=== PATIENT | female | born 1940 | race Hispanic/Latino ===

== ENCOUNTER 2018-01-27 06:26 | Day surgery (SDC) | payer OTHER ==
[2018-01-26 15:52] LABS: Absolute Lymphocytes (CBC) 2.9 K/uL (0.7-4.9); Absolute Monocytes 1.2 K/uL (0.1-1.3); Absolute Neutrophil 8.3 K/uL (1.8-8.0); Basophils % 0.8 % (0-1.3); Eosinophils % 2.1 % (0-4.4); Hematocrit 44.8 % (36.0-45.0); Lymphocytes % 22.4 % (15.3-44.8); MCH 28.7 pg (27.0-35.0); MCV 90.4 fL (80-100); MPV 9.1 fL (7.6-11.3); Monocytes % 9.5 % (3.3-12.3); RBC Red Blood Cell Count 4.95 M/uL (3.86-4.86)
--- NOTE | 2018-01-26 15:59 | RAD REPORT ---
EXAM DESCRIPTION: RAD - Chest Pa And Lat (2 Views) - 01/26/2018 3:38 pm CLINICAL HISTORY: Preop chest, pending cardiac catheterization, coronary artery obstruction COMPARISON: October 2016 TECHNIQUE: PA and lateral views of the chest were obtained. FINDINGS: The lungs are clear of a peripheral mass, consolidation or acute failure finding. Prominen t pericardial fat pad is seen. Heart size is normal and central vasculature is within normal limits . No pneumothorax or enlarging pleural effusion. Right costophrenic angle blunting is stable. Bones are osteopenic. No acute bone findings seen. No aortic abnormality. IMPRESSION: No acute cardiopulmonary process. Chest is not clearly different from October 2016.
[2018-01-26 16:00] LABS: Protime INR 1.01
[2018-01-26 16:08] LABS: Potassium 4.2 mmol/L (3.5-5.1)
[2018-01-27] MEDS ORDERED: HEPA 1000U/500MLS 1,000 UNIT/500 ML BAG IV ONE (06:45)
[2018-01-27] MEDS ORDERED: LIDOCAINE 1% MPF 30 ML VIAL ONE (06:45)
[2018-01-27] MEDS ORDERED: NA CHLORIDE 0.9% 500 ML ONE (07:03)
[2018-01-27] MEDS ORDERED: MIDAZOLAM HCL 2 MG/2 ML INJ ONE ×2 (07:35→07:48)
[2018-01-27] MEDS ORDERED: FENTANYL CITR 100 MCG/2 ML ONE (07:35)
[2018-01-27] MEDS ORDERED: ATROPINE SULF 1 MG/10 ML SYR IV ONE (07:35)
[2018-01-27] MEDS ORDERED: NA CHLORIDE 0.9% 50 ML ONE (07:36)
[2018-01-27] MEDS ORDERED: CLOPIDOGREL 75 MG TABLET ONE (08:41)
[2018-01-27] MEDS ORDERED: ASPIRIN 325 MG TAB ONE (08:41)
[2018-01-27] MEDS ORDERED: ACETYLCYST 20% 800 MG/4 ML VIAL PO ONE (10:15)
[2018-01-27] MEDS ORDERED: NITROGLYCERIN 0.4 MG/TAB SL PRN (11:00)
[2018-01-27] MEDS ORDERED: NA CHLORIDE 0.9% 1,000 ML IV SCH (11:00)
[2018-01-27] MEDS ORDERED: ZOLPIDEM TARTRATE 5 MG TABLET PO PRN (11:08)
[2018-01-27] MEDS ORDERED: ONDANSETRON 4 MG/2 ML VIAL IV PRN (11:08)
[2018-01-27 11:12] VITALS: BMI 32.9
[2018-01-27 11:32] LABS: Urine Appearance CLEAR; Urine Bilirubin NEGATIVE (NEG); Urine Blood 3+ (NEG); Urine Color OTHER; Urine Glucose NEGATIVE (NEG); Urine Protein 2+ (NEG); Urine Specific Gravity >=1.030 (1.005-1.030); Urine Urobilinogen 0.2 mg/dL (0.2-1.0)
[2018-01-27 11:43] LABS: Urine Bacteria <20 /HPF (<20); Urine Culture Reflex Order REFLEXED; Urine RBC 20-50 /HPF (NONE SEEN)
[2018-01-27] MEDS: MORPHINE 4 MG/ML SYR IV PRN ×2 (11:46→18:46)
[2018-01-27] MEDS ORDERED: ATORVASTATIN 80 MG TAB PO SCH (21:00)
[2018-01-27] MEDS: ACETAMINOPHEN 325 MG TABLET PO PRN (21:43)
--- NOTE | 2018-01-28 04:38 | OP ---
Date of Procedure: 01/27/2018 Surgeon: Jonny Newberry MD Automobile Salesman: Procedure: Left heart catheterization, selective coronary arteriogram, left ventriculogram, angiopla sty and stent of the proximal RCA. Indication: Ms. Yang is a 77-year-old was admitted because of unstable angina. She is a patient of Dr. Surya Horne. Description Of Procedure: She was brought into the medical laboratory specialist today as an outpatient. The patient had 2 mg of Versed for IV sedation along with some fentanyl. She was prepped and draped in the routine sterile fashion. A 6-Japanese catheter sheath was introduced in the right common femoral artery. Ms. Yang had very tortuous iliacs and aorta with severe calcification throughout. The LAD and circum flex were within normal limit with some moderate plaque buildup. She was left dominant. This was do ne using a 6-Japanese JL4 catheter Angus. The RCA was cannulated with a 6-Japanese JL4. This had a 90 % proximal RCA stenosis. LV gram was normal. A 6-Japanese 3DRC guide catheter was used to cannulate R CA for intervention. A [place] wire 0.14 extra support exchange length wire was used to cross the les ion successfully. The lesion was pre-dilated with a 2.5 x 15 Emerge balloon at 11 atmospheres in 2 d ifferent location. Following that, a 2.5 x 16 Synergy stent was placed without any difficulties with 0% residual. Complications: None. Blood Loss: 5 cc. Angiography in the common femoral artery was positive for some plaque buildup. Angio-Seal was used t o close the case. Final Diagnosis: Coronary artery disease status post primary RCA angioplasty followed by stent. Total Conscious Sedation: 1 hour. The patient received Angiomax during the procedure. She received aspirin and 300 mg of Plavix after the procedure. She will be sent home on aspirin, Plavix, beta blockers, and statin. SID/JUDITH Voice ID: [id number] Report ID: [id number]
[2018-01-28 04:39] LABS: Absolute Lymphocytes (CBC) 2.1 K/uL (0.7-4.9); Absolute Monocytes 1.2 K/uL (0.1-1.3); Absolute Neutrophil 5.2 K/uL (1.8-8.0); Basophils % 0.5 % (0-1.3); Eosinophils % 2.7 % (0-4.4); Hematocrit 35.3 % (36.0-45.0); Lymphocytes % 23.7 % (15.3-44.8); MCH 29.6 pg (27.0-35.0); MCV 90.2 fL (80-100); MPV 9.6 fL (7.6-11.3); Monocytes % 13.5 % (3.3-12.3); RBC Red Blood Cell Count 3.91 M/uL (3.86-4.86)
[2018-01-28 04:59] LABS: Potassium 3.9 mmol/L (3.5-5.1)
[2018-01-28] MEDS: ACETAMINOPHEN 325 MG TABLET PO PRN (08:08)
[2018-01-28 08:47] VITALS: BP 157/83; TEMP 98.2
[2018-01-28] MEDS ORDERED: ASPIRIN 81 MG CHEWABLE TABLET PO SCH (09:00)
[2018-01-28] MEDS ORDERED: CLOPIDOGREL 75 MG TABLET PO SCH (09:00)
[2018-01-28] MEDS ORDERED: MORPHINE 4 MG/ML SYR IV PRN (09:00)
[2018-01-28 09:43] VITALS: O2SAT 99
--- NOTE | 2018-01-28 11:46 | EKG ---
Test Date: 2018-01-28 Test Time: 08:36:21 Quick Mixer Operator: NOAH MEASUREMENT RESULTS: Intervals: Rate: 66 CO: 210 QRSD: 94 QT: 420 QTc: 440 [place]: P: 64 CO: 210 QRS: 51 T: 100 INTERPRETIVE STATEMENTS: Sinus rhythm with 1st degree AV block ST & T wave abnormality, consider inferior ischemia Abnormal ECG Compared to ECG 10/07/2016 17:41:23 First degree AV block now present ST (T wave) deviation now present Possible ischemia now present Electronically Signed On 01-28-18 11:44:32 OUTSIDE PLANT CABLE ENGINEER by Dustin Jansen
== END 2018-01-28 11:20 | disposition home or self-care (01) ==
LOC: CCL 06:26 → 4TH 09:51 → UNDOADMOB 09:51 → 4TH 09:55 → CCL 01-28 11:20
DX: I25.110 Atherosclerotic heart disease of native coronary artery with unstable angina pectoris (principal); I65.23 Occlusion and stenosis of bilateral carotid arteries; I10 Essential (primary) hypertension; E78.5 Hyperlipidemia, unspecified; E78.6 Lipoprotein deficiency; J44.9 Chronic obstructive pulmonary disease, unspecified; G90.09 Other idiopathic peripheral autonomic neuropathy; K21.9 Gastro-esophageal reflux disease without esophagitis; E03.9 Hypothyroidism, unspecified; F17.210 Nicotine dependence, cigarettes, uncomplicated; Z88.7 Allergy status to serum and vaccine; Z82.49 Family history of ischemic heart disease and other diseases of the circulatory system
CPT/HCPCS: 36415 ×2; 71046; 80048 ×2; 81001; 85025 ×2; 85610; 85730; 87077; 87086; 87088; 87186; 93005; 93458; C1725; C1760; C1893; C9600; J0583; J2250; J3010

== ENCOUNTER 2018-07-02 13:04 | Inpatient (IN) | payer OTHER ==
--- OUTSIDE RECORDS SUMMARY | 2018-07-02 13:16 | XMS REPORT ---
:1940 [facility] Address [address] [place] [address] Dr. Urban [address] [place] [id number] Care Team Providers Name Role Phone Unavailable Unavailable Unavailable Problems This patient has no known problems. Allergies, Adverse Reactions, Alerts This patient has no known allergies or adverse reactions. Medications This patient has no known medications.
--- OUTSIDE RECORDS SUMMARY | 2018-07-02 13:16 | XMS REPORT ---
:1940 Author Organization [employer] Care Team Providers Name Role Phone Horne Ben Provider Role Unavailable Allergies, Adverse Reactions, Alerts Substance Reaction Event Type N.K.D.A. Info Not Available Non Drug Allergy Problems Problem Type Condition Code Onset Dates Condition Status Problem Gastritis K29.70 Active Problem Atrial fibrillation I48.91 Active Problem Hypothyroidism E03.9 Active Problem Vitamin D deficiency E55.9 Active Problem Hypertension I10 Active Problem Hyperlipidemia E78.5 Active Problem Migraine NOS/not intrcbl G43.009 Active Problem Abdominal wall pain R10.9 Active Problem Nicotine dependence F17.200 Active Problem Atherosclerosis of nen[place] coronary I25.10 Active artery Problem Chronic kidney disease, stage 3 N18.3 Active Problem Seasonal and perennial allergic J30.9 Active rhinitis Problem Lung nodule, solitary R91.1 Active Problem Crohn''s disease of colon without K50.10 Active complication Problem Diverticulosis of colon K57.30 Active Problem Hematochezia K92.1 Active Problem H/O: CVA (cerebrovascular accident) Z86.73 Active Problem Chronic obstructive pulmonary J44.9 Active disease Problem Osteoarthritis M19.90 Active Problem Iron deficiency anemia D50.9 Active Problem Chronic back pain M54.9 Active Problem Depression with anxiety F41.8 Active Assessment Iron deficiency anemia, unspecified D50.9 Active iron deficiency anemia type Assessment Noncompliance with medication Z91.14 Active regimen Assessment Chronic back pain M54.9 Active Assessment Chronic kidney disease, stage 3 N18.3 Active Assessment Atrial fibrillation I48.91 Active Problem Hiatal hernia K44.9 Active Assessment Hypoxia R09.02 Active Problem Memory deficits R41.3 Active Problem Hemorrhoids K64.9 Active Problem Degenerative disc disease, lumbar M51.36 Active Problem Gastroesophageal reflux disease K21.9 Active Problem Iron deficiency anemia, unspecified D50.9 Active iron deficiency anemia type Problem 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 Problem Chronic systolic congestive heart I50.22 Active failure Assessment Hyperlipidemia E78.5 Active Problem Heart murmur R01.1 Active Assessment Atherosclerosis of [place] coronary I25.10 Active artery Problem Congestive heart failure I50.9 Active Assessment Gastroesophageal reflux disease K21.9 Active Problem Chronic kidney disease, unspecified N18.9 Active CKD stage Assessment Dark stools R19.5 Active Problem Hyperkalemia E87.5 Active Assessment Chronic obstructive pulmonary J44.9 Active disease Problem Edema R60.9 Active Assessment Hypothyroidism E03.9 Active Assessment Chronic systolic congestive heart I50.22 Active failure Assessment Depression with anxiety F41.8 Active Assessment Hypertension I10 Active Medications Medication Code Code Instructions Start End Status Dosage System Date Date Valsartan [facility] 05578884578 160 MG Orally Active 1 tablet Once a day Lyrica ND 98369881148 [address] Active 1 capsule Piotr Three times a day Propranolol HCl ND 43971819325 60 MG Orally Active 1 tablet Twice a day Alprazolam ND 99950830291 1 MG Orally Active 1 tablet Once a day PRN ANXIETY Klor-Con 10 [facility] 42347571901 10 MEQ Orally Active 1 tablet Twice a day with food Incruse Ellipta [facility] 50019510644 62.5 MCG/INH Active 1 puff Inhalation Once a day Vitamin B-12 ND 00131378895 1000 MCG Orally Active 1 tablet Once a day Albuterol [facility] 61497317689 (2.5 MG/3ML) Active 3 ml as Sulfate 0.083% needed Inhalation every 4-6 hours PRN cough,wheeze, SOB Amiodarone HCl ND 95619211266 200 MG Orally Active 1 tablet Once a day Nitroglycerin [facility] 08608922523 0.4 MG Active as directed Sublingual Ferrous Sulfate [facility] 26920158935 325 (65 Fe) MG Active 1 tablet Orally Once a day Plavix [facility] 19098194470 75 MG Orally Active 1 tablet Once a day Singulair ND 42266302603 10 MG Orally Active 1 tablet in Once a day the evening Spiriva [facility] 70622839768 18 MCG Active 1 capsule HandiHaler Inhalation Once a day Symbicort [facility] 70797543912 160-4.5 MCG/ACT Active 2 puffs Inhalation Twice a day Nexium ND 16328024667 40 MG Orally Active 1 capsule Once a day Levothyroxine ND 31413171492 125 MCG Orally Active 1 tablet on Sodium Once a day an empty stomach in the morning Atorvastatin [facility] 94337238645 80 MG Active TAKE 1 Calcium TABLET EVERY DAY Gemfibrozil [facility] 14404004291 600 MG Orally Active 1 tablet Twice a day Vitamin D [facility] 47801159784 51285 UNIT Active 1 capsule (Ergocalciferol) Orally once weekly Cymbalta [facility] 91801848806 60 MG Orally Active 1 capsule Once a day Union [facility] 73804159342 7.5-325 MG Active 1 tablet as Orally needed Lipitor [facility] 54153784269 80 MG Orally Active 1 tablet Once a day ProAir HFA [facility] 06138317511 108 (90 Base) Active 2 puffs as MCG/ACT needed Inhalation every 6 hrs Results No Known Results Summary Purpose [employer]ClinicalWorks Submission
[2018-07-02] MEDS ORDERED: NA CHLORIDE 0.9% 500 ML ONE ×3 (14:58→17:15)
--- NOTE | 2018-07-02 15:19 | RAD REPORT ---
EXAM DESCRIPTION: RAD - Chest Single View - 07/02/2018 3:11 pm CLINICAL HISTORY: Abdominal pain COMPARISON: January 2018 TECHNIQUE: AP portable chest image was obtained 1443 hours . FINDINGS: Lungs are normal volume. Interstitial markings are prominent throughout both lung huffman i n a pattern similar to baseline comparison study. No focal consolidation, mass or significant failure finding. Heart and vasculature are normal. No measurable pleural effusion and no pneumothorax. No ac [facility] bony abnormality seen. No acute aortic findings suspected. IMPRESSION: Chronic interstitial lung disease is present similar to comparison. No acute chest finding identified.
[2018-07-02 15:24] LABS: ALT/SGPT 18 U/L (12-78); AST/SGOT 8 U/L (15-37); Albumin 3.5 g/dL (3.4-5.0); Alkaline Phosphatase 95 U/L (45-117); BUN Blood Urea Nitrogen 109 mg/dL (7-18); Bicarbonate 19 mmol/L (21-32); Bilirubin Direct < 0.1 mg/dL (0-0.2); Bilirubin Total 0.5 mg/dL (0.2-1.0); Glucose Level 137 mg/dL (74-106); Lipase 175 U/L (73-393); Magnesium 2.1 mg/dL (1.8-2.4); NT PRO-BNP 6178 pg/mL (<450); Potassium 4.8 mmol/L (3.5-5.1); Protein, Total 6.8 g/dL (6.4-8.2); Sodium Level 136 mmol/L (136-145); Troponin (Emerg Dept Use Only) 0.05 ng/mL (0.0-0.045)
[2018-07-02 15:26] LABS: Absolute Lymphocytes (CBC) 1.5 K/uL (0.7-4.9); Absolute Monocytes 1.3 K/uL (0.1-1.3); Absolute Neutrophil 15.7 K/uL (1.8-8.0); Basophils % 0.2 % (0-1.3); Eosinophils % 0.2 % (0-4.4); Hematocrit 30.1 % (36.0-45.0); Lymphocytes % 7.8 % (15.3-44.8); MPV 9.5 fL (7.6-11.3); Monocytes % 7.2 % (3.3-12.3); RBC Red Blood Cell Count 3.48 M/uL (3.86-4.86)
[2018-07-02 15:37] LABS: Protime INR 0.97
[2018-07-02] MEDS ORDERED: PANTOPRAZOLE 40 MG INJ ONE ×2 (15:40→22:01)
[2018-07-02 16:06] LABS: Anisocytosis 2+; Blood Morphology Comment NOTED (NOT SEEN); Platelet Estimate ADEQ; Toxic Granulation 1+; Urine White Blood Cell Casts OK
[2018-07-02] MEDS ORDERED: ONDANSETRON 4 MG/2 ML VIAL ONE (16:06)
[2018-07-02] MEDS ORDERED: FENTANYL CITR 100 MCG/2 ML ONE (16:06)
[2018-07-02 17:02] LABS: Urine Blood NEGATIVE (NEG); Urine Glucose NEGATIVE (NEG); Urine Protein TRACE (NEG); Urine Specific Gravity 1.015 (1.005-1.030)
--- NOTE | 2018-07-02 17:05 | RAD REPORT ---
EXAM DESCRIPTION: CT - Abdomen Pelvis Wo Contrast - 07/02/2018 4:52 pm CLINICAL HISTORY: Abdominal pain, black stools COMPARISON: October 2016 TECHNIQUE: Axial [address] imaging of the abdomen and pelvis was performed without IV contrast. No IV contrast was given because of allergy, abnormal renal function, patient refusal or physician re quest. Oral contrast was given. All CT scans are performed using dose optimization technique as appropriate and may include automated exposure control or mA/KV adjustment according to patient size. FINDINGS: No suspicious findings in the lung bases. Heart size is upper normal. No pericardial effus ion. The liver, spleen and pancreas show no suspicious findings on non-contrast imaging. Gallbladder and b iliary tree are also without suspicious finding. Gallstones can be occult on CT imaging. No hydronephrosis or suspicious renal mass. No obstructing or nonobstructing calculi. Small low-densi ty area in the upper pole left kidney not clearly different from prior imaging and believed to be inc idental cyst. Mass of the left adrenal gland is not changed from 2017. Attenuation value is -8 Hounsf ield units which would support benign adrenal adenoma etiology. No right adrenal suspicious finding. Isodense renal masses and pyelonephritis cannot be excluded in the absence of IV contrast. Urinary bl adder is fully contracted around a Gamez catheter. No gastric dilatation or wall thickening. Most of the contrast is still in the stomach. Contrast has made it to the distal small bowel. No gastric outlet obstructive findings. No dilated large or small bowel. No appendicitis findings. There is moderate sigmoid diverticulosis and descending colon mild d iverticulosis. No diverticulitis. No colon mass suspected. No free air, free fluid or inflammatory stranding. No mass or bulky lymphadenopathy. Patient has a v gunnar small fat only umbilical hernia. Fat filled inguinal hernia present on the left similar to compar gretta. Disc and bony degenerative changes are present. IMPRESSION: Non-contrast enhanced CT abdomen and pelvis imaging show no acute or emergent finding. Full assessment is limited is the absence of IV contrast. Nonacute findings detailed in the body of the report and not substantially different from prior imagi ng.
--- NOTE | 2018-07-02 17:05 | EKG ---
Test Date: 2018-07-02 Test Time: 14:25:07 Marketing Lead: TRACY MEASUREMENT RESULTS: Intervals: Rate: 60 NM: 194 QRSD: 92 QT: 440 QTc: 440 [place]: P: 64 NM: 194 QRS: 49 T: -65 INTERPRETIVE STATEMENTS: Normal sinus rhythm ST & T wave abnormality, consider inferolateral ischemia Abnormal ECG Compared to ECG 01/28/2018 08:36:21 First degree AV block no longer present ST (T wave) deviation still present Possible ischemia still present Electronically Signed On 07-02-18 17:04:34 CDT by Dustin Jansen
--- NOTE | 2018-07-02 18:19 | P.HP ---
Certification for Inpatient Patient admitted to: Inpatient With expected LOS: >2 Midnights Patient will require the following post-hospital care: None Practitioner: I am a practitioner with admitting privileges, knowledge of patient current condition, hospital course, and medical plan of care. Services: Services provided to patient in accordance with Admission requirements found in Title 42 Section 412.3 of the Code of Federal Regulations Patient History Date of Service: 07/02/18 Primary Care Provider: Dr. Ben Horne; Card-Dr. Newberry; GI-Dr. Mittal Reason for admission: Diarrhea, melena History of Present Illness: 77-year-old female presented to the emergency room with melena and diarrhea. Patient reports diarrhea and melena over the past week. She has been having increasing nausea without vomiting. Mild pain to the lower abdominal quadrant also noted. Patient went to see her GI specialist. At that time she was evaluated and sent to the ER for further evaluation. She denied any fever, chills. In the ER patient evaluated. Patient was initially hypotensive. She was given one L bolus of fluid. Patient had positive guaiac stool. Hemoglobin 9.1. White count 18.0. Sodium 136, potassium 4.8, BUN of 109, creatinine 4.5 with a GFR of 10. Glucose 137. Troponin slightly elevated at 0.05. BMP at 6000. Lipase negative. CT scan shows no acute changes or colitis. Chest x-ray unremarkable. Blood pressure now stable with systolics around 150. Patient is getting 1 unit of blood at this time. Patient admitted for further evaluation and treatment. When I saw the patient she appeared comfortable. She is very pale. Patient with history of CAD and stent late last year, hypertension, CHF, prior tobacco use, COPD, atrial fibrillation, and hypothyroidism. ER reports that she was recently at a [facility] some time ago for a rash and given antibiotics. It is unclear what happened at that time. Allergies pneumococcal vaccine Adverse Reaction (Severe, Verified 10/07/16 17:37) Shortness of breath Home medications list reviewed: Yes Home Medications: Gemfibrozil [Lopid*] 600 mg PO BID 12/19/15 Pregabalin [Lyrica*] 50 mg PO BID 12/19/15 Tiotropium [Spiriva Handihaler*] 18 mcg IH DAILY 12/19/15 Cyanocobalamin [Vitamin B-12*] 1,000 mcg PO DAILY #90 tab 12/20/15 Amiodarone HCl [Cordarone*] 200 mg PO DAILY 01/05/16 Amlodipine [Norvasc*] 5 mg PO BID 01/05/16 Ferrous Sulfate 325 mg PO DAILY 01/05/16 Levothyroxine [Synthroid*] 0.075 mg PO DAILYAC #30 tab 01/09/16 Promethazine Tab [Phenergan*] 25 mg PO Q6HP PRN #30 tab 01/09/16 Albuterol Sulfate [Proair Hfa] 2 puff IH Q4HP PRN 01/26/18 Aspirin 325 mg PO DAILY 01/26/18 Atorvastatin Calcium [Lipitor] 80 mg PO BEDTIME 01/26/18 Budesonide/Formoterol Fumarate [Symbicort 80-4.5 Mcg Inhaler] 2 puff IH BID Duloxetine [Cymbalta Dalayed Release Pellets] 20 mg PO DAILY 01/26/18 Esomeprazole Mag Trihydrate [Nexium] 40 mg PO DAILY 01/26/18 Nitroglycerin [Nitrostat] 0.4 mg SL PRN PRN 01/26/18 Propranolol [Inderal LA] 60 mg PO DAILY 01/26/18 Valsartan [Diovan] 160 mg PO DAILY 01/26/18 Clopidogrel Bisulfate [Plavix] 75 mg PO DAILY #30 tablet 01/28/18 - Past Medical/Surgical History Diabetic: No -: CAD, stent -: COPD -: Hypertension -: Hyperlipidemia -: GERD -: Chronic atrial fibrillation -: Hypothyroidism -: Prior tobacco use -: Obesity -: CHF , suspect diastolic dysfunction -: C-sections x2 -: Hysterectomy -: Appendectomy -: Nose surgery Psychosocial/ Personal History: She is , has 2 children, she does not work. - Family History Father -: Heart disease Notes: COPD, ANEURYSM Mother -: Cancer Notes: COLON CANCER - Social History Smoking Status: Former smoker Alcohol use: No CD- Drugs: No Caffeine use: No Place of Residence: Home Review of Systems General: Weakness, Malaise Eyes: Unremarkable ENT: Unremarkable Respiratory: Unremarkable Cardiovascular: Unremarkable Gastrointestinal: Nausea, Abdominal Pain, Diarrhea, Melena, As per HPI Genitourinary: Unremarkable Musculoskeletal: Unremarkable Neurological: Unremarkable Lymphatics: Unremarkable Physical Examination - Physical Exam General: Alert, In no apparent distress, Oriented x3, Cooperative, Other ( Patient appears pale) HEENT: Atraumatic, Normocephalic, Other (Mucous membranes.) Neck: Supple, No Thyromegaly Respiratory: Clear to auscultation bilaterally, Normal air movement Cardiovascular: Normal pulses, Regular rate/rhythm Gastrointestinal: Normal bowel sounds, Soft and benign, Non-distended, No masses , No rebound, No guarding, Tenderness (Minimal pain to the lower quadrant) Musculoskeletal: No erythema, No tenderness, No warmth Integumentary: No tenderness/swelling, No erythema, No warmth, No cyanosis Neurological: Normal speech, Normal strength at 5/5 x4 extr, Normal tone, Normal affect - Studies Laboratory Data (last 24 hrs) 07/02/18 14:39: PT 11.5, INR 0.97 07/02/18 14:39: WBC 18.6 H, Hgb 9.1 L, Hct 30.1 L, Plt Count 266 07/02/18 14:39: Sodium 136, Potassium 4.8, BUN 109 H, Creatinine 4.50 H, Glucose 137 H, Magnesium 2.1, Total Bilirubin 0.5, AST 8 L, ALT 18, Alkaline Phosphatase 95, Lipase 175 Assessment and Plan - Plan Impression: Diarrhea, melena suspect upper GI bleed complicated with hypotension likely from dehydration Acute renal failure likely related to above Abdominal pain, lower quadrant related to above, possible C diff colitis CAD with prior stent with noted mild elevation in troponin likely stress induced Chronic CHF, suspect diastolic Chronic atrial fibrillation Hypertension GERD COPD History of iron deficiency anemia Hypothyroidism Plan: Diarrhea, melena suspect upper GI bleed complicated with hypotension likely from dehydration: Patient to be admitted to the ICU for further evaluation and treatment. Patient was given a 1 L bolus in the ER. Blood pressure has responded well. Patient currently getting 1 unit of blood. Will need to recheck hemoglobin after that time. Patient to get IV Lasix after unit given due to history of CHF. Maintain hemoglobin above 8.0. Case discussed with GI. Will order GI blood scan to evaluate for possible GI bleed. Patient may require endoscopy for further evaluation. Continue monitor closely. Will start IV Protonix strip. Patient to be started on IV fluids due to dehydration. Patient will be started on Cipro-Flagyl to cover for possible C diff colitis due to recent diarrhea. Blood, urine, and stool cultures obtained. Will continue to assess. Will consult cardiology and nephrology to further evaluate as well. Acute renal failure likely related to above: Continue IV fluids. Likely related to dehydration with recent diarrhea. Will consult Nephrology. Abdominal pain, lower quadrant related to above, possible C diff colitis: Will send stool cultures. CT scan shows no acute findings. Will start Cipro/Flagyl. CAD with prior stent with noted mild elevation in troponin likely stress induced : Will monitor cardiac enzymes. Patient reports history of stent placement late last year. Will order echocardiogram to further assess. Cardiology consulted. Chronic CHF, suspect diastolic: Will check echocardiogram. Will provide IV Lasix after unit of blood given. Will continue monitor closely. Chronic atrial fibrillation: Will need to obtain home medication. If taking chronic anti coagulation therapy will need to hold medication. Prior medical record indicates that she takes amiodarone. This may need to be restarted. Hypertension: Blood pressure improved with IV fluid bolus. Will provide medication as needed GERD: Will start Protonix drip. Continue as above COPD: Will provide COPD medication. Will maintain sats above 90%. History of iron deficiency anemia: Will check iron studies. Continue as above. Hypothyroidism: Will check tsh and free T4. Will need to confirm home medication. Discharge Plan: Home Plan to discharge in: Greater than 2 days - Advance Directives Does patient have a Living Will: No Does patient have a Durable POA for Healthcare: No - Code Status/Comfort Care Code Status Assessed: Yes (Patient is full code.) Time Spent Managing Pts Care (In Minutes): 55
--- NOTE | 2018-07-02 18:57 | EDPHYS ---
Physician Documentation [facility] Name: Klaudia Yang Age: 77 yrs Sex: Female : 1940 Arrival Date: 07/02/2018 Time: 13:06 Bed 25 Private MD: Ozzie [facility] ED Physician Vernon Luna HPI: 07/02 13:30 This 77 yrs old Female presents to ER via Wheelchair with complaints of WHITE cp COUNT. 13:30 The patient presents with abdominal pain in the lower abdomen. Onset: The cp symptoms/episode began/occurred 1 week(s) ago. The symptoms do not radiate. Associated signs and symptoms: Pertinent positives: diarrhea, fever, nausea, shortness of breath, black stools times 3 days, Pertinent negatives: chest pain, constipation, dysuria. 13:30 Severity of pain: in the emergency department the pain is unchanged despite home cp interventions. The patient has been recently seen by a physician: Dr. Mittal earlier today, with similar presenting complaints, and was sent to the [facility] Emergency Department for further evaluation. Historical: - Allergies: 13:24 No Known Allergies; ao - PMHx: 13:24 Anemia; Asthma; COPD; Hyperlipidemia; Hypertension; Hypothyroidism; Crohn's; Kidney ao problems; CHF; - PSHx: 13:24 stents; ao - Immunization history:: Adult Immunizations unknown. - Social history:: Smoking status: Patient/guardian denies using tobacco, Patient/guardian denies using alcohol, street drugs. - Ebola Screening: : Patient negative for fever greater than or equal to 101.5 degrees Fahrenheit, and additional compatible Ebola Virus Disease symptoms Patient denies exposure to infectious person Patient denies travel to an Ebola-affected area in the 21 days before illness onset. ROS: 13:35 Constitutional: Positive for poor PO intake, Negative for body aches, chills, fever. cp 13:35 Eyes: Negative for injury, pain, redness, and discharge. cp 13:35 ENT: Negative for drainage from ear(s), ear pain, sore throat, difficulty swallowing, difficulty handling secretions. 13:35 Cardiovascular: Negative for chest pain, edema, palpitations. 13:35 Respiratory: Positive for shortness of breath, Negative for cough, wheezing. 13:35 Abdomen/GI: Positive for abdominal pain, nausea, diarrhea, black/tarry stool, bowel incontinence, Negative for vomiting, constipation, hematemesis. 13:35 : Negative for urinary symptoms. 13:35 Skin: Negative for rash. 13:35 Neuro: Positive for general weakness, Negative for altered mental status, headache, syncope. 13:35 All other systems are negative. Exam: 13:40 Constitutional: The patient appears in no acute distress, alert, awake, cp non-diaphoretic, non-toxic, well developed, well nourished, uncomfortable. 13:40 Head/Face: Normocephalic, atraumatic. cp 13:40 Eyes: Periorbital structures: appear normal, Pupils: equal, round, and reactive to light and accomodation, Extraocular movements: intact throughout, Conjunctiva: normal, no exudate, no injection, Sclera: no appreciated abnormality, Lids and lashes: appear normal, bilaterally. 13:40 ENT: External ear(s): are unremarkable, Nose: is normal, Mouth: Lips: moist, Oral mucosa: moist, Posterior pharynx: is normal, airway is patent, no erythema, no exudate. 13:40 Neck: ROM/movement: is normal, is supple, without pain, no range of motions limitations, no nuchal rigidity. 13:40 Chest/axilla: Inspection: normal, Palpation: is normal, no crepitus, no tenderness. 13:40 Cardiovascular: Rate: bradycardic, Rhythm: regular, Edema: is not appreciated, JVD: is not appreciated. 13:40 Respiratory: the patient does not display signs of respiratory distress, Respirations: labored breathing, is not present, shallow respirations, that is mild, Breath sounds: decreased breath sounds, that are mild, throughout, stridor, is not appreciated. 13:40 Abdomen/GI: Inspection: distension, that is mild, Bowel sounds: active, all quadrants, Palpation: soft, in all quadrants, moderate abdominal tenderness, in the right lower quadrant and left lower quadrant, rebound tenderness, is not appreciated, voluntary guarding, is elicited in the right lower quadrant and left lower quadrant, Rectal exam: Stool: brown, guaiac positive. 13:40 Back: pain, is absent, ROM is normal. 13:40 Skin: no rash present. 13:40 Neuro: Orientation: to person, place \T\ time. Mentation: is normal, Motor: moves all fours, general weakness w/o focal deficits, Sensation: is normal. 14:38 ECG was reviewed by the Attending Physician. cp Vital Signs: 13:22 BP 140 / 48; Pulse 56; Resp 16; Temp 97.6(O); Pulse Ox 100% on 4 lpm NC; Weight 74.84 ao kg (R); Height 5 ft. 2 in. (157.48 cm) (R); Pain 10/10; 14:10 BP 97 / 45 Supine; Pulse 45; ao 14:12 BP 99 / 52 Sitting; Pulse 57; ao 14:16 BP 86 / 53 Standing; Pulse 59 RA; ao 15:09 BP 72 / 59; Pulse 52; Resp 16; Pulse Ox 100% on 4 lpm NC; ao 15:37 BP 117 / 88; Pulse 56; Resp 18; Pulse Ox 100% on 4 lpm NC; Pain 10/10; mg2 16:36 BP 84 / 53; Pulse 56; Resp 18; Pulse Ox 100% on R/A; mg2 17:49 BP 150 / 51; Pulse 65; Resp 18; Pulse Ox 96% on 4 lpm NC; mg2 18:49 BP 145 / 55; Pulse 65; Resp 18; Temp 98.4; Pulse Ox 96% on 2 lpm NC; mg2 20:02 BP 114 / 72; Pulse 65; Resp 18; Temp 98; Pulse Ox 100% on 2 lpm NC; Pain 8/10; bb 13:22 Body Mass Index 30.18 (74.84 kg, 157.48 cm) ao MDM: 13:25 Patient medically screened. cp 17:15 Data reviewed: vital signs, nurses notes, lab test result(s), EKG, radiologic studies, cp CT scan, plain films. 17:15 Test interpretation: by ED physician or midlevel provider: ECG, plain radiologic cp studies. Response to treatment: the patient's symptoms have mildly improved after treatment, and as a result, I will admit patient. 17:28 Physician consultation: Kerwin Mittal MD was called at 17:28, did not answer and cp unable to leave voicemail. 17:45 Physician consultation: Moe Hi DO was called at 17:49, was contacted at 17:49, cp and will see patient in ED, shortly. 05/02 14:16 Order name: Basic Metabolic Panel cp 07/02 14:16 Order name: CBC with Diff 07/02 14:16 Order name: LFT's cp 07/02 14:16 Order name: Magnesium; Complete Time: 15:25 cp 07/02 14:16 Order name: NT PRO-BNP; Complete Time: 15:25 cp 07/02 14:16 Order name: PT-INR; Complete Time: 17:08 cp 07/02 14:16 Order name: Troponin (emerg Dept Use Only); Complete Time: 15:25 cp 07/02 15:25 Interpretation: Abnormal: TROPED 0.05. cp 07/02 14:16 Order name: Type And Screen 07/02 14:16 Order name: Lipase; Complete Time: 15:25 07/02 14:17 Order name: Basic Metabolic Panel; Complete Time: 15:25 EDAZ 07/02 15:25 Interpretation: Normal except: CO2 19; GLUC 137; BUN 109; CRE 4.50; GFR 10. cp 07/02 14:17 Order name: CBC with Automated Diff; Complete Time: 17:08 EDAZ 07/02 15:39 Interpretation: Normal except: WBC 18.6; RBC 3.48; HGB 9.1; HCT 30.1; MCV 86.6; MCH cp 26.2; MCHC 30.3; RDW 22.6; CHERELLE% 84.6; LYM% 7.8; NEUT A 15.7. 07/02 14:17 Order name: Liver (Hepatic) Function; Complete Time: 15:25 EDAZ 07/02 15:32 Order name: CBC Smear Scan; Complete Time: 17:08 EDAZ 07/02 15:40 Order name: Stool Culture 07/02 13:27 Order name: Orthostatics; Complete Time: 14:15 07/02 14:16 Order name: XRAY Chest (1 view); Complete Time: 15:25 07/02 14:16 Order name: EKG; Complete Time: 14:17 cp 07/02 14:16 Order name: Cardiac monitoring; Complete Time: 15:07 07/02 14:16 Order name: EKG - Nurse/Tech; Complete Time: 15:24 cp 07/02 14:16 Order name: IV Saline Lock; Complete Time: 15:07 cp 07/02 15:09 Order name: CT Abd/Pelvis - Without Cont: give oral contrast; Complete Time: 17:08 cp 07/02 15:40 Order name: CDIFF cp 07/02 16:08 Order name: Packed RBC Leukored -1 EDMS 07/02 16:37 Order name: Urine Dipstick--Ancillary (enter results); Complete Time: 17:08 eb 07/02 17:42 Order name: Blood Culture Adult (2) cp 07/02 14:16 Order name: Labs collected and sent; Complete Time: 15:07 cp 07/02 14:16 Order name: O2 Per Protocol; Complete Time: 15:08 cp 07/02 14:16 Order name: O2 Sat Monitoring; Complete Time: 15:07 cp 07/02 15:28 Order name: Gamez; Complete Time: 15:55 cp EC:38 Rate is 60 beats/min. Rhythm is regular. NM interval is normal. QRS interval is normal. cp QT interval is normal. T waves are Inverted in lead aVL. Interpreted by me. Reviewed by me. Administered Medications: 15:07 Drug: NS 0.9% 500 ml Route: IV; Rate: bolus; Site: left antecubital; ao 18:02 Follow up: Response: No adverse reaction; IV Status: Completed infusion mg2 15:35 Drug: ProTONIX 80 mg Route: IVP; Site: right antecubital; mg2 18:02 Follow up: Response: No adverse reaction; Marked relief of symptoms mg2 16:13 Drug: NS 0.9% 500 ml Route: IV; Rate: bolus; Site: left forearm; mg2 18:02 Follow up: Response: No adverse reaction; Marked relief of symptoms; IV Status: mg2 Completed infusion 16:13 Drug: fentaNYL (PF) 25 mcg Route: IVP; Site: right antecubital; mg2 18:02 Follow up: Response: No adverse reaction; Marked relief of symptoms mg2 16:13 Drug: Zofran 4 mg Route: IVP; Site: right antecubital; mg2 18:02 Follow up: Response: No adverse reaction; Marked relief of symptoms mg2 Point of Care Testing: Guaiac: 15:08 Stool Guaiac: Positive; Stool Hemoccult Control: Pass; ao Disposition: 07/03 07:00 Co-signature as Attending Physician, Vernon Luna MD. rn Disposition: 07/02/18 18:56 Hospitalization ordered by Moe Hi for Inpatient Admission. Preliminary diagnosis are Gastrointestinal hemorrhage, unspecified, Hypotension, Diarrhea, unspecified, Unspecified kidney failure, Bandemia, Anemia in chronic diseases classified elsewhere. - Bed requested for Intensive Care Unit. - Status is Inpatient Admission. bb - Condition is Stable. - Problem is new. - Symptoms have improved. UTI on Admission? No Critical care time excluding procedures: 07/02 20:00 Critical care time: Bedside Care: 25 minutes, Consultation: 5 minutes, Family cp Intervention: 5 minutes. Total time: 35 minutes Signatures: Dispatcher [employer] EDMS Melani Ibarra RN RN bb Vernon Luna MD MD rn Page, Corey, PA PA cp Garcia, Cindy, RN RN cg Ortiz, Alex, RN RN ao Gardose, Michele, RN RN mg2 Corrections: (The following items were deleted from the chart) 18:57 18:56 Hospitalization Ordered by Moe Hi DO for Inpatient Admission. Preliminary cp diagnosis is Gastrointestinal hemorrhage, unspecified. Bed requested for Intensive Care Unit. Status is Inpatient Admission. Condition is Stable. Problem is new. Symptoms have improved. UTI on Admission? No. cp 18:57 18:57 07/02/2018 18:56 Hospitalization Ordered by Moe Hi DO for Inpatient cp Admission. Preliminary diagnosis is Gastrointestinal hemorrhage, unspecified; Hypotension; Diarrhea, unspecified. Bed requested for Intensive Care Unit. Status is Inpatient Admission. Condition is Stable. Problem is new. Symptoms have improved. UTI on Admission? No. 18:58 18:57 07/02/2018 18:56 Hospitalization Ordered by Moe Hi DO for Inpatient cp Admission. Preliminary diagnosis is Gastrointestinal hemorrhage, unspecified; Hypotension; Diarrhea, unspecified; Unspecified kidney failure. Bed requested for Intensive Care Unit. Status is Inpatient Admission. Condition is Stable. Problem is new. Symptoms have improved. UTI on Admission? No. 18:59 18:58 07/02/2018 18:56 Hospitalization Ordered by Moe Hi DO for Inpatient cp Admission. Preliminary diagnosis is Gastrointestinal hemorrhage, unspecified; Hypotension; Diarrhea, unspecified; Unspecified kidney failure; Bandemia. Bed requested for Intensive Care Unit. Status is Inpatient Admission. Condition is Stable. Problem is new. Symptoms have improved. UTI on Admission? No. cp 19:40 18:59 07/02/2018 18:56 Hospitalization Ordered by Moe Hi DO for Inpatient cg Admission. Preliminary diagnosis is Gastrointestinal hemorrhage, unspecified; Hypotension; Diarrhea, unspecified; Unspecified kidney failure; Bandemia; Anemia in chronic diseases classified elsewhere. Bed requested for Intensive Care Unit. Status is Inpatient Admission. Condition is Stable. Problem is new. Symptoms have improved. UTI on Admission? No. cp 20:25 19:40 07/02/2018 18:56 Hospitalization Ordered by Moe Hi DO for Inpatient bb Admission. Preliminary diagnosis is Gastrointestinal hemorrhage, unspecified; Hypotension; Diarrhea, unspecified; Unspecified kidney failure; Bandemia; Anemia in chronic diseases classified elsewhere. Bed requested for Intensive Care Unit. Status is Inpatient Admission. Condition is Stable. Problem is new. Symptoms have improved. UTI on Admission? No. cg 07/03 01:53 07/02 03:30 This 77 yrs old Female presents to ER via Wheelchair with cp complaints of WHITE COUNT. cp
--- NOTE | 2018-07-02 18:57 | ER ---
Nurse's Notes [facility] Name: Klaudia Yang Age: 77 yrs Sex: Female : 1940 Arrival Date: 07/02/2018 Time: 13:06 Bed 25 Private MD: Ben Horne Diagnosis: Gastrointestinal hemorrhage, unspecified;Hypotension;Diarrhea, unspecified;Unspecified kidney failure;Bandemia;Anemia in chronic diseases classified elsewhere Presentation: 07/02 13:20 Presenting complaint: Patient states: Reports of black stools and was told by Dr Worley ao WBC are low. Patient also report abdominal pain sharp and throbbing. Transition of care: patient was not received from another setting of care. Onset of symptoms is unknown. Risk Assessment: Do you want to hurt yourself or someone else? Patient reports no desire to harm self or others. Initial Sepsis Screen: Does the patient meet any 2 criteria? No. Patient's initial sepsis screen is negative. Does the patient have a suspected source of infection? No. Patient's initial sepsis screen is negative. Care prior to arrival: None. 13:20 Method Of Arrival: Wheelchair ao 13:20 Acuity: SUZANNA 3 ao Triage Assessment: 13:25 General: Appears in no apparent distress. uncomfortable, Behavior is calm, cooperative, ao appropriate for age. Pain: Complains of pain in abdomen Pain does not radiate. Pain currently is 10 out of 10 on a pain scale. EENT: No signs and/or symptoms were reported regarding the EENT system. Neuro: Level of Consciousness is awake, alert, obeys commands, Oriented to person, place, time, situation, Appropriate for age Moves all extremities. Full function Speech is normal, Facial symmetry appears normal. Cardiovascular: Capillary refill < 3 seconds Patient's skin is warm and dry. Respiratory: Airway is patent Respiratory effort is even, unlabored, Respiratory pattern is regular, symmetrical. GI: Abdomen is distended, Reports lower abdominal pain, bloody stool. : No signs and/or symptoms were reported regarding the genitourinary system. Derm: No signs and/or symptoms reported regarding the dermatologic system. Skin is intact, Skin is pink, warm \T\ dry. normal, Skin temperature is warm. Musculoskeletal: Circulation, motion, and sensation intact. Range of motion: intact in all extremities. Historical: - Allergies: 13:24 No Known Allergies; ao - PMHx: 13:24 Anemia; Asthma; COPD; Hyperlipidemia; Hypertension; Hypothyroidism; Crohn's; Kidney ao problems; CHF; - PSHx: 13:24 stents; ao - Immunization history:: Adult Immunizations unknown. - Social history:: Smoking status: Patient/guardian denies using tobacco, Patient/guardian denies using alcohol, street drugs. - Ebola Screening: : Patient negative for fever greater than or equal to 101.5 degrees Fahrenheit, and additional compatible Ebola Virus Disease symptoms Patient denies exposure to infectious person Patient denies travel to an Ebola-affected area in the 21 days before illness onset. Screenin:27 Abuse screen: Denies threats or abuse. Denies injuries from another. Nutritional ao screening: No deficits noted. Tuberculosis screening: No symptoms or risk factors identified. Fall Risk None identified. Assessment: 13:32 Reassessment: See triage assessment. ao 17:50 Reassessment: patient signed the consent for blood transfusion. mg2 20:00 Reassessment: Pt is A\T\O x 4, resp unlabored, IV sites intact with blood transfusing to bb left forearm, report was called to Kaye WOODY for ICU bed 4. Vital Signs: 13:22 BP 140 / 48; Pulse 56; Resp 16; Temp 97.6(O); Pulse Ox 100% on 4 lpm NC; Weight 74.84 ao kg (R); Height 5 ft. 2 in. (157.48 cm) (R); Pain 10/10; 14:10 BP 97 / 45 Supine; Pulse 45; ao 14:12 BP 99 / 52 Sitting; Pulse 57; ao 14:16 BP 86 / 53 Standing; Pulse 59 RA; ao 15:09 BP 72 / 59; Pulse 52; Resp 16; Pulse Ox 100% on 4 lpm NC; ao 15:37 BP 117 / 88; Pulse 56; Resp 18; Pulse Ox 100% on 4 lpm NC; Pain 10/10; mg2 16:36 BP 84 / 53; Pulse 56; Resp 18; Pulse Ox 100% on R/A; mg2 17:49 BP 150 / 51; Pulse 65; Resp 18; Pulse Ox 96% on 4 lpm NC; mg2 18:49 BP 145 / 55; Pulse 65; Resp 18; Temp 98.4; Pulse Ox 96% on 2 lpm NC; mg2 20:02 BP 114 / 72; Pulse 65; Resp 18; Temp 98; Pulse Ox 100% on 2 lpm NC; Pain 8/10; bb 13:22 Body Mass Index 30.18 (74.84 kg, 157.48 cm) ao ED Course: 13:06 Patient arrived in ED. ag5 13:07 Ben Horne DO is Private Physician. ag5 13:10 Reed Loredo, RN is Primary Nurse. hj 13:18 Francisco Javier Wyatt PA is PHCP. cp 13:18 Vernon Luna MD is Attending Physician. cp 13:20 Martell Goel, ANNALISE is Primary Nurse. ao 13:22 Triage completed. ao 13:25 Arm band placed on right wrist. Patient placed in an exam room, on a stretcher, on ao oxygen, on pulse oximetry, Patient notified of wait time. 13:27 Patient has correct armband on for positive identification. ao 14:29 EKG done, by chief technical officer. reviewed by Francisco Javier SHEN. at1 15:12 XRAY Chest (1 view) In Process Unspecified. EDMS 16:00 Gamez cath inserted, using sterile technique, 16 Fr., by wood furniture assembler, balloon inflated, to mg2 gravity drainage, urine specimen collected. returned clear yellow urine. Patient tolerated well. by Gayatri wood furniture assembler. 16:14 No provider procedures requiring assistance completed. Inserted saline lock: 22 gauge mg2 in right antecubital area, using aseptic technique. Blood collected. 16:14 Inserted saline lock: 20 gauge in left forearm, using aseptic technique. mg2 16:52 CT Abd/Pelvis - Without Cont: give oral contrast In Process Unspecified. EDMS 18:56 Moe Hi DO is Hospitalizing Provider. cp 20:23 Patient admitted, IV remains in place. mg2 Administered Medications: 15:07 Drug: NS 0.9% 500 ml Route: IV; Rate: bolus; Site: left antecubital; ao 18:02 Follow up: Response: No adverse reaction; IV Status: Completed infusion mg2 15:35 Drug: ProTONIX 80 mg Route: IVP; Site: right antecubital; mg2 18:02 Follow up: Response: No adverse reaction; Marked relief of symptoms mg2 16:13 Drug: NS 0.9% 500 ml Route: IV; Rate: bolus; Site: left forearm; mg2 18:02 Follow up: Response: No adverse reaction; Marked relief of symptoms; IV Status: mg2 Completed infusion 16:13 Drug: fentaNYL (PF) 25 mcg Route: IVP; Site: right antecubital; mg2 18:02 Follow up: Response: No adverse reaction; Marked relief of symptoms mg2 16:13 Drug: Zofran 4 mg Route: IVP; Site: right antecubital; mg2 18:02 Follow up: Response: No adverse reaction; Marked relief of symptoms mg2 Medication: 20:00 Blood products: PRBCs X 1 unit given. mg2 Point of Care Testing: Guaiac: 15:08 Stool Guaiac: Positive; Stool Hemoccult Control: Pass; ao Outcome: 18:56 Decision to Hospitalize by Provider. cp 20:03 Admitted to ICU accompanied by nurse, accompanied by tech, family with patient, via bb stretcher, room 4, with oxygen, on monitor, with chart, Report called to Kaye WOODY 20:03 Condition: stable 20:25 Patient left the ED. bb Signatures: Dispatcher [employer] EDMS Melani Ibarra RN RN bb Meredith Mccoy, advertising production manager EKG Tat1 Reed Loredo RN Francisco Javier Hinton PA PA cp Martell Goel RN Kolby Odonnell RN RN mg2 Ayad Wheatley ag5 Corrections: (The following items were deleted from the chart) 16:36 16:36 BP 84 / 53; Pulse 56bpm; Resp 18bpm; Pulse Ox 95% 4 lpm Nasal Cannula; mg2 mg2 0503 01:14 01:08 Blood products: PRBCs X 1 unit given. mg2 mg2
[2018-07-02] MEDS: ARFORMOTEROL TARTRATE 15 MCG/2 ML VIAL.NEB NEB SCH (21:28)
[2018-07-02] MEDS ORDERED: ONDANSETRON 4 MG/2 ML VIAL IV PRN (21:28)
[2018-07-02] MEDS: PANTOPRAZOLE INJ 80 MG in NA CHLORIDE 0.9% 250 ML IV SCH (21:28)
[2018-07-02] MEDS ORDERED: NA CHLORIDE 0.9% 1,000 ML IV SCH (21:28)
[2018-07-02] MEDS ORDERED: ACETAMINOPHEN 650MG/RECT SUPP RECT PRN (21:28)
[2018-07-02] MEDS ORDERED: FUROSEMIDE 20 MG/ 2ML VIAL IV ONE (21:35)
[2018-07-02] MEDS ORDERED: NA CHLORIDE 0.9% 250 ML ONE (22:01)
[2018-07-02] MEDS: CIPROFLOXACIN 400mg IV 400 MG/200 ML BAG IV SCH (22:19)
[2018-07-02] MEDS: NA CHLORIDE 0.9% 1,000 ML IV SCH (23:00)
[2018-07-03] MEDS: METRONIDAZOLE 500mg IVPB 500 MG/100 ML BAG IV SCH ×3 (01:19→17:45)
[2018-07-03 02:52] LABS: Hematocrit 33.4 % (36.0-45.0)
[2018-07-03 03:06] LABS: CKMB Creatine Kinase MB 4.3 ng/mL (0.3-3.6); Ferritin 204.7 ng/mL (8-388); Thyroid Stimulating Hormone 2.94 uIU/mL (0.360-3.740); Troponin I 0.06 ng/mL (0.0-0.045)
[2018-07-03] MEDS: FENTANYL CITR 100 MCG/2 ML IV PRN ×2 (06:01→12:01)
[2018-07-03] MEDS: PANTOPRAZOLE INJ 80 MG in NA CHLORIDE 0.9% 250 ML IV SCH ×3 (06:22→17:45)
[2018-07-03] MEDS ORDERED: NA CHLORIDE 0.9% 250 ML ONE (06:30)
[2018-07-03] MEDS ORDERED: PANTOPRAZOLE 40 MG INJ ONE (06:30)
--- NOTE | 2018-07-03 08:39 | RAD REPORT ---
EXAM DESCRIPTION: NM - GI Blood Loss Imaging - 07/03/2018 8:09 am CLINICAL HISTORY: Gastrointestinal bleeding COMPARISON: None. TECHNIQUE: The patient was administered 26.4 millicuries technetium labeled red blood cells. Dynamic images of the abdomen and pelvis were obtained for 60 minutes FINDINGS: No abnormal radiotracer activity is seen within the bowel. No abnormality displayed IMPRESSION: No evidence of active gastrointestinal bleeding during the examination
--- NOTE | 2018-07-03 09:27 | RAD REPORT ---
EXAM DESCRIPTION: Dustin Single View07/03/2018 8:42 am CLINICAL HISTORY: Shortness of breath COMPARISON: July 02 FINDINGS: The lungs appear clear of acute infiltrate. The heart is mildly enlarged IMPRESSION: No acute abnormalities displayed
[2018-07-03 10:07] LABS: Absolute Lymphocytes (CBC) 1.1 K/uL (0.7-4.9); Absolute Monocytes 1.4 K/uL (0.1-1.3); Absolute Neutrophil 9.9 K/uL (1.8-8.0); Basophils % 0.4 % (0-1.3); Eosinophils % 0.7 % (0-4.4); Hematocrit 31.3 % (36.0-45.0); Lymphocytes % 8.7 % (15.3-44.8); MPV 9.4 fL (7.6-11.3); Monocytes % 11.5 % (3.3-12.3)
[2018-07-03 10:29] LABS: CKMB Creatine Kinase MB 3.9 ng/mL (0.3-3.6); Magnesium 1.8 mg/dL (1.8-2.4); Potassium 4.3 mmol/L (3.5-5.1); Troponin I 0.04 ng/mL (0.0-0.045)
[2018-07-03] MEDS ORDERED: EPOETIN ALFA 10,000 UNIT/ML VIAL SQ ONE (10:45)
--- NOTE | 2018-07-03 10:49 | P.PN ---
Subjective Date of Service: 07/03/18 Primary Care Provider: Dr. Ben Horne; Card-Dr. Newberry; GI-Dr. Mittal Chief Complaint: Diarrhea, melena Subjective: Improving (Blood pressure stable. Patient received 1 unit of blood with stable hemoglobin.) Physical Examination - Vital Signs Temperature: 97.4 F Blood Pressure: 136/41 Pulse: 67 Respirations: 14 Pulse Ox (%): 100 - Physical Exam General: Alert, In no apparent distress, Oriented x3, Cooperative HEENT: Atraumatic Neck: Supple Respiratory: Clear to auscultation bilaterally, Normal air movement Cardiovascular: Normal pulses, Regular rate/rhythm Gastrointestinal: Normal bowel sounds, Soft and benign, Non-distended, No tenderness, No masses, No rebound, No guarding Musculoskeletal: No tenderness, No warmth Integumentary: No erythema, No warmth, No cyanosis Neurological: Normal speech, Normal strength at 5/5 x4 extr, Normal tone, Normal affect - Studies Laboratory Data (last 24 hrs) 07/02/18 14:39: PT 11.5, INR 0.97 07/02/18 14:39: WBC 18.6 H, Hgb 9.1 L, Hct 30.1 L, Plt Count 266 07/02/18 14:39: Sodium 136, Potassium 4.8, BUN 109 H, Creatinine 4.50 H, Glucose 137 H, Magnesium 2.1, Total Bilirubin 0.5, AST 8 L, ALT 18, Alkaline Phosphatase 95, Lipase 175 Medications List Reviewed: Yes Assessment & Plan Discharge Plan: Home Plan to discharge in: Greater than 2 days Physician Review Additional Text: Impression: Diarrhea, melena, abdominal pain likely C diff colitis with hypotension, dehydration and acute renal failure CAD with prior stent with noted mild elevation in troponin likely stress induced Chronic CHF, suspect diastolic Chronic atrial fibrillation Hypertension GERD COPD Acute on chronic anemia with History of iron deficiency anemia Hypothyroidism Plan: Diarrhea, melena, abdominal pain likely C diff colitis with hypotension, dehydration and acute renal failure: Patient doing well at this time. Blood pressure stable. Hemoglobin stable with 1 unit of blood given along with IV fluids. GI blood scan negative for bleeding. Doubt GI bleed at this time. Case discussed with GI. Will advance diet to clears. Will monitor hemoglobin. No need for intervention at this time. Will need cardiac clearance if EGD is needed during this hospitalization as per GI. Continue to evaluate for C diff colitis. Case discussed with nephrology. Slight renal improvement noted with poor urinary output. Discontinue Arb inhibitor. Patient may require dialysis if her condition continues to decline. Patient likely with underlying chronic renal disease. Continue with IV fluids, antibiotic therapy. Will also continue with IV Protonix drip. Will continue to assess. CAD with prior stent with noted mild elevation in troponin likely stress induced : Will monitor cardiac enzymes. Patient reports history of stent placement late last year. Will hold Plavix at this time. Will order echocardiogram to further assess. Cardiology consulted for further recommendation. Chronic CHF, suspect diastolic: Will check echocardiogram. IV fluids adjusted by a nephrology. Will monitor closely. Chronic atrial fibrillation: Restart amiodarone. Patient not on chronic anti coagulation therapy. Will discuss with cardiology. Hypertension: Blood pressure improved. Will discontinue Arb inhibitor. Restart beta-malcolm. GERD: Continue with Protonix drip. Patient may require EGD if hemoglobin decreases. Case discussed with GI. Continue as above COPD: Continue with COPD medication. Will maintain sats above 90%. Acute on chronic anemia with History of iron deficiency anemia: Patient with iron deficiency anemia. Patient has received 1 unit of blood. Patient will get Epogen today. Will continue to monitor and assess. Hypothyroidism: Restart home medication. Time Spent Managing Pts Care (In Minutes): 55
[2018-07-03 10:59] LABS: Blood Morphology Comment NOT SEEN (NOT SEEN); Platelet Estimate ADEQ
[2018-07-03 11:02] LABS: Ferritin 228.6 ng/mL (8-388); Folic Acid, (Folate) 11.1 ng/mL (3.1-17.5); Uric Acid 15.5 mg/dL (2.6-6.0)
[2018-07-03 11:52] LABS: Rheumatoid Factor NR (NEG)
[2018-07-03] MEDS: DULOXETINE 30 MG CAP PO SCH (12:00)
[2018-07-03] MEDS: AMIODARONE HCL 200 MG TAB PO SCH (12:01)
[2018-07-03] MEDS: LEVOTHYROXINE SOD 0.125 MG TAB PO SCH (12:01)
[2018-07-03 12:34] LABS: Urine Protein/Creatinine Ratio 0.92 ratio (<0.15)
[2018-07-03] MEDS: ARFORMOTEROL TARTRATE 15 MCG/2 ML VIAL.NEB NEB SCH ×2 (13:36→20:15)
[2018-07-03] MEDS ORDERED: LOPERAMIDE HCL 2 MG CAPSULE PO PRN (14:30)
[2018-07-03] MEDS ORDERED: LOPERAMIDE HCL 2 MG CAPSULE PO STA (14:32)
--- NOTE | 2018-07-03 14:39 | CON ---
A 77-year-old woman. Chief Complaint: Weakness. History Of Present Illness: Mrs. Yang came to the emergency room yesterday, she was found to be mildly anemic, hypotensive, and she had evidence of heme-positive stool. According to the emergency room notes, her lowest hemoglobin she has had since being in the hospital was 9.1, today it is 10.6 a fter transfusion. She has had a bleeding scan that did not indicate any particular source of bleedin g. She had been on dual anti-platelet therapy because of a stent. She received a stent in January 2018 and she has been on Plavix. No aspirin is listed, but I believe she probably was on aspirin as well. Outpatient Medications: Have been amiodarone, propranolol, nitroglycerin, esomeprazole, duloxetine, atorvastatin, valsartan, Plavix, levothyroxine, guaifenesin, alprazolam, Lyrica, ranitidine, hydrocod one, iron sulfate, and Brovana. She does not use tobacco now. Past Medical History: She has underlying atrial fib, coronary heart disease, hypertension, dyslipide hoang, and obstructive lung disease. Physical Examination: General: She appears to be stated age of 77, not in any distress. Vital Signs: Blood pressure 136/41, heart rate 67, O2 saturation 100% on room air. Lungs: Clear. Heart: Within normal limits. Abdomen: Soft. Extremities: Normal. Laboratory Data: Troponins meets a maximum level of 0.06, barely above normal. Her electrocardiogra m and echocardiogram do not indicate there is any acute coronary syndrome. Her stent was in the righ t coronary artery in January 2018. Impression: At this point, we are more than almost 6 months out from the stent. We should no longer give anti-platelet therapy. We should work up and see where the GI blood loss is coming from, do ou r best to control it. It was dramatic blood loss. I do not really think this is an acute coronary s yndrome, but we can certainly do a stress test and see if we want to pursue it further by doing a car diac cath. LORENA/JUDITH Voice ID: [id number] Report ID: [id number]
[2018-07-03] MEDS: NA CHLORIDE 0.9% 1,000 ML IV SCH (14:51)
[2018-07-03] MEDS: LACTOBACILLUS/ACIDOPHILUS TAB PO SCH ×2 (14:51→20:17)
[2018-07-03] MEDS: PREGABALIN 75 MG CAP PO SCH ×2 (14:54→20:17)
[2018-07-03] MEDS: ACETAMINOPHEN 500 MG TAB PO PRN (14:58)
--- NOTE | 2018-07-03 15:26 | ECHO ---
HEIGHT: 5 ft 2 in WEIGHT: 165 lb 0 oz DATE OF STUDY: 07/03/[address]: Moe Hi DO 2-DIMENSIONAL: YES M.MODE: YES DOPPLER: YES COLOR FLOW: YES TDS: NO PORTABLE: NO DEFINITY: NO BUBBLE STUDY: NO DIAGNOSIS: HISTORY OF CONGESTIVE HEART FAILURE CARDIAC HISTORY: CATHERIZATION: YES SURGERY: NO PROSTHETIC VALVE: NO PACEMAKER: NO MEASUREMENTS (cm) DIASTOLIC (NORMALS) SYSTOLIC (NORMALS) IVSd 1.4 (0.6-1.2) LA Diam 3.6 (1.9-4.0) LVEF 77% LVIDd 3.6 (3.5-5.7) LVIDs 2.0 (2.0-3.5) %FS 44% LVPWd 1.4 (0.6-1.2) Ao Diam 2.9 (2.0-3.7) 2 DIMENSIONAL ASSESSMENT: RIGHT ATRIUM: NORMAL LEFT ATRIUM: NORMAL RIGHT VENTRICLE: NORMAL LEFT VENTRICLE: LEFT VENTRICULAR HYPERTROPHY TRICUSPID VALVE: NORMAL MITRAL VALVE: MITRAL ANNULAR CALCIFICATION PULMONIC VALVE: NORMAL AORTIC VALVE: NORMAL PERICARDIAL EFFUSION: NONE AORTIC ROOT: NORMAL LEFT VENTRICULAR WALL MOTION: NORMAL. DOPPLER/COLOR FLOW: IMPAIRED LEFT VENTRICULAR RELAXATION. MILD MITRAL AND TRICUSPID REGURGITATION. NORMAL RIGHT VENTRICULAR SYSTOLIC PRESSURE. COMMENTS: NORMAL LEFT VENTRICULAR EJECTION FRACTION. LEFT VENTRICULAR HYPERTROPHY. MITRAL ANNULAR CALCIFICATION. MILD MITRAL AND TRICUSPID REGURGITATION. IMPAIRED LEFT VENTRICULAR RELAXATION. TECHNOLOGIST: BETTIE FARMER
[2018-07-03 17:18] LABS: Hematocrit 30.4 % (36.0-45.0)
[2018-07-03] MEDS: ATORVASTATIN 80 MG TAB PO SCH (20:16)
[2018-07-03] MEDS: PROPRANOLOL HCL 60 MG SA CAP PO SCH (20:17)
--- NOTE | 2018-07-03 21:01 | P.CNS ---
Date of Consult: 07/03/18 Reason for Consult: NOREEN Primary Care Provider: Dr. Ben Horne; Card-Dr. Newberry; GI-Dr. Mittal Chief Complaint: Diarrhea, melena History of Present Illness: a 77 Y/o woman with PMHx of CAD with recent PCI , CKD III, HTN and CHF pt was sent by her Gi physician for leuckocytosis and anemia ] as per daughter , pt was hospitalized frequently in the last 2 months for CHF, infection and skin rash GFR 20-40, daughter unaware if pt received IV contrast noticed to have diarrhea and dark colored stool Cr through 2018 ~1.5, then in apr 2.8 in ER cr 4.5, marina placed UO 270 ml overnight no chest pianm plapitation, vomiting Allergies pneumococcal vaccine Adverse Reaction (Severe, Verified 07/03/18 06:58) Shortness of breath Home Medications: Amiodarone HCl [Cordarone*] 200 mg PO DAILY 01/05/16 Atorvastatin Calcium [Lipitor] 80 mg PO BEDTIME 01/26/18 Duloxetine [Cymbalta Dalayed Release Pellets] 60 mg PO DAILY 01/26/18 Esomeprazole Mag Trihydrate [Nexium] 40 mg PO DAILY 01/26/18 Nitroglycerin [Nitrostat] 0.4 mg SL PRN PRN 01/26/18 Propranolol [Inderal LA] 60 mg PO BID 01/26/18 Valsartan [Diovan] 160 mg PO DAILY 01/26/18 Clopidogrel Bisulfate [Plavix] 75 mg PO DAILY #30 tablet 01/28/18 ALPRAZolam [Alprazolam] 1 mg PO DAILYPRN PRN 07/02/18 Arformoterol Tartrate [Brovana] 1 inh IH BID 07/02/18 Ferrous Sulfate [Ferrous Sulfate*] 325 mg PO TID 07/02/18 Guaifenesin [Mucinex] 600 mg PO DAILY 07/02/18 Hydrocodone Bit/Acetaminophen [Hydrocodon-Acetaminoph 7.5-325] 1 tab PO BID 04/21 Levothyroxine [Synthroid*] 0.125 mg PO DAILY 07/02/18 Pregabalin [Lyrica*] 75 mg PO TID 07/02/18 Ranitidine [Zantac*] 150 mg PO DAILY 07/02/18 - Past Medical/Surgical History Diabetic: No -: CAD, stent -: COPD -: Hypertension -: Hyperlipidemia -: GERD -: Chronic atrial fibrillation -: Hypothyroidism -: Prior tobacco use -: Obesity -: CHF , suspect diastolic dysfunction -: C-sections x2 -: Hysterectomy -: Appendectomy -: Nose surgery Psychosocial/ Personal History: She is , has 2 children, she does not work. - Family History Father Medical History: Heart disease Notes: COPD, ANEURYSM Mother Medical History: Cancer Notes: COLON CANCER - Social History Smoking Status: Former smoker Alcohol use: No CD- Drugs: No Caffeine use: Yes Place of Residence: Home Physical Examination Temp Pulse Resp BP Pulse Ox 97.8 F 65 22 H 154/54 H 100 07/03/18 16:00 07/03/18 20:17 07/03/18 18:00 07/03/18 20:17 07/03/18 17:00 General: Alert, Mild distress HEENT: Atraumatic Neck: Supple, Without JVD or thyroid abnormality Respiratory: Diminished Cardiovascular: No edema Gastrointestinal: Normal bowel sounds Integumentary: No rashes - Problems (1) Acute kidney injury Onset Date: 10/08/16 Current Visit: No Status: Acute Conclusions/Impression: NOREEN Cr in 2017 1.5, in 04/2018 2.8 now 4.5 possibly due to prerenal azotemia UA no bld trace prto, but UPC 0.9 need to R/O light chain disease will send for serology w/u renal us will send for uric acid gentle hydration if ni improvement in RFT then pt might need HD, discussed with family Anemia FLOR will start IV iron once stable Gi on board COPD cont home meds Adrenal mass likely benign W/u as an OP Sepsis? leuckocytosis and bandemia F/U cultures and C.diff
[2018-07-03] MEDS: CIPROFLOXACIN 400mg IV 400 MG/200 ML BAG IV SCH (21:39)
[2018-07-03] MEDS: HYDROCODONE/APAP 7.5/325 MG TAB PO PRN (22:01)
[2018-07-03] MEDS: ALPRAZOLAM 0.25 MG TABLET PO PRN (22:01)
[2018-07-03 22:39] LABS: Urine Appearance CLOUDY; Urine Bilirubin NEGATIVE (NEG); Urine Blood 2+ (NEG); Urine Color YELLOW; Urine Glucose NEGATIVE (NEG); Urine Microscopic Reflex ORDER UMIC; Urine Protein 1+ (NEG); Urine Urobilinogen 0.2 mg/dL (0.2-1.0); Urine pH 5.5 (5.0-7.0)
[2018-07-03 23:01] LABS: Urine Bacteria 20-50 /HPF (<20); Urine Culture Reflex Order REFLEXED; Urine RBC <5 /HPF (NONE SEEN)
[2018-07-04] MEDS: METRONIDAZOLE 500mg IVPB 500 MG/100 ML BAG IV SCH ×3 (00:09→16:49)
[2018-07-04 05:45] LABS: Absolute Monocytes 1.2 K/uL (0.1-1.3); Absolute Neutrophil 9.2 K/uL (1.8-8.0); Basophils % 0.2 % (0-1.3); Eosinophils % 1.6 % (0-4.4); Lymphocytes % 8.9 % (15.3-44.8); MPV 9.2 fL (7.6-11.3); Monocytes % 10.2 % (3.3-12.3); RBC Red Blood Cell Count 3.53 M/uL (3.86-4.86)
[2018-07-04 05:56] LABS: Magnesium 1.8 mg/dL (1.8-2.4); Potassium 4.2 mmol/L (3.5-5.1)
[2018-07-04] MEDS: LEVOTHYROXINE SOD 0.125 MG TAB PO SCH (06:02)
[2018-07-04] MEDS ORDERED: MAGNESIUM SULFATE 1 gm IVPB 1 GM/100 ML BAG IV ONE (07:00)
[2018-07-04] MEDS ORDERED: ARFORMOTEROL TARTRATE 15 MCG/2 ML VIAL.NEB ONE (07:46)
[2018-07-04] MEDS: ARFORMOTEROL TARTRATE 15 MCG/2 ML VIAL.NEB NEB SCH ×2 (07:50→19:50)
[2018-07-04] MEDS: LACTOBACILLUS/ACIDOPHILUS TAB PO SCH ×3 (07:53→20:42)
[2018-07-04] MEDS: PREGABALIN 75 MG CAP PO SCH ×3 (07:53→20:42)
[2018-07-04] MEDS: NA CHLORIDE 0.9% 1,000 ML IV SCH ×2 (08:20→16:49)
[2018-07-04] MEDS: AMIODARONE HCL 200 MG TAB PO SCH (08:26)
[2018-07-04] MEDS: DULOXETINE 30 MG CAP PO SCH (08:26)
[2018-07-04] MEDS: PANTOPRAZOLE INJ 80 MG in NA CHLORIDE 0.9% 250 ML IV SCH ×3 (08:27→20:40)
[2018-07-04 08:51] LABS: Anisocytosis 1+; Blood Morphology Comment NOTED (NOT SEEN); Ovalocytes 1+; Platelet Estimate ADEQ; Urine White Blood Cell Casts OK
[2018-07-04] MEDS: PROPRANOLOL HCL 60 MG SA CAP PO SCH ×2 (09:00→20:43)
[2018-07-04] MEDS: FENTANYL CITR 100 MCG/2 ML IV PRN (10:57)
--- NOTE | 2018-07-04 11:02 | P.PN ---
Subjective Date of Service: 07/04/18 Primary Care Provider: Dr. Ben Horne; Card-Dr. Newberry; GI-Dr. Mittal Chief Complaint: Diarrhea, melena Subjective: Improving Physical Examination - Vital Signs Temperature: 98 F Blood Pressure: 136/50 Pulse: 55 Respirations: 16 Pulse Ox (%): 100 - Physical Exam General: Alert, In no apparent distress, Oriented x3, Cooperative HEENT: Atraumatic Neck: Supple Respiratory: Clear to auscultation bilaterally, Normal air movement Cardiovascular: Normal pulses, Regular rate/rhythm Gastrointestinal: Normal bowel sounds, Soft and benign, Non-distended, No masses , No rebound, No guarding - Studies Microbiology Data (last 24 hrs): 07/02/18 17:35 Stool Clostridium difficile Toxin Assay - Final Medications List Reviewed: Yes Assessment & Plan Discharge Plan: Home Plan to discharge in: 48 Hours Physician Review Additional Text: Impression: Diarrhea, melena, abdominal pain likely C diff colitis with hypotension, dehydration and acute renal failure UTI CAD with prior stent with noted mild elevation in troponin likely stress induced Chronic CHF, suspect diastolic Chronic atrial fibrillation Hypertension GERD COPD Acute on chronic anemia with History of iron deficiency anemia Hypothyroidism Plan: Diarrhea, melena, abdominal pain with hypotension, dehydration and acute renal failure: Patient has improved. Blood pressure remained stable. Continue IV fluids. C diff culture negative. GI plans for EGD today. Await findings. Will advance diet as tolerated after EGD. Renal function has improved with hydration. Will discuss further with GI and nephrology after EGD. Will transfer patient to the floor in ambulate with physical therapy. UTI: Continue antibiotic therapy. Await urine culture results. CAD with prior stent with noted mild elevation in troponin likely stress induced : Cardiology recommends no further need for Plavix. Cardiology to consider cardiac evaluation. Will discuss with cardiology. Await EGD findings. Chronic CHF, suspect diastolic: Patient with diastolic dysfunction. IV fluids continue to be adjusted by a nephrology. Will monitor closely. Chronic atrial fibrillation: Continue amiodarone. Patient not on chronic anti coagulation therapy. Likely no need for future chronic anti coagulation therapy Hypertension: Blood pressure improved. Beta-malcolm therapy restarted. Arb inhibitor discontinued due to renal failure. GERD: Continue with Protonix drip. EGD to be done today. Await further recommendations by GI. COPD: Continue with COPD medication. Will maintain sats above 90%. Acute on chronic anemia with History of iron deficiency anemia: Patient with iron deficiency anemia. Patient has received 1 unit of blood. Patient received Epogen yesterday. Hemoglobin remained stable. Hypothyroidism: Continue medication. Time Spent Managing Pts Care (In Minutes): 55
[2018-07-04] MEDS ORDERED: Ringers Lactate 1,000 ML IV ONE (12:55)
--- NOTE | 2018-07-04 12:57 | PN ---
Ms. Yang is doing better. She is responding to antibiotics. I think all of her troponin release as small as it was can be attributed to that. I do not recommend a further cardiac workup at this t [facility]. LORENA/JUDITH Voice ID: [id number] Report ID: [id number]
[2018-07-04] MEDS ORDERED: PROPOFOL 200 MG/20 ML VIAL IV ONE (13:33)
[2018-07-04] MEDS ORDERED: GLYCOPYRROLATE 0.2 MG/ML SYR ONE (13:34)
[2018-07-04] MEDS ORDERED: LIDOCAINE 1% MPF 2 ML AMPULE ONE (13:34)
--- NOTE | 2018-07-04 13:51 | ENDO RPT ---
[address], [address] EGD PROCEDURE REPORT EXAM DATE: 07/04/2018 PATIENT NAME: Klaudia Sal MR#: [id number] BIRTHDATE: 1940 ATTENDING: Kerwin Mittal Dr STATUS: inpatient BLENDING SUPERVISOR: Lottie Cunha and Azalea Ray RN INDICATIONS: The patient is a 77 yr old Female here for an EGD due to anemia and melenic bleeding PROCEDURE PERFORMED: EGD with biopsy MEDICATIONS: Per Anesthesia. TOPICAL ANESTHETIC: none CONSENT: The patient understands the risks and benefits of the procedure and understands that these risks include, but are not limited to: sedation, allergic reaction, infection, perforation and/or bleeding. Alternative means of evaluation and treatment include, among others: physical exam, x-rays, and/or surgical intervention. The patient elects to proceed with this endoscopic procedure. DESCRIPTION OF PROCEDURE: During intra-op preparation period all mechanical medical equipment was checked for proper function. Hand hygiene and appropriate measures for infection prevention was taken. Procedure, possible complications, and alternatives including but not limited to the possibility of bleeding, perforation, tear, infection, sepsis, need for surgery, need for blood transfusion, and anesthesia related complications were explained to the patient. After the risks, benefits and alternatives of the procedure were thoroughly explained, Informed consent was verified, confirmed and timeout was successfully executed by the treatment team. The patient was placed in the left lateral position. The patient was anesthetized with topical anesthesia. Through the anesthetized oropharyngeal area, the scope was passed without any difficulty. The Pentax EG-[id number] ([id number]) endoscope was introduced through the mouth and advanced to the third portion of the duodenum. Retroflexed views revealed no abnormalities. The gastroscope was then slowly withdrawn and removed. Severe gastritis was found in the body and the antrum of the stomach. Multiple biopsies were obtained and sent to pathology. ADVERSE EVENTS: There were no complications. IMPRESSIONS: Severe gastritis in the body < the antrum of the stomach, s/p biopsies RECOMMENDATIONS: 1. await biopsy results 2. acid suppression therapy REPEAT EXAM: Kerwin Mittal Dr eSigned: Kerwin Mittal Dr 07/04/2018 1:51 PM cc: Moe Hi CPT CODES: ICD9 CODES: PATIENT NAME: Doron Klaudiahan Griffin MR#: [id number]
--- NOTE | 2018-07-04 14:31 | P.CNS ---
Date of Consult: 07/04/18 Reason for Consult: NOREEN/ CKD Requesting Physician: Moe Hi Primary Care Provider: Dr. Ben Horne; Card-Dr. Newberry; GI-Dr. Mittal; Nephro -Dr. Estevez Chief Complaint: Diarrhea, melena History of Present Illness: 77-year-old female presented to the emergency room with melena and diarrhea. Patient reports diarrhea and melena over the past week. She has been having increasing nausea without vomiting. Mild pain to the lower abdominal quadrant also noted. Patient went to see her GI specialist. At that time she was evaluated and sent to the ER for further evaluation. She denied any fever, chills. In the ER patient evaluated. Patient was initially hypotensive. She was given one L bolus of fluid. Patient had positive guaiac stool. Hemoglobin 9.1. White count 18.0. Sodium 136, potassium 4.8, BUN of 109, creatinine 4.5 with a GFR of 10. Glucose 137. Troponin slightly elevated at 0.05. BMP at 6000. Lipase negative. CT scan shows no acute changes or colitis. Chest x-ray unremarkable. Blood pressure now stable with systolics around 150. Patient is getting 1 unit of blood at this time. Patient admitted for further evaluation and treatment. 13:30 This 77 yrs old Female presents to ER via Wheelchair with complaints of WHITE cp COUNT. 13:30 The patient presents with abdominal pain in the lower abdomen. Onset: The cp symptoms/episode began/occurred 1 week(s) ago. The symptoms do not radiate. Associated signs and symptoms: Pertinent positives: diarrhea, fever, nausea, shortness of breath, black stools times 3 days, Pertinent negatives: chest pain, constipation, dysuria. 13:30 Severity of pain: in the emergency department the pain is unchanged despite home cp interventions. The patient has been recently seen by a physician: Dr. Mittal earlier today, with similar presenting complaints, and was sent to the [facility] Emergency Department for further evaluation. Allergies pneumococcal vaccine Adverse Reaction (Severe, Verified 07/03/18 06:58) Shortness of breath Home medications list reviewed: Yes Home Medications: Amiodarone HCl [Cordarone*] 200 mg PO DAILY 01/05/16 Atorvastatin Calcium [Lipitor] 80 mg PO BEDTIME 01/26/18 Duloxetine [Cymbalta Dalayed Release Pellets] 60 mg PO DAILY 01/26/18 Esomeprazole Mag Trihydrate [Nexium] 40 mg PO DAILY 01/26/18 Nitroglycerin [Nitrostat] 0.4 mg SL PRN PRN 01/26/18 Propranolol [Inderal LA] 60 mg PO BID 01/26/18 Valsartan [Diovan] 160 mg PO DAILY 01/26/18 Clopidogrel Bisulfate [Plavix] 75 mg PO DAILY #30 tablet 01/28/18 ALPRAZolam [Alprazolam] 1 mg PO DAILYPRN PRN 07/02/18 Arformoterol Tartrate [Brovana] 1 inh IH BID 07/02/18 Ferrous Sulfate [Ferrous Sulfate*] 325 mg PO TID 07/02/18 Guaifenesin [Mucinex] 600 mg PO DAILY 07/02/18 Hydrocodone Bit/Acetaminophen [Hydrocodon-Acetaminoph 7.5-325] 1 tab PO BID 04/21 Levothyroxine [Synthroid*] 0.125 mg PO DAILY 07/02/18 Pregabalin [Lyrica*] 75 mg PO TID 07/02/18 Ranitidine [Zantac*] 150 mg PO DAILY 07/02/18 - Past Medical/Surgical History Diabetic: No -: CAD, stent -: COPD -: Hypertension -: Hyperlipidemia -: GERD -: Chronic atrial fibrillation -: Hypothyroidism -: Prior tobacco use -: Obesity -: CHF , suspect diastolic dysfunction -: C-sections x2 -: Hysterectomy -: Appendectomy -: Nose surgery Psychosocial/ Personal History: She is , has 2 children, she does not work. - Family History Father Medical History: Heart disease Notes: COPD, ANEURYSM Mother Medical History: Cancer Notes: COLON CANCER - Social History Smoking Status: Former smoker Alcohol use: No CD- Drugs: No Caffeine use: Yes Place of Residence: Home Review of Systems 10-point ROS is otherwise unremarkable General: Weakness, Malaise Gastrointestinal: Diarrhea Neurological: Weakness Physical Examination Temp Pulse Resp BP Pulse Ox 99.0 F 59 16 95/46 L 100 07/04/18 13:10 07/04/18 13:10 07/04/18 13:10 07/04/18 13:10 07/04/18 11:02 General: Alert, In no apparent distress, Oriented x3, Cooperative HEENT: Atraumatic, Mucous membr. moist/pink Neck: Supple Respiratory: Clear to auscultation bilaterally Cardiovascular: No edema, Regular rate/rhythm, No rubs Gastrointestinal: No guarding, Distended, Tenderness Musculoskeletal: No clubbing, No contractures Integumentary: No rashes, No cyanosis Neurological: Normal speech Blood work reviewed in the chart. BUN 69; Cr 2.72 Imagings Data: EXAM DESCRIPTION: US - Renal Ultrasound-Complete - 07/04/2018 8:35 pm CLINICAL HISTORY: Acute renal insufficiency COMPARISON: None. FINDINGS: The right kidney measures 10 cm with an increased echotexture. A 1.5 centimeter cyst The left kidney measures 11 cm with an increased echotexture. 1.2 centimeter cyst Hydronephrosis is not seen. Evaluation of bladder is limited as it is decompressed IMPRESSION: Increased renal echotexture consistent with parenchymal disease Small bilateral renal cysts EXAM DESCRIPTION: CT - Abdomen Pelvis Wo Contrast - 07/02/2018 4:52 pm CLINICAL HISTORY: Abdominal pain, black stools COMPARISON: October 2016 TECHNIQUE: Axial [address] imaging of the abdomen and pelvis was performed without IV contrast. No IV contrast was given because of allergy, abnormal renal function, patient refusal or physician request. Oral contrast was given. All CT scans are performed using dose optimization technique as appropriate and may include automated exposure control or mA/KV adjustment according to patient size. FINDINGS: No suspicious findings in the lung bases. Heart size is upper normal. No pericardial effusion. The liver, spleen and pancreas show no suspicious findings on non-contrast imaging. Gallbladder and biliary tree are also without suspicious finding. Gallstones can be occult on CT imaging. No hydronephrosis or suspicious renal mass. No obstructing or nonobstructing calculi. Small low-density area in the upper pole left kidney not clearly different from prior imaging and believed to be incidental cyst. Mass of the left adrenal gland is not changed from 2017. Attenuation value is -8 Hounsfield units which would support benign adrenal adenoma etiology. No right adrenal suspicious finding. Isodense renal masses and pyelonephritis cannot be excluded in the absence of IV contrast. Urinary bladder is fully contracted around a Gamez catheter. No gastric dilatation or wall thickening. Most of the contrast is still in the stomach. Contrast has made it to the distal small bowel. No gastric outlet obstructive findings. No dilated large or small bowel. No appendicitis findings. There is moderate sigmoid diverticulosis and descending colon mild diverticulosis. No diverticulitis. No colon mass suspected. No free air, free fluid or inflammatory stranding. No mass or bulky lymphadenopathy. Patient has a very small fat only umbilical hernia. Fat filled inguinal hernia present on the left similar to comparison. Disc and bony degenerative changes are present. IMPRESSION: Non-contrast enhanced CT abdomen and pelvis imaging show no acute or emergent finding. Conclusions/Impression: A/ NOREEN likely due to hypovolemia in the setting of GI symptoms. Acidosis. CKD III with proteinuria. HTN with CKD/ CHF. Diastolic CHF, chronic. Anemia in chronic illness. GI Bleed/ Severe Gastritis. Iron deficiency. Hypocalcemia. Acute Cystitis. P/ Continue current POC and Medications. Change IVF to 1/2NS. Will consider oral bicarb therapy. Follow up with endoscopy report. May benefit from IV iron administration. Agree with current abx; follow up urine culture. No NSAIDs. AM labs. Daily weight. Thank you kindly for the consultation.
--- NOTE | 2018-07-04 16:18 | PN ---
Date of Progress Note: 07/04/2018 Chief Complaint: Acute kidney injury. History Of Present Illness: Acute kidney injury moderately severe, nonoliguric , associated with severe prerenal azotemia, acute tubular necrosis. The patient has underlying chronic kidney disease stage 3, hypertension and congestive heart failure. 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 The patient is admitted to ICU. The patient has frequent hospitalization over last 2 months for congestive heart failure and a skin infection with rash. The patient has chronic kidney disease stage 3, GFR was ranging in past from 20- 40. The patient noted to have diarrhea and dark bowel movements. Creatinine level at baseline back in 2017 was 1.5 and then this year in April was up to 2.8. In the emergency room, blood work was obtained and showed creatinine 4.5. Gamez catheter was placed and the patient has oliguric urine output. The patient was found to have oliguric and acute kidney injury secondary to severe prerenal azotemia. Renal hypoperfusion due to acute bleeding. The patient was started on IV fluids. Renal function has improved somewhat over last 24 hours. Review of Systems: The patient denies new complaints. Physical Examination: Lungs: Few crackles at bases. Heart: S1 and S2. ABDOMEN: Soft and benign. Extremities: No edema. Laboratory Data: Blood work showed sodium 144, potassium 4.2, chloride 116, CO2 19, BUN 69, creatinine 2.79, calcium 8.2, magnesium 1.8, uric acid 13.3 improving from 15.5. Impression And Plan: 1. Acute kidney injury, severe, nonoliguric. Currently urine output is improving, over the last 24 hours urine output improved from 400-1500 range. Continue IV fluids. Monitor electrolytes closely and monitor for any evidence of sepsis and rule out clostridium difficile colitis. 2. Congestive heart failure. The patient may require diuretic and dialysis currently is on hold in view of improvement with renal function. Electrolytes are stable. 3. Metabolic acidosis. Continue to monitor with an adjustment of IV fluid, bicarb is dropping below 16. Currently, bicarb is 19. 4. The patient has history of congestive heart failure. Recommend to hold KATI inhibitor due to acute kidney injury and use diuretics sparingly as needed. I spent total 36 min including 25 min to coordinate care plan. IGOR/JUDITH Voice ID: [id number] Report ID: [id number] MTDD
[2018-07-04] MEDS: CIPROFLOXACIN 400mg IV 400 MG/200 ML BAG IV SCH (20:42)
[2018-07-04] MEDS: ATORVASTATIN 80 MG TAB PO SCH (20:42)
--- NOTE | 2018-07-04 21:02 | RAD REPORT ---
EXAM DESCRIPTION: US - Renal Ultrasound-Complete - 07/04/2018 8:35 pm CLINICAL HISTORY: Acute renal insufficiency COMPARISON: None. FINDINGS: The right kidney measures 10 cm with an increased echotexture. A 1.5 centimeter cyst The left kidney measures 11 cm with an increased echotexture. 1.2 centimeter cyst Hydronephrosis is not seen. Evaluation of bladder is limited as it is decompressed IMPRESSION: Increased renal echotexture consistent with parenchymal disease Small bilateral renal cysts
[2018-07-04] MEDS: ALPRAZOLAM 0.25 MG TABLET PO PRN (22:31)
[2018-07-05] MEDS: PANTOPRAZOLE INJ 80 MG in NA CHLORIDE 0.9% 250 ML IV SCH ×2
[2018-07-05] MEDS: METRONIDAZOLE 500mg IVPB 500 MG/100 ML BAG IV SCH ×3 (01:08→17:19)
[2018-07-05 05:50] LABS: Absolute Lymphocytes (CBC) 0.9 K/uL (0.7-4.9); Absolute Neutrophil 8.6 K/uL (1.8-8.0); Basophils % 0.3 % (0-1.3); Eosinophils % 1.7 % (0-4.4); Hematocrit 28.4 % (36.0-45.0); Lymphocytes % 8.5 % (15.3-44.8); MPV 9.2 fL (7.6-11.3); Monocytes % 8.9 % (3.3-12.3); RBC Red Blood Cell Count 3.28 M/uL (3.86-4.86)
[2018-07-05] MEDS: HYDROCODONE/APAP 7.5/325 MG TAB PO PRN ×2 (06:02→21:40)
[2018-07-05] MEDS: LEVOTHYROXINE SOD 0.125 MG TAB PO SCH (06:03)
[2018-07-05 06:26] LABS: Magnesium 1.8 mg/dL (1.8-2.4); Potassium 4.1 mmol/L (3.5-5.1)
[2018-07-05] MEDS ORDERED: MAGNESIUM SULFATE 1 gm IVPB 1 GM/100 ML BAG IV ONE ×2 (07:26→09:00)
[2018-07-05] MEDS: ARFORMOTEROL TARTRATE 15 MCG/2 ML VIAL.NEB NEB SCH ×2 (08:30→20:00)
--- NOTE | 2018-07-05 08:38 | P.PN ---
Subjective Date of Service: 07/05/18 Primary Care Provider: Dr. Ben Horne; Card-Dr. Newberry; GI-Dr. Mittal; Nephro -Dr. Estevez Chief Complaint: Diarrhea, melena Subjective: Improving (No more diarrhea noted) Physical Examination - Vital Signs Temperature: 97.6 F Blood Pressure: 155/77 Pulse: 62 Respirations: 14 Pulse Ox (%): 100 - Physical Exam General: Alert, In no apparent distress, Oriented x3, Cooperative HEENT: Atraumatic Neck: Supple Respiratory: Clear to auscultation bilaterally, Normal air movement Cardiovascular: Normal pulses, Regular rate/rhythm Gastrointestinal: Normal bowel sounds, Soft and benign, Non-distended, No tenderness, No masses, No rebound, No guarding Musculoskeletal: No tenderness, No warmth Integumentary: No warmth, No cyanosis Neurological: Normal speech, Normal strength at 5/5 x4 extr, Normal tone, Normal affect - Studies Medications List Reviewed: Yes Assessment & Plan Discharge Plan: Home Plan to discharge in: 24 Hours (to 48 hours) Physician Review Additional Text: Impression: Diarrhea, melena, abdominal pain likely C diff colitis with hypotension, dehydration and acute on chronic renal failure, stage III complicated with severe gastritis UTI CAD with prior stent with noted mild elevation in troponin likely stress induced Severe gastritis Chronic CHF, suspect diastolic Chronic atrial fibrillation Hypertension GERD COPD Acute on chronic anemia with History of iron deficiency anemia Hypothyroidism Plan: Diarrhea, melena, abdominal pain with hypotension, dehydration and acute on chronic renal failure, stage III complicated with severe gastritis: Patient has significantly improved. Blood pressure now stable. Continue IV fluids. Nephrology has adjusted medication. C diff negative. EGD yesterday showed severe gastritis. Will transition from Protonix drip to oral medication. Encourage ambulation. Will have physical therapy assess ambulation. Patient desires to go home at discharge. Patient with UTI. Continue antibiotic therapy. Await urine culture results. Likely home as early as tomorrow if significantly improved. Other consideration would be skilled placement. Will continue to assess. Will discuss with GI and nephrology. UTI: Urine culture positive for Gram negative rods. Continue antibiotic therapy. Await final urine culture results. CAD with prior stent with noted mild elevation in troponin likely stress induced : Cardiology recommends no further need for Plavix therefore this has been discontinued. Cardiology to consider cardiac evaluation. Workup likely can occur as an outpatient. Severe gastritis: Will transition from IV Protonix to oral medication. Continue GI soft diet. Recommend no further nonsteroidal anti-inflammatories. Chronic CHF, suspect diastolic: Patient with diastolic dysfunction. IV fluids continue to be adjusted by a nephrology. Will monitor closely. Overall stable. Chronic atrial fibrillation: Continue amiodarone. Will continue not off chronic anti coagulation therapy due to history of GI bleeds. Patient in normal sinus rhythm. Hypertension: Blood pressure improved. Patient on beta-malcolm therapy. Arb inhibitor has been discontinued. Continue to monitor and adjust appropriately. COPD: Continue with COPD medication. Will maintain sats above 90%. Acute on chronic anemia with History of iron deficiency anemia: Patient with iron deficiency anemia. Patient has received 1 unit of blood during her stay. Continue with iron supplementation Hypothyroidism: Continue medication. Time Spent Managing Pts Care (In Minutes): 55
[2018-07-05] MEDS: DULOXETINE 30 MG CAP PO SCH (08:44)
[2018-07-05] MEDS: LACTOBACILLUS/ACIDOPHILUS TAB PO SCH ×3 (08:44→21:35)
[2018-07-05] MEDS: AMIODARONE HCL 200 MG TAB PO SCH (08:44)
[2018-07-05] MEDS: PROPRANOLOL HCL 60 MG SA CAP PO SCH ×2 (08:45→21:35)
[2018-07-05] MEDS: NACHLORIDE 0.45% 1,000 ML IV SCH (08:55)
[2018-07-05] MEDS: PREGABALIN 75 MG CAP PO SCH ×3 (08:56→21:34)
[2018-07-05] MEDS: PANTOPRAZOLE 40MG TABLET PO SCH (10:39)
[2018-07-05] MEDS: HYDRALAZINE HCL 20 MG/ML VIAL IV PRN ×2 (13:00→21:41)
[2018-07-05] MEDS: ATORVASTATIN 80 MG TAB PO SCH (21:35)
[2018-07-05] MEDS: CIPROFLOXACIN 400mg IV 400 MG/200 ML BAG IV SCH (21:36)
[2018-07-06] MEDS: NACHLORIDE 0.45% 1,000 ML IV SCH ×3 (02:09→17:53)
[2018-07-06] MEDS: METRONIDAZOLE 500mg IVPB 500 MG/100 ML BAG IV SCH (02:16)
[2018-07-06 04:44] LABS: Absolute Lymphocytes (CBC) 1.2 K/uL (0.7-4.9); Absolute Monocytes 1.3 K/uL (0.1-1.3); Absolute Neutrophil 7.5 K/uL (1.8-8.0); Basophils % 0.2 % (0-1.3); Eosinophils % 1.8 % (0-4.4); Hematocrit 30.2 % (36.0-45.0); Lymphocytes % 11.9 % (15.3-44.8); MPV 9.3 fL (7.6-11.3); Monocytes % 12.6 % (3.3-12.3); RBC Red Blood Cell Count 3.46 M/uL (3.86-4.86)
[2018-07-06 04:58] LABS: Magnesium 1.8 mg/dL (1.8-2.4); Potassium 4.1 mmol/L (3.5-5.1)
[2018-07-06 05:22] LABS: HBsAG Nonreactive (Nonreactive)
[2018-07-06] MEDS: LEVOTHYROXINE SOD 0.125 MG TAB PO SCH (06:19)
[2018-07-06 06:42] LABS: Platelet Estimate ADEQ
[2018-07-06 06:43] LABS: Blood Morphology Comment NOT SEEN (NOT SEEN)
[2018-07-06 06:53] VITALS: BMI 31.3
[2018-07-06] MEDS: ACETAMINOPHEN 500 MG TAB PO PRN (07:30)
[2018-07-06] MEDS: ARFORMOTEROL TARTRATE 15 MCG/2 ML VIAL.NEB NEB SCH ×2 (08:15→20:00)
[2018-07-06] MEDS: PROPRANOLOL HCL 60 MG SA CAP PO SCH ×2 (09:00→21:00)
[2018-07-06] MEDS ORDERED: Meropenem 1000 MG/VIAL IV SCH (09:00)
[2018-07-06] MEDS ORDERED: MAGNESIUM SULFATE 1 gm IVPB 1 GM/100 ML BAG IV ONE (09:00)
[2018-07-06] MEDS: PREGABALIN 75 MG CAP PO SCH ×3 (09:13→21:20)
[2018-07-06] MEDS: DULOXETINE 30 MG CAP PO SCH (09:13)
[2018-07-06] MEDS: LACTOBACILLUS/ACIDOPHILUS TAB PO SCH ×3 (09:13→21:20)
[2018-07-06] MEDS: PANTOPRAZOLE 40MG TABLET PO SCH (09:14)
[2018-07-06] MEDS: AMIODARONE HCL 200 MG TAB PO SCH (09:14)
[2018-07-06] MEDS: Meropenem 1,000 MG in NA CHLORIDE 0.9% 100 ML IV SCH ×2 (09:15→21:20)
--- NOTE | 2018-07-06 13:25 | P.PN ---
Subjective Date of Service: 07/06/18 Primary Care Provider: Dr. Ben Horne; Card-Dr. Newberry; GI-Dr. Mittal; Nephro -Dr. Estevez Chief Complaint: Diarrhea, melena Subjective: Improving (She has not seen any melena or other GI bleeding. Sepsis has improved with WBC now normal at 10.3 and being treated for resistant organism / urosepsis. She feels better overall, and out of ICU to floor yesterday.) Review of Systems General: Weakness (Improved.) Physical Examination - Vital Signs Temperature: 97.5 F Blood Pressure: 126/58 Pulse: 52 Respirations: 18 Pulse Ox (%): 100 - Physical Exam General: Alert, In no apparent distress, Oriented x3, Cooperative HEENT: Atraumatic, Normocephalic, PERRLA, EOMI Neck: Supple Respiratory: Normal air movement Cardiovascular: Normal pulses Gastrointestinal: Soft and benign (obese), No tenderness, No rebound, No guarding Neurological: Normal speech, Normal strength at 5/5 x4 extr - Studies Medications List Reviewed: Yes Assessment And Plan - Current Problems (Diagnosis) (1) Melena Current Visit: Yes Status: Acute Comment: Resolved on PPI with severe gastritis. (2) Gastritis with bleeding Current Visit: Yes Status: Acute (3) Sepsis Current Visit: Yes Status: Acute Comment: Improved with normal WBC at 10.3 today, down from 23K as outpatient. (4) UTI (urinary tract infection) Onset Date: 01/08/16 Current Visit: No Status: Acute Qualifiers: Urinary tract infection type: acute cystitis Hematuria presence: without hematuria Qualified Code(s): N30.00 - Acute cystitis without hematuria (5) Anemia Onset Date: 01/08/16 Current Visit: No Status: Chronic Qualifiers: Anemia type: B12 deficiency Vitamin B12 deficiency anemia type: unspecified B12 deficiency Qualified Code(s): D51.9 - Vitamin B12 deficiency anemia, unspecified - Plan REC: 1) await gastric biopsies 2) continue PPI therapy for 3 months 3) monitor labs 4) continue antibiotics 5) GI clinic f/u in 1-2 weeks Physician Review Additional Text: Impression: Diarrhea, melena, abdominal pain likely C diff colitis with hypotension, dehydration and acute on chronic renal failure, stage III complicated with severe gastritis UTI CAD with prior stent with noted mild elevation in troponin likely stress induced Severe gastritis Chronic CHF, suspect diastolic Chronic atrial fibrillation Hypertension GERD COPD Acute on chronic anemia with History of iron deficiency anemia Hypothyroidism Plan: Diarrhea, melena, abdominal pain with hypotension, dehydration and acute on chronic renal failure, stage III complicated with severe gastritis: Patient has significantly improved. Blood pressure now stable. Continue IV fluids. Nephrology has adjusted medication. C diff negative. EGD yesterday showed severe gastritis. Will transition from Protonix drip to oral medication. Encourage ambulation. Will have physical therapy assess ambulation. Patient desires to go home at discharge. Patient with UTI. Continue antibiotic therapy. Await urine culture results. Likely home as early as tomorrow if significantly improved. Other consideration would be skilled placement. Will continue to assess. Will discuss with GI and nephrology. UTI: Urine culture positive for Gram negative rods. Continue antibiotic therapy. Await final urine culture results. CAD with prior stent with noted mild elevation in troponin likely stress induced : Cardiology recommends no further need for Plavix therefore this has been discontinued. Cardiology to consider cardiac evaluation. Workup likely can occur as an outpatient. Severe gastritis: Will transition from IV Protonix to oral medication. Continue GI soft diet. Recommend no further nonsteroidal anti-inflammatories. Chronic CHF, suspect diastolic: Patient with diastolic dysfunction. IV fluids continue to be adjusted by a nephrology. Will monitor closely. Overall stable. Chronic atrial fibrillation: Continue amiodarone. Will continue not off chronic anti coagulation therapy due to history of GI bleeds. Patient in normal sinus rhythm. Hypertension: Blood pressure improved. Patient on beta-malcolm therapy. Arb inhibitor has been discontinued. Continue to monitor and adjust appropriately. COPD: Continue with COPD medication. Will maintain sats above 90%. Acute on chronic anemia with History of iron deficiency anemia: Patient with iron deficiency anemia. Patient has received 1 unit of blood during her stay. Continue with iron supplementation Hypothyroidism: Continue medication.
--- NOTE | 2018-07-06 14:34 | P.PN ---
Subjective Date of Service: 07/06/18 Primary Care Provider: Dr. Ben Horne; Card-Dr. Newberry; GI-Dr. Mittal; Nephro -Dr. Estevez Chief Complaint: Diarrhea, melena Subjective: Doing well Physical Examination - Vital Signs Temperature: 97.5 F Blood Pressure: 126/58 Pulse: 52 Respirations: 18 Pulse Ox (%): 100 - Physical Exam General: Alert, In no apparent distress, Oriented x3, Cooperative HEENT: Atraumatic Neck: Supple Respiratory: Clear to auscultation bilaterally, Normal air movement Cardiovascular: Normal pulses, Regular rate/rhythm Gastrointestinal: Normal bowel sounds, Soft and benign, Non-distended, No tenderness, No masses, No rebound, No guarding Musculoskeletal: No tenderness, No warmth Integumentary: No tenderness/swelling, No erythema, No warmth, No cyanosis Neurological: Normal speech, Normal strength at 5/5 x4 extr, Normal tone, Normal affect - Studies Medications List Reviewed: Yes Assessment & Plan Discharge Plan: Other (shelter facility) Plan to discharge in: 24 Hours Physician Review Additional Text: Impression: Diarrhea, melena, abdominal pain likely C diff colitis with hypotension, dehydration and acute on chronic renal failure, stage III complicated with severe gastritis UTI, urine culture positive for E coli-ESBL CAD with prior stent with noted mild elevation in troponin likely stress induced Severe gastritis Chronic CHF, suspect diastolic Chronic atrial fibrillation Hypertension GERD COPD Acute on chronic anemia with History of iron deficiency anemia Hypothyroidism Plan: Diarrhea, melena, abdominal pain with hypotension, dehydration and acute on chronic renal failure, stage III complicated with severe gastritis: Patient has done well post EGD. C diff negative. EGD showed severe gastritis. Patient will continue with Protonix daily. Patient to follow up with GI as an outpatient. Patient found to have UTI with E coli-ESBL. Patient will require a PICC line and IV antibiotic therapy for 1 week. Patient to be sent to skilled facility to continue care. Will discontinue Gamez catheter at this time. Will make arrangements with director social welfare for skilled placement. Case discussed with daughter and patient. Anticipate discharge likely tomorrow once this can be arranged. I will turn the service over to Dr. Horne tomorrow. I will go over the plan of care with her. UTI, urine culture positive for E coli-E: Patient will get PICC line today. Patient changed to meropenem 1 g IV twice daily. Patient will continue with medication for 1 week at skilled facility. UTI prevention will need to be enforced. CAD with prior stent with noted mild elevation in troponin likely stress induced : Cardiology recommends no further need for Plavix therefore this has been discontinued. Cardiology to consider cardiac evaluation. Workup likely can occur as an outpatient. Severe gastritis: Patient will continue with Protonix daily. Continue GI soft diet. Recommend no further nonsteroidal anti-inflammatories. Chronic CHF, suspect diastolic: Patient with diastolic dysfunction. IV fluids continue to be adjusted by a nephrology. Will monitor closely. Overall stable. Chronic atrial fibrillation: Continue amiodarone. Will continue not off chronic anti coagulation therapy due to history of GI bleeds. Patient in normal sinus rhythm. Hypertension: Blood pressure improved. Patient on beta-malcolm therapy. Arb inhibitor has been discontinued. Continue to monitor and adjust appropriately. COPD: Continue with COPD medication. Will maintain sats above 90%. Acute on chronic anemia with History of iron deficiency anemia: Patient with iron deficiency anemia. Patient has received 1 unit of blood during her stay. Continue with iron supplementation Hypothyroidism: Continue medication. Time Spent Managing Pts Care (In Minutes): 55
[2018-07-06] MEDS: HYDRALAZINE HCL 20 MG/ML VIAL IV PRN (17:17)
[2018-07-06] MEDS: HYDROCODONE/APAP 7.5/325 MG TAB PO PRN (17:18)
--- NOTE | 2018-07-06 20:45 | P.PN ---
Date of Service: 07/06/18 Vital Signs Temp Pulse Resp BP Pulse Ox 97.4 F 63 18 140/80 97 07/06/18 16:00 07/06/18 18:27 07/06/18 16:00 07/06/18 18:27 07/06/18 16:00 Medications Acetaminophen (Tylenol -Extra Strength) 500 mg PO Q4HP PRN PRN Reason: TEMP > 101' F Stop: 08/01/18 21:29 Last Admin: 07/06/18 07:30 Dose: 500 mg Acetaminophen (Tylenol Suppository) 650 mg RECT Q6HP PRN PRN Reason: TEMP > 101' F Stop: 08/01/18 21:29 Hydrocodone Bitart/Acetaminophen ([place] 7.5/325 Mg) 1 tab PO BID PRN PRN Reason: Pain scale 5-7 (Moderate) Stop: 08/02/18 10:33 Last Admin: 07/06/18 17:18 Dose: 1 tab Albuterol Sulfate (Proventil 0.083% Neb Soln) 2.5 mg NEB [id number] PRN PRN Reason: SHORTNESS OF BREATH Stop: 08/01/18 21:29 Alprazolam (Xanax) 0.25 mg PO BID PRN PRN Reason: ANXIETY Stop: 08/02/18 21:01 Last Admin: 07/04/18 22:31 Dose: 0.25 mg Amiodarone HCl (Cordarone Tab) 200 mg PO DAILY [place] Stop: 08/03/18 09:01 Last Admin: 07/06/18 09:14 Dose: 200 mg Arformoterol Tartrate (Brovana) 15 mcg NEB BIDRESP [place] Stop: 08/01/18 21:29 Last Admin: 07/06/18 08:15 Dose: 15 mcg Atorvastatin Calcium (Lipitor) 80 mg PO BEDTIME [place] Stop: 08/02/18 21:01 Last Admin: 07/05/18 21:35 Dose: 80 mg Duloxetine HCl (Cymbalta Delayed Release Pellets) 60 mg PO DAILY [place] Stop: 08/03/18 09:01 Last Admin: 07/06/18 09:13 Dose: 60 mg Hydralazine HCl (Apresoline) 10 mg IV Q6HP PRN PRN Reason: Titrate to SBP (MUST DEFINE) Stop: 08/01/18 21:29 Last Admin: 07/06/18 17:17 Dose: 10 mg Meropenem 1,000 mg/ Sodium (Chloride) 100 mls @ 100 mls/hr IV Q12HR [facility] Stop: 08/05/18 09:01 Last Admin: 07/06/18 09:15 Dose: 100 mls Ferric Sodium Gluconate Complex 250 mg/ Sodium Chloride 270 mls @ 135 mls/hr IV ONCE ONE Stop: 07/06/18 21:01 Ipratropium [place] (Atrovent Neb) 0.5 mg NEB [id number] PRN PRN Reason: SHORTNESS OF BREATH Stop: 08/01/18 21:29 Lactobacillus Acidoph/Bulgaricus (Lactinex) 1 tab PO TID [facility] Stop: 08/02/18 21:01 Last Admin: 07/06/18 13:26 Dose: 1 tab Levothyroxine Sodium (Synthroid) 0.125 mg PO DAILYAC [facility] Stop: 08/03/18 06:31 Last Admin: 07/06/18 06:19 Dose: 0.125 mg Loperamide HCl (Imodium) 2 mg PO Q4H PRN PRN Reason: DIARRHEA Stop: 08/02/18 14:31 Ondansetron HCl (Zofran) 4 mg IV Q6HP PRN PRN Reason: NAUSEA / VOMITING Stop: 08/01/18 21:29 Pantoprazole Sodium (Protonix Tab) 40 mg PO ACB [facility] Stop: 08/04/18 10:01 Last Admin: 07/06/18 09:14 Dose: 40 mg Pregabalin (Lyrica) 75 mg PO TID [facility] Stop: 08/02/18 14:01 Last Admin: 07/06/18 13:26 Dose: 75 mg Propranolol HCl (Inderal La) 60 mg PO BID [facility] Stop: 08/02/18 21:01 Last Admin: 07/06/18 09:00 Dose: Not Given Sodium Chloride (Normal Saline Flush) 10 ml IV BID [facility] Stop: 08/01/18 21:29 Last Admin: 07/06/18 09:00 Dose: 10 ml Microbiology Results 07/02/18 17:35 Stool Culture & Sensitivity - Preliminary 07/02/18 18:00 Blood - Blood Aerobic Blood Culture - Preliminary No growth in 24 hours. 07/02/18 18:00 Blood - Blood Anaerobic Blood Culture - Preliminary No growth in 24 hours. 07/02/18 17:35 Stool Clostridium difficile Toxin Assay - Final Assessment/ Plan: Nephrology. Tired from working with PT. CPS stable without CP or SOB. No acute events overnight. Vitals, medications, blood work and imaging reviewed in the chart. General: Alert, In no apparent distress, Oriented x3, Cooperative HEENT: Atraumatic, Mucous membr. moist/pink Neck: Supple Respiratory: Clear to auscultation bilaterally Cardiovascular: No edema, Regular rate/rhythm, No rubs Gastrointestinal: No guarding, Distended, Tenderness Musculoskeletal: No clubbing, No contractures Integumentary: No rashes, No cyanosis Neurological: Normal speech Blood work reviewed in the chart. BUN 69; Cr 2.72 Imagings Data: EXAM DESCRIPTION: US - Renal Ultrasound-Complete - 07/04/2018 8:35 pm CLINICAL HISTORY: Acute renal insufficiency COMPARISON: None. FINDINGS: The right kidney measures 10 cm with an increased echotexture. A 1.5 centimeter cyst The left kidney measures 11 cm with an increased echotexture. 1.2 centimeter cyst Hydronephrosis is not seen. Evaluation of bladder is limited as it is decompressed IMPRESSION: Increased renal echotexture consistent with parenchymal disease Small bilateral renal cysts EXAM DESCRIPTION: CT - Abdomen Pelvis Wo Contrast - 07/02/2018 4:52 pm CLINICAL HISTORY: Abdominal pain, black stools COMPARISON: October 2016 TECHNIQUE: Axial [address] imaging of the abdomen and pelvis was performed without IV contrast. No IV contrast was given because of allergy, abnormal renal function, patient refusal or physician request. Oral contrast was given. All CT scans are performed using dose optimization technique as appropriate and may include automated exposure control or mA/KV adjustment according to patient size. FINDINGS: No suspicious findings in the lung bases. Heart size is upper normal. No pericardial effusion. The liver, spleen and pancreas show no suspicious findings on non-contrast imaging. Gallbladder and biliary tree are also without suspicious finding. Gallstones can be occult on CT imaging. No hydronephrosis or suspicious renal mass. No obstructing or nonobstructing calculi. Small low-density area in the upper pole left kidney not clearly different from prior imaging and believed to be incidental cyst. Mass of the left adrenal gland is not changed from 2017. Attenuation value is -8 Hounsfield units which would support benign adrenal adenoma etiology. No right adrenal suspicious finding. Isodense renal masses and pyelonephritis cannot be excluded in the absence of IV contrast. Urinary bladder is fully contracted around a [place] catheter. No gastric dilatation or wall thickening. Most of the contrast is still in the stomach. Contrast has made it to the distal small bowel. No gastric outlet obstructive findings. No dilated large or small bowel. No appendicitis findings. There is moderate sigmoid diverticulosis and descending colon mild diverticulosis. No diverticulitis. No colon mass suspected. No free air, free fluid or inflammatory stranding. No mass or bulky lymphadenopathy. Patient has a very small fat only umbilical hernia. Fat filled inguinal hernia present on the left similar to comparison. Disc and bony degenerative changes are present. IMPRESSION: Non-contrast enhanced CT abdomen and pelvis imaging show no acute or emergent finding. Conclusions/Impression: A/ NOREEN likely due to hypovolemia in the setting of GI symptoms. Acidosis. CKD III with proteinuria. HTN with CKD/ CHF. Diastolic CHF, chronic. Anemia in chronic illness. GI Bleed/ Severe Gastritis. Iron deficiency. Hypocalcemia. Acute Cystitis. P/ Continue current POC and Medications. Stop IVF. Give IV Iron. Consider removing marina. Agree with current abx. No NSAIDs. AM labs. Daily weight.
[2018-07-06] MEDS ORDERED: SOD FERRIC GLUC COMPLX/SUCROSE 250 MG in NA CHLORIDE 0.9% 250 ML IV ONE (21:00)
[2018-07-06] MEDS: ATORVASTATIN 80 MG TAB PO SCH (21:20)
[2018-07-06] MEDS ORDERED: SOD FERRIC GLUC COMPLX/SUCROSE 62.5 MG/5 ML VIAL IV ONE (21:57)
[2018-07-06] MEDS ORDERED: NA CHLORIDE 0.9% 250 ML ONE (22:03)
[2018-07-07] MEDS: HYDROCODONE/APAP 7.5/325 MG TAB PO PRN (04:36)
[2018-07-07] MEDS: LEVOTHYROXINE SOD 0.125 MG TAB PO SCH (06:36)
[2018-07-07] MEDS: ALBUTEROL 2.5 MG/3 ML NEB SOL NEB PRN (08:25)
[2018-07-07] MEDS: ARFORMOTEROL TARTRATE 15 MCG/2 ML VIAL.NEB NEB SCH ×2 (08:25→20:40)
[2018-07-07] MEDS: IPRATROPIUM BROM 0.5MG/2.5ML NEB PRN ×2 (08:25→20:40)
[2018-07-07] MEDS: AMIODARONE HCL 200 MG TAB PO SCH (08:58)
[2018-07-07] MEDS: Meropenem 1,000 MG in NA CHLORIDE 0.9% 100 ML IV SCH ×2 (08:58→21:39)
[2018-07-07] MEDS: DULOXETINE 30 MG CAP PO SCH (08:59)
[2018-07-07] MEDS: PANTOPRAZOLE 40MG TABLET PO SCH (08:59)
[2018-07-07] MEDS: LACTOBACILLUS/ACIDOPHILUS TAB PO SCH ×3 (08:59→20:54)
[2018-07-07] MEDS: PREGABALIN 75 MG CAP PO SCH ×3 (08:59→20:54)
[2018-07-07] MEDS: PROPRANOLOL HCL 60 MG SA CAP PO SCH ×2 (09:00→20:54)
[2018-07-07 10:33] LABS: Arterial Blood Carboxyhemoglob 1.7 % (0-1.5); Blood Gas Oxyhemoglobin 93.5 % (94-97); Blood O2 Saturation 95.8 % (92-98.5)
--- NOTE | 2018-07-07 11:35 | RAD REPORT ---
EXAM DESCRIPTION: RAD - Chest Single View - 07/07/2018 4:44 am CLINICAL HISTORY: The patient is 77 years old and is Female; S/P PICC insertion TECHNIQUE: Frontal view of the chest. COMPARISON: No relevant prior studies available. FINDINGS: LUNGS: Patchy opacity within the right lower lobe is noted. Chronic coarse interstitia l markings are present. PLEURAL SPACE: Unremarkable. No pneumothorax. HEART: Unremarkable. No cardiomegaly. MEDIASTINUM: Unremarkable. BONES/JOINTS: There are degenerative changes of the bones. VASCULATURE: Atherosclerosis of the aorta is present. TUBES, LINES AND DEVICES: A right upper extremity PICC is present with the tip in the SVC. IMPRESSION: 1. A right upper extremity PICC is present with the tip in the SVC. 2. Patchy opacity within the right lower lobe which may be a combination of atelectasis and overlyi ng shadows. Electronically signed by: Vanesa Corral MD 07/07/2018 4:49 AM CDT Due to temporary technical issues with the PACS/Fluency reporting system, reports are being signed by the in house radiologist as a courtesy to ensure prompt reporting. The interpreting radiologist is f ully responsible for the content of the report.
[2018-07-07 14:27] LABS: HIV AG/AB 4TH GEN Non-reactive (Non-reactive)
--- NOTE | 2018-07-07 15:36 | P.PN ---
Subjective Date of Service: 07/07/18 Primary Care Provider: Dr. Ben Horne; Card-Dr. Newberry; GI-Dr. Mittal; Nephro -Dr. Estevez Chief Complaint: Diarrhea, melena Patient seen and examined at bedside with RN. Chart reviewed. Case discussed with GI. Denies any SOB, CP or any other associated symptoms. Review of Systems 10-point ROS is otherwise unremarkable Physical Examination - Vital Signs Temperature: 97.5 F Blood Pressure: 148/72 Pulse: 61 Respirations: 18 Pulse Ox (%): 100 - Physical Exam General: Alert, In no apparent distress HEENT: Atraumatic, PERRLA, EOMI Neck: Supple, JVD not distended Respiratory: Clear to auscultation bilaterally, Normal air movement Cardiovascular: Regular rate/rhythm, Normal S1 S2 Gastrointestinal: Normal bowel sounds, Soft and benign, Non-distended, No tenderness Musculoskeletal: No tenderness Integumentary: No rashes Neurological: Normal speech, Normal tone, Normal affect Lymphatics: No axilla or inguinal lymphadenopathy - Studies Medications List Reviewed: Yes Assessment And Plan - Current Problems (Diagnosis) (1) Gastritis with bleeding Current Visit: Yes Status: Acute Plan: Acute gastritis most likely secondary to alcohol abuse -patient with diarrhea melena and abdominal pain on presentation -currently on Protonix -status post EGD done which was consistent with gastritis -GI consulted. Appreciated recommendations Qualifiers: Gastritis type: alcoholic Chronicity: acute Qualified Code(s): K29.21 - Alcoholic gastritis with bleeding (2) UTI (urinary tract infection) Onset Date: 01/08/16 Current Visit: No Status: Acute Plan: Urinary tract infection on UA -urine culture positive for E. S. BL. -patient on IV meropenem 1 g b.i.d. will need to finish 2 weeks course -PICC line in place. -case management consulted for [facility] facility placement Qualifiers: Urinary tract infection type: acute cystitis Hematuria presence: without hematuria Qualified Code(s): N30.00 - Acute cystitis without hematuria (3) Chronic renal disease Onset Date: 01/08/16 Current Visit: No Status: Chronic Plan: Acute on chronic kidney disease most likely secondary to dehydration -IV fluids at this time -nephrology consulted. Appreciate recommendation -will continue to monitor closely Qualifiers: Chronic kidney disease stage: stage 3 (moderate) Qualified Code(s): N18.3 - Chronic kidney disease, stage 3 (moderate) (4) COPD (chronic obstructive pulmonary disease) Onset Date: 01/08/16 Current Visit: No Status: Chronic Qualifiers: COPD type: chronic bronchitis Chronic bronchitis type: unspecified Qualified Code(s): J42 - Unspecified chronic bronchitis (5) HTN (hypertension) Onset Date: 01/08/16 Current Visit: No Status: Chronic Qualifiers: Hypertension type: essential hypertension Qualified Code(s): I10 - Essential (primary) hypertension (6) Hypothyroidism Onset Date: 01/08/16 Current Visit: No Status: Chronic Qualifiers: Hypothyroidism type: unspecified Qualified Code(s): E03.9 - Hypothyroidism , unspecified - Plan Pending placement at this time. Discharge Plan: Home Plan to discharge in: 48 Hours - Code Status/Comfort Care Code Status Assessed: Yes Critical Care: No
[2018-07-07] MEDS ORDERED: MAGNESIUM OXIDE 400 MG TAB PO ONE (19:00)
[2018-07-07] MEDS ORDERED: SOD FERRIC GLUC COMPLX/SUCROSE 250 MG in NA CHLORIDE 0.9% 250 ML IV ONE (19:00)
--- NOTE | 2018-07-07 19:21 | PN ---
Date of Progress Note: 07/07/2018 The patient was admitted on 07/02/[address] Hi, was seen by Dr. Jansen on 07/03/2018 and 2018 who was following her because of elevated troponin. She is on p.o. amiodarone. She is in sinus rhythm. No anticoagulation. She came in with severe GI bleed. She still have C difficile with sep sis that is being treated. Her other problems including CAD, COPD, and chronic diastolic congestive heart failure appears to be stable at this point. We will continue to follow her peripherally. SID/JUDITH Voice ID: [id number] Report ID: [id number]
[2018-07-07] MEDS: ATORVASTATIN 80 MG TAB PO SCH (20:53)
[2018-07-07] MEDS: DOCUSATE NA 100 MG CAP PO SCH (20:54)
--- NOTE | 2018-07-07 20:55 | P.PN ---
Date of Service: 07/07/18 Vital Signs Temp Pulse Resp BP Pulse Ox 97.2 F 63 18 114/71 98 07/07/18 16:00 07/07/18 16:00 07/07/18 16:00 07/07/18 16:00 07/07/18 16:00 Medications Acetaminophen (Tylenol -Extra Strength) 500 mg PO Q4HP PRN PRN Reason: TEMP > 101' F Stop: 08/01/18 21:29 Last Admin: 07/06/18 07:30 Dose: 500 mg Acetaminophen (Tylenol Suppository) 650 mg RECT Q6HP PRN PRN Reason: TEMP > 101' F Stop: 08/01/18 21:29 Hydrocodone Bitart/Acetaminophen (Franklin 7.5/325 Mg) 1 tab PO BID PRN PRN Reason: Pain scale 5-7 (Moderate) Stop: 08/02/18 10:33 Last Admin: 07/07/18 04:36 Dose: 1 tab Albuterol Sulfate (Proventil 0.083% Neb Soln) 2.5 mg NEB [id number] PRN PRN Reason: SHORTNESS OF BREATH Stop: 08/01/18 21:29 Last Admin: 07/07/18 08:25 Dose: 2.5 mg Alprazolam (Xanax) 0.25 mg PO BID PRN PRN Reason: ANXIETY Stop: 08/02/18 21:01 Last Admin: 07/04/18 22:31 Dose: 0.25 mg Amiodarone HCl (Cordarone Tab) 200 mg PO DAILY CHELSEA Stop: 08/03/18 09:01 Last Admin: 07/07/18 08:58 Dose: 200 mg Arformoterol Tartrate (Brovana) 15 mcg NEB BIDRESP CHELSEA Stop: 08/01/18 21:29 Last Admin: 07/07/18 08:25 Dose: 15 mcg Atorvastatin Calcium (Lipitor) 80 mg PO BEDTIME CHELSEA Stop: 08/02/18 21:01 Last Admin: 07/06/18 21:20 Dose: 80 mg Docusate Sodium (Colace Cap) 100 mg PO BID CHELSEA Stop: 08/06/18 21:01 Duloxetine HCl (Cymbalta Delayed Release Pellets) 60 mg PO DAILY CHELSEA Stop: 08/03/18 09:01 Last Admin: 07/07/18 08:59 Dose: 60 mg Hydralazine HCl (Apresoline) 10 mg IV Q6HP PRN PRN Reason: Titrate to SBP (MUST DEFINE) Stop: 08/01/18 21:29 Last Admin: 07/06/18 17:17 Dose: 10 mg Meropenem 1,000 mg/ Sodium (Chloride) 100 mls @ 100 mls/hr IV Q12HR CHELSEA Stop: 08/05/18 09:01 Last Admin: 07/07/18 08:58 Dose: 100 mls Ferric Sodium Gluconate Complex 250 mg/ Sodium Chloride 270 mls @ 135 mls/hr IV 1X ONE Stop: 07/07/18 20:59 Ipratropium Tyler (Atrovent Neb) 0.5 mg NEB [id number] PRN PRN Reason: SHORTNESS OF BREATH Stop: 08/01/18 21:29 Last Admin: 07/07/18 08:25 Dose: 0.5 mg Lactobacillus Acidoph/Bulgaricus (Lactinex) 1 tab PO TID CHELSEA Stop: 08/02/18 21:01 Last Admin: 07/07/18 14:20 Dose: 1 tab Levothyroxine Sodium (Synthroid) 0.125 mg PO DAILYAC [facility] Stop: 08/03/18 06:31 Last Admin: 07/07/18 06:36 Dose: 0.125 mg Loperamide HCl (Imodium) 2 mg PO Q4H PRN PRN Reason: DIARRHEA Stop: 08/02/18 14:31 Ondansetron HCl (Zofran) 4 mg IV Q6HP PRN PRN Reason: NAUSEA / VOMITING Stop: 08/01/18 21:29 Pantoprazole Sodium (Protonix Tab) 40 mg PO ACB CHELSEA Stop: 08/04/18 10:01 Last Admin: 07/07/18 08:59 Dose: 40 mg Pregabalin (Lyrica) 75 mg PO TID CHELSEA Stop: 08/02/18 14:01 Last Admin: 07/07/18 14:20 Dose: 75 mg Propranolol HCl (Inderal La) 60 mg PO BID CHELSEA Stop: 08/02/18 21:01 Last Admin: 07/07/18 09:00 Dose: 60 mg Sodium Chloride (Normal Saline Flush) 10 ml IV BID CHELSEA Stop: 08/01/18 21:29 Last Admin: 07/07/18 09:00 Dose: 10 ml Lab Results (last 24 hrs) 07/02/18 09:49: U Random IEP Report Microbiology Results 07/02/18 18:00 Blood - Blood Aerobic Blood Culture - Final No growth in 5 days. 07/02/18 18:00 Blood - Blood Anaerobic Blood Culture - Final No growth in 5 days. 07/02/18 17:35 Stool Culture & Sensitivity - Preliminary 07/02/18 17:35 Stool Clostridium difficile Toxin Assay - Final Assessment/ Plan: Nephrology. Feeling better. +Constipation. CPS stable without CP or SOB. No acute events overnight. Vitals, medications, blood work and imaging reviewed in the chart. General: Alert, In no apparent distress, Oriented x3, Cooperative HEENT: Atraumatic, Mucous membr. moist/pink Neck: Supple Respiratory: Clear to auscultation bilaterally Cardiovascular: No edema, Regular rate/rhythm, No rubs Gastrointestinal: No guarding, Distended, Tenderness Musculoskeletal: No clubbing, No contractures Integumentary: No rashes, No cyanosis Neurological: Normal speech Blood work reviewed in the chart. BUN 69; Cr 2.72 Imagings Data: EXAM DESCRIPTION: US - Renal Ultrasound-Complete - 07/04/2018 8:35 pm CLINICAL HISTORY: Acute renal insufficiency COMPARISON: None. FINDINGS: The right kidney measures 10 cm with an increased echotexture. A 1.5 centimeter cyst The left kidney measures 11 cm with an increased echotexture. 1.2 centimeter cyst Hydronephrosis is not seen. Evaluation of bladder is limited as it is decompressed IMPRESSION: Increased renal echotexture consistent with parenchymal disease Small bilateral renal cysts EXAM DESCRIPTION: CT - Abdomen Pelvis Wo Contrast - 07/02/2018 4:52 pm CLINICAL HISTORY: Abdominal pain, black stools COMPARISON: October 2016 TECHNIQUE: Axial [address] imaging of the abdomen and pelvis was performed without IV contrast. No IV contrast was given because of allergy, abnormal renal function, patient refusal or physician request. Oral contrast was given. All CT scans are performed using dose optimization technique as appropriate and may include automated exposure control or mA/KV adjustment according to patient size. FINDINGS: No suspicious findings in the lung bases. Heart size is upper normal. No pericardial effusion. The liver, spleen and pancreas show no suspicious findings on non-contrast imaging. Gallbladder and biliary tree are also without suspicious finding. Gallstones can be occult on CT imaging. No hydronephrosis or suspicious renal mass. No obstructing or nonobstructing calculi. Small low-density area in the upper pole left kidney not clearly different from prior imaging and believed to be incidental cyst. Mass of the left adrenal gland is not changed from 2017. Attenuation value is -8 Hounsfield units which would support benign adrenal adenoma etiology. No right adrenal suspicious finding. Isodense renal masses and pyelonephritis cannot be excluded in the absence of IV contrast. Urinary bladder is fully contracted around a Gamez catheter. No gastric dilatation or wall thickening. Most of the contrast is still in the stomach. Contrast has made it to the distal small bowel. No gastric outlet obstructive findings. No dilated large or small bowel. No appendicitis findings. There is moderate sigmoid diverticulosis and descending colon mild diverticulosis. No diverticulitis. No colon mass suspected. No free air, free fluid or inflammatory stranding. No mass or bulky lymphadenopathy. Patient has a very small fat only umbilical hernia. Fat filled inguinal hernia present on the left similar to comparison. Disc and bony degenerative changes are present. IMPRESSION: Non-contrast enhanced CT abdomen and pelvis imaging show no acute or emergent finding. Conclusions/Impression: A/ NOREEN likely due to hypovolemia in the setting of GI symptoms. Acidosis. CKD III with proteinuria. HTN with CKD/ CHF. Diastolic CHF, chronic. Anemia in chronic illness. GI Bleed/ Severe Gastritis. Iron deficiency. Hypocalcemia. Acute E.coli ESBL Cystitis. P/ Continue current POC and Medications. Encourage nutrition and hydration. Give IV Iron again. Give MagOx 800mg X1 for constipation. Agree with current abx. No NSAIDs. AM labs. Daily weight.
[2018-07-07 22:39] LABS: Alpha-1-Globulins 0.5 g/dL (0.2-0.3); Alpha-2-Globulins 0.8 g/dL (0.5-0.9); Gamma Globulins 0.6 g/dL (0.8-1.7); INTERPRETATION REPORT
[2018-07-08] MEDS: HYDROCODONE/APAP 7.5/325 MG TAB PO PRN ×2 (05:00→17:53)
[2018-07-08] MEDS: LEVOTHYROXINE SOD 0.125 MG TAB PO SCH (05:36)
[2018-07-08 06:07] LABS: Absolute Lymphocytes (CBC) 0.8 K/uL (0.7-4.9); Absolute Monocytes 1.1 K/uL (0.1-1.3); Absolute Neutrophil 4.8 K/uL (1.8-8.0); Basophils % 0.5 % (0-1.3); Eosinophils % 2.7 % (0-4.4); Hematocrit 32.3 % (36.0-45.0); Lymphocytes % 11.9 % (15.3-44.8); MPV 8.7 fL (7.6-11.3); Monocytes % 15.4 % (3.3-12.3); RBC Red Blood Cell Count 3.73 M/uL (3.86-4.86)
[2018-07-08 06:19] LABS: Albumin 2.3 g/dL (3.4-5.0); Bilirubin Total 0.2 mg/dL (0.2-1.0); Magnesium 1.6 mg/dL (1.8-2.4); Phosphorus 1.3 mg/dL (2.5-4.9); Potassium 3.9 mmol/L (3.5-5.1); Protein, Total 5.4 g/dL (6.4-8.2); Uric Acid 7.3 mg/dL (2.6-6.0)
[2018-07-08] MEDS: IPRATROPIUM BROM 0.5MG/2.5ML NEB PRN ×2 (07:44→13:45)
[2018-07-08] MEDS: ALBUTEROL 2.5 MG/3 ML NEB SOL NEB PRN ×2 (07:44→13:45)
[2018-07-08] MEDS: ARFORMOTEROL TARTRATE 15 MCG/2 ML VIAL.NEB NEB SCH ×2 (07:44→20:00)
[2018-07-08] MEDS: PANTOPRAZOLE 40MG TABLET PO SCH (08:48)
[2018-07-08] MEDS: DULOXETINE 30 MG CAP PO SCH (08:50)
[2018-07-08] MEDS: LACTOBACILLUS/ACIDOPHILUS TAB PO SCH ×3 (08:50→21:18)
[2018-07-08] MEDS: Meropenem 1,000 MG in NA CHLORIDE 0.9% 100 ML IV SCH ×2 (08:50→21:20)
[2018-07-08] MEDS: DOCUSATE NA 100 MG CAP PO SCH ×2 (08:50→21:00)
[2018-07-08] MEDS: AMIODARONE HCL 200 MG TAB PO SCH (08:51)
[2018-07-08] MEDS ORDERED: MAGNESIUM SULFATE 1 gm IVPB 1 GM/100 ML BAG IV ONE (09:00)
[2018-07-08] MEDS: PREGABALIN 75 MG CAP PO SCH ×3 (09:00→21:18)
[2018-07-08] MEDS: PROPRANOLOL HCL 60 MG SA CAP PO SCH ×2 (09:00→21:20)
[2018-07-08] MEDS ORDERED: POTASSIUM CL SA 10 MEQ TAB PO ONE (09:00)
--- NOTE | 2018-07-08 11:09 | RAD REPORT ---
EXAM DESCRIPTION: RAD - Chest Single View - 07/08/2018 10:39 am CLINICAL HISTORY: Crackles, pneumonia COMPARISON: July 07 TECHNIQUE: AP portable chest image was obtained 1036 hours . FINDINGS: PICC line remains in good position. Patient has chronically prominent interstitial marking s. This can mask a mild diffuse interstitial edema or infiltrate. Right lung base is slightly better aerated but there remains some hazy opacification. Increasing opacification has developed in the late ral left base with costophrenic angle. Far lateral aspect of the left heart border is now obscured. Trachea is midline. Heart and vasculature are normal. No pneumothorax. No acute bony abnormality seen . No acute aortic findings suspected. IMPRESSION: New left lung base infiltrate with probable small pleural effusion.
--- NOTE | 2018-07-08 11:26 | P.PN ---
Subjective Date of Service: 07/07/18 Primary Care Provider: Dr. Ben Horne; Card-Dr. Newberry; GI-Dr. Mittal; Nephro -Dr. Estevez Chief Complaint: Diarrhea, melena Subjective: New changes (Daughter at bedside and states patient very sleepy with decreased energy level. No melena seen by patient nor daughter. Hgb 9.8) Review of Systems 10-point ROS is otherwise unremarkable General: Weakness, Malaise Physical Examination - Vital Signs Temperature: 97.3 F Blood Pressure: 98/60 Pulse: 60 Respirations: 18 Pulse Ox (%): 97 - Physical Exam General: Alert, In no apparent distress, Oriented x3, Cooperative HEENT: Atraumatic, Normocephalic, PERRLA, EOMI Neck: Supple Respiratory: Diminished Gastrointestinal: Soft and benign (obese), No tenderness, No rebound, No guarding Neurological: Normal speech - Studies Microbiology Data (last 24 hrs): 07/02/18 17:35 Stool Culture & Sensitivity - Final Staph Aureus 07/02/18 18:00 Blood - Blood Aerobic Blood Culture - Final No growth in 5 days. 07/02/18 18:00 Blood - Blood Anaerobic Blood Culture - Final No growth in 5 days. Medications List Reviewed: Yes Assessment And Plan - Current Problems (Diagnosis) (1) Melena Current Visit: Yes Status: Deleted Comment: Resolved on PPI with severe gastritis. (2) Gastritis with bleeding Current Visit: Yes Status: Acute Qualifiers: Gastritis type: alcoholic Chronicity: acute Qualified Code(s): K29.21 - Alcoholic gastritis with bleeding (3) Sepsis Current Visit: Yes Status: Acute Comment: Improved with normal WBC at ~10.3 , down from 23K as outpatient. (4) UTI (urinary tract infection) Onset Date: 01/08/16 Current Visit: No Status: Acute Qualifiers: Urinary tract infection type: acute cystitis Hematuria presence: without hematuria Qualified Code(s): N30.00 - Acute cystitis without hematuria (5) Anemia Onset Date: 01/08/16 Current Visit: No Status: Chronic Qualifiers: Anemia type: B12 deficiency Vitamin B12 deficiency anemia type: unspecified B12 deficiency Qualified Code(s): D51.9 - Vitamin B12 deficiency anemia, unspecified - Plan REC: 1) await gastric biopsies 2) continue PPI therapy for 3 months 3) monitor labs 4) continue antibiotics 5) GI clinic f/u in 1-2 weeks Physician Review Additional Text: Impression: Diarrhea, melena, abdominal pain likely C diff colitis with hypotension, dehydration and acute on chronic renal failure, stage III complicated with severe gastritis UTI, urine culture positive for E coli-ESBL CAD with prior stent with noted mild elevation in troponin likely stress induced Severe gastritis Chronic CHF, suspect diastolic Chronic atrial fibrillation Hypertension GERD COPD Acute on chronic anemia with History of iron deficiency anemia Hypothyroidism Plan: Diarrhea, melena, abdominal pain with hypotension, dehydration and acute on chronic renal failure, stage III complicated with severe gastritis: Patient has done well post EGD. C diff negative. EGD showed severe gastritis. Patient will continue with Protonix daily. Patient to follow up with GI as an outpatient. Patient found to have UTI with E coli-ESBL. Patient will require a PICC line and IV antibiotic therapy for 1 week. Patient to be sent to skilled facility to continue care. Will discontinue Gamez catheter at this time. Will make arrangements with licensed master social worker for skilled placement. Case discussed with daughter and patient. Anticipate discharge likely tomorrow once this can be arranged. I will turn the service over to Dr. Horne tomorrow. I will go over the plan of care with her. UTI, urine culture positive for E coli-E: Patient will get PICC line today. Patient changed to meropenem 1 g IV twice daily. Patient will continue with medication for 1 week at skilled facility. UTI prevention will need to be enforced. CAD with prior stent with noted mild elevation in troponin likely stress induced : Cardiology recommends no further need for Plavix therefore this has been discontinued. Cardiology to consider cardiac evaluation. Workup likely can occur as an outpatient. Severe gastritis: Patient will continue with Protonix daily. Continue GI soft diet. Recommend no further nonsteroidal anti-inflammatories. Chronic CHF, suspect diastolic: Patient with diastolic dysfunction. IV fluids continue to be adjusted by a nephrology. Will monitor closely. Overall stable. Chronic atrial fibrillation: Continue amiodarone. Will continue not off chronic anti coagulation therapy due to history of GI bleeds. Patient in normal sinus rhythm. Hypertension: Blood pressure improved. Patient on beta-malcolm therapy. Arb inhibitor has been discontinued. Continue to monitor and adjust appropriately. COPD: Continue with COPD medication. Will maintain sats above 90%. Acute on chronic anemia with History of iron deficiency anemia: Patient with iron deficiency anemia. Patient has received 1 unit of blood during her stay. Continue with iron supplementation Hypothyroidism: Continue medication.
[2018-07-08] MEDS: POTASS/SODIUM PHOSPHATE 1 PKT POWD.PACK PO SCH ×2 (14:02→21:18)
[2018-07-08] MEDS: FUROSEMIDE 20 MG/ 2ML VIAL IV SCH ×2 (14:03→21:18)
--- NOTE | 2018-07-08 14:42 | P.PN ---
Subjective Date of Service: 07/08/18 Primary Care Provider: Dr. Ben Horne; Card-Dr. Newberry; GI-Dr. Mittal; Nephro -Dr. Estevez Chief Complaint: Diarrhea, melena Patient seen and examined at bedside with RN. Chart reviewed. Case discussed with GI. Denies any SOB, CP or any other associated symptoms. Pending [facility] placement Review of Systems 10-point ROS is otherwise unremarkable Physical Examination - Vital Signs Temperature: 98.1 F Blood Pressure: 145/89 Pulse: 68 Respirations: 20 Pulse Ox (%): 99 - Physical Exam General: Alert, In no apparent distress HEENT: Atraumatic, PERRLA, EOMI Neck: Supple, JVD not distended Respiratory: Clear to auscultation bilaterally, Normal air movement Cardiovascular: Regular rate/rhythm, Normal S1 S2 Gastrointestinal: Normal bowel sounds, No tenderness Musculoskeletal: No tenderness Integumentary: No rashes Neurological: Normal speech, Normal tone, Normal affect Lymphatics: No axilla or inguinal lymphadenopathy - Studies Microbiology Data (last 24 hrs): 07/02/18 17:35 Stool Culture & Sensitivity - Final Staph Aureus 07/02/18 18:00 Blood - Blood Aerobic Blood Culture - Final No growth in 5 days. 07/02/18 18:00 Blood - Blood Anaerobic Blood Culture - Final No growth in 5 days. Medications List Reviewed: Yes Assessment And Plan - Current Problems (Diagnosis) (1) Gastritis with bleeding Current Visit: Yes Status: Acute Plan: Acute gastritis most likely secondary to alcohol abuse -patient with diarrhea melena and abdominal pain on presentation -currently on Protonix PO BID -status post EGD done which was consistent with gastritis -GI consulted. Appreciated recommendations Qualifiers: Gastritis type: alcoholic Chronicity: acute Qualified Code(s): K29.21 - Alcoholic gastritis with bleeding (2) UTI (urinary tract infection) Onset Date: 01/08/16 Current Visit: No Status: Acute Plan: Urinary tract infection on UA -urine culture positive for E. S. BL. -patient on IV meropenem 1 g b.i.d. will need to finish 2 weeks course -PICC line in place. -case management consulted for halfway facility placement Qualifiers: Urinary tract infection type: acute cystitis Hematuria presence: without hematuria Qualified Code(s): N30.00 - Acute cystitis without hematuria (3) Chronic renal disease Onset Date: 01/08/16 Current Visit: No Status: Chronic Plan: Acute on chronic kidney disease most likely secondary to dehydration -IV fluids at this time -nephrology consulted. Appreciate recommendation -will continue to monitor closely Qualifiers: Chronic kidney disease stage: stage 3 (moderate) Qualified Code(s): N18.3 - Chronic kidney disease, stage 3 (moderate) (4) COPD (chronic obstructive pulmonary disease) Onset Date: 01/08/16 Current Visit: No Status: Chronic Qualifiers: COPD type: chronic bronchitis Chronic bronchitis type: unspecified Qualified Code(s): J42 - Unspecified chronic bronchitis (5) HTN (hypertension) Onset Date: 01/08/16 Current Visit: No Status: Chronic Qualifiers: Hypertension type: essential hypertension Qualified Code(s): I10 - Essential (primary) hypertension (6) Hypothyroidism Onset Date: 01/08/16 Current Visit: No Status: Chronic Qualifiers: Hypothyroidism type: unspecified Qualified Code(s): E03.9 - Hypothyroidism , unspecified - Plan Pending placement at this time at [facility]. Discharge Plan: [facility] Plan to discharge in: 24 Hours - Code Status/Comfort Care Code Status Assessed: Yes Critical Care: No
[2018-07-08 15:16] LABS: P-ANCA Anti-Myeloperoxidase Ab <1.0 AI (<1.0)
[2018-07-08] MEDS: MAGNESIUM OXIDE 400 MG TAB PO SCH (21:17)
[2018-07-08] MEDS: ATORVASTATIN 80 MG TAB PO SCH (21:18)
[2018-07-09] MEDS: ACETAMINOPHEN 500 MG TAB PO PRN (01:49)
[2018-07-09] MEDS: HYDROCODONE/APAP 7.5/325 MG TAB PO PRN (03:47)
[2018-07-09] MEDS: LEVOTHYROXINE SOD 0.125 MG TAB PO SCH (05:38)
[2018-07-09 06:14] LABS: Magnesium 1.7 mg/dL (1.8-2.4); Potassium 3.8 mmol/L (3.5-5.1)
[2018-07-09] MEDS: ALBUTEROL 2.5 MG/3 ML NEB SOL NEB PRN ×2 (07:35→14:00)
[2018-07-09] MEDS: IPRATROPIUM BROM 0.5MG/2.5ML NEB PRN ×2 (07:35→14:00)
[2018-07-09] MEDS: ARFORMOTEROL TARTRATE 15 MCG/2 ML VIAL.NEB NEB SCH (07:35)
[2018-07-09] MEDS: PROPRANOLOL HCL 60 MG SA CAP PO SCH (09:00)
[2018-07-09] MEDS: DOCUSATE NA 100 MG CAP PO SCH (09:00)
[2018-07-09] MEDS ORDERED: POTASSIUM CL SA 10 MEQ TAB PO ONE (09:00)
[2018-07-09] MEDS ORDERED: MAGNESIUM SULFATE 1 gm IVPB 1 GM/100 ML BAG IV ONE (09:00)
[2018-07-09] MEDS: POTASS/SODIUM PHOSPHATE 1 PKT POWD.PACK PO SCH ×2 (09:33→13:28)
[2018-07-09] MEDS: Meropenem 1,000 MG in NA CHLORIDE 0.9% 100 ML IV SCH (09:33)
[2018-07-09] MEDS: DULOXETINE 30 MG CAP PO SCH (09:35)
--- NOTE | 2018-07-09 09:35 | PN ---
Date of Progress Note: 07/08/2018 Subjective: The patient is seen and examined. She is complaining of some shortness of breath. Also complains of diffuse feeling of not good. Objective: Vital signs: Showing temperature 97.3, pulse rate of 60, respiratory rate of 18, blood p ressure 198/60. General: She appears in [id number] distress. She is unable to talk in full complete sentences . HEENT: Atraumatic head. Neck: No JVD was noted. Lungs: Auscultation of the lungs revealed bibasilar crackles. Abdomen: Soft and nontender. Extremities: Did not reveal any evidence of edema. Laboratory Data: At this time is showing creatinine improving to 0.82. Sodium of 143, potassium 3.9, chloride of 112, and BUN of 10. CBC showing stable hemoglobin, hematocrit, and platelet count. She was also noted to have low magnesium level of 1.6 and phosphorus level of 1.3. Medications: Current medications have been reviewed in detail. Impression: 1.Acute renal insufficiency, likely secondary to gastrointestinal bleed, currently with improved finn al function. 2.Volume overload with possible underlying pulmonary edema. The patient will need diuresis at this time. We will go ahead and start her on gentle intravenous diuresis with Lasix. 3.Underlying chronic kidney disease stage 3 with proteinuria. 4.Anemia of chronic illness and also underlying gastrointestinal bleed with severe gastritis, status post EGD. Hemoglobin has remained stable. She remains on intravenous iron as well. 5.Acute Escherichia coli extended-spectrum beta-lactamase cystitis. The patient is currently gettin g meropenem for the infection as well. Plan: The patient is overall doing okay, however, we are concerned about volume overload. We will p ut her on p.o. magnesium and phosphorus supplementation for the hypomagnesemia and hypophosphatemia, and continue to monitor her labs closely. VV/MODL Voice ID: [id number] Report ID: [id number]
[2018-07-09] MEDS: PREGABALIN 75 MG CAP PO SCH ×2 (09:36→13:28)
[2018-07-09] MEDS: MAGNESIUM OXIDE 400 MG TAB PO SCH (09:36)
[2018-07-09] MEDS: PANTOPRAZOLE 40MG TABLET PO SCH (09:36)
[2018-07-09] MEDS: LACTOBACILLUS/ACIDOPHILUS TAB PO SCH ×2 (09:36→13:28)
[2018-07-09] MEDS: FUROSEMIDE 20 MG/ 2ML VIAL IV SCH ×2 (09:36→13:28)
[2018-07-09] MEDS: AMIODARONE HCL 200 MG TAB PO SCH (09:37)
[2018-07-09 10:46] VITALS: O2SAT 99
[2018-07-09 13:29] VITALS: BP 143/70
[2018-07-09 13:40] VITALS: TEMP 98.4
--- NOTE | 2018-07-09 14:36 | P.DS ---
Admission Date: 07/02/18 Discharge Date: 07/09/18 Primary Care Provider: Dr. Ben Horne; Card-Dr. Newberry; GI-Dr. Mittal; Nephro -Dr. Estevez Reason for Admission: Diarrhea, melena Consultations: GI Nephrology - Problems (1) Gastritis with bleeding Current Visit: Yes Status: Acute Qualifiers: Gastritis type: alcoholic Chronicity: acute Qualified Code(s): K29.21 - Alcoholic gastritis with bleeding (2) UTI (urinary tract infection) Onset Date: 01/08/16 Current Visit: No Status: Acute Qualifiers: Urinary tract infection type: acute cystitis Hematuria presence: without hematuria Qualified Code(s): N30.00 - Acute cystitis without hematuria (3) Chronic renal disease Onset Date: 01/08/16 Current Visit: No Status: Chronic Qualifiers: Chronic kidney disease stage: stage 3 (moderate) Qualified Code(s): N18.3 - Chronic kidney disease, stage 3 (moderate) (4) COPD (chronic obstructive pulmonary disease) Onset Date: 01/08/16 Current Visit: No Status: Chronic Qualifiers: COPD type: chronic bronchitis Chronic bronchitis type: unspecified Qualified Code(s): J42 - Unspecified chronic bronchitis (5) HTN (hypertension) Onset Date: 01/08/16 Current Visit: No Status: Chronic Qualifiers: Hypertension type: essential hypertension Qualified Code(s): I10 - Essential (primary) hypertension (6) Hypothyroidism Onset Date: 01/08/16 Current Visit: No Status: Chronic Qualifiers: Hypothyroidism type: unspecified Qualified Code(s): E03.9 - Hypothyroidism , unspecified Brief History of Present Illness: 77-year-old female presented to the emergency room with melena and diarrhea. Patient reports diarrhea and melena over the past week. She has been having increasing nausea without vomiting. Mild pain to the lower abdominal quadrant also noted. Patient went to see her GI specialist. At that time she was evaluated and sent to the ER for further evaluation. She denied any fever, chills. In the ER patient evaluated. Patient was initially hypotensive. She was given one L bolus of fluid. Patient had positive guaiac stool. Hemoglobin 9.1. White count 18.0. Sodium 136, potassium 4.8, BUN of 109, creatinine 4.5 with a GFR of 10. Glucose 137. Troponin slightly elevated at 0.05. BMP at 6000. Lipase negative. CT scan shows no acute changes or colitis. Chest x-ray unremarkable. Blood pressure now stable with systolics around 150. Patient is getting 1 unit of blood at this time. Patient admitted for further evaluation and treatment. When I saw the patient she appeared comfortable. She is very pale. Patient with history of CAD and stent late last year, hypertension, CHF, prior tobacco use, COPD, atrial fibrillation, and hypothyroidism. ER reports that she was recently at a [facility] some time ago for a rash and given antibiotics. It is unclear what happened at that time. Hospital Course: Overall during the hospital stay patient remained stable Patient was initially admitted to the hospital for GI bleeding and was found to also have urinary tract infection here in the hospital. For patient's GI bleeding GI was consulted. Who performed an EGD. Patient was found to have gastritis on EGD. Most likely secondary to alcohol abuse. Initially patient was started on Protonix and octreotide drip. After the EGD was done patient was switched over to Protonix p.o.. Patient's hemoglobin while here in the hospital did remain stable. No transfusion was required. Patient did well overall and initially was kept NPO and then was advanced to clear liquid and then to heart healthy diet. Patient did well overall in terms of GI bleeding and no further bleeding was noted. Patient was educated extensively regarding alcohol abstinence and agreed with the plan. For patient's urinary tract infection. Initial UA was concerning for UTI. Urine culture was positive for E.SBL. Patient was started on IV meropenem which she will need for total of 2 weeks. At that time patient had a PICC line placement for possible placement at a jail facility versus inpatient rehab for IV antibiotics and rehab. Patient did well overall in terms of her urinary tract infection While here in the hospital patient was also found to have acute kidney injury on chronic kidney disease. Most likely secondary to infectious process. Patient was kept on IV fluids which did improve her kidney function. No other complications were noted All other chronic conditions remained stable while here in the hospital. Patient worked with physical therapy here in the hospital was able to tolerate physical therapy well. At that time inpatient rehab consultation was placed and patient was accepted to inpatient rehab for further care. Patient was transferred to inpatient rehab once accepted and had a bed. Vital Signs/Physical Exam: Temp Pulse Resp BP Pulse Ox 98.4 F 65 18 143/70 H 97 07/09/18 12:00 07/09/18 13:28 07/09/18 12:00 07/09/18 13:28 07/09/18 12:00 General: Alert, In no apparent distress HEENT: Atraumatic, PERRLA, EOMI Neck: Supple, JVD not distended Respiratory: Clear to auscultation bilaterally, Normal air movement Cardiovascular: Regular rate/rhythm, Normal S1 S2 Gastrointestinal: Normal bowel sounds, No tenderness Musculoskeletal: No tenderness Integumentary: No rashes Neurological: Normal speech, Normal tone, Normal affect Lymphatics: No axilla or inguinal lymphadenopathy Laboratory Data at Discharge: WBC 6.9 K/uL (4.3-10.9) D 07/08/18 05:11 Hgb 10.3 g/dL (12.0-15.0) L 07/08/18 05:11 Hct 32.3 % (36.0-45.0) L 07/08/18 05:11 Plt Count 204 K/uL (152-406) 07/08/18 05:11 PT 11.5 SECONDS (9.5-12.5) 07/02/18 14:39 INR 0.97 07/02/18 14:39 Sodium 142 mmol/L (136-145) 07/09/18 05:00 Potassium 3.8 mmol/L (3.5-5.1) 07/09/18 05:00 BUN 11 mg/dL (7-18) 07/09/18 05:00 Creatinine 0.85 mg/dL (0.55-1.3) 07/09/18 05:00 Glucose 111 mg/dL (74-106) H 07/09/18 05:00 Uric Acid 7.3 mg/dL (2.6-6.0) H D 07/08/18 05:11 Phosphorus 1.3 mg/dL (2.5-4.9) L 07/08/18 05:11 Magnesium 1.7 mg/dL (1.8-2.4) L 07/09/18 05:00 Total Bilirubin 0.2 mg/dL (0.2-1.0) 07/08/18 05:11 AST 14 U/L (15-37) L 07/08/18 05:11 ALT 12 U/L (12-78) 07/08/18 05:11 Alkaline Phosphatase 86 U/L (45-117) 07/08/18 05:11 Troponin I 0.04 ng/mL (0.0-0.045) 07/03/18 09:49 Triglycerides 207 mg/dL (<150) H 07/03/18 09:49 Cholesterol 158 mg/dL (<200) 07/03/18 09:49 HDL Cholesterol 49 mg/dL (40-60) 07/03/18 09:49 Cholesterol/HDL Ratio 3.22 07/03/18 09:49 Lipase 175 U/L (73-393) 07/02/18 14:39 Home Medications: Amiodarone HCl [Cordarone*] 200 mg PO DAILY 01/05/16 Atorvastatin Calcium [Lipitor] 80 mg PO BEDTIME 01/26/18 Duloxetine [Cymbalta Dalayed Release Pellets] 60 mg PO DAILY 01/26/18 Esomeprazole Mag Trihydrate [Nexium] 40 mg PO DAILY 01/26/18 Nitroglycerin [Nitrostat] 0.4 mg SL PRN PRN 01/26/18 Propranolol [Inderal LA] 60 mg PO BID 01/26/18 Valsartan [Diovan] 160 mg PO DAILY 01/26/18 Clopidogrel Bisulfate [Plavix] 75 mg PO DAILY #30 tablet 01/28/18 ALPRAZolam [Alprazolam] 1 mg PO DAILYPRN PRN 07/02/18 Arformoterol Tartrate [Brovana] 1 inh IH BID 07/02/18 Ferrous Sulfate [Ferrous Sulfate*] 325 mg PO TID 07/02/18 Guaifenesin [Mucinex] 600 mg PO DAILY 07/02/18 Hydrocodone Bit/Acetaminophen [Hydrocodon-Acetaminoph 7.5-325] 1 tab PO BID 04/21 Levothyroxine [Synthroid*] 0.125 mg PO DAILY 07/02/18 Pregabalin [Lyrica*] 75 mg PO TID 07/02/18 Ranitidine [Zantac*] 150 mg PO DAILY 07/02/18
--- NOTE | 2018-07-09 15:52 | P.PN ---
Date of Service: 07/09/18 Vital Signs Temp Pulse Resp BP Pulse Ox 98.4 F 65 18 143/70 H 97 07/09/18 12:00 07/09/18 13:28 07/09/18 12:00 07/09/18 13:28 07/09/18 12:00 Medications Acetaminophen (Tylenol -Extra Strength) 500 mg PO Q4HP PRN PRN Reason: TEMP > 101' F Stop: 08/01/18 21:29 Last Admin: 07/09/18 01:49 Dose: 500 mg Acetaminophen (Tylenol Suppository) 650 mg RECT Q6HP PRN PRN Reason: TEMP > 101' F Stop: 08/01/18 21:29 Hydrocodone Bitart/Acetaminophen ([place] 7.5/325 Mg) 1 tab PO BID PRN PRN Reason: Pain scale 5-7 (Moderate) Stop: 08/02/18 10:33 Last Admin: 07/09/18 03:47 Dose: 1 tab Albuterol Sulfate (Proventil 0.083% Neb Soln) 2.5 mg NEB [id number] PRN PRN Reason: SHORTNESS OF BREATH Stop: 08/01/18 21:29 Last Admin: 07/09/18 07:35 Dose: 2.5 mg Alprazolam (Xanax) 0.25 mg PO BID PRN PRN Reason: ANXIETY Stop: 08/02/18 21:01 Last Admin: 07/04/18 22:31 Dose: 0.25 mg Amiodarone HCl (Cordarone Tab) 200 mg PO DAILY CHELSEA Stop: 08/03/18 09:01 Last Admin: 07/09/18 09:37 Dose: 200 mg Arformoterol Tartrate (Brovana) 15 mcg NEB BIDRESP CHELSEA Stop: 08/01/18 21:29 Last Admin: 07/09/18 07:35 Dose: 15 mcg Atorvastatin Calcium (Lipitor) 80 mg PO BEDTIME CHELSEA Stop: 08/02/18 21:01 Last Admin: 07/08/18 21:18 Dose: 80 mg Calcitriol (Rocaltrol) 0.5 mcg PO DAILY CHELSEA Stop: 08/09/18 09:01 Cholecalciferol (Vitamin D 5,000 Iu Cap) 5,000 unit PO DAILY CHELSEA Stop: 08/09/18 09:01 Docusate Sodium (Colace Cap) 100 mg PO BID CHELSEA Stop: 08/06/18 21:01 Last Admin: 07/09/18 09:00 Dose: Not Given Duloxetine HCl (Cymbalta Delayed Release Pellets) 60 mg PO DAILY CHELSEA Stop: 08/03/18 09:01 Last Admin: 07/09/18 09:35 Dose: 60 mg Furosemide (Lasix) 20 mg PO DAILY CHELSEA Stop: 08/09/18 09:01 Hydralazine HCl (Apresoline) 10 mg IV Q6HP PRN PRN Reason: Titrate to SBP (MUST DEFINE) Stop: 08/01/18 21:29 Last Admin: 07/06/18 17:17 Dose: 10 mg Meropenem 1,000 mg/ Sodium (Chloride) 100 mls @ 100 mls/hr IV Q12HR CHELSEA Stop: 08/05/18 09:01 Last Admin: 07/09/18 09:33 Dose: 100 mls Ipratropium [place] (Atrovent Neb) 0.5 mg NEB [id number] PRN PRN Reason: SHORTNESS OF BREATH Stop: 08/01/18 21:29 Last Admin: 07/09/18 07:35 Dose: 0.5 mg Lactobacillus Acidoph/Bulgaricus (Lactinex) 1 tab PO TID CHELSEA Stop: 08/02/18 21:01 Last Admin: 07/09/18 13:28 Dose: Not Given Levothyroxine Sodium (Synthroid) 0.125 mg PO DAILYAC [facility] Stop: 08/03/18 06:31 Last Admin: 07/09/18 05:38 Dose: 0.125 mg Loperamide HCl (Imodium) 2 mg PO Q4H PRN PRN Reason: DIARRHEA Stop: 08/02/18 14:31 Last Admin: 07/09/18 13:27 Dose: 2 mg Magnesium Oxide (Mag 0x Tab) 800 mg PO BID CHELSEA Stop: 08/07/18 21:01 Last Admin: 07/09/18 09:36 Dose: 800 mg Ondansetron HCl (Zofran) 4 mg IV Q6HP PRN PRN Reason: NAUSEA / VOMITING Stop: 08/01/18 21:29 Pantoprazole Sodium (Protonix Tab) 40 mg PO ACB CHELSEA Stop: 08/04/18 10:01 Last Admin: 07/09/18 09:36 Dose: 40 mg Potassium Phos/Sodium Phos (Neutra-Phos Pwd) 1 pkt PO TID [facility] Stop: 08/07/18 14:01 Last Admin: 07/09/18 13:28 Dose: 1 pkt Pregabalin (Lyrica) 75 mg PO TID [facility] Stop: 08/02/18 14:01 Last Admin: 07/09/18 13:28 Dose: 75 mg Propranolol HCl (Inderal La) 60 mg PO BID [facility] Stop: 08/02/18 21:01 Last Admin: 07/09/18 09:00 Dose: Not Given Sodium Chloride (Normal Saline Flush) 10 ml IV BID [facility] Stop: 08/01/18 21:29 Last Admin: 07/09/18 09:37 Dose: 10 ml Microbiology Results 07/02/18 17:35 Stool Culture & Sensitivity - Final Staph Aureus 07/02/18 18:00 Blood - Blood Aerobic Blood Culture - Final No growth in 5 days. 07/02/18 18:00 Blood - Blood Anaerobic Blood Culture - Final No growth in 5 days. 07/02/18 17:35 Stool Clostridium difficile Toxin Assay - Final Assessment/ Plan: Nephrology. Feeling better. Diarrhea. Decreased appetite but improving. Tired after working with PT. CPS stable without CP or SOB. No acute events overnight. Vitals, medications, blood work and imaging reviewed in the chart. General: Alert, In no apparent distress, Oriented x3, Cooperative HEENT: Atraumatic, Mucous membr. moist/pink Neck: Supple Respiratory: Clear to auscultation bilaterally Cardiovascular: No edema, Regular rate/rhythm, No rubs Gastrointestinal: No guarding, Distended, Tenderness Musculoskeletal: No clubbing, No contractures Integumentary: No rashes, No cyanosis Neurological: Normal speech Blood work reviewed in the chart. BUN 69; Cr 2.72 Imagings Data: EXAM DESCRIPTION: US - Renal Ultrasound-Complete - 07/04/2018 8:35 pm CLINICAL HISTORY: Acute renal insufficiency COMPARISON: None. FINDINGS: The right kidney measures 10 cm with an increased echotexture. A 1.5 centimeter cyst The left kidney measures 11 cm with an increased echotexture. 1.2 centimeter cyst Hydronephrosis is not seen. Evaluation of bladder is limited as it is decompressed IMPRESSION: Increased renal echotexture consistent with parenchymal disease Small bilateral renal cysts EXAM DESCRIPTION: CT - Abdomen Pelvis Wo Contrast - 07/02/2018 4:52 pm CLINICAL HISTORY: Abdominal pain, black stools COMPARISON: October 2016 TECHNIQUE: Axial [address] imaging of the abdomen and pelvis was performed without IV contrast. No IV contrast was given because of allergy, abnormal renal function, patient refusal or physician request. Oral contrast was given. All CT scans are performed using dose optimization technique as appropriate and may include automated exposure control or mA/KV adjustment according to patient size. FINDINGS: No suspicious findings in the lung bases. Heart size is upper normal. No pericardial effusion. The liver, spleen and pancreas show no suspicious findings on non-contrast imaging. Gallbladder and biliary tree are also without suspicious finding. Gallstones can be occult on CT imaging. No hydronephrosis or suspicious renal mass. No obstructing or nonobstructing calculi. Small low-density area in the upper pole left kidney not clearly different from prior imaging and believed to be incidental cyst. Mass of the left adrenal gland is not changed from 2017. Attenuation value is -8 Hounsfield units which would support benign adrenal adenoma etiology. No right adrenal suspicious finding. Isodense renal masses and pyelonephritis cannot be excluded in the absence of IV contrast. Urinary bladder is fully contracted around a Gamez catheter. No gastric dilatation or wall thickening. Most of the contrast is still in the stomach. Contrast has made it to the distal small bowel. No gastric outlet obstructive findings. No dilated large or small bowel. No appendicitis findings. There is moderate sigmoid diverticulosis and descending colon mild diverticulosis. No diverticulitis. No colon mass suspected. No free air, free fluid or inflammatory stranding. No mass or bulky lymphadenopathy. Patient has a very small fat only umbilical hernia. Fat filled inguinal hernia present on the left similar to comparison. Disc and bony degenerative changes are present. IMPRESSION: Non-contrast enhanced CT abdomen and pelvis imaging show no acute or emergent finding. Conclusions/Impression: A/ NOREEN likely due to hypovolemia in the setting of GI symptoms. Acidosis. CKD III with proteinuria. HTN with CKD/ CHF. Diastolic CHF, chronic. Anemia in chronic illness. GI Bleed/ Severe Gastritis. Iron deficiency. Hypocalcemia. Acute E.coli ESBL Cystitis. P/ Continue current POC and Medications. Reduce Lasix 20mg PO daily. Encourage nutrition and hydration. Electrolyte replacement as ordered. Give IV Iron as needed. Agree with current abx. No NSAIDs. AM labs. Daily weight.
[2018-07-10] MEDS ORDERED: VITAMIN D 5,000 UNIT CAP PO SCH (09:00)
[2018-07-10] MEDS ORDERED: FUROSEMIDE 20 MG TABLET PO SCH (09:00)
[2018-07-10] MEDS ORDERED: CALCITROL 0.25 MCG CAP PO SCH (09:00)
== END 2018-07-09 17:12 | DRG 378 ==
LOC: ER 13:04 → ERHOLD 18:01 → 3RD-ICU 20:03 → 2ND 07-04 15:50
PROVIDERS: ADMIT Family Medicine; ATTEND Family Medicine
PROC: 30233N1 Transfusion of Nonautologous Red Blood Cells into Peripheral Vein, Percutaneous Approach (ICD-10-PCS; principal; 2018-07-02)
PROC: 0DB78ZX Excision of Stomach, Pylorus, Via Natural or Artificial Opening Endoscopic, Diagnostic (ICD-10-PCS; 2018-07-04)
PROC: 02HV33Z Insertion of Infusion Device into Superior Vena Cava, Percutaneous Approach (ICD-10-PCS; 2018-07-07)
DX: K29.21 Alcoholic gastritis with bleeding (principal); N17.9 Acute kidney failure, unspecified; I50.32 Chronic diastolic (congestive) heart failure; K50.90 Crohn's disease, unspecified, without complications; E87.2 Acidosis; N30.00 Acute cystitis without hematuria; I95.9 Hypotension, unspecified; E86.0 Dehydration; B96.20 Unspecified Escherichia coli [E. coli] as the cause of diseases classified elsewhere; Z16.12 Extended spectrum beta lactamase (ESBL) resistance; F10.10 Alcohol abuse, uncomplicated; I25.10 Atherosclerotic heart disease of native coronary artery without angina pectoris; I11.0 Hypertensive heart disease with heart failure; I48.2 Chronic atrial fibrillation; K21.9 Gastro-esophageal reflux disease without esophagitis; J44.9 Chronic obstructive pulmonary disease, unspecified; E03.9 Hypothyroidism, unspecified; D50.9 Iron deficiency anemia, unspecified; E83.51 Hypocalcemia; D63.8 Anemia in other chronic diseases classified elsewhere; D51.9 Vitamin B12 deficiency anemia, unspecified; E83.39 Other disorders of phosphorus metabolism; E83.42 Hypomagnesemia; E78.5 Hyperlipidemia, unspecified; E66.9 Obesity, unspecified; K59.00 Constipation, unspecified; Z68.31 Body mass index [BMI] 31.0-31.9, adult; Z79.82 Long term (current) use of aspirin; Z87.891 Personal history of nicotine dependence; Z95.5 Presence of coronary angioplasty implant and graft; Z88.7 Allergy status to serum and vaccine
CPT/HCPCS: 36415; 36430; 51702; 71045; 74176; 76770; 78278; 80048; 80053; 80061; 80076; 81003; 81015; 82550; 82553; 82570; 82607; 82728; 82746; 82805; 82962; 83010; 83520; 83540; 83605; 83690; 83735; 83880; 84100; 84145; 84156; 84165; 84439; 84443; 84466; 84484; 84550; 85014; 85018; 85025; 85610; 86021; 86038; 86160; 86317; 86334; 86335; 86430; 86705; 86803; 86850; 86900; 86901; 87040; 87045; 87046; 87077; 87086; 87088; 87186; 87340; 87389; 87493; 88305; 88312; 93005; 93306; 94640; 96361; 96365; 96367; 96374; 96375; 97110; 97116; 97162; 97530; 99285; A9560; C9113; J0360; J0744; J1940; J2001; J2405; J2704; J2916; J3010; J3475; J7030; J7605; P9016; Q4081

== ENCOUNTER 2018-07-09 12:29 | Inpatient (IN) | payer OTHER ==
--- NOTE | 2018-07-09 15:51 | R.PREADM ---
SCREENING DATE AND TIME 07/09/2018 12:32 (CDT) ANTICIPATED REHAB ADMISSION DATE 07/11/2018 REFERRING FACILITY [facility] REFERRAL DATE AND TIME 07/09/2018 12:33 (CDT) REFERRAL ROOM# 216 ACUTE ADMIT DATE 07/02/2018 HOSPITALIZED IN LAST 60 DAYS? No. Previous Rehabilitation(s): No. ACUTE BIOLOGY MANAGER/DC OIL FURNACE INSTALLER Marcelle REFERRING PHYSICIAN DR SIMONS PRIMARY CARE PHYSICIAN Unknown REHAB FACILITY [facility] CLINICAL LIAISON Omero Pacheco PHYSICIAN REVIEWER Dr. Marcio Barber M.D. MR# [id number] NAME OFELIA GUARDADO ADDRESS [address] [place] [address] PHONE [facility] [id number] DATE OF 1940 AGE 77 SSN# [id number] GENDER female MARITAL STATUS RACE white PREF. LANGUAGE (IF NON-GREENLANDIC) [place]an ADMIT FROM 02 - [facility] PRE-HOSPITAL LIVING SETTING 01 - Home (private home/apt. board/care, assisted living, [place] [facility], transitional living) HOME TYPE AND DETAILS Type of home: single family house # of steps to enter the residence: 0 # of levels in the residence: 2 # of steps within the residence: Patient stays on first floor PRE-HOSPITAL LIVING WITH Family/Relatives FAMILY SUPPORT No PRIMARY FAMILY CONTACT NAME Misti Polk PRIMARY FAMILY CONTACT PHONE PRIMARY FAMILY CONTACT RELATIONSHIP DAUGHTER IS PRIMARY FAMILY CONTACT AUTH. REP.? no 1ST EMERGENCY CONTACT Misti Polk 1ST CONTACT PHONE 1ST CONTACT RELATIONSHIP DAUGHTER IS 1ST CONTACT AUTH. REP.? no PHONE 2ND CONTACT ON ADM.? no PATIENT EMPLOYMENT STATUS Retired (for age) PATIENT EMPLOYER No Employer PAYOR INFORMATION: 1ST PAYOR NAME Medicare 1ST PAYOR PHONE 1ST PAYOR INJURY/ILLNESS DUE TO ACCIDENT? No ANOTHER REPUBLICAN RESPONSIBLE? No PRIMARY REHAB/ACUTE DIAGNOSIS: Gastritis with bleeding, UTI, HX of STENT 2 months ago ONSET DATE 07/02/2018 REHAB IMPAIRMENT CATEGORY (ESTHER): 20 Miscellaneous (Misc) does NOT meet 60% rule PRIMARY DIAGNOSIS-RELATED SURGERIES: STENT INTERVENTIONS: - DVT/PE Activity management Labs Monitor for extension ABG's 02 sats - Hypertension VS Fluid management Medications - CAD VS 02 sats Activity management Medications - Renal failure Labs Weights Medications SUMMARY OF ACUTE HOSPITALIZATION: Pt. is a 77 yo Right-handed white female. On 07/02/2018 she was admitted to [facility] with diagnosis Gastritis with bleeding, UTI, HX of STENT 2 months ago. her impairment category is Debility 16 - Debility (16). Pre-morbidly, Pt. was independent/mod-I in Transfers Control, Balance, Locomotion, and Self-Care; and she had good Sphincter Control, Safety Awareness, Social Cognition, and Communication. Currently, she has deficits of Self-Care, Transfers Control, Endurance, Balance, Safety Awareness, an d Locomotion. Pt. is now referred to [facility] for acute in-patient rehabilitation in order to maximize patient's functional independence in activities of daily living, strength, ROM, and mobi lity. Patient has realistic goal of being discharged at assistance level 6-Audrey to reside at Home with Fam mary/Relatives. CONSULT: Appendectomy Hysterectomy x 2 PAST MEDICAL HISTORY CAD COPD HTN HLD GERD CHRONIC AFIB HYPOTHYROID OBESITY CHF MEDICATION ALLERGIES: PNEUMOCOCCAL VACCINE ENVIRONMENTAL ALLERGIES: None Known - Substance Allergies None Known - Other Allergies None Known CODE STATUS: Full code WEIGHT/HEIGHT/BMI: WEIGHT 171 lbs HEIGHT 5' 2" BMI 31.3 DIET: - Diet Type Regular - Diet - Solid Texture Regular - Diet - Liquid Texture Regular - Tube Feed N/A REVIEW OF SYSTEMS: - Gen Alert and awake Lying in bed No apparent distress Oriented to: person, time, and place - Vital Signs Vital signs stable, afebrile - CVS RRR VITAL SIGNS Temperature: 97.1 F SBP/DBP: 107/74 Pulse: 81 Resp: 18 Vital signs stable, afebrile CURRENT SPHINCTER CONTROL: Pre-hospital bladder status: continent # of bladder accidents in the last 7 days prior to screenin Pre-hospital bowel status: continent # of bowel accidents in the last 7 days prior to screenin Last Bowel Movement Date: 07/09/2018 DETAILED CURRENT FUNCTIONAL STATUS: - Bladder accident frequency: Ind - No accidents in the past 7 days - Bowel accident frequency: Ind - No accidents in the past 7 days - Walking score based on distance walked: 3(>=150ft) FUNCTIONAL STATUS: - Self-Care A. Eating Ind sup B. Grooming Ind sup C. Bathing Audrey ADNO D. Dressing - Upper Ind Ronaldo E. Dressing - Lower Ind modA F. Toileting Audrey Ronaldo - Sphincter Control G: Bladder control Audrey Audrey H: Bowel control Ind Ind - Transfers Control I. Bed/Chair/Wheelchair Audrey Ronaldo J. Toilet Audrey Ronaldo K. Tub/Shower Audrey ADNO - Locomotion L. Walk/Wheelchair (W) Audrey modA - Communication N. Comprehension (B) Audrey Audrey O. Expression (B) Ind Ind - Social Cognition P. Social Interaction Ind Ind Q. Problem Solving Ind Ind R. Memory Ind Ind - Endurance Poor - Balance Poor - Safety Awareness Poor CURRENT FUNC. DEFICITS: Self-Care, Transfers Control, Endurance, Balance, Safety Awareness, and Locomotion THERAPY NOTES FROM ACUTE CARE: Attached. SPECIAL NEEDS: - Safety Concerns Skin breakdown precautions needed due to skin breakdown risk PATIENT NEEDS ACTIVE AND ONGOING THERAPEUTIC INTERVENTION OF MULTIPLE THERAPY DISCIPLINES, INCLUDING: - Occupational Therapy Evaluate and Treat. - Physical Therapy Evaluate and Treat. PATIENT NEEDS CLOSE MEDICAL SUPERVISION BY A REHABILITATION PHYSICIAN FOR: Bowel and Bladder Management Coordination of Treatment Team PATIENT REQUIRES 24X7 REHAB NURSING FOR MEDICAL AND FUNCTIONAL MGT. OF THE FOLLOWING DEFICITS: ADL's Ambulation Bowel and Bladder Management Communication Disease Management Medication Management Patient/Family Education Providing Safe Environment Transfers PATIENT REQUIRES INTENSIVE, COORDINATED INTERDISCIPLINARY APPROACH TO REHAB: Arranging Home Equipment/Services Discharge Planning Family Intervention/Training Cleaner Carpet And Upholstery/Case Management PATIENT REHAB POTENTIAL: Expected level of measurable improvement will be of a practical value to patient's functional capacit y or adaptations to impairments Has a viable Discharge Plan Medically appropriate; condition is sufficiently stable to participate in intensive rehab program Patient is able and expected to receive 3 hours of individualized therapy daily on at least 5 of ever y 7 days Patient's prognosis for significant practical improvement within a reasonable period of time appears Good DISCHARGE PLAN: - Estimated Length of Stay (days) 13. - Consensus on plan Discharge plan has been discussed with primary caregiver. Patient/Family is in agreement with the brianna n. Primary caregiver is in agreement with the plan. - Patient/Family Goals Return home with assistance. - Planned Living Setting Upon Discharge Home, to live with Family/Relatives. Transitional Living. ADDITIONAL DISCHARGE COMMENTS: The patient is a 77 year old female that lives in a two story home with her daughter and son in law. She has been modified independent and walks using only a single point cane and was mod-independent i n her ADL's. She has been in [facility] and is debilitated but is now medically stable but in need of 24-hour nursing and a rehabilitation doctor's oversight. During this time she will receiv e active and ongoing intensive physical and occupational therapy. She is reasonable expected to part icipate in 3 hours of therapy a day/15 hours of therapy a week and receive care with an intensive int erdisciplinary approach. RECOMMENDED CARE LEVEL: IRF RECOMMENDATION DETAILS: Recommended Admission to Comprehensive Rehabilitation Program to Increase Functional [place] SCREENER'S COMPLETENESS CONFIRMATION: - Screening Confirmation The patient data collection on this preadmission screening form is finished PHYSICIANS REVIEW AND ADMISSION DETERMINATION Admit - Based on my review of the Pre-Admission Screening results, in my medical judgment and experie nce, I concur with the findings and recommend admission to [facility], as this patient requires an IRF level of care. SIGNATURE PANEL: Clinical Liaison - [electronically] signed by Ibeth Ortez Medical Imaging Technician on 07/09/2018 at 14:01 (C DT) Clinical Liaison - [electronically] signed by Jm Pacheco PT on 07/09/2018 at 14:04 (CDT) Physician Reviewer - [electronically] signed by Dr. Marcio Barber M.D. on 07/09/2018 at 15:50 (CDT )
--- OUTSIDE RECORDS SUMMARY | 2018-07-09 17:24 | XMS REPORT ---
:1940 [facility] Address [address] [place] [address] Dr. Urban [address] [place] [id number] Care Team Providers Name Role Phone Unavailable Unavailable Unavailable Problems This patient has no known problems. Allergies, Adverse Reactions, Alerts This patient has no known allergies or adverse reactions. Medications This patient has no known medications.
--- OUTSIDE RECORDS SUMMARY | 2018-07-09 17:25 | XMS REPORT ---
[...] Nicotine dependence F17.200 Active Problem Atherosclerosis of [place] coronary I25.10 Active artery Problem Chronic kidney [...] Heart murmur R01.1 Active Assessment Atherosclerosis of [place] coronary I25.10 Active artery Problem Congestive heart [...] End Status Dosage System Date Date Valsartan [facility] 11979861150 160 MG Orally Active 1 tablet Once a day Lyrica ND 48534477449 [address] Active 1 capsule Piotr Three times a day Propranolol HCl ND 20778466388 60 MG Orally Active 1 tablet Twice a day Alprazolam ND 70936561213 1 MG Orally Active 1 tablet Once a day PRN ANXIETY Klor-Con 10 [facility] 63280166551 10 MEQ Orally Active 1 tablet Twice a day with food Incruse Ellipta [facility] 82082895035 62.5 MCG/INH Active 1 puff Inhalation Once a day Vitamin B-12 ND 22605565653 1000 MCG Orally Active 1 tablet Once a day Albuterol [facility] 11318665468 (2.5 MG/3ML) Active 3 ml as Sulfate 0.083% needed Inhalation every 4-6 hours PRN cough,wheeze, SOB Amiodarone HCl ND 89200666519 200 MG Orally Active 1 tablet Once a day Nitroglycerin [facility] 69902810458 0.4 MG Active as directed Sublingual Ferrous Sulfate [facility] 24586577883 325 (65 Fe) MG Active 1 tablet Orally Once a day Plavix [facility] 83739203139 75 MG Orally Active 1 tablet Once a day Singulair ND 74947551245 10 MG Orally Active 1 tablet in Once a day the evening Spiriva [facility] 94699902191 18 MCG Active 1 capsule HandiHaler Inhalation Once a day Symbicort [facility] 04377965928 160-4.5 MCG/ACT Active 2 puffs Inhalation Twice a day Nexium ND 33483001215 40 MG Orally Active 1 capsule Once a day Levothyroxine ND 18696197348 125 MCG Orally Active 1 tablet on Sodium Once a day an empty stomach in the morning Atorvastatin [facility] 17431070807 80 MG Active TAKE 1 Calcium TABLET EVERY DAY Gemfibrozil [facility] 87160442972 600 MG Orally Active 1 tablet Twice a day Vitamin D [facility] 38853298104 89996 UNIT Active 1 capsule (Ergocalciferol) Orally once weekly Cymbalta [facility] 63326539575 60 MG Orally Active 1 capsule Once a day [place] [facility] 22876019738 7.5-325 MG Active 1 tablet as Orally needed Lipitor [facility] 70471923744 80 MG Orally Active 1 tablet Once a day ProAir HFA [facility] 62449280809 108 (90 Base) Active 2 puffs as MCG/ACT needed Inhalation every 6 hrs Results No Known Results Summary Purpose eClinicalWorks Submission
[2018-07-09] MEDS ORDERED: LOPERAMIDE HCL 2 MG CAPSULE PO PRN (18:47)
[2018-07-09] MEDS ORDERED: PROPRANOLOL HCL 60 MG SA CAP PO SCH (20:00)
[2018-07-09] MEDS ORDERED: Meropenem 1000 MG/VIAL IV SCH (20:00)
[2018-07-09] MEDS: ARFORMOTEROL TARTRATE 15 MCG/2 ML VIAL.NEB NEB SCH (20:00)
[2018-07-09] MEDS: DOCUSATE NA 100 MG CAP PO SCH (20:00)
[2018-07-09] MEDS: Meropenem 1,000 MG in NA CHLORIDE 0.9% 100 ML IV SCH (20:25)
[2018-07-09] MEDS: ATORVASTATIN 80 MG TAB PO SCH (20:26)
[2018-07-09] MEDS: LACTOBACILLUS/ACIDOPHILUS TAB PO SCH (20:26)
[2018-07-09] MEDS: FERROUS SULFATE 325 MG TAB PO SCH (20:26)
[2018-07-09] MEDS: MAGNESIUM OXIDE 400 MG TAB PO SCH (20:26)
[2018-07-09] MEDS: PREGABALIN 75 MG CAP PO SCH (20:30)
[2018-07-09] MEDS: HYDROCODONE/APAP 7.5/325 MG TAB PO PRN (20:30)
[2018-07-09] MEDS: PROPRANOLOL HCL 60 MG SA CAP PO SCH (20:39)
[2018-07-09 21:42] LABS: Urine Appearance CLEAR; Urine Bilirubin NEGATIVE (NEG); Urine Blood 1+ (NEG); Urine Color YELLOW; Urine Glucose NEGATIVE (NEG); Urine Protein 1+ (NEG); Urine Urobilinogen 0.2 mg/dL (0.2-1.0)
[2018-07-09 21:59] LABS: Urine Bacteria <20 /HPF (<20); Urine RBC <5 /HPF (NONE SEEN)
[2018-07-09 22:00] LABS: Urine Culture Reflex Order REFLEXED
--- NOTE | 2018-07-10 01:14 | FAST ---
SHIFT START DATE/TIME: 07/09/2018 19:00 (CDT) SHIFT END DATE/TIME: 07/10/2018 07:00 (CDT) NAME OFELIA GUARDADO DATE OF : 1940 DATE OF ADMISSION: 07/09/2018 17:21 (CDT) PHONE: AGE: 77 SSN# [id number] GENDER: Female ENCOUNTER PHYSICIAN: Dr. Marcio Barber M.D. ADMISSION DIAGNOSIS: - Debility 16 - Debility (16) Gastritis with bleeding, UTI, HX of STENT 2 months ago. EATING: Activity did not occur on this shift EATING - SCORE: 0-UNK GROOMING: Activity did not occur on this shift GROOMING - SCORE: 0-UNK BATHING: Activity did not occur on this shift BATHING - SCORE: 0-UNK DRESSING - UPPER BODY: Patient is not dressing in public clothing ARTICLES SCORE Total number of steps: 0 DRESSING - UPPER BODY - SCORE: 0-UNK DRESSING - LOWER BODY: Patient is not dressing in public clothing ARTICLES SCORE Total number of steps: 0 DRESSING - LOWER BODY - SCORE: 0-UNK TOILETING: TOILETING - STEP 1: Does the patient require the assistance of a person or device, or need extra time with toileting? Yes . TOILETING - STEP 2: Does the patient require the assistance of a helper? Yes. TOILETING - STEP 3: How much assistance does the patient require from the helper? Hands-on assistance from the helper TOILETING - STEP 4: Of the 3 tasks: 1) Adjusting clothing prior to use, 2) Cleansing of perineal area, 3) Adjusting clot annabella after use; How many tasks does the patient perform WITHOUT assistance of the helper? Three tasks with steadying assistance from the helper TOILETING - SCORE: 4-MIN BLADDER MANAGEMENT: BLADDER MANAGEMENT - STEP 1: Does the patient control the bladder completely and intentionally without equipment or devices or med ications, and is always continent? Yes. BLADDER MANAGEMENT - SCORE: 7-IND BOWEL MANAGEMENT: Activity did not occur on this shift BOWEL MANAGEMENT - SCORE: 7-IND TRANSFERS: BED, CHAIR, WHEELCHAIR: TRANSFERS: BED, CHAIR, WHEELCHAIR - STEP 1: Does the patient require assistance of a person or device, or need extra time with bed, chair, or whe elchair transfers? Yes. TRANSFERS: BED, CHAIR, WHEELCHAIR - STEP 2: Does the patient require the assistance of a helper? Yes. TRANSFERS: BED, CHAIR, WHEELCHAIR - STEP 3: How much assistance does the patient require from the helper? Steadying/guiding assistance TRANSFERS: BED, CHAIR, WHEELCHAIR - SCORE: 4-MIN TRANSFERS: TOILET: TRANSFERS: TOILET - STEP 1: Does the patient require the assistance of a person or device, or need extra time with toilet transfe rs? Yes. TRANSFERS: TOILET - STEP 2: Does the patient require the assistance of a helper? Yes. TRANSFERS: TOILET - STEP 3: How much assistance does the patient require from the helper? Patient performs half or more of the tr ansferring tasks TRANSFERS: TOILET - STEP 4: Does the patient need only incidental help such as contact guard or steadying during toilet transfer? Yes. TRANSFERS: TOILET - SCORE: 4-MIN TRANSFERS: SHOWER: Activity did not occur on this shift TRANSFERS: SHOWER - SCORE: 0-UNK TRANSFERS: TUB: Activity did not occur on this shift TRANSFERS: TUB - SCORE: 0-UNK LOCOMOTION: WALK: Activity did not occur on this shift LOCOMOTION: WALK - SCORE: 0-UNK LOCOMOTION: WHEELCHAIR: Activity did not occur on this shift LOCOMOTION: WHEELCHAIR - SCORE: 0-UNK COMPREHENSION: COMPREHENSION: TYPE: Both COMPREHENSION - STEP 1: Does the patient require help from a person or device, or need extra time to understand complex and a bstract ideas (such as current events, finances, discharge planning, medical issues, relationships, e tc)? No. COMPREHENSION - STEP 2: Does the patient need extra time, require an assistive device (such as glasses for visual comprehensi on or a hearing aid for auditory comprehension) or does s/he have mild difficulty understanding compl ex and abstract information? Yes. COMPREHENSION - SCORE: 6-AL EXPRESSION EXPRESSION: TYPE: Both EXPRESSION - STEP 1: Does the patient require help from a person or device, or need extra time expressing complex and abst ract ideas (such as current events, finances, discharge planning, medical issues, relationships, etc) ? No. EXPRESSION - STEP 2: Does the patient need extra time, require an assistive device (such as augmentive communication syste m or a communication board), OR does s/he have mild difficulty expressing complex and abstract ideas (including mild dysarthria or mild word-find problems)? No. EXPRESSION - SCORE: 7-IND SOCIAL INTERACTION: SOCIAL INTERACTION - STEP 1: Does the patient require a helper to interact with others in social and therapeutic situations? No. SOCIAL INTERACTION - STEP 2: Does the patient need extra time in social situations, OR does s/he interact with staff, other patien ts, and family members ONLY in structured environments, OR does s/he require medication for social in teraction? No. SOCIAL INTERACTION - SCORE: 7-IND PROBLEM SOLVING: Patient requires bed/chair alarms due to attempts to get up unassisted when helper is needed. PROBLEM SOLVING - STEP 1: How often do the bed/chair alarms go off? Occasionally - the alarms go off about 25% or less PROBLEM SOLVING - SCORE: 4-MIN MEMORY: MEMORY - STEP 1: How often do the bed/chair alarms go off? Occasionally - the alarms go off about 25% of the time or l ess MEMORY - SCORE: 4-MIN SIGNATURE PANEL: The following modified sections: Eating - Score, Grooming - Score, Bathing - Score, Dressing - Upper Body - Score, Dressing - Lower Body - Score, Toileting - Score, Bladder Management - Score, Bowel Man agement - Score, Transfers: Bed, Chair, Wheelchair - Score, Transfers: Toilet - Score, Transfers: Christine wer - Score, Transfers: Tub - Score, Locomotion: Walk - Score, Locomotion: Wheelchair - Score, Compre hension - Score, Expression - Score, Social Interaction - Score, Problem Solving - Score, Memory - Sc ore were [electronically] signed by Court Canales CNA on FriJul 10 2018 01:13:43 T-0500 ([place] Da ylight Time)
[2018-07-10] MEDS: ACETAMINOPHEN 500 MG TAB PO PRN (05:44)
[2018-07-10 06:25] LABS: Absolute Lymphocytes (CBC) 1.3 K/uL (0.7-4.9); Absolute Neutrophil 3.6 K/uL (1.8-8.0); Basophils % 0.5 % (0-1.3); Eosinophils % 3.7 % (0-4.4); Hematocrit 30.3 % (36.0-45.0); Lymphocytes % 20.6 % (15.3-44.8); MPV 8.4 fL (7.6-11.3); Monocytes % 16.2 % (3.3-12.3); RBC Red Blood Cell Count 3.51 M/uL (3.86-4.86)
[2018-07-10] MEDS: PANTOPRAZOLE 40MG TABLET PO SCH (06:30)
[2018-07-10] MEDS: LEVOTHYROXINE SOD 0.125 MG TAB PO SCH (06:30)
[2018-07-10 06:33] LABS: Albumin 2.4 g/dL (3.4-5.0); Magnesium 1.8 mg/dL (1.8-2.4); Potassium 3.9 mmol/L (3.5-5.1); Prealbumin 11.9 mg/dL (20-40)
[2018-07-10] MEDS: Meropenem 1,000 MG in NA CHLORIDE 0.9% 100 ML IV SCH ×2 (07:02→20:14)
[2018-07-10] MEDS: RANITIDINE 150 MG TABLET PO SCH (07:02)
[2018-07-10] MEDS: GUAIFENESIN 600 MG SA TAB PO SCH (07:02)
[2018-07-10] MEDS: DOCUSATE NA 100 MG CAP PO SCH ×3 (07:02→20:14)
[2018-07-10] MEDS: MAGNESIUM OXIDE 400 MG TAB PO SCH ×2 (07:03→20:14)
[2018-07-10] MEDS: HYDROCODONE/APAP 7.5/325 MG TAB PO PRN ×2 (07:03→18:12)
[2018-07-10] MEDS: CLOPIDOGREL 75 MG TABLET PO SCH (07:03)
[2018-07-10] MEDS: DULOXETINE 30 MG CAP PO SCH (07:03)
[2018-07-10] MEDS: AMIODARONE HCL 200 MG TAB PO SCH (07:05)
[2018-07-10] MEDS: VALSARTAN 80 MG TAB PO SCH (07:59)
[2018-07-10] MEDS ORDERED: VALSARTAN 160 MG TAB PO SCH (08:00)
[2018-07-10] MEDS: LACTOBACILLUS/ACIDOPHILUS TAB PO SCH ×3 (08:41→20:14)
[2018-07-10] MEDS: PROPRANOLOL HCL 60 MG SA CAP PO SCH ×2 (08:41→20:15)
[2018-07-10] MEDS: PREGABALIN 75 MG CAP PO SCH ×3 (08:41→20:14)
[2018-07-10] MEDS: FERROUS SULFATE 325 MG TAB PO SCH ×3 (08:41→20:14)
[2018-07-10 08:57] LABS: Anisocytosis 2+; Blood Morphology Comment NOTED (NOT SEEN); Platelet Estimate ADEQ; Polychromasia 1+
[2018-07-10] MEDS: ARFORMOTEROL TARTRATE 15 MCG/2 ML VIAL.NEB NEB SCH ×2 (09:19→19:50)
--- NOTE | 2018-07-10 09:22 | P.RH.PN ---
Estimated Length of Stay: 10 Expected Discharge Date: 07/18/18 Discharge Disposition Plan: Home Family Support: Yes Mcfp Goal: Mobility, Transfers, Self Care Vital Signs: Last Vital Signs Temp 96.4 F L 07/10/18 07:55 Pulse 73 07/10/18 07:55 Resp 16 07/10/18 07:55 BP 135/60 07/10/18 07:55 Pulse Ox 98 07/10/18 07:55 Laboratory: Laboratory Last Values WBC 6.1 K/uL (4.3-10.9) 07/10/18 05:37 RBC 3.51 M/uL (3.86-4.86) L 07/10/18 05:37 Hgb 9.5 g/dL (12.0-15.0) L 07/10/18 05:37 Hct 30.3 % (36.0-45.0) L 07/10/18 05:37 MCV 86.3 fL (80-100) 07/10/18 05:37 MCH 27.2 pg (27.0-35.0) 07/10/18 05:37 MCHC 31.5 g/dL (32.0-36.0) L 07/10/18 05:37 RDW 20.9 % (12.1-15.2) H 07/10/18 05:37 Plt Count 185 K/uL (152-406) 07/10/18 05:37 MPV 8.4 fL (7.6-11.3) 07/10/18 05:37 Neutrophils % 59.0 % (41.7-73.7) 07/10/18 05:37 Lymphocytes % 20.6 % (15.3-44.8) 07/10/18 05:37 Monocytes % 16.2 % (3.3-12.3) H 07/10/18 05:37 Eosinophils % 3.7 % (0-4.4) 07/10/18 05:37 Basophils % 0.5 % (0-1.3) 07/10/18 05:37 Absolute Neutrophils 3.6 K/uL (1.8-8.0) 07/10/18 05:37 Segmented Neutrophils 53 % (40-80) 07/10/18 05:37 Band Neutrophils 1 % (0-1) 07/10/18 05:37 Absolute Lymphocytes 1.3 K/uL (0.7-4.9) 07/10/18 05:37 Lymphocytes 20 % (15-42) 07/10/18 05:37 Monocytes 15 % (0-10) H 07/10/18 05:37 Absolute Monocytes 1.0 K/uL (0.1-1.3) 07/10/18 05:37 Eosinophils 5 % (0-3) H 07/10/18 05:37 Absolute Eosinophils 0.2 K/uL (0-0.5) 07/10/18 05:37 Absolute Basophils 0.0 K/uL (0-0.5) 07/10/18 05:37 Metamyelocytes 3 % (0-0) H 07/10/18 05:37 Myelocytes 3 % (0-0) H 07/10/18 05:37 Polychromasia 1+ 07/10/18 05:37 Anisocytosis 2+ 07/10/18 05:37 Morphology Comment Noted (NOT SEEN) 07/10/18 05:37 Sodium 144 mmol/L (136-145) 07/10/18 05:37 Potassium 3.9 mmol/L (3.5-5.1) 07/10/18 05:37 Chloride 107 mmol/L (98-107) 07/10/18 05:37 Carbon Dioxide 33 mmol/L (21-32) H 07/10/18 05:37 BUN 9 mg/dL (7-18) 07/10/18 05:37 Creatinine 0.80 mg/dL (0.55-1.3) 07/10/18 05:37 Estimated GFR 70 mL/min (=/>90) L 07/10/18 05:37 Glucose 98 mg/dL (74-106) 07/10/18 05:37 Calcium 8.0 mg/dL (8.5-10.1) L 07/10/18 05:37 Magnesium 1.8 mg/dL (1.8-2.4) 07/10/18 05:37 Albumin 2.4 g/dL (3.4-5.0) L 07/10/18 05:37 Prealbumin 11.9 mg/dL (20-40) L 07/10/18 05:37 Urine Color Yellow 07/09/18 21:25 Urine Appearance Clear 07/09/18 21:25 Urine pH 6.0 (5.0-7.0) 07/09/18 21:25 Ur Specific [place] 1.010 (1.005-1.030) 07/09/18 21:25 Urine Ketones Negative (NEG) 07/09/18 21:25 Urine Blood 1+ (NEG) H 07/09/18 21:25 Urine Nitrite Negative (NEG) 07/09/18 21: Urine Bilirubin Negative (NEG) 07/09/18 21: Urine Urobilinogen 0.2 mg/dL (0.2-1.0) 07/09/18 21:25 Ur Leukocyte Esterase Trace (NEG) H 07/09/18 21:25 Urine RBC <5 /HPF (NONE SEEN) 07/09/18 21: Urine WBC 5-10 /HPF (<5) H 07/09/18 21:25 Ur Squamous Epith Cells <5 /HPF (NONE SEEN) 07/09/18 21: Ur Urothelial Cells <5 /HPF (NONE SEEN) 07/09/18 21: Urine Bacteria <20 /HPF (<20) 07/09/18 21:25 Hyaline Casts 0-5 /LPF (NONE SEEN) 07/09/18 21:25 Urine Culture Reflexed Reflexed 07/09/18 21: Urine Glucose Negative (NEG) 07/09/18 21: Urine Total Protein 1+ (NEG) H 07/09/18 21:25 Weight: 170 lb 4 oz Wound Present: No Closed Surgical Incision Present: No Negative Pressure Wound Therapy Present: No Physician Update: Labs reviewed Hg 9.5, and prealbumin 11.9. She has mild shortness of breath and will have her breathing treatment prior to physical and occupational therapy. Comment: Bruising in bilateral upper extremities,no skin breakdown. Summary: Patient's care plan and alf goals have been reviewed and revised as necessary. Please see the Rehabilitation Signature page for all necessary signatures.
--- NOTE | 2018-07-10 13:10 | FAST ---
SHIFT START DATE/TIME: 07/10/2018 07:00 (CDT) SHIFT END DATE/TIME: 07/10/2018 19:00 (CDT) NAME OFELIA GUARDADO DATE OF : 1940 DATE OF ADMISSION: 07/09/2018 17:21 (CDT) PHONE: AGE: 77 SSN# [id number] GENDER: Female ENCOUNTER PHYSICIAN: Dr. Marcio Barber M.D. ADMISSION DIAGNOSIS: - Debility 16 - Debility (16) Gastritis with bleeding, UTI, HX of STENT 2 months ago. EATING: EATING - STEP 1: Does the patient require the assistance of a person or device, or need extra time when eating? No. EATING - SCORE: 7-IND GROOMING: Activity did not occur on this shift GROOMING - SCORE: 0-UNK BATHING: Activity did not occur on this shift BATHING - SCORE: 0-UNK DRESSING - UPPER BODY: Activity did not occur on this shift ARTICLES SCORE Total number of steps: 0 DRESSING - UPPER BODY - SCORE: 0-UNK DRESSING - LOWER BODY: Activity did not occur on this shift ARTICLES SCORE Total number of steps: 0 DRESSING - LOWER BODY - SCORE: 0-UNK TOILETING: TOILETING - STEP 1: Does the patient require the assistance of a person or device, or need extra time with toileting? Yes . TOILETING - STEP 2: Does the patient require the assistance of a helper? No. TOILETING - SCORE: 6-AL BLADDER MANAGEMENT: BLADDER MANAGEMENT - STEP 1: Does the patient control the bladder completely and intentionally without equipment or devices or med ications, and is always continent? Yes. BLADDER MANAGEMENT - SCORE: 7-IND BLADDER MANAGEMENT - FREQUENCY OF ACCIDENTS: BLADDER MANAGEMENT(FA) - STEP 1: How many accidents has the patient had during the current shift? 0 BOWEL MANAGEMENT: BOWEL MANAGEMENT - STEP 1: Does the patient control bowels completely and intentionally without equipment devices or medications AND is always continent? Yes. BOWEL MANAGEMENT - SCORE: 7-IND BOWEL MANAGEMENT - FREQUENCY OF ACCIDENTS: BOWEL MANAGEMENT(FA) - STEP 1: How many accidents has the patient had during the current shift? 0 TRANSFERS: BED, CHAIR, WHEELCHAIR: TRANSFERS: BED, CHAIR, WHEELCHAIR - STEP 1: Does the patient require assistance of a person or device, or need extra time with bed, chair, or whe elchair transfers? Yes. TRANSFERS: BED, CHAIR, WHEELCHAIR - STEP 2: Does the patient require the assistance of a helper? Yes. TRANSFERS: BED, CHAIR, WHEELCHAIR - STEP 3: How much assistance does the patient require from the helper? Steadying/guiding assistance TRANSFERS: BED, CHAIR, WHEELCHAIR - SCORE: 4-MIN TRANSFERS: TOILET: TRANSFERS: TOILET - STEP 1: Does the patient require the assistance of a person or device, or need extra time with toilet transfe rs? Yes. TRANSFERS: TOILET - STEP 2: Does the patient require the assistance of a helper? Yes. TRANSFERS: TOILET - STEP 3: How much assistance does the patient require from the helper? Patient performs half or more of the tr ansferring tasks TRANSFERS: TOILET - STEP 4: Does the patient need only incidental help such as contact guard or steadying during toilet transfer? Yes. TRANSFERS: TOILET - SCORE: 4-MIN TRANSFERS: SHOWER: Activity did not occur on this shift TRANSFERS: SHOWER - SCORE: 0-UNK TRANSFERS: TUB: Activity did not occur on this shift TRANSFERS: TUB - SCORE: 0-UNK LOCOMOTION: WALK: Activity did not occur on this shift LOCOMOTION: WALK - SCORE: 0-UNK LOCOMOTION: WHEELCHAIR: Activity did not occur on this shift LOCOMOTION: WHEELCHAIR - SCORE: 0-UNK COMPREHENSION: COMPREHENSION - SCORE: 0-UNK EXPRESSION EXPRESSION - SCORE: 0-UNK SOCIAL INTERACTION: SOCIAL INTERACTION - SCORE: 0-UNK PROBLEM SOLVING: PROBLEM SOLVING - SCORE: 0-UNK MEMORY: MEMORY - SCORE: 0-UNK SIGNATURE PANEL: The following modified sections: Eating - Score, Grooming - Score, Bathing - Score, Dressing - Upper Body - Score, Dressing - Lower Body - Score, Toileting - Score, Bladder Management - Score, Bowel Man agement - Score, Transfers: Bed, Chair, Wheelchair - Score, Transfers: Toilet - Score, Transfers: Christine wer - Score, Transfers: Tub - Score, Locomotion: Walk - Score, Locomotion: Wheelchair - Score, Compre hension - Score, Expression - Score, Social Interaction - Score, Problem Solving - Score, Memory - Sc ore were [electronically] signed by Vilma Linton CNA on FriJul 10 2018 13:09:48 T-0500 ([place])
--- NOTE | 2018-07-10 15:14 | FAST ---
ENCOUNTER DATE AND TIME: 07/10/2018 08:00 (CDT) NAME OFELIA GUARDADO DATE OF : 1940 DATE OF ADMISSION: 07/09/2018 17:21 (CDT) PHONE: AGE: 77 SSN# [id number] GENDER: Female ENCOUNTER PHYSICIAN: Dr. Marcio Barber M.D. ADMISSION DIAGNOSIS: - Debility 16 - Debility (16) Gastritis with bleeding, UTI, HX of STENT 2 months ago. EATING: EATING - STEP 1: Does the patient require the assistance of a person or device, or need extra time when eating? No. EATING - SCORE: 7-IND GROOMING: Comb/brush hair Oral care Wash, rinse, and dry face Wash, rinse, and dry hands GROOMING - STEP 1: Does the patient require the assistance of a person or device, or need extra time when grooming? No. GROOMING - SCORE: 7-IND BATHING: Abdomen Buttocks Chest Left arm Left lower leg and foot Left upper leg Perineal area Right arm Right lower leg and foot Right upper leg BATHING - STEP 1: Does the patient require the assistance of a person or device, or need extra time when bathing? Yes. BATHING - STEP 2: Does the patient require the assistance of a helper? Yes. BATHING - STEP 3: How much assistance does the patient require from the helper? More than just incidental help BATHING - STEP 4: What percent of the body parts did the patient bathe WITHOUT the helper? Half or more of the body par ts BATHING - SCORE: 3-MOD DRESSING - UPPER BODY: Bra (three steps) T-shirt/pullover shirt (four steps) ARTICLES SCORE Total number of steps: 7 DRESSING - UPPER BODY - STEP 1: Does the patient require help from a person or device, or need extra time when dressing above the lis st? Yes. DRESSING - UPPER BODY - STEP 2: Does the patient require the assistance of a helper? Yes. DRESSING - UPPER BODY - STEP 3: Does the helper touch the patient while dressing? Yes. DRESSING - UPPER BODY - STEP 4: How many of the total steps does the patient complete on his/her own? 4 DRESSING - UPPER BODY - SCORE: 3-MOD DRESSING - LOWER BODY: Elastic waist pants (three steps) Sock - Left foot (one step) Sock - Right foot (one step) Underwear (three steps) ARTICLES SCORE Total number of steps: 8 DRESSING - LOWER BODY - STEP 1: Does the patient require help from a person or device, or need extra time when dressing below the lis st? Yes. DRESSING - LOWER BODY - STEP 2: Does the patient require the assistance of a helper? Yes. DRESSING - LOWER BODY - STEP 3: Does the helper touch the patient while dressing? Yes. DRESSING - LOWER BODY - STEP 4: How many of the total steps does the patient complete on his/her own? 3 DRESSING - LOWER BODY - STEP 5: Does patient require total assistance for dressing below the waist such as the helper holding clothin g and performing basically all the activities? No. DRESSING - LOWER BODY - SCORE: 2-MAX TOILETING: Activity did not occur on this shift TOILETING - SCORE: 0-UNK BLADDER MANAGEMENT: Activity did not occur on this shift BLADDER MANAGEMENT - SCORE: 7-IND BOWEL MANAGEMENT: Activity did not occur on this shift BOWEL MANAGEMENT - SCORE: 7-IND TRANSFERS: BED, CHAIR, WHEELCHAIR: Activity did not occur on this shift TRANSFERS: BED, CHAIR, WHEELCHAIR - SCORE: 0-UNK TRANSFERS: TOILET: Activity did not occur on this shift TRANSFERS: TOILET - SCORE: 0-UNK TRANSFERS: SHOWER: TRANSFERS: SHOWER - STEP 1: Does the patient require the assistance of a person or device, or need extra time with shower transfe rs? Yes. TRANSFERS: SHOWER - STEP 2: Does the patient require the assistance of a helper? Yes. TRANSFERS: SHOWER - STEP 3: How much assistance does the patient require from the helper? More than incidental help TRANSFERS: SHOWER - STEP 4: How much more help does the patient require from the helper? Lifting the patient either up OR down fr om the wheelchair onto the shower chair TRANSFERS: SHOWER - SCORE: 3-MOD TRANSFERS: TUB: Activity did not occur on this shift TRANSFERS: TUB - SCORE: 0-UNK LOCOMOTION: WALK: Activity did not occur on this shift LOCOMOTION: WALK - SCORE: 0-UNK LOCOMOTION: WHEELCHAIR: Activity did not occur on this shift LOCOMOTION: WHEELCHAIR - SCORE: 0-UNK LOCOMOTION: STAIRS: Activity did not occur on this shift LOCOMOTION: STAIRS - SCORE: 0-UNK COMPREHENSION: COMPREHENSION: TYPE: Both COMPREHENSION - STEP 1: Does the patient require help from a person or device, or need extra time to understand complex and a bstract ideas (such as current events, finances, discharge planning, medical issues, relationships, e tc)? No. COMPREHENSION - STEP 2: Does the patient need extra time, require an assistive device (such as glasses for visual comprehensi on or a hearing aid for auditory comprehension) or does s/he have mild difficulty understanding compl ex and abstract information? Yes. COMPREHENSION - SCORE: 6-AL EXPRESSION EXPRESSION: TYPE: Both EXPRESSION - STEP 1: Does the patient require help from a person or device, or need extra time expressing complex and abst ract ideas (such as current events, finances, discharge planning, medical issues, relationships, etc) ? No. EXPRESSION - STEP 2: Does the patient need extra time, require an assistive device (such as augmentive communication syste m or a communication board), OR does s/he have mild difficulty expressing complex and abstract ideas (including mild dysarthria or mild word-find problems)? Yes. EXPRESSION - SCORE: 6-AL SOCIAL INTERACTION: SOCIAL INTERACTION - STEP 1: Does the patient require a helper to interact with others in social and therapeutic situations? No. SOCIAL INTERACTION - STEP 2: Does the patient need extra time in social situations, OR does s/he interact with staff, other patien ts, and family members ONLY in structured environments, OR does s/he require medication for social in teraction? Yes, patient needs extra time SOCIAL INTERACTION - SCORE: 6-AL PROBLEM SOLVING: PROBLEM SOLVING - STEP 1: Does the patient need help from a person or device, or need extra time to solve complex problems such as managing a checking account or confronting interpersonal problems? No. PROBLEM SOLVING - STEP 2: Does the patient require extra time to make decisions or solve problems, OR does s/he have slight dif ficulty reading, initiating, or self-correcting in unfamiliar situations? Yes, patient needs extra ti me. PROBLEM SOLVING - SCORE: 6-AL MEMORY: MEMORY - STEP 1: Does the patient need help from a person or device, or need extra time to remember frequently encount ered people, daily routines, and executing requests? No. MEMORY - STEP 2: Does the patient have slight difficulty recognizing frequently encountered people, daily routines, or executing requests without the need for repetition or using self-initiated or environmental cues to remember? Yes. MEMORY - SCORE: 6-AL SIGNATURE PANEL: The following modified sections: Eating - Score, Grooming - Score, Dressing - Upper Body - Score, Peter ssing - Lower Body - Score, Toileting - Score, Transfers: Bed, Chair, Wheelchair - Score, Transfers: Toilet - Score, Transfers: Tub - Score, Transfers: Shower - Score, Comprehension - Score, Expression - Score, Bathing - Score, Social Interaction - Score, Problem Solving - Score, Memory - Score were [e lectronically] signed by Sasha Mcqueen OT on FriJul 10 2018 15:14:27 GMT-0500 ([place] Day[place] T [place])
--- NOTE | 2018-07-10 16:13 | FAST ---
ENCOUNTER DATE AND TIME: 07/10/2018 08:00 (CDT) NAME OFELIA GUARDADO DATE OF : 1940 DATE OF ADMISSION: 07/09/2018 17:21 (CDT) PHONE: AGE: 77 SSN# [id number] GENDER: Female ENCOUNTER PHYSICIAN: Dr. Marcio Barber M.D. ADMISSION DIAGNOSIS: - Debility 16 - Debility (16) Gastritis with bleeding, UTI, HX of STENT 2 months ago. EATING: Activity did not occur on this shift EATING - SCORE: 0-UNK GROOMING: Activity did not occur on this shift GROOMING - SCORE: 0-UNK BATHING: Activity did not occur on this shift BATHING - SCORE: 0-UNK DRESSING - UPPER BODY: Activity did not occur on this shift Patient is not dressing in public clothing ARTICLES SCORE Total number of steps: 0 DRESSING - UPPER BODY - SCORE: 0-UNK DRESSING - LOWER BODY: Activity did not occur on this shift Patient is not dressing in public clothing ARTICLES SCORE Total number of steps: 0 DRESSING - LOWER BODY - SCORE: 0-UNK TOILETING: Activity did not occur on this shift TOILETING - SCORE: 0-UNK BLADDER MANAGEMENT: Activity did not occur on this shift BLADDER MANAGEMENT - SCORE: 7-IND BOWEL MANAGEMENT: Activity did not occur on this shift BOWEL MANAGEMENT - SCORE: 7-IND TRANSFERS: BED, CHAIR, WHEELCHAIR: TRANSFERS: BED, CHAIR, WHEELCHAIR - STEP 1: Does the patient require assistance of a person or device, or need extra time with bed, chair, or whe elchair transfers? Yes. TRANSFERS: BED, CHAIR, WHEELCHAIR - STEP 2: Does the patient require the assistance of a helper? Yes. TRANSFERS: BED, CHAIR, WHEELCHAIR - STEP 3: How much assistance does the patient require from the helper? Steadying/guiding assistance TRANSFERS: BED, CHAIR, WHEELCHAIR - SCORE: 4-MIN TRANSFERS: TOILET: TRANSFERS: TOILET - STEP 1: Does the patient require the assistance of a person or device, or need extra time with toilet transfe rs? Yes. TRANSFERS: TOILET - STEP 2: Does the patient require the assistance of a helper? Yes. TRANSFERS: TOILET - STEP 3: How much assistance does the patient require from the helper? Patient performs half or more of the tr ansferring tasks TRANSFERS: TOILET - STEP 4: Does the patient need only incidental help such as contact guard or steadying during toilet transfer? Yes. TRANSFERS: TOILET - SCORE: 4-MIN TRANSFERS: SHOWER: Activity did not occur on this shift TRANSFERS: SHOWER - SCORE: 0-UNK TRANSFERS: TUB: Activity did not occur on this shift TRANSFERS: TUB - SCORE: 0-UNK LOCOMOTION: WALK: LOCOMOTION: WALK - STEP 1: Does the patient need help from a person or device, or need extra time to walk 150 feet? Yes. LOCOMOTION: WALK - STEP 2: How much assistance does the patient require to walk a minimum of 150 feet? Only incidental help such as contact guarding or steadying LOCOMOTION: WALK - SCORE: 4-MIN LOCOMOTION: WHEELCHAIR: Activity did not occur on this shift LOCOMOTION: WHEELCHAIR - SCORE: 0-UNK LOCOMOTION: STAIRS: Activity did not occur on this shift LOCOMOTION: STAIRS - SCORE: 0-UNK COMPREHENSION: COMPREHENSION - SCORE: 0-UNK EXPRESSION EXPRESSION - SCORE: 0-UNK SOCIAL INTERACTION: SOCIAL INTERACTION - SCORE: 0-UNK PROBLEM SOLVING: PROBLEM SOLVING - SCORE: 0-UNK MEMORY: MEMORY - SCORE: 0-UNK SIGNATURE PANEL: The following modified sections: Transfers: Bed, Chair, Wheelchair - Score, Transfers: Toilet - Score , Locomotion: Walk - Score, Locomotion: Wheelchair - Score, Locomotion: Stairs - Score were [electron gabino] signed by Jm Pacheco PT on FriJul 10 2018 16:13:15 T-0500 (Central Daylight Time)
[2018-07-10] MEDS: ATORVASTATIN 80 MG TAB PO SCH (20:14)
[2018-07-10] MEDS: ALPRAZOLAM 0.25 MG TABLET PO PRN (20:18)
--- NOTE | 2018-07-11 02:11 | FAST ---
SHIFT START DATE/TIME: 07/10/2018 19:00 (CDT) SHIFT END DATE/TIME: 07/11/2018 07:00 (CDT) NAME OFELIA GUARDADO DATE OF : 1940 DATE OF ADMISSION: 07/09/2018 17:21 (CDT) PHONE: AGE: 77 SSN# [id number] GENDER: Female ENCOUNTER PHYSICIAN: Dr. Marcio Barber M.D. ADMISSION DIAGNOSIS: - Debility 16 - Debility (16) Gastritis with bleeding, UTI, HX of STENT 2 months ago. EATING: Activity did not occur on this shift EATING - SCORE: 0-UNK GROOMING: Activity did not occur on this shift GROOMING - SCORE: 0-UNK BATHING: Activity did not occur on this shift BATHING - SCORE: 0-UNK DRESSING - UPPER BODY: Patient is not dressing in public clothing ARTICLES SCORE Total number of steps: 0 DRESSING - UPPER BODY - SCORE: 0-UNK DRESSING - LOWER BODY: Patient is not dressing in public clothing ARTICLES SCORE Total number of steps: 0 DRESSING - LOWER BODY - SCORE: 0-UNK TOILETING: TOILETING - STEP 1: Does the patient require the assistance of a person or device, or need extra time with toileting? Yes . TOILETING - STEP 2: Does the patient require the assistance of a helper? Yes. TOILETING - STEP 3: How much assistance does the patient require from the helper? Hands-on assistance from the helper TOILETING - STEP 4: Of the 3 tasks: 1) Adjusting clothing prior to use, 2) Cleansing of perineal area, 3) Adjusting clot annabella after use; How many tasks does the patient perform WITHOUT assistance of the helper? Three tasks with steadying assistance from the helper TOILETING - SCORE: 4-MIN BLADDER MANAGEMENT: BLADDER MANAGEMENT - STEP 1: Does the patient control the bladder completely and intentionally without equipment or devices or med ications, and is always continent? No. BLADDER MANAGEMENT - STEP 2: Does the patient require the assistance of a helper? Yes. BLADDER MANAGEMENT - STEP 3: How much assistance does the patient require from the helper? Only set-up of equipment - such as plac ing it within reach of the patient or emptying a device - to maintain either satisfactory voiding pat tern or managing an external device, such as an absorbent pad, ileal device, or catheter BLADDER MANAGEMENT - SCORE: 5-SUP BOWEL MANAGEMENT: Activity did not occur on this shift BOWEL MANAGEMENT - SCORE: 7-IND TRANSFERS: BED, CHAIR, WHEELCHAIR: TRANSFERS: BED, CHAIR, WHEELCHAIR - STEP 1: Does the patient require assistance of a person or device, or need extra time with bed, chair, or whe elchair transfers? Yes. TRANSFERS: BED, CHAIR, WHEELCHAIR - STEP 2: Does the patient require the assistance of a helper? Yes. TRANSFERS: BED, CHAIR, WHEELCHAIR - STEP 3: How much assistance does the patient require from the helper? Steadying/guiding assistance TRANSFERS: BED, CHAIR, WHEELCHAIR - SCORE: 4-MIN TRANSFERS: TOILET: TRANSFERS: TOILET - STEP 1: Does the patient require the assistance of a person or device, or need extra time with toilet transfe rs? Yes. TRANSFERS: TOILET - STEP 2: Does the patient require the assistance of a helper? Yes. TRANSFERS: TOILET - STEP 3: How much assistance does the patient require from the helper? Patient performs half or more of the tr ansferring tasks TRANSFERS: TOILET - STEP 4: Does the patient need only incidental help such as contact guard or steadying during toilet transfer? Yes. TRANSFERS: TOILET - SCORE: 4-MIN TRANSFERS: SHOWER: Activity did not occur on this shift TRANSFERS: SHOWER - SCORE: 0-UNK TRANSFERS: TUB: Activity did not occur on this shift TRANSFERS: TUB - SCORE: 0-UNK LOCOMOTION: WALK: Activity did not occur on this shift LOCOMOTION: WALK - SCORE: 0-UNK LOCOMOTION: WHEELCHAIR: Activity did not occur on this shift LOCOMOTION: WHEELCHAIR - SCORE: 0-UNK COMPREHENSION: COMPREHENSION: TYPE: Both COMPREHENSION - STEP 1: Does the patient require help from a person or device, or need extra time to understand complex and a bstract ideas (such as current events, finances, discharge planning, medical issues, relationships, e tc)? No. COMPREHENSION - STEP 2: Does the patient need extra time, require an assistive device (such as glasses for visual comprehensi on or a hearing aid for auditory comprehension) or does s/he have mild difficulty understanding compl ex and abstract information? Yes. COMPREHENSION - SCORE: 6-AL EXPRESSION EXPRESSION: TYPE: Both EXPRESSION - STEP 1: Does the patient require help from a person or device, or need extra time expressing complex and abst ract ideas (such as current events, finances, discharge planning, medical issues, relationships, etc) ? No. EXPRESSION - STEP 2: Does the patient need extra time, require an assistive device (such as augmentive communication syste m or a communication board), OR does s/he have mild difficulty expressing complex and abstract ideas (including mild dysarthria or mild word-find problems)? Yes. EXPRESSION - SCORE: 6-AL SOCIAL INTERACTION: SOCIAL INTERACTION - STEP 1: Does the patient require a helper to interact with others in social and therapeutic situations? No. SOCIAL INTERACTION - STEP 2: Does the patient need extra time in social situations, OR does s/he interact with staff, other patien ts, and family members ONLY in structured environments, OR does s/he require medication for social in teraction? Yes, patient needs extra time SOCIAL INTERACTION - SCORE: 6-AL PROBLEM SOLVING: PROBLEM SOLVING - STEP 1: Does the patient need help from a person or device, or need extra time to solve complex problems such as managing a checking account or confronting interpersonal problems? No. PROBLEM SOLVING - STEP 2: Does the patient require extra time to make decisions or solve problems, OR does s/he have slight dif ficulty reading, initiating, or self-correcting in unfamiliar situations? Yes, patient needs extra ti me. PROBLEM SOLVING - SCORE: 6-AL MEMORY: MEMORY - STEP 1: Does the patient need help from a person or device, or need extra time to remember frequently encount ered people, daily routines, and executing requests? No. MEMORY - STEP 2: Does the patient have slight difficulty recognizing frequently encountered people, daily routines, or executing requests without the need for repetition or using self-initiated or environmental cues to remember? Yes. MEMORY - SCORE: 6-AL
[2018-07-11] MEDS: ACETAMINOPHEN 500 MG TAB PO PRN ×2 (03:34→07:31)
[2018-07-11] MEDS: Meropenem 1,000 MG in NA CHLORIDE 0.9% 100 ML IV SCH ×2 (06:59→20:23)
[2018-07-11] MEDS: LEVOTHYROXINE SOD 0.125 MG TAB PO SCH (07:01)
[2018-07-11] MEDS: PANTOPRAZOLE 40MG TABLET PO SCH (07:01)
[2018-07-11] MEDS: PREGABALIN 75 MG CAP PO SCH ×3 (07:41→20:26)
[2018-07-11] MEDS: VALSARTAN 80 MG TAB PO SCH (07:41)
[2018-07-11] MEDS: CLOPIDOGREL 75 MG TABLET PO SCH (07:42)
[2018-07-11] MEDS: DOCUSATE NA 100 MG CAP PO SCH ×2 (07:42→20:00)
[2018-07-11] MEDS: GUAIFENESIN 600 MG SA TAB PO SCH (07:42)
[2018-07-11] MEDS: MAGNESIUM OXIDE 400 MG TAB PO SCH ×2 (07:42→20:25)
[2018-07-11] MEDS: RANITIDINE 150 MG TABLET PO SCH ×2 (07:42→08:00)
[2018-07-11] MEDS: DULOXETINE 30 MG CAP PO SCH (07:42)
[2018-07-11] MEDS: FERROUS SULFATE 325 MG TAB PO SCH ×3 (07:42→20:34)
[2018-07-11] MEDS: AMIODARONE HCL 200 MG TAB PO SCH (07:42)
[2018-07-11] MEDS: PROPRANOLOL HCL 60 MG SA CAP PO SCH ×2 (07:43→20:34)
[2018-07-11] MEDS: ARFORMOTEROL TARTRATE 15 MCG/2 ML VIAL.NEB NEB SCH ×2 (09:50→20:20)
[2018-07-11] MEDS: LACTOBACILLUS/ACIDOPHILUS TAB PO SCH ×3 (09:52→20:31)
--- NOTE | 2018-07-11 15:13 | FAST ---
SHIFT START DATE/TIME: 07/11/2018 07:00 (CDT) SHIFT END DATE/TIME: 07/11/2018 19:00 (CDT) NAME OFELIA GUARDADO DATE OF : 1940 DATE OF ADMISSION: 07/09/2018 17:21 (CDT) PHONE: AGE: 77 SSN# [id number] GENDER: Female ENCOUNTER PHYSICIAN: Dr. Marcio Barber M.D. ADMISSION DIAGNOSIS: - Debility 16 - Debility (16) Gastritis with bleeding, UTI, HX of STENT 2 months ago. EATING: EATING - STEP 1: Does the patient require the assistance of a person or device, or need extra time when eating? Yes. EATING - STEP 2: Does the patient require the assistance of a helper? Yes. EATING - STEP 3: Does the patient perform half or more of the eating tasks? Yes. EATING - STEP 4: Does the patient need only supervision, cuing, coaxing OR help to apply an orthosis OR help to cut fo od, open containers, pour liquids, or butter bread? Yes. EATING - SCORE: 5-SUP GROOMING: Comb/brush hair Oral care Wash, rinse, and dry face Wash, rinse, and dry hands GROOMING - STEP 1: Does the patient require the assistance of a person or device, or need extra time when grooming? Yes. GROOMING - STEP 2: Does the patient require the assistance of a helper? No. The patient only requires an assistive devic e, OR takes more than reasonable time to groom, OR there is a concern for safety as the patient groom s GROOMING - SCORE: 6-AL BATHING: Activity did not occur on this shift BATHING - SCORE: 0-UNK DRESSING - UPPER BODY: Activity did not occur on this shift ARTICLES SCORE Total number of steps: 0 DRESSING - UPPER BODY - SCORE: 0-UNK DRESSING - LOWER BODY: Activity did not occur on this shift ARTICLES SCORE Total number of steps: 0 DRESSING - LOWER BODY - SCORE: 0-UNK TOILETING: TOILETING - STEP 1: Does the patient require the assistance of a person or device, or need extra time with toileting? Yes . TOILETING - STEP 2: Does the patient require the assistance of a helper? Yes. TOILETING - STEP 3: How much assistance does the patient require from the helper? Only supervision TOILETING - SCORE: 5-SUP BLADDER MANAGEMENT: BLADDER MANAGEMENT - STEP 1: Does the patient control the bladder completely and intentionally without equipment or devices or med ications, and is always continent? No. BLADDER MANAGEMENT - STEP 2: Does the patient require the assistance of a helper? Yes. BLADDER MANAGEMENT - STEP 3: How much assistance does the patient require from the helper? Only supervision, stand-by, cuing, or c oaxing BLADDER MANAGEMENT - SCORE: 5-SUP BLADDER MANAGEMENT - FREQUENCY OF ACCIDENTS: BLADDER MANAGEMENT(FA) - STEP 1: How many accidents has the patient had during the current shift? 0 BOWEL MANAGEMENT: BOWEL MANAGEMENT - STEP 1: Does the patient control bowels completely and intentionally without equipment devices or medications AND is always continent? No. BOWEL MANAGEMENT - STEP 2: Does the patient require the assistance of a helper? Yes. BOWEL MANAGEMENT - STEP 3: How much assistance does the patient require from the helper? Patient requires supervision, stand by, cueing, coaxing, or setup of equipment - placing within reach of patient and emptying device / bedpa nd or BSC bucket - to maintain either satisfactory bowel pattern or managing an external device such as an absorbent pad, colostomy bag / ileostomy bag BOWEL MANAGEMENT - SCORE: 5-SUP BOWEL MANAGEMENT - FREQUENCY OF ACCIDENTS: BOWEL MANAGEMENT(FA) - STEP 1: How many accidents has the patient had during the current shift? 0 TRANSFERS: BED, CHAIR, WHEELCHAIR: TRANSFERS: BED, CHAIR, WHEELCHAIR - STEP 1: Does the patient require assistance of a person or device, or need extra time with bed, chair, or whe elchair transfers? Yes. TRANSFERS: BED, CHAIR, WHEELCHAIR - STEP 2: Does the patient require the assistance of a helper? Yes. TRANSFERS: BED, CHAIR, WHEELCHAIR - STEP 3: How much assistance does the patient require from the helper? Only supervision TRANSFERS: BED, CHAIR, WHEELCHAIR - SCORE: 5-SUP TRANSFERS: TOILET: TRANSFERS: TOILET - STEP 1: Does the patient require the assistance of a person or device, or need extra time with toilet transfe rs? Yes. TRANSFERS: TOILET - STEP 2: Does the patient require the assistance of a helper? Yes. TRANSFERS: TOILET - STEP 3: How much assistance does the patient require from the helper? Patient performs half or more of the tr ansferring tasks TRANSFERS: TOILET - STEP 4: Does the patient need only incidental help such as contact guard or steadying during toilet transfer? Yes. TRANSFERS: TOILET - SCORE: 4-MIN TRANSFERS: SHOWER: Activity did not occur on this shift TRANSFERS: SHOWER - SCORE: 0-UNK TRANSFERS: TUB: Activity did not occur on this shift TRANSFERS: TUB - SCORE: 0-UNK LOCOMOTION: WALK: Activity did not occur on this shift LOCOMOTION: WALK - SCORE: 0-UNK LOCOMOTION: WHEELCHAIR: Activity did not occur on this shift LOCOMOTION: WHEELCHAIR - SCORE: 0-UNK COMPREHENSION: COMPREHENSION: TYPE: Both COMPREHENSION - STEP 1: Does the patient require help from a person or device, or need extra time to understand complex and a bstract ideas (such as current events, finances, discharge planning, medical issues, relationships, e tc)? No. COMPREHENSION - STEP 2: Does the patient need extra time, require an assistive device (such as glasses for visual comprehensi on or a hearing aid for auditory comprehension) or does s/he have mild difficulty understanding compl ex and abstract information? Yes. COMPREHENSION - SCORE: 6-AL EXPRESSION EXPRESSION: TYPE: Both EXPRESSION - STEP 1: Does the patient require help from a person or device, or need extra time expressing complex and abst ract ideas (such as current events, finances, discharge planning, medical issues, relationships, etc) ? No. EXPRESSION - STEP 2: Does the patient need extra time, require an assistive device (such as augmentive communication syste m or a communication board), OR does s/he have mild difficulty expressing complex and abstract ideas (including mild dysarthria or mild word-find problems)? Yes. EXPRESSION - SCORE: 6-AL SOCIAL INTERACTION: SOCIAL INTERACTION - STEP 1: Does the patient require a helper to interact with others in social and therapeutic situations? No. SOCIAL INTERACTION - STEP 2: Does the patient need extra time in social situations, OR does s/he interact with staff, other patien ts, and family members ONLY in structured environments, OR does s/he require medication for social in teraction? Yes, patient needs extra time SOCIAL INTERACTION - SCORE: 6-AL PROBLEM SOLVING: PROBLEM SOLVING - STEP 1: Does the patient need help from a person or device, or need extra time to solve complex problems such as managing a checking account or confronting interpersonal problems? No. PROBLEM SOLVING - STEP 2: Does the patient require extra time to make decisions or solve problems, OR does s/he have slight dif ficulty reading, initiating, or self-correcting in unfamiliar situations? Yes, patient needs extra ti me. PROBLEM SOLVING - SCORE: 6-AL MEMORY: MEMORY - STEP 1: Does the patient need help from a person or device, or need extra time to remember frequently encount ered people, daily routines, and executing requests? No. MEMORY - STEP 2: Does the patient have slight difficulty recognizing frequently encountered people, daily routines, or executing requests without the need for repetition or using self-initiated or environmental cues to remember? Yes. MEMORY - SCORE: 6-AL SIGNATURE PANEL: The following modified sections: Eating - Score, Grooming - Score, Bathing - Score, Dressing - Upper Body - Score, Dressing - Lower Body - Score, Toileting - Score, Bladder Management - Score, Bowel Man agement - Score, Transfers: Bed, Chair, Wheelchair - Score, Transfers: Toilet - Score, Transfers: Christine wer - Score, Transfers: Tub - Score, Locomotion: Walk - Score, Locomotion: Wheelchair - Score, Compre hension - Score, Expression - Score, Social Interaction - Score, Problem Solving - Score, Memory - Sc ore were [electronically] signed by Joyce Faith C.N.A. on Sat Jul 11 2018 15:11:58 T-0500 (Cent[place] Daylight Time)
[2018-07-11] MEDS: HYDROCODONE/APAP 7.5/325 MG TAB PO PRN (20:24)
[2018-07-11] MEDS: CRANBERRY FRUIT EXTRACT 200 MG CAP PO SCH (20:25)
[2018-07-11] MEDS: ATORVASTATIN 80 MG TAB PO SCH (20:26)
[2018-07-11] MEDS: ALPRAZOLAM 0.25 MG TABLET PO PRN (21:21)
--- NOTE | 2018-07-12 01:06 | FAST ---
SHIFT START DATE/TIME: 07/11/2018 19:00 (CDT) SHIFT END DATE/TIME: 07/12/2018 07:00 (CDT) NAME OFELAI GUARDADO DATE OF : 1940 DATE OF ADMISSION: 07/09/2018 17:21 (CDT) PHONE: AGE: 77 SSN# [id number] GENDER: Female ENCOUNTER PHYSICIAN: Dr. Marcio Barber M.D. ADMISSION DIAGNOSIS: - Debility 16 - Debility (16) Gastritis with bleeding, UTI, HX of STENT 2 months ago. EATING: Activity did not occur on this shift EATING - SCORE: 0-UNK GROOMING: Oral care Wash, rinse, and dry hands GROOMING - STEP 1: Does the patient require the assistance of a person or device, or need extra time when grooming? Yes. GROOMING - STEP 2: Does the patient require the assistance of a helper? Yes. GROOMING - STEP 3: How much assistance does the patient require from the helper? Only prior equipment preparation/set up from the helper GROOMING - SCORE: 5-SUP BATHING: Activity did not occur on this shift BATHING - SCORE: 0-UNK DRESSING - UPPER BODY: Patient is not dressing in public clothing ARTICLES SCORE Total number of steps: 0 DRESSING - UPPER BODY - SCORE: 0-UNK DRESSING - LOWER BODY: Patient is not dressing in public clothing ARTICLES SCORE Total number of steps: 0 DRESSING - LOWER BODY - SCORE: 0-UNK TOILETING: TOILETING - STEP 1: Does the patient require the assistance of a person or device, or need extra time with toileting? Yes . TOILETING - STEP 2: Does the patient require the assistance of a helper? Yes. TOILETING - STEP 3: How much assistance does the patient require from the helper? Only supervision TOILETING - SCORE: 5-SUP BLADDER MANAGEMENT: BLADDER MANAGEMENT - STEP 1: Does the patient control the bladder completely and intentionally without equipment or devices or med ications, and is always continent? No. BLADDER MANAGEMENT - STEP 2: Does the patient require the assistance of a helper? No, patient only requires extra time BLADDER MANAGEMENT - SCORE: 6-AL BOWEL MANAGEMENT: Activity did not occur on this shift BOWEL MANAGEMENT - SCORE: 7-IND TRANSFERS: BED, CHAIR, WHEELCHAIR: TRANSFERS: BED, CHAIR, WHEELCHAIR - STEP 1: Does the patient require assistance of a person or device, or need extra time with bed, chair, or whe elchair transfers? Yes. TRANSFERS: BED, CHAIR, WHEELCHAIR - STEP 2: Does the patient require the assistance of a helper? Yes. TRANSFERS: BED, CHAIR, WHEELCHAIR - STEP 3: How much assistance does the patient require from the helper? Steadying/guiding assistance TRANSFERS: BED, CHAIR, WHEELCHAIR - SCORE: 4-MIN TRANSFERS: TOILET: TRANSFERS: TOILET - STEP 1: Does the patient require the assistance of a person or device, or need extra time with toilet transfe rs? Yes. TRANSFERS: TOILET - STEP 2: Does the patient require the assistance of a helper? Yes. TRANSFERS: TOILET - STEP 3: How much assistance does the patient require from the helper? Only supervision, cuing, coaxing, OR he lp to set out transfer equipment or to lock brakes and/or lift foot rests TRANSFERS: TOILET - SCORE: 5-SUP TRANSFERS: SHOWER: Activity did not occur on this shift TRANSFERS: SHOWER - SCORE: 0-UNK TRANSFERS: TUB: Activity did not occur on this shift TRANSFERS: TUB - SCORE: 0-UNK LOCOMOTION: WALK: Activity did not occur on this shift LOCOMOTION: WALK - SCORE: 0-UNK LOCOMOTION: WHEELCHAIR: Activity did not occur on this shift LOCOMOTION: WHEELCHAIR - SCORE: 0-UNK COMPREHENSION: COMPREHENSION: TYPE: Both COMPREHENSION - STEP 1: Does the patient require help from a person or device, or need extra time to understand complex and a bstract ideas (such as current events, finances, discharge planning, medical issues, relationships, e tc)? No. COMPREHENSION - STEP 2: Does the patient need extra time, require an assistive device (such as glasses for visual comprehensi on or a hearing aid for auditory comprehension) or does s/he have mild difficulty understanding compl ex and abstract information? Yes. COMPREHENSION - SCORE: 6-AL EXPRESSION EXPRESSION: TYPE: Both EXPRESSION - STEP 1: Does the patient require help from a person or device, or need extra time expressing complex and abst ract ideas (such as current events, finances, discharge planning, medical issues, relationships, etc) ? No. EXPRESSION - STEP 2: Does the patient need extra time, require an assistive device (such as augmentive communication syste m or a communication board), OR does s/he have mild difficulty expressing complex and abstract ideas (including mild dysarthria or mild word-find problems)? Yes. EXPRESSION - SCORE: 6-AL SOCIAL INTERACTION: SOCIAL INTERACTION - STEP 1: Does the patient require a helper to interact with others in social and therapeutic situations? No. SOCIAL INTERACTION - STEP 2: Does the patient need extra time in social situations, OR does s/he interact with staff, other patien ts, and family members ONLY in structured environments, OR does s/he require medication for social in teraction? Yes, patient requires medication for social interaction SOCIAL INTERACTION - SCORE: 6-AL PROBLEM SOLVING: PROBLEM SOLVING - STEP 1: Does the patient need help from a person or device, or need extra time to solve complex problems such as managing a checking account or confronting interpersonal problems? No. PROBLEM SOLVING - STEP 2: Does the patient require extra time to make decisions or solve problems, OR does s/he have slight dif ficulty reading, initiating, or self-correcting in unfamiliar situations? Yes, patient needs extra ti me. PROBLEM SOLVING - SCORE: 6-AL MEMORY: MEMORY - STEP 1: Does the patient need help from a person or device, or need extra time to remember frequently encount ered people, daily routines, and executing requests? No. MEMORY - STEP 2: Does the patient have slight difficulty recognizing frequently encountered people, daily routines, or executing requests without the need for repetition or using self-initiated or environmental cues to remember? Yes. MEMORY - SCORE: 6-AL SIGNATURE PANEL: The following modified sections: Eating - Score, Grooming - Score, Dressing - Upper Body - Score, Peter ssing - Lower Body - Score, Toileting - Score, Bladder Management - Score, Bowel Management - Score, Transfers: Bed, Chair, Wheelchair - Score, Transfers: Toilet - Score, Transfers: Shower - Score, [place] sfers: Tub - Score, Locomotion: Walk - Score, Locomotion: Wheelchair - Score, Comprehension - Score, Expression - Score, Social Interaction - Score, Problem Solving - Score, Memory - Score were [electro nically] signed by Leela Pinzon CNA on FriJul 12 2018 01:04:39 GMT-0500 (Central Daylight Time)
[2018-07-12] MEDS: ACETAMINOPHEN 500 MG TAB PO PRN ×2 (05:24→13:47)
[2018-07-12] MEDS: Meropenem 1,000 MG in NA CHLORIDE 0.9% 100 ML IV SCH ×2 (06:52→19:43)
[2018-07-12] MEDS: LEVOTHYROXINE SOD 0.125 MG TAB PO SCH (06:52)
[2018-07-12] MEDS: ARFORMOTEROL TARTRATE 15 MCG/2 ML VIAL.NEB NEB SCH ×2 (07:20→19:55)
[2018-07-12] MEDS: CRANBERRY FRUIT EXTRACT 200 MG CAP PO SCH ×2 (08:30→19:45)
[2018-07-12] MEDS: PREGABALIN 75 MG CAP PO SCH ×3 (08:30→20:25)
[2018-07-12] MEDS: DULOXETINE 30 MG CAP PO SCH (08:30)
[2018-07-12] MEDS: FERROUS SULFATE 325 MG TAB PO SCH ×3 (08:30→20:25)
[2018-07-12] MEDS: VALSARTAN 80 MG TAB PO SCH (08:30)
[2018-07-12] MEDS: CLOPIDOGREL 75 MG TABLET PO SCH (08:30)
[2018-07-12] MEDS: MAGNESIUM OXIDE 400 MG TAB PO SCH ×2 (08:30→19:45)
[2018-07-12] MEDS: GUAIFENESIN 600 MG SA TAB PO SCH (08:31)
[2018-07-12] MEDS: DOCUSATE NA 100 MG CAP PO SCH ×2 (08:31→19:46)
[2018-07-12] MEDS: LACTOBACILLUS/ACIDOPHILUS TAB PO SCH ×3 (08:32→20:26)
[2018-07-12] MEDS: AMIODARONE HCL 200 MG TAB PO SCH (08:32)
[2018-07-12] MEDS: RANITIDINE 150 MG TABLET PO SCH (08:32)
[2018-07-12] MEDS: PROPRANOLOL HCL 60 MG SA CAP PO SCH ×2 (08:32→19:46)
[2018-07-12] MEDS ORDERED: ONDANSETRON 4 MG (ODT) TAB PO PRN (11:17)
--- NOTE | 2018-07-12 13:14 | P.CNS ---
Date of Consult: 07/12/18 Reason for consult: Medical management, continuation of care Physician requesting consult: Dr. Barber Date consult requested: 07/12/2018 Date of service: 07/12/2018 HPI: This is a 77-year-old female with history of COPD, hypertension, hypothyroidism who was recently admitted to our facility for GI bleeding and melena. An EGD was done, found to have gastritis without any active bleeding. Her hemoglobin and hematocrit did remain stable throughout the stay, no transfusions were given to patient. Her stay was complicated by a PE sp L UTI for which she has been started on IV meropenem to be continued for 2 weeks. Otherwise she did well throughout the stay, was transferred to rehab for for further rehabilitation and physical therapy. She has been working well with physical therapy. When seen at bedside today, complaining of some nausea along with shortness of breath, that has been chronic for her. Past medical history: Coronary artery disease, status post stent placement Hypertension Hypothyroidism History of gastritis Congestive heart failure. Chronic obstructive pulmonary disease Atrial fibrillation. Social history: Former smoker Vital signs: Temp Pulse Resp BP Pulse Ox 96.8 F 60 16 137/76 97 07/12/18 06:46 07/12/18 08:32 07/12/18 06:46 07/12/18 08:32 07/12/18 06:46 Physical exam: General: Alert, In no apparent distress HEENT: Atraumatic, PERRLA, EOMI Neck: Supple, JVD not distended Respiratory: Clear to auscultation bilaterally, Normal air movement Cardiovascular: Regular rate/rhythm, Normal S1 S2 Gastrointestinal: Normal bowel sounds, No tenderness Musculoskeletal: No tenderness Integumentary: No rashes Neurological: Normal speech, Normal tone, Normal affect Lymphatics: No axilla or inguinal lymphadenopathy Laboratory values CBC: WBC 6.1, hemoglobin 9.5, hematocrit 30.3, platelets 185 BMP: Sodium 144, potassium 3.9, chloride 107, bicarb 33, BUN 9, creatinine 0.8 , glucose 98 Assessment and plan Rehab for generalized weakness Continue physical therapy as per rehab Nausea/vomiting Zofran for symptomatic nausea vomiting Continue Zantac. Will continue to monitor Physical exam normal at this time Chronic obstructive pulmonary disease Shortness of breath, chronic, likely secondary to COPD. Will continue oxygen as needed, breathing treatments as needed. Patient does have Brovana on board already. Continue to monitor Essential hypertension Stable on current medications, continue Hypothyroidism Stable: Continue current medications History of gastritis H&H remained stable Continue to monitor
--- NOTE | 2018-07-12 13:45 | FAST ---
SHIFT START DATE/TIME: 07/12/2018 07:00 (CDT) SHIFT END DATE/TIME: 07/12/2018 19:00 (CDT) NAME OFELIA GUARDADO DATE OF : 1940 DATE OF ADMISSION: 07/09/2018 17:21 (CDT) PHONE: AGE: 77 SSN# [id number] GENDER: Female ENCOUNTER PHYSICIAN: Dr. Marcio Barber M.D. ADMISSION DIAGNOSIS: - Debility 16 - Debility (16) Gastritis with bleeding, UTI, HX of STENT 2 months ago. EATING: EATING - STEP 1: Does the patient require the assistance of a person or device, or need extra time when eating? Yes. EATING - STEP 2: Does the patient require the assistance of a helper? Yes. EATING - STEP 3: Does the patient perform half or more of the eating tasks? Yes. EATING - STEP 4: Does the patient need only supervision, cuing, coaxing OR help to apply an orthosis OR help to cut fo od, open containers, pour liquids, or butter bread? Yes. EATING - SCORE: 5-SUP GROOMING: Activity did not occur on this shift GROOMING - SCORE: 0-UNK BATHING: Activity did not occur on this shift BATHING - SCORE: 0-UNK DRESSING - UPPER BODY: Activity did not occur on this shift ARTICLES SCORE Total number of steps: 0 DRESSING - UPPER BODY - SCORE: 0-UNK DRESSING - LOWER BODY: Activity did not occur on this shift ARTICLES SCORE Total number of steps: 0 DRESSING - LOWER BODY - SCORE: 0-UNK TOILETING: TOILETING - STEP 1: Does the patient require the assistance of a person or device, or need extra time with toileting? Yes . TOILETING - STEP 2: Does the patient require the assistance of a helper? Yes. TOILETING - STEP 3: How much assistance does the patient require from the helper? Only supervision TOILETING - SCORE: 5-SUP BLADDER MANAGEMENT: BLADDER MANAGEMENT - STEP 1: Does the patient control the bladder completely and intentionally without equipment or devices or med ications, and is always continent? No. BLADDER MANAGEMENT - STEP 2: Does the patient require the assistance of a helper? Yes. BLADDER MANAGEMENT - STEP 3: How much assistance does the patient require from the helper? Only supervision, stand-by, cuing, or c oaxing BLADDER MANAGEMENT - SCORE: 5-SUP BLADDER MANAGEMENT - FREQUENCY OF ACCIDENTS: BLADDER MANAGEMENT(FA) - STEP 1: How many accidents has the patient had during the current shift? 0 BOWEL MANAGEMENT: BOWEL MANAGEMENT - STEP 1: Does the patient control bowels completely and intentionally without equipment devices or medications AND is always continent? No. BOWEL MANAGEMENT - STEP 2: Does the patient require the assistance of a helper? Yes. BOWEL MANAGEMENT - STEP 3: How much assistance does the patient require from the helper? Patient requires supervision, stand by, cueing, coaxing, or setup of equipment - placing within reach of patient and emptying device / bedpa nd or BSC bucket - to maintain either satisfactory bowel pattern or managing an external device such as an absorbent pad, colostomy bag / ileostomy bag BOWEL MANAGEMENT - SCORE: 5-SUP BOWEL MANAGEMENT - FREQUENCY OF ACCIDENTS: BOWEL MANAGEMENT(FA) - STEP 1: How many accidents has the patient had during the current shift? 0 TRANSFERS: BED, CHAIR, WHEELCHAIR: TRANSFERS: BED, CHAIR, WHEELCHAIR - STEP 1: Does the patient require assistance of a person or device, or need extra time with bed, chair, or whe elchair transfers? Yes. TRANSFERS: BED, CHAIR, WHEELCHAIR - STEP 2: Does the patient require the assistance of a helper? Yes. TRANSFERS: BED, CHAIR, WHEELCHAIR - STEP 3: How much assistance does the patient require from the helper? Only supervision TRANSFERS: BED, CHAIR, WHEELCHAIR - SCORE: 5-SUP TRANSFERS: TOILET: TRANSFERS: TOILET - STEP 1: Does the patient require the assistance of a person or device, or need extra time with toilet transfe rs? Yes. TRANSFERS: TOILET - STEP 2: Does the patient require the assistance of a helper? Yes. TRANSFERS: TOILET - STEP 3: How much assistance does the patient require from the helper? Only supervision, cuing, coaxing, OR he lp to set out transfer equipment or to lock brakes and/or lift foot rests TRANSFERS: TOILET - SCORE: 5-SUP TRANSFERS: SHOWER: Activity did not occur on this shift TRANSFERS: SHOWER - SCORE: 0-UNK TRANSFERS: TUB: Activity did not occur on this shift TRANSFERS: TUB - SCORE: 0-UNK LOCOMOTION: WALK: Activity did not occur on this shift LOCOMOTION: WALK - SCORE: 0-UNK LOCOMOTION: WHEELCHAIR: Activity did not occur on this shift LOCOMOTION: WHEELCHAIR - SCORE: 0-UNK COMPREHENSION: COMPREHENSION: TYPE: Both COMPREHENSION - STEP 1: Does the patient require help from a person or device, or need extra time to understand complex and a bstract ideas (such as current events, finances, discharge planning, medical issues, relationships, e tc)? No. COMPREHENSION - STEP 2: Does the patient need extra time, require an assistive device (such as glasses for visual comprehensi on or a hearing aid for auditory comprehension) or does s/he have mild difficulty understanding compl ex and abstract information? Yes. COMPREHENSION - SCORE: 6-AL EXPRESSION EXPRESSION: TYPE: Both EXPRESSION - STEP 1: Does the patient require help from a person or device, or need extra time expressing complex and abst ract ideas (such as current events, finances, discharge planning, medical issues, relationships, etc) ? No. EXPRESSION - STEP 2: Does the patient need extra time, require an assistive device (such as augmentive communication syste m or a communication board), OR does s/he have mild difficulty expressing complex and abstract ideas (including mild dysarthria or mild word-find problems)? Yes. EXPRESSION - SCORE: 6-AL SOCIAL INTERACTION: SOCIAL INTERACTION - STEP 1: Does the patient require a helper to interact with others in social and therapeutic situations? No. SOCIAL INTERACTION - STEP 2: Does the patient need extra time in social situations, OR does s/he interact with staff, other patien ts, and family members ONLY in structured environments, OR does s/he require medication for social in teraction? Yes, patient needs extra time SOCIAL INTERACTION - SCORE: 6-AL PROBLEM SOLVING: PROBLEM SOLVING - STEP 1: Does the patient need help from a person or device, or need extra time to solve complex problems such as managing a checking account or confronting interpersonal problems? No. PROBLEM SOLVING - STEP 2: Does the patient require extra time to make decisions or solve problems, OR does s/he have slight dif ficulty reading, initiating, or self-correcting in unfamiliar situations? Yes, patient needs extra ti me. PROBLEM SOLVING - SCORE: 6-AL MEMORY: MEMORY - STEP 1: Does the patient need help from a person or device, or need extra time to remember frequently encount ered people, daily routines, and executing requests? No. MEMORY - STEP 2: Does the patient have slight difficulty recognizing frequently encountered people, daily routines, or executing requests without the need for repetition or using self-initiated or environmental cues to remember? Yes. MEMORY - SCORE: 6-AL SIGNATURE PANEL: The following modified sections: Eating - Score, Grooming - Score, Bathing - Score, Dressing - Upper Body - Score, Dressing - Lower Body - Score, Toileting - Score, Bladder Management - Score, Bowel Man agement - Score, Transfers: Bed, Chair, Wheelchair - Score, Transfers: Toilet - Score, Transfers: Christine wer - Score, Transfers: Tub - Score, Locomotion: Walk - Score, Locomotion: Wheelchair - Score, Compre hension - Score, Expression - Score, Social Interaction - Score, Problem Solving - Score, Memory - Sc ore were [electronically] signed by Joyce Faith C.N.A. on FriJul 12 2018 13:44:42 T-0500 (Centra l Daylight Time)
[2018-07-12] MEDS: ALBUTEROL 2.5 MG/3 ML NEB SOL NEB PRN ×3 (16:06→23:05)
[2018-07-12] MEDS ORDERED: ALBUTEROL 2.5 MG/3 ML NEB SOL ONE (16:17)
--- NOTE | 2018-07-12 16:57 | RAD REPORT ---
EXAM DESCRIPTION: Dustin Single View07/12/2018 4:48 pm CLINICAL HISTORY: sob COMPARISON: July 2018 FINDINGS: The lungs appear clear of acute infiltrate. The heart is mildly to moderately enlarged PICC line remains in place IMPRESSION: No acute abnormalities displayed
--- NOTE | 2018-07-12 19:07 | R.HP ---
FACILITY: [facility] ENCOUNTER DATE AND TIME: 07/12/2018 19:02 (CDT) MR#: [id number] NAME OFELIA GUARDADO ADDRESS: [address] [place] [address] CITY: [place] [address]IP [id number] PHONE: DATE OF : 1940 AGE: 77 SSN# [id number] GENDER: Female DEXTERITY Right-handed MARITAL STATUS RACE White PRE-HOSPITAL LIVING SETTING 01 - Home (private home/apt. board/care, assisted living, fci, transitional living) PRE-HOSPITAL LIVING WITH Family/Relatives ENCOUNTER PHYSICIAN: Dr. Marcio Barber M.D. REFERRING DOCTOR: DR SIMONS DATE OF ADMISSION: 07/09/2018 17:21 (CDT) REFERRING FACILITY [facility] PRIMARY CARE PHYSICIAN Unknown HOME TYPE AND DETAILS: Type of home: single family house # of steps to enter the residence: 0 # of levels in the residence: 2 # of steps within the residence: Patient stays on first floor ADMISSION DIAGNOSIS: Gastritis with bleeding, UTI, HX of STENT 2 months ago ONSET DATE: 07/02/2018 PRIMARY DIAGNOSIS-RELATED SURGERIES: STENT HISTORY OF PRESENT ILLNESS (HPI): Pt. is a 77 yo Right-handed white female. On 07/02/2018 she was admitted to [facility] with diagnosis Gastritis with bleeding, UTI, HX of STENT 2 months ago. her impairment category is Debility 16 - Debility (16). Pre-morbidly, Pt. was independent/mod-I in Transfers Control, Balance, Locomotion, and Self-Care; and she had good Sphincter Control, Safety Awareness, Social Cognition, and Communication. Currently, she has deficits of Self-Care, Transfers Control, Endurance, Balance, Safety Awareness, an d Locomotion. Pt. is now referred to [facility] for acute in-patient rehabilitation in order to maximize patient's functional independence in activities of daily living, strength, ROM, and mobi lity. Patient has realistic goal of being discharged at assistance level 6-Audrey to reside at Home with Fam mary/Relatives. MEDICATION ALLERGIES: PNEUMOCOCCAL VACCINE ENVIRONMENTAL ALLERGIES: None Known - Substance Allergies None Known - Other Allergies None Known PAST MEDICAL HISTORY: CAD COPD HTN HLD GERD CHRONIC AFIB HYPOTHYROID OBESITY CHF FAMILY HISTORY: Family history is not contributory. SOCIAL HISTORY: - Home Living Family/Relatives REVIEW OF SYSTEMS: - Gen No Chills Fatigue No Fever - Eyes No Double Vision No itchiness - ENMT No Difficulty Swallowing - CVS No Chest Discomfort No Chest Pain Fatigue No Weight Gain - Resp No Cough Shortness of Breath - GI Continent No Abdominal Pain No Constipation No Diarrhea - Continent No Kidney Pain No Painful Urination No Urinary Urgency - MSK No Joint Pain No Muscle Cramps Stiffness - Skin No Itching No Rash No Suspicious Lesions - Neuro Coordination Difficulty No Difficulty with Concentration No Memory Loss No Seizures Weakness - Psych No Anxiety No Depression No HIV Exposure No Persistent Infections No Seasonal Allergies - Endo No Cold/Heat Intolerance No Excessive Hunger No Excessive Thirst No Excessive Urination PHYSICAL EXAM - Gen Alert and awake Lying in bed No apparent distress Oriented to: person, time, and place - Skin No breakdown Normacephalic - Eyes No abnormalities - ENMT No abnormalities - Neck No abnormalities - CVS RRR - Chest Mildly decreased breath sounds bilaterally. - Resp No wheezing - Abd Soft - GI Non distended Deferred - No abnormalities - Ext No significant edema - MSK 4/5 weakness in both lower extremities. - Neuro 4/5 strength bilaterally upper and lower extremities. - Psych No abnormalities VITAL SIGNS Temperature: 97.1 F SBP/DBP: 107/74 Pulse: 81 Resp: 18 NURSING: - Shower allowing shower ACTIVITIES OOB only with supervision FUNCTIONAL STATUS: - Self-Care A. Eating Ind sup B. Grooming Ind sup C. Bathing Audrey ADNO D. Dressing - Upper Ind Ronaldo E. Dressing - Lower Ind modA F. Toileting Audrey Ronaldo - Sphincter Control G: Bladder control Audrey Audrey H: Bowel control Ind Ind - Transfers Control I. Bed/Chair/Wheelchair Audrey Ronaldo J. Toilet Audrey Ronaldo K. Tub/Shower Audrey ADNO - Locomotion L. Walk/Wheelchair (W) Audrey modA - Communication N. Comprehension (B) Audrey Audrey O. Expression (B) Ind Ind - Social Cognition P. Social Interaction Ind Ind Q. Problem Solving Ind Ind R. Memory Ind Ind - Endurance Poor - Balance Poor - Safety Awareness Poor CURRENT FUNC. DEFICITS: Self-Care, Transfers Control, Endurance, Balance, Safety Awareness, and Locomotion ASSESSMENT: Pt. is a 77 yo Right-handed white female.On 07/02/2018 [address] [facility] with d iagnosis Gastritis with bleeding, UTI, HX of STENT 2 months ago.her impairment category is Debility 1 6 - Debility (16).Pre-morbidly, Pt. was independent/mod-I in Transfers Control, Balance, Locomotion, and Self-Care; and she had good Sphincter Control, Safety Awareness, Social Cognition, and Communica tion.Currently, she has deficits of Self-Care, Transfers Control, Endurance, Balance, Safety Awarenes s, and Locomotion.Pt. is now referred to [facility] for acute in-patient rehab ilitation in order to maximize patient's functional independence in activities of daily living, stren gth, ROM, and mobility.- Rehab Goal Patient has realistic goal of being discharged at assistance level 6-Audrey to reside at Home with Fam mary/Relatives. REHAB PLAN: - Physical Therapy Gait dysfunction - to improve, our physical therapists will perform initial evaluation of pt's status upon admission and devise an individualized program for Gait Training, and Wheel Chair mobility Inability to transfer - to improve, our physical therapists will perform initial evaluation of pt's s tatus upon admission and devise an individualized program for Bed mobility Need for home safety evaluation - to improve, our physical therapists will perform initial evaluation of pt's status upon admission and devise an individualized program for Home Evaluation Need in caregiver upon discharge - to improve, our physical therapists will perform initial evaluatio n of pt's status upon admission and devise an individualized program for Caregiver Training New precaution - to improve, our physical therapists will perform initial evaluation of pt's status u freddy admission and devise an individualized program for Patient precaution education Edema - to improve, our physical therapists will perform initial evaluation of pt's status upon admi ssion and devise an individualized program for Elevation Training, and Lymphedema Therapy Poor balance - to improve, our physical therapists will perform initial evaluation of pt's status upo n admission and devise an individualized program for Balance Training Poor endurance - to improve, our physical therapists will perform initial evaluation of pt's status u freddy admission and devise an individualized program for Endurance Training Weakness - to improve, our physical therapists will perform initial evaluation of pt's status upon ad mission and devise an individualized program for Aquatic Therapy, Neuromuscular Reeducation, and Stre ngthening Achieving independence - to improve, our physical therapists will perform initial evaluation of pt's status upon admission and devise an individualized program for Community Reintegration Activities - Occupational Therapy ADL deficits - to improve, our occupation therapists will perform initial evaluation of pt's status u freddy admission and devise an individualized program for Bathing, Bed mobility, Community Reintegration , Cooking, Dressing, Eating, Fine Motor Skills, Grooming, Homemaking, Kitchen Mobility, Laundry, Shannon ent Education, Safety Awareness, Splinting - Positioning, Transfers(Toilet, Tub, Shower), and Wheel C hair Management Need for healthcare customer service - to improve, our occupation therapists will perform initial evaluation of pt's s tatus upon admission and devise an individualized program for Caregiver Training Weakness - to improve, our occupation therapists will perform initial evaluation of pt's status upon admission and devise an individualized program for Aquatic Therapy, Balance, Endurance, UE ROM, and U E strengthening MEDICAL PLAN: - Diet Type Start Regular - Diet - Liquid Texture Start Regular - Tube Feed Start N/A - Diet - Solid Texture Regular - Shower shower DISCHARGE PLAN: - Estimated Length of Stay (days) 13. - Consensus on plan Discharge plan has been discussed with primary caregiver. Patient/Family is in agreement with the brianna n. Primary caregiver is in agreement with the plan. - Patient/Family Goals Return home with assistance. - Planned Living Setting Upon Discharge Home, to live with Family/Relatives. Transitional Living. SIGNATURE PANEL: (CDT)
--- NOTE | 2018-07-12 19:09 | PAPE ---
PATIENT: [facility] MR# [id number] REFERRING DOCTOR DR SIMONS PRIMARY CARE PHYSICIAN Unknown EVALUATION DATE AND TIME 07/12/2018 19:07 (CDT) NAME OFELIA GUARDADO DATE OF 1940 AGE 77 PHONE SSN# [id number] GENDER female EVALUATING PHYSICIAN Dr. Marcio Barber M.D. ADMISSION DIAGNOSIS: Gastritis with bleeding, UTI, HX of STENT 2 months ago ONSET DATE 07/02/2018 POST-ADMISSION FUNCTIONAL/MEDICAL STATUS: - Bladder Same accident frequency: Ind - No accidents in the past 7 days - Bowel Same accident frequency: Ind - No accidents in the past 7 days - Walking Same score based on distance walked: 3(>=150ft) STATUS CHANGE EVALUATION: No change in Functional or Medical Status is identified compared with Pre-Admission screening. PATIENT NEEDS CLOSE MEDICAL SUPERVISION BY A REHABILITATION PHYSICIAN FOR: Bowel and Bladder Management Coordination of Treatment Team PATIENT REQUIRES 24X7 REHAB NURSING FOR MEDICAL AND FUNCTIONAL MGT. OF THE FOLLOWING DEFICITS: ADL's Ambulation Bowel and Bladder Management Communication Disease Management Medication Management Patient/Family Education Providing Safe Environment Transfers PATIENT REQUIRES INTENSIVE, COORDINATED INTERDISCIPLINARY APPROACH TO REHAB: Arranging Home Equipment/Services Discharge Planning Family Intervention/Training Sand Mill Grinder/Case Management LIST OF IDENTIFIED AND POTENTIAL PROBLEMS: Alteration in leisure activities Bladder, Incontinence Bowel, Incontinence Infection, Actual or Potential Mobility Impaired Pain, Alteration in Comfort Self Care Deficit Skin Integrity, Actual or Potential Urinary Tract Infection (UTI), Actual or Potential INTERVENTIONS - DVT/PE Activity management. Labs. Monitor for extension. ABG's. 02 sats. - Hypertension - CAD VS. 02 sats. Activity management. Medications. - Renal failure PATIENT COULD BE AT RISK FOR COMPLICATIONS FROM ADVERSE MEDICAL CONDITIONS DUE TO HIS/HER COMORBIDITI ES AND THE RIGORS OF THE INTENSIVE REHABILLITATION PROGRAM. METHODS OR INTERVENTIONS TO AVOID COMPLIC ATIONS INCLUDE: - Infection Clinical staff to assess and manage the signs and symptoms of infection including fever, redness, war mth, etc. - Urinary Tract Infection - Falls Patient will be evaluated for Fall Precautions and will be placed on Fall Precautions as indicated pe r protocol. - Skin Breakdown Nursing will assess skin daily using assessment tool and will place on Skin Breakdown Precautions as indicated per protocol. - Pain Clinical staff may employ non-medication methods such as massage, distraction, decrease stimulus, etc . as needed. Clinical staff will assess patient's pain level every shift per protocol to assess and e nsure pain management effectiveness. Medications will be given and the pain level re-assessed. PRELIMINARY PLAN OF CARE: - Physical Therapy Patient needs Physical Therapy for a daily minimum of 1.5 hours at least 5 out of 7 days, to improve: Mobility, Strengthening, Transfers, Stretching, ROM, Endurance, Ability to manage stairs, Gait, and Balance. - Rehabilitation Nursing Patient requires 24x7 Rehabilitation Nursing for: Pain Issues, Identifying and preventing risk factor s, Monitoring and reporting current medical conditions, Assisting with ambulation and transfer, Mya ting with all ADL-s, Teaching patients about disease process and medications, Family teaching, Provid ing safe environment, Bowel and Bladder Issues, Skin Integrity, and Medication Management. Patient needs Sand Mill Grinder and/or Case Management for: Discharge Planning, Arranging Home Equipmen t or Services, and Family Interventions. - Dietary and Nutrition Services Patient needs Dietary and Nutrition Services for: Adequate Nutrition, Nutritional Supplements, and Nu tritional Education. - Occupational Therapy Patient needs Occupational Therapy for a daily minimum of 1.5 hours at least 5 out of 7 days, to impr ove Activities of Daily Living, including: Eating, Grooming, Bathing, Dressing, Toileting, Toilet Tra nsfers, Community Reintegration, Higher functional activities, Adaptive Equipment, Splinting, Househo ld Tasks, and Other activities as determined. POTENTIAL FUNCTIONAL GOALS FOR PATIENT TO ACHIEVE BY DISCHARGE: - Safety Precaution Patient will remain free from falls or injury at time of discharge. - Bed Mobility Patient will perform bed mobility at 4-Ronaldo level of assistance. - Transfers Patient will complete transfers from bed to chair at 4-Ronaldo level of assistance. - Mobility Patient will ambulate 150 ft with 4-Ronaldo level of assistance with RW. PATIENT REHAB POTENTIAL Expected level of measurable improvement will be of a practical value to patient's functional capacit y or adaptations to impairments Has a viable Discharge Plan Medically appropriate; condition is sufficiently stable to participate in intensive rehab program Patient is able and expected to receive 3 hours of individualized therapy daily on at least 5 of ever y 7 days Patient's prognosis for significant practical improvement within a reasonable period of time appears Good DISCHARGE PLAN: - Estimated Length of Stay (days) 13. - Consensus on plan Discharge plan has been discussed with primary caregiver. Patient/Family is in agreement with the brianna n. Primary caregiver is in agreement with the plan. - Patient/Family Goals Return home with assistance. - Planned Living Setting Upon Discharge Home, to live with Family/Relatives. Transitional Living. CONCLUSION ON REHABILITATION NECESSITY: I have evaluated patient's pre-admission functional status and, comparing it to the patient's post-ad mission functional status now, I conclude that the pre-admission assessment was accurate. Patient's c ondition on admission supports the medical necessity of admission to IR[facility]. It is safe to proceed with patient's therapy program. SIGNATURE PANEL: (CDT)
[2018-07-12] MEDS: APIXABAN 2.5 MG TABLET PO SCH (19:45)
[2018-07-12] MEDS: ATORVASTATIN 80 MG TAB PO SCH (20:26)
[2018-07-12] MEDS: HYDROCODONE/APAP 7.5/325 MG TAB PO PRN (21:44)
[2018-07-12] MEDS: ALPRAZOLAM 0.25 MG TABLET PO PRN (23:22)
--- NOTE | 2018-07-13 02:23 | FAST ---
SHIFT START DATE/TIME: 07/12/2018 19:00 (CDT) SHIFT END DATE/TIME: 07/13/2018 07:00 (CDT) NAME OFELIA GUARDADO DATE OF : 1940 DATE OF ADMISSION: 07/09/2018 17:21 (CDT) PHONE: AGE: 77 SSN# [id number] GENDER: Female ENCOUNTER PHYSICIAN: Dr. Marcio Barber M.D. ADMISSION DIAGNOSIS: - Debility 16 - Debility (16) Gastritis with bleeding, UTI, HX of STENT 2 months ago. EATING: Activity did not occur on this shift EATING - SCORE: 0-UNK GROOMING: Wash, rinse, and dry hands GROOMING - STEP 1: Does the patient require the assistance of a person or device, or need extra time when grooming? Yes. GROOMING - STEP 2: Does the patient require the assistance of a helper? Yes. GROOMING - STEP 3: How much assistance does the patient require from the helper? Only prior equipment preparation/set up from the helper GROOMING - SCORE: 5-SUP BATHING: Activity did not occur on this shift BATHING - SCORE: 0-UNK DRESSING - UPPER BODY: Patient is not dressing in public clothing ARTICLES SCORE Total number of steps: 0 DRESSING - UPPER BODY - SCORE: 0-UNK DRESSING - LOWER BODY: Patient is not dressing in public clothing ARTICLES SCORE Total number of steps: 0 DRESSING - LOWER BODY - SCORE: 0-UNK TOILETING: TOILETING - STEP 1: Does the patient require the assistance of a person or device, or need extra time with toileting? Yes . TOILETING - STEP 2: Does the patient require the assistance of a helper? Yes. TOILETING - STEP 3: How much assistance does the patient require from the helper? Hands-on assistance from the helper TOILETING - STEP 4: Of the 3 tasks: 1) Adjusting clothing prior to use, 2) Cleansing of perineal area, 3) Adjusting clot annabella after use; How many tasks does the patient perform WITHOUT assistance of the helper? Three tasks with steadying assistance from the helper TOILETING - SCORE: 4-MIN BLADDER MANAGEMENT: BLADDER MANAGEMENT - STEP 1: Does the patient control the bladder completely and intentionally without equipment or devices or med ications, and is always continent? No. BLADDER MANAGEMENT - STEP 2: Does the patient require the assistance of a helper? No, patient requires and independently uses an a ssistive device, such as a urinal, bedpan, bedside commode, catheter, absorbent pad, or collecting de vice BLADDER MANAGEMENT - SCORE: 6-AL BOWEL MANAGEMENT: Activity did not occur on this shift BOWEL MANAGEMENT - SCORE: 7-IND TRANSFERS: BED, CHAIR, WHEELCHAIR: TRANSFERS: BED, CHAIR, WHEELCHAIR - STEP 1: Does the patient require assistance of a person or device, or need extra time with bed, chair, or whe elchair transfers? Yes. TRANSFERS: BED, CHAIR, WHEELCHAIR - STEP 2: Does the patient require the assistance of a helper? Yes. TRANSFERS: BED, CHAIR, WHEELCHAIR - STEP 3: How much assistance does the patient require from the helper? Steadying/guiding assistance TRANSFERS: BED, CHAIR, WHEELCHAIR - SCORE: 4-MIN TRANSFERS: TOILET: TRANSFERS: TOILET - STEP 1: Does the patient require the assistance of a person or device, or need extra time with toilet transfe rs? Yes. TRANSFERS: TOILET - STEP 2: Does the patient require the assistance of a helper? Yes. TRANSFERS: TOILET - STEP 3: How much assistance does the patient require from the helper? Only supervision, cuing, coaxing, OR he lp to set out transfer equipment or to lock brakes and/or lift foot rests TRANSFERS: TOILET - SCORE: 5-SUP TRANSFERS: SHOWER: Activity did not occur on this shift TRANSFERS: SHOWER - SCORE: 0-UNK TRANSFERS: TUB: Activity did not occur on this shift TRANSFERS: TUB - SCORE: 0-UNK LOCOMOTION: WALK: Activity did not occur on this shift LOCOMOTION: WALK - SCORE: 0-UNK LOCOMOTION: WHEELCHAIR: Activity did not occur on this shift LOCOMOTION: WHEELCHAIR - SCORE: 0-UNK COMPREHENSION: COMPREHENSION: TYPE: Both COMPREHENSION - STEP 1: Does the patient require help from a person or device, or need extra time to understand complex and a bstract ideas (such as current events, finances, discharge planning, medical issues, relationships, e tc)? No. COMPREHENSION - STEP 2: Does the patient need extra time, require an assistive device (such as glasses for visual comprehensi on or a hearing aid for auditory comprehension) or does s/he have mild difficulty understanding compl ex and abstract information? Yes. COMPREHENSION - SCORE: 6-AL EXPRESSION EXPRESSION: TYPE: Both EXPRESSION - STEP 1: Does the patient require help from a person or device, or need extra time expressing complex and abst ract ideas (such as current events, finances, discharge planning, medical issues, relationships, etc) ? No. EXPRESSION - STEP 2: Does the patient need extra time, require an assistive device (such as augmentive communication syste m or a communication board), OR does s/he have mild difficulty expressing complex and abstract ideas (including mild dysarthria or mild word-find problems)? No. EXPRESSION - SCORE: 7-IND SOCIAL INTERACTION: SOCIAL INTERACTION - STEP 1: Does the patient require a helper to interact with others in social and therapeutic situations? No. SOCIAL INTERACTION - STEP 2: Does the patient need extra time in social situations, OR does s/he interact with staff, other patien ts, and family members ONLY in structured environments, OR does s/he require medication for social in teraction? Yes, patient requires medication for social interaction SOCIAL INTERACTION - SCORE: 6-AL PROBLEM SOLVING: PROBLEM SOLVING - STEP 1: Does the patient need help from a person or device, or need extra time to solve complex problems such as managing a checking account or confronting interpersonal problems? No. PROBLEM SOLVING - STEP 2: Does the patient require extra time to make decisions or solve problems, OR does s/he have slight dif ficulty reading, initiating, or self-correcting in unfamiliar situations? Yes, patient needs extra ti me. PROBLEM SOLVING - SCORE: 6-AL MEMORY: MEMORY - STEP 1: Does the patient need help from a person or device, or need extra time to remember frequently encount ered people, daily routines, and executing requests? No. MEMORY - STEP 2: Does the patient have slight difficulty recognizing frequently encountered people, daily routines, or executing requests without the need for repetition or using self-initiated or environmental cues to remember? Yes. MEMORY - SCORE: 6-AL SIGNATURE PANEL: The following modified sections: Eating - Score, Grooming - Score, Dressing - Upper Body - Score, Peter ssing - Lower Body - Score, Toileting - Score, Bladder Management - Score, Bowel Management - Score, Transfers: Bed, Chair, Wheelchair - Score, Transfers: Toilet - Score, Transfers: Shower - Score, [place] sfers: Tub - Score, Locomotion: Walk - Score, Locomotion: Wheelchair - Score, Comprehension - Score, Expression - Score, Social Interaction - Score, Problem Solving - Score, Memory - Score were [electro nically] signed by Leela Pinzon CNA on FriJul 13 2018 02:22:49 GMT-0500 (Central Daylight Time)
[2018-07-13] MEDS: ALBUTEROL 2.5 MG/3 ML NEB SOL NEB PRN (03:20)
[2018-07-13] MEDS: ACETAMINOPHEN 500 MG TAB PO PRN (03:44)
[2018-07-13 05:39] LABS: Absolute Lymphocytes (CBC) 1.1 K/uL (0.7-4.9); Absolute Monocytes 0.7 K/uL (0.1-1.3); Absolute Neutrophil 3.8 K/uL (1.8-8.0); Eosinophils % 3.6 % (0-4.4); Lymphocytes % 18.9 % (15.3-44.8); MPV 8.9 fL (7.6-11.3); Monocytes % 11.9 % (3.3-12.3); RBC Red Blood Cell Count 3.21 M/uL (3.86-4.86)
[2018-07-13 05:53] LABS: Potassium 4.4 mmol/L (3.5-5.1)
[2018-07-13] MEDS: LEVOTHYROXINE SOD 0.125 MG TAB PO SCH (06:58)
[2018-07-13] MEDS: Meropenem 1,000 MG in NA CHLORIDE 0.9% 100 ML IV SCH ×2 (07:58→19:39)
[2018-07-13] MEDS: HYDROCODONE/APAP 7.5/325 MG TAB PO PRN ×2 (07:59→19:39)
[2018-07-13] MEDS: CRANBERRY FRUIT EXTRACT 200 MG CAP PO SCH ×2 (07:59→19:40)
[2018-07-13] MEDS: LACTOBACILLUS/ACIDOPHILUS TAB PO SCH ×3 (07:59→20:14)
[2018-07-13] MEDS: GUAIFENESIN 600 MG SA TAB PO SCH (08:00)
[2018-07-13] MEDS: DULOXETINE 30 MG CAP PO SCH (08:00)
[2018-07-13] MEDS: DOCUSATE NA 100 MG CAP PO SCH ×2 (08:00→19:44)
[2018-07-13] MEDS: FERROUS SULFATE 325 MG TAB PO SCH ×3 (08:00→20:14)
[2018-07-13] MEDS: MAGNESIUM OXIDE 400 MG TAB PO SCH ×2 (08:00→19:40)
[2018-07-13] MEDS: APIXABAN 2.5 MG TABLET PO SCH ×2 (08:01→19:40)
[2018-07-13] MEDS: CLOPIDOGREL 75 MG TABLET PO SCH (08:01)
[2018-07-13] MEDS: RANITIDINE 150 MG TABLET PO SCH (08:01)
[2018-07-13] MEDS: VALSARTAN 80 MG TAB PO SCH (08:02)
[2018-07-13] MEDS: PROPRANOLOL HCL 60 MG SA CAP PO SCH ×2 (08:02→19:41)
[2018-07-13] MEDS: AMIODARONE HCL 200 MG TAB PO SCH (08:02)
[2018-07-13] MEDS: PREGABALIN 75 MG CAP PO SCH ×3 (08:35→20:14)
[2018-07-13] MEDS: ARFORMOTEROL TARTRATE 15 MCG/2 ML VIAL.NEB NEB SCH ×2 (08:52→20:00)
--- NOTE | 2018-07-13 15:18 | FAST ---
SHIFT START DATE/TIME: 07/13/2018 07:00 (CDT) SHIFT END DATE/TIME: 07/13/2018 19:00 (CDT) NAME OFELIA GUARDADO DATE OF : 1940 DATE OF ADMISSION: 07/09/2018 17:21 (CDT) PHONE: AGE: 77 SSN# [id number] GENDER: Female ENCOUNTER PHYSICIAN: Dr. Marcio Barber M.D. ADMISSION DIAGNOSIS: - Debility 16 - Debility (16) Gastritis with bleeding, UTI, HX of STENT 2 months ago. EATING: EATING - STEP 1: Does the patient require the assistance of a person or device, or need extra time when eating? Yes. EATING - STEP 2: Does the patient require the assistance of a helper? No, patient only requires an assistive device, O R s/he takes more than reasonable time to eat, OR there is a safety concern, OR s/he requires modifie d food consistency EATING - SCORE: 6-AL GROOMING: Activity did not occur on this shift GROOMING - SCORE: 0-UNK BATHING: Activity did not occur on this shift BATHING - SCORE: 0-UNK DRESSING - UPPER BODY: Activity did not occur on this shift ARTICLES SCORE Total number of steps: 0 DRESSING - UPPER BODY - SCORE: 0-UNK DRESSING - LOWER BODY: Activity did not occur on this shift ARTICLES SCORE Total number of steps: 0 DRESSING - LOWER BODY - SCORE: 0-UNK TOILETING: TOILETING - STEP 1: Does the patient require the assistance of a person or device, or need extra time with toileting? Yes . TOILETING - STEP 2: Does the patient require the assistance of a helper? Yes. TOILETING - STEP 3: How much assistance does the patient require from the helper? Hands-on assistance from the helper TOILETING - STEP 4: Of the 3 tasks: 1) Adjusting clothing prior to use, 2) Cleansing of perineal area, 3) Adjusting clot annabella after use; How many tasks does the patient perform WITHOUT assistance of the helper? Two tasks TOILETING - SCORE: 3-MOD BLADDER MANAGEMENT: BLADDER MANAGEMENT - STEP 1: Does the patient control the bladder completely and intentionally without equipment or devices or med ications, and is always continent? No. BLADDER MANAGEMENT - STEP 2: Does the patient require the assistance of a helper? No, patient requires and independently uses an a ssistive device, such as a urinal, bedpan, bedside commode, catheter, absorbent pad, or collecting de vice BLADDER MANAGEMENT - SCORE: 6-AL BOWEL MANAGEMENT: Activity did not occur on this shift BOWEL MANAGEMENT - SCORE: 7-IND TRANSFERS: BED, CHAIR, WHEELCHAIR: TRANSFERS: BED, CHAIR, WHEELCHAIR - STEP 1: Does the patient require assistance of a person or device, or need extra time with bed, chair, or whe elchair transfers? Yes. TRANSFERS: BED, CHAIR, WHEELCHAIR - STEP 2: Does the patient require the assistance of a helper? Yes. TRANSFERS: BED, CHAIR, WHEELCHAIR - STEP 3: How much assistance does the patient require from the helper? Steadying/guiding assistance TRANSFERS: BED, CHAIR, WHEELCHAIR - SCORE: 4-MIN TRANSFERS: TOILET: TRANSFERS: TOILET - STEP 1: Does the patient require the assistance of a person or device, or need extra time with toilet transfe rs? Yes. TRANSFERS: TOILET - STEP 2: Does the patient require the assistance of a helper? Yes. TRANSFERS: TOILET - STEP 3: How much assistance does the patient require from the helper? Patient performs half or more of the tr ansferring tasks TRANSFERS: TOILET - STEP 4: Does the patient need only incidental help such as contact guard or steadying during toilet transfer? Yes. TRANSFERS: TOILET - SCORE: 4-MIN TRANSFERS: SHOWER: Activity did not occur on this shift TRANSFERS: SHOWER - SCORE: 0-UNK TRANSFERS: TUB: Activity did not occur on this shift TRANSFERS: TUB - SCORE: 0-UNK LOCOMOTION: WALK: Activity did not occur on this shift LOCOMOTION: WALK - SCORE: 0-UNK LOCOMOTION: WHEELCHAIR: Activity did not occur on this shift LOCOMOTION: WHEELCHAIR - SCORE: 0-UNK COMPREHENSION: COMPREHENSION: TYPE: Both COMPREHENSION - STEP 1: Does the patient require help from a person or device, or need extra time to understand complex and a bstract ideas (such as current events, finances, discharge planning, medical issues, relationships, e tc)? No. COMPREHENSION - STEP 2: Does the patient need extra time, require an assistive device (such as glasses for visual comprehensi on or a hearing aid for auditory comprehension) or does s/he have mild difficulty understanding compl ex and abstract information? Yes. COMPREHENSION - SCORE: 6-AL EXPRESSION EXPRESSION: TYPE: Both EXPRESSION - STEP 1: Does the patient require help from a person or device, or need extra time expressing complex and abst ract ideas (such as current events, finances, discharge planning, medical issues, relationships, etc) ? No. EXPRESSION - STEP 2: Does the patient need extra time, require an assistive device (such as augmentive communication syste m or a communication board), OR does s/he have mild difficulty expressing complex and abstract ideas (including mild dysarthria or mild word-find problems)? Yes. EXPRESSION - SCORE: 6-AL SOCIAL INTERACTION: SOCIAL INTERACTION - STEP 1: Does the patient require a helper to interact with others in social and therapeutic situations? No. SOCIAL INTERACTION - STEP 2: Does the patient need extra time in social situations, OR does s/he interact with staff, other patien ts, and family members ONLY in structured environments, OR does s/he require medication for social in teraction? Yes, patient needs extra time SOCIAL INTERACTION - SCORE: 6-AL PROBLEM SOLVING: PROBLEM SOLVING - STEP 1: Does the patient need help from a person or device, or need extra time to solve complex problems such as managing a checking account or confronting interpersonal problems? No. PROBLEM SOLVING - STEP 2: Does the patient require extra time to make decisions or solve problems, OR does s/he have slight dif ficulty reading, initiating, or self-correcting in unfamiliar situations? Yes, patient needs extra ti me. PROBLEM SOLVING - SCORE: 6-AL MEMORY: MEMORY - STEP 1: Does the patient need help from a person or device, or need extra time to remember frequently encount ered people, daily routines, and executing requests? No. MEMORY - STEP 2: Does the patient have slight difficulty recognizing frequently encountered people, daily routines, or executing requests without the need for repetition or using self-initiated or environmental cues to remember? Yes. MEMORY - SCORE: 6-AL SIGNATURE PANEL: The following modified sections: Eating - Score, Grooming - Score, Bathing - Score, Dressing - Upper Body - Score, Dressing - Lower Body - Score, Toileting - Score, Bladder Management - Score, Bowel Man agement - Score, Transfers: Bed, Chair, Wheelchair - Score, Transfers: Toilet - Score, Transfers: Christine wer - Score, Transfers: Tub - Score, Locomotion: Walk - Score, Locomotion: Wheelchair - Score, Compre hension - Score, Expression - Score, Social Interaction - Score, Problem Solving - Score, Memory - Sc ore were [electronically] signed by Costa Priest on FriJul 13 2018 15:17:09 GMT-0500 (Central Daylight Time)
--- NOTE | 2018-07-13 18:13 | R.PN ---
ENCOUNTER DATE AND TIME: 07/13/2018 18:05 (CDT) NAME OFELIA GUARDADO DATE OF : 1940 DATE OF ADMISSION: 07/09/2018 17:21 (CDT) Gastritis with bleeding, UTI, HX of STENT 2 months agoCHIEF COMPLAINT: Debility SUBJECTIVE: Pt denied any Shortness of Breath. Pt denied any depression. Performed ADLs and therapeutic exercises with standby assistance. Hgb 9.0, WBC 5.8, prealbumin 11.9, calcium 8.1. VITAL SIGNS Temperature: 97.2 F SBP/DBP: 168/90 Pulse: 57 Resp: 18 MEDICATION ALLERGIES: PNEUMOCOCCAL VACCINE ENVIRONMENTAL ALLERGIES: None Known - Substance Allergies None Known - Other Allergies None Known NURSING: - Shower allowing shower ACTIVITIES OOB only with supervision THERAPIES: - Occupational Therapy Evaluate and Treat. - Physical Therapy Evaluate and Treat. PHYSICAL EXAM - Gen Alert and awake Lying in bed No apparent distress Oriented to: person, time, and place - Skin No breakdown Normacephalic - Eyes No abnormalities - ENMT No abnormalities - Neck No abnormalities - CVS RRR - Chest Mildly decreased breath sounds bilaterally. - Resp No wheezing - Abd Soft - GI Non distended Deferred - No abnormalities - Ext No significant edema - MSK 4/5 weakness in both lower extremities. - Neuro 4/5 strength bilaterally upper and lower extremities. - Psych No abnormalities ASSESSMENT: Pt. is a 77 yo Right-handed white female.On 07/02/2018 she was admitted to [facility] with d iagnosis Gastritis with bleeding, UTI, HX of STENT 2 months ago.her impairment category is Debility 1 6 - Debility (16).Pre-morbidly, Pt. was independent/mod-I in Transfers Control, Balance, Locomotion, and Self-Care; and she had good Sphincter Control, Safety Awareness, Social Cognition, and Communica tion.Currently, she has deficits of Self-Care, Transfers Control, Endurance, Balance, Safety Awarenes s, and Locomotion.Pt. is now referred to [facility] for acute in-patient rehab ilitation in order to maximize patient's functional independence in activities of daily living, stren gth, ROM, and mobility.- Rehab Goal Patient has realistic goal of being discharged at assistance level 6-Audrey to reside at Home with Fam mary/Relatives. MDM/PLAN: - Physical Therapy Gait dysfunction - to improve, our physical therapists will perform initial evaluation of pt's statu s upon admission and devise an individualized program for Gait Training, and Wheel Chair mobility Inability to transfer - to improve, our physical therapists will perform initial evaluation of pt's status upon admission and devise an individualized program for Bed mobility Need for home safety evaluation - to improve, our physical therapists will perform initial evaluatio n of pt's status upon admission and devise an individualized program for Home Evaluation Need in caregiver upon discharge - to improve, our physical therapists will perform initial evaluati on of pt's status upon admission and devise an individualized program for Caregiver Training Edema - to improve, our physical therapists will perform initial evaluation of pt's status upon admis zaid and devise an individualized program for Elevation Training, and Lymphedema Therapy New precaution - to improve, our physical therapists will perform initial evaluation of pt's status upon admission and devise an individualized program for Patient precaution education Poor balance - to improve, our physical therapists will perform initial evaluation of pt's status up on admission and devise an individualized program for Balance Training Poor endurance - to improve, our physical therapists will perform initial evaluation of pt's status upon admission and devise an individualized program for Endurance Training Weakness - to improve, our physical therapists will perform initial evaluation of pt's status upon a dmission and devise an individualized program for Aquatic Therapy, Neuromuscular Reeducation, and Str engthening Achieving independence - to improve, our physical therapists will perform initial evaluation of pt's status upon admission and devise an individualized program for Community Reintegration Activities - Occupational Therapy ADL deficits - to improve, our occupation therapists will perform initial evaluation of pt's status upon admission and devise an individualized program for Bathing, Bed mobility, Community Reintegratio n, Cooking, Dressing, Eating, Fine Motor Skills, Grooming, Homemaking, Kitchen Mobility, Laundry, Pat ient Education, Safety Awareness, Splinting - Positioning, Transfers(Toilet, Tub, Shower), and Wheel Chair Management Need for director of home care hospice - to improve, our occupation therapists will perform initial evaluation of pt's status upon admission and devise an individualized program for Caregiver Training Weakness - to improve, our occupation therapists will perform initial evaluation of pt's status upon admission and devise an individualized program for Aquatic Therapy, Balance, Endurance, UE ROM, and UE strengthening - Diet Type Continue Regular - Diet - Liquid Texture Continue Regular - Tube Feed Continue N/A - Diet - Solid Texture Continue Regular - Shower allowing shower FUNCTIONAL STATUS: UPDATED AT WEEKLY TEAM CONFERENCE - Bladder Same accident frequency: 7-Ind - No accidents in the past 7 days - Bowel Same accident frequency: 7-Ind - No accidents in the past 7 days - Walking Same score based on distance walked: 3(>=150ft) FUNCTIONAL STATUS: - Self-Care A. Eating sup B. Grooming sup C. Bathing ADNO D. Dressing - Upper Ronaldo E. Dressing - Lower modA F. Toileting Ronaldo - Sphincter Control G: Bladder control Audrey H: Bowel control Ind - Transfers Control I. Bed/Chair/Wheelchair Ronaldo J. Toilet Ronaldo K. Tub/Shower ADNO - Locomotion L. Walk/Wheelchair (W) modA - Communication N. Comprehension (B) Audrey O. Expression (B) Ind - Social Cognition P. Social Interaction Ind Q. Problem Solving Ind R. Memory Ind - Endurance Poor - Balance Poor - Safety Awareness Poor CURRENT FUNC. DEFICITS: Self-Care, Transfers Control, Endurance, Balance, Safety Awareness, and Locomotion SIGNATURE PANEL: (CDT)
[2018-07-13] MEDS: ATORVASTATIN 80 MG TAB PO SCH (20:14)
--- NOTE | 2018-07-14 01:19 | FAST ---
SHIFT START DATE/TIME: 07/13/2018 19:00 (CDT) SHIFT END DATE/TIME: 07/14/2018 07:00 (CDT) NAME OFELIA GUARDADO DATE OF : 1940 DATE OF ADMISSION: 07/09/2018 17:21 (CDT) PHONE: AGE: 77 SSN# [id number] GENDER: Female ENCOUNTER PHYSICIAN: Dr. Marcio Barber M.D. ADMISSION DIAGNOSIS: - Debility 16 - Debility (16) Gastritis with bleeding, UTI, HX of STENT 2 months ago. EATING: Activity did not occur on this shift EATING - SCORE: 0-UNK GROOMING: Activity did not occur on this shift GROOMING - SCORE: 0-UNK BATHING: Activity did not occur on this shift BATHING - SCORE: 0-UNK DRESSING - UPPER BODY: Patient is not dressing in public clothing ARTICLES SCORE Total number of steps: 0 DRESSING - UPPER BODY - SCORE: 0-UNK DRESSING - LOWER BODY: Patient is not dressing in public clothing ARTICLES SCORE Total number of steps: 0 DRESSING - LOWER BODY - SCORE: 0-UNK TOILETING: TOILETING - STEP 1: Does the patient require the assistance of a person or device, or need extra time with toileting? Yes . TOILETING - STEP 2: Does the patient require the assistance of a helper? Yes. TOILETING - STEP 3: How much assistance does the patient require from the helper? Hands-on assistance from the helper TOILETING - STEP 4: Of the 3 tasks: 1) Adjusting clothing prior to use, 2) Cleansing of perineal area, 3) Adjusting clot annabella after use; How many tasks does the patient perform WITHOUT assistance of the helper? One task TOILETING - SCORE: 2-MAX BLADDER MANAGEMENT: BLADDER MANAGEMENT - STEP 1: Does the patient control the bladder completely and intentionally without equipment or devices or med ications, and is always continent? No. BLADDER MANAGEMENT - STEP 2: Does the patient require the assistance of a helper? Yes. BLADDER MANAGEMENT - STEP 3: How much assistance does the patient require from the helper? Patient requires contact assistance fro m the helper BLADDER MANAGEMENT - STEP 4: How much contact assistance does the patient require from the helper? Patient requires moderate constance tance, and performs 50% to 75% of bladder management tasks - Hobson positions AND holds urinal or bed seay BLADDER MANAGEMENT - SCORE: 3-MOD BOWEL MANAGEMENT: Activity did not occur on this shift BOWEL MANAGEMENT - SCORE: 7-IND TRANSFERS: BED, CHAIR, WHEELCHAIR: TRANSFERS: BED, CHAIR, WHEELCHAIR - STEP 1: Does the patient require assistance of a person or device, or need extra time with bed, chair, or whe elchair transfers? Yes. TRANSFERS: BED, CHAIR, WHEELCHAIR - STEP 2: Does the patient require the assistance of a helper? Yes. TRANSFERS: BED, CHAIR, WHEELCHAIR - STEP 3: How much assistance does the patient require from the helper? Lifting of the legs TRANSFERS: BED, CHAIR, WHEELCHAIR - STEP 4: How many legs does the patient require the helper to lift? both legs TRANSFERS: BED, CHAIR, WHEELCHAIR - SCORE: 3-MOD TRANSFERS: TOILET: TRANSFERS: TOILET - STEP 1: Does the patient require the assistance of a person or device, or need extra time with toilet transfe rs? Yes. TRANSFERS: TOILET - STEP 2: Does the patient require the assistance of a helper? Yes. TRANSFERS: TOILET - STEP 3: How much assistance does the patient require from the helper? Patient performs half or more of the tr ansferring tasks TRANSFERS: TOILET - STEP 4: Does the patient need only incidental help such as contact guard or steadying during toilet transfer? Yes. TRANSFERS: TOILET - SCORE: 4-MIN TRANSFERS: SHOWER: Activity did not occur on this shift TRANSFERS: SHOWER - SCORE: 0-UNK TRANSFERS: TUB: Activity did not occur on this shift TRANSFERS: TUB - SCORE: 0-UNK LOCOMOTION: WALK: Activity did not occur on this shift LOCOMOTION: WALK - SCORE: 0-UNK LOCOMOTION: WHEELCHAIR: Activity did not occur on this shift LOCOMOTION: WHEELCHAIR - SCORE: 0-UNK COMPREHENSION: COMPREHENSION: TYPE: Both COMPREHENSION - STEP 1: Does the patient require help from a person or device, or need extra time to understand complex and a bstract ideas (such as current events, finances, discharge planning, medical issues, relationships, e tc)? No. COMPREHENSION - STEP 2: Does the patient need extra time, require an assistive device (such as glasses for visual comprehensi on or a hearing aid for auditory comprehension) or does s/he have mild difficulty understanding compl ex and abstract information? Yes. COMPREHENSION - SCORE: 6-AL EXPRESSION EXPRESSION: TYPE: Both EXPRESSION - STEP 1: Does the patient require help from a person or device, or need extra time expressing complex and abst ract ideas (such as current events, finances, discharge planning, medical issues, relationships, etc) ? No. EXPRESSION - STEP 2: Does the patient need extra time, require an assistive device (such as augmentive communication syste m or a communication board), OR does s/he have mild difficulty expressing complex and abstract ideas (including mild dysarthria or mild word-find problems)? Yes. EXPRESSION - SCORE: 6-AL SOCIAL INTERACTION: SOCIAL INTERACTION - STEP 1: Does the patient require a helper to interact with others in social and therapeutic situations? No. SOCIAL INTERACTION - STEP 2: Does the patient need extra time in social situations, OR does s/he interact with staff, other patien ts, and family members ONLY in structured environments, OR does s/he require medication for social in teraction? Yes, patient needs extra time SOCIAL INTERACTION - SCORE: 6-AL PROBLEM SOLVING: PROBLEM SOLVING - STEP 1: Does the patient need help from a person or device, or need extra time to solve complex problems such as managing a checking account or confronting interpersonal problems? No. PROBLEM SOLVING - STEP 2: Does the patient require extra time to make decisions or solve problems, OR does s/he have slight dif ficulty reading, initiating, or self-correcting in unfamiliar situations? Yes, patient needs extra ti me. PROBLEM SOLVING - SCORE: 6-AL MEMORY: MEMORY - STEP 1: Does the patient need help from a person or device, or need extra time to remember frequently encount ered people, daily routines, and executing requests? No. MEMORY - STEP 2: Does the patient have slight difficulty recognizing frequently encountered people, daily routines, or executing requests without the need for repetition or using self-initiated or environmental cues to remember? Yes. MEMORY - SCORE: 6-AL SIGNATURE PANEL: The following modified sections: Eating - Score, Grooming - Score, Bathing - Score, Dressing - Upper Body - Score, Dressing - Lower Body - Score, Toileting - Score, Bladder Management - Score, Bowel Man agement - Score, Transfers: Bed, Chair, Wheelchair - Score, Transfers: Toilet - Score, Transfers: Christine wer - Score, Transfers: Tub - Score, Locomotion: Walk - Score, Locomotion: Wheelchair - Score, Compre hension - Score, Expression - Score, Social Interaction - Score, Problem Solving - Score, Memory - Sc ore were [electronically] signed by Iram Peña RN on FriJul 14 2018 01:19:01 [facility]
[2018-07-14] MEDS: ACETAMINOPHEN 500 MG TAB PO PRN (02:27)
[2018-07-14 05:11] VITALS: BMI 28.5
[2018-07-14] MEDS: LEVOTHYROXINE SOD 0.125 MG TAB PO SCH (06:46)
[2018-07-14] MEDS: Meropenem 1,000 MG in NA CHLORIDE 0.9% 100 ML IV SCH ×2 (07:30→19:51)
[2018-07-14] MEDS: DOCUSATE NA 100 MG CAP PO SCH ×3 (08:00→19:49)
[2018-07-14] MEDS: HYDROCODONE/APAP 7.5/325 MG TAB PO PRN ×2 (08:27→19:48)
[2018-07-14] MEDS: DULOXETINE 30 MG CAP PO SCH (08:28)
[2018-07-14] MEDS: PROPRANOLOL HCL 60 MG SA CAP PO SCH ×2 (08:28→19:48)
[2018-07-14] MEDS: LACTOBACILLUS/ACIDOPHILUS TAB PO SCH ×3 (08:28→20:08)
[2018-07-14] MEDS: CRANBERRY FRUIT EXTRACT 200 MG CAP PO SCH ×2 (08:31→19:50)
[2018-07-14] MEDS: APIXABAN 2.5 MG TABLET PO SCH ×2 (08:31→19:50)
[2018-07-14] MEDS: MAGNESIUM OXIDE 400 MG TAB PO SCH ×2 (08:31→19:50)
[2018-07-14] MEDS: PREGABALIN 75 MG CAP PO SCH ×3 (08:32→20:08)
[2018-07-14] MEDS: VALSARTAN 80 MG TAB PO SCH (08:32)
[2018-07-14] MEDS: CLOPIDOGREL 75 MG TABLET PO SCH (08:32)
[2018-07-14] MEDS: FERROUS SULFATE 325 MG TAB PO SCH ×3 (08:32→20:08)
[2018-07-14] MEDS: AMIODARONE HCL 200 MG TAB PO SCH (08:33)
[2018-07-14] MEDS: RANITIDINE 150 MG TABLET PO SCH (08:33)
[2018-07-14] MEDS: GUAIFENESIN 600 MG SA TAB PO SCH (08:33)
[2018-07-14] MEDS: ALBUTEROL 2.5 MG/3 ML NEB SOL NEB PRN ×3 (09:05→17:00)
[2018-07-14] MEDS: ARFORMOTEROL TARTRATE 15 MCG/2 ML VIAL.NEB NEB SCH ×2 (09:05→20:00)
--- NOTE | 2018-07-14 10:05 | FAST ---
SHIFT START DATE/TIME: 07/14/2018 07:00 (CDT) SHIFT END DATE/TIME: 07/14/2018 19:00 (CDT) NAME OFELIA GUARDADO DATE OF : 1940 DATE OF ADMISSION: 07/09/2018 17:21 (CDT) PHONE: AGE: 77 SSN# [id number] GENDER: Female ENCOUNTER PHYSICIAN: Dr. Marcio Barber M.D. ADMISSION DIAGNOSIS: - Debility 16 - Debility (16) Gastritis with bleeding, UTI, HX of STENT 2 months ago. EATING: EATING - STEP 1: Does the patient require the assistance of a person or device, or need extra time when eating? Yes. EATING - STEP 2: Does the patient require the assistance of a helper? Yes. EATING - STEP 3: Does the patient perform half or more of the eating tasks? Yes. EATING - STEP 4: Does the patient need only supervision, cuing, coaxing OR help to apply an orthosis OR help to cut fo od, open containers, pour liquids, or butter bread? Yes. EATING - SCORE: 5-SUP GROOMING: Activity did not occur on this shift GROOMING - SCORE: 0-UNK BATHING: Activity did not occur on this shift BATHING - SCORE: 0-UNK DRESSING - UPPER BODY: Activity did not occur on this shift ARTICLES SCORE Total number of steps: 0 DRESSING - UPPER BODY - SCORE: 0-UNK DRESSING - LOWER BODY: Activity did not occur on this shift ARTICLES SCORE Total number of steps: 0 DRESSING - LOWER BODY - SCORE: 0-UNK TOILETING: TOILETING - STEP 1: Does the patient require the assistance of a person or device, or need extra time with toileting? Yes . TOILETING - STEP 2: Does the patient require the assistance of a helper? Yes. TOILETING - STEP 3: How much assistance does the patient require from the helper? Only supervision TOILETING - SCORE: 5-SUP BLADDER MANAGEMENT: BLADDER MANAGEMENT - STEP 1: Does the patient control the bladder completely and intentionally without equipment or devices or med ications, and is always continent? No. BLADDER MANAGEMENT - STEP 2: Does the patient require the assistance of a helper? No, patient requires and independently uses an a ssistive device, such as a urinal, bedpan, bedside commode, catheter, absorbent pad, or collecting de vice BLADDER MANAGEMENT - SCORE: 6-AL BOWEL MANAGEMENT: Activity did not occur on this shift BOWEL MANAGEMENT - SCORE: 7-IND TRANSFERS: BED, CHAIR, WHEELCHAIR: TRANSFERS: BED, CHAIR, WHEELCHAIR - STEP 1: Does the patient require assistance of a person or device, or need extra time with bed, chair, or whe elchair transfers? Yes. TRANSFERS: BED, CHAIR, WHEELCHAIR - STEP 2: Does the patient require the assistance of a helper? Yes. TRANSFERS: BED, CHAIR, WHEELCHAIR - STEP 3: How much assistance does the patient require from the helper? Steadying/guiding assistance TRANSFERS: BED, CHAIR, WHEELCHAIR - SCORE: 4-MIN TRANSFERS: TOILET: TRANSFERS: TOILET - STEP 1: Does the patient require the assistance of a person or device, or need extra time with toilet transfe rs? Yes. TRANSFERS: TOILET - STEP 2: Does the patient require the assistance of a helper? Yes. TRANSFERS: TOILET - STEP 3: How much assistance does the patient require from the helper? Only supervision, cuing, coaxing, OR he lp to set out transfer equipment or to lock brakes and/or lift foot rests TRANSFERS: TOILET - SCORE: 5-SUP TRANSFERS: SHOWER: Activity did not occur on this shift TRANSFERS: SHOWER - SCORE: 0-UNK TRANSFERS: TUB: Activity did not occur on this shift TRANSFERS: TUB - SCORE: 0-UNK LOCOMOTION: WALK: Activity did not occur on this shift LOCOMOTION: WALK - SCORE: 0-UNK LOCOMOTION: WHEELCHAIR: Activity did not occur on this shift LOCOMOTION: WHEELCHAIR - SCORE: 0-UNK COMPREHENSION: COMPREHENSION: TYPE: Both COMPREHENSION - STEP 1: Does the patient require help from a person or device, or need extra time to understand complex and a bstract ideas (such as current events, finances, discharge planning, medical issues, relationships, e tc)? Yes. COMPREHENSION - STEP 2: Does the patient require help to understand questions or statements about basic needs or ideas (such as hunger, thirst, sleep, safety, daily schedule, room location, or discomfort) half or more of the t priya? No. COMPREHENSION - STEP 3: How often does the patient need help to understand directions and conversation about basic needs? Les s than 10% of the time COMPREHENSION - SCORE: 5-SUP EXPRESSION EXPRESSION: TYPE: Both EXPRESSION - STEP 1: Does the patient require help from a person or device, or need extra time expressing complex and abst ract ideas (such as current events, finances, discharge planning, medical issues, relationships, etc) ? No. EXPRESSION - STEP 2: Does the patient need extra time, require an assistive device (such as augmentive communication syste m or a communication board), OR does s/he have mild difficulty expressing complex and abstract ideas (including mild dysarthria or mild word-find problems)? Yes. EXPRESSION - SCORE: 6-AL SOCIAL INTERACTION: SOCIAL INTERACTION - STEP 1: Does the patient require a helper to interact with others in social and therapeutic situations? No. SOCIAL INTERACTION - STEP 2: Does the patient need extra time in social situations, OR does s/he interact with staff, other patien ts, and family members ONLY in structured environments, OR does s/he require medication for social in teraction? Yes, patient needs extra time SOCIAL INTERACTION - SCORE: 6-AL PROBLEM SOLVING: PROBLEM SOLVING - STEP 1: Does the patient need help from a person or device, or need extra time to solve complex problems such as managing a checking account or confronting interpersonal problems? No. PROBLEM SOLVING - STEP 2: Does the patient require extra time to make decisions or solve problems, OR does s/he have slight dif ficulty reading, initiating, or self-correcting in unfamiliar situations? Yes, patient needs extra ti me. PROBLEM SOLVING - SCORE: 6-AL MEMORY: MEMORY - STEP 1: Does the patient need help from a person or device, or need extra time to remember frequently encount ered people, daily routines, and executing requests? No. MEMORY - STEP 2: Does the patient have slight difficulty recognizing frequently encountered people, daily routines, or executing requests without the need for repetition or using self-initiated or environmental cues to remember? Yes. MEMORY - SCORE: 6-AL SIGNATURE PANEL: The following modified sections: Eating - Score, Grooming - Score, Bathing - Score, Dressing - Upper Body - Score, Dressing - Lower Body - Score, Toileting - Score, Bladder Management - Score, Bowel Man agement - Score, Transfers: Bed, Chair, Wheelchair - Score, Transfers: Toilet - Score, Transfers: Christine wer - Score, Transfers: Tub - Score, Locomotion: Walk - Score, Locomotion: Wheelchair - Score, Compre hension - Score, Expression - Score, Social Interaction - Score, Problem Solving - Score, Memory - Sc ore were [electronically] signed by Costa Priest on FriJul 14 2018 10:04:44 GMT-0500 (Central Daylight Time)
--- NOTE | 2018-07-14 12:23 | FAST ---
ENCOUNTER DATE AND TIME: 07/14/2018 08:00 (CDT) NAME OFELIA GUARDADO DATE OF : 1940 DATE OF ADMISSION: 07/09/2018 17:21 (CDT) PHONE: AGE: 77 SSN# [id number] GENDER: Female ENCOUNTER PHYSICIAN: Dr. Marcio Barber M.D. ADMISSION DIAGNOSIS: - Debility 16 - Debility (16) Gastritis with bleeding, UTI, HX of STENT 2 months ago. EATING: Activity did not occur on this shift EATING - SCORE: 0-UNK GROOMING: Comb/brush hair Oral care Wash, rinse, and dry face Wash, rinse, and dry hands GROOMING - STEP 1: Does the patient require the assistance of a person or device, or need extra time when grooming? No. GROOMING - SCORE: 7-IND BATHING: Activity did not occur on this shift BATHING - SCORE: 0-UNK DRESSING - UPPER BODY: T-shirt/pullover shirt (four steps) ARTICLES SCORE Total number of steps: 4 DRESSING - UPPER BODY - STEP 1: Does the patient require help from a person or device, or need extra time when dressing above the lis st? Yes. DRESSING - UPPER BODY - STEP 2: Does the patient require the assistance of a helper? No. Patient only requires an assistive device, s uch as a button hook, velcro, or union steward. OR s/he takes more than reasonable time as s/he dresses the upper body. OR there is a concern for safety when s/he dresses the upper body DRESSING - UPPER BODY - SCORE: 6-AL DRESSING - LOWER BODY: Activity did not occur on this shift ARTICLES SCORE Total number of steps: 0 DRESSING - LOWER BODY - SCORE: 0-UNK TOILETING: TOILETING - STEP 1: Does the patient require the assistance of a person or device, or need extra time with toileting? Yes . TOILETING - STEP 2: Does the patient require the assistance of a helper? Yes. TOILETING - STEP 3: How much assistance does the patient require from the helper? Only supervision TOILETING - SCORE: 5-SUP BLADDER MANAGEMENT: Activity did not occur on this shift BLADDER MANAGEMENT - SCORE: 7-IND BOWEL MANAGEMENT: Activity did not occur on this shift BOWEL MANAGEMENT - SCORE: 7-IND TRANSFERS: BED, CHAIR, WHEELCHAIR: Activity did not occur on this shift TRANSFERS: BED, CHAIR, WHEELCHAIR - SCORE: 0-UNK TRANSFERS: TOILET: TRANSFERS: TOILET - STEP 1: Does the patient require the assistance of a person or device, or need extra time with toilet transfe rs? Yes. TRANSFERS: TOILET - STEP 2: Does the patient require the assistance of a helper? Yes. TRANSFERS: TOILET - STEP 3: How much assistance does the patient require from the helper? Only supervision, cuing, coaxing, OR he lp to set out transfer equipment or to lock brakes and/or lift foot rests TRANSFERS: TOILET - SCORE: 5-SUP TRANSFERS: SHOWER: Activity did not occur on this shift TRANSFERS: SHOWER - SCORE: 0-UNK TRANSFERS: TUB: Activity did not occur on this shift TRANSFERS: TUB - SCORE: 0-UNK LOCOMOTION: WALK: Activity did not occur on this shift LOCOMOTION: WALK - SCORE: 0-UNK LOCOMOTION: WHEELCHAIR: Activity did not occur on this shift LOCOMOTION: WHEELCHAIR - SCORE: 0-UNK LOCOMOTION: STAIRS: Activity did not occur on this shift LOCOMOTION: STAIRS - SCORE: 0-UNK COMPREHENSION: COMPREHENSION - SCORE: 0-UNK EXPRESSION EXPRESSION - SCORE: 0-UNK SOCIAL INTERACTION: SOCIAL INTERACTION - SCORE: 0-UNK PROBLEM SOLVING: PROBLEM SOLVING - SCORE: 0-UNK MEMORY: MEMORY - SCORE: 0-UNK SIGNATURE PANEL: The following modified sections: Eating - Score, Grooming - Score, Bathing - Score, Dressing - Upper Body - Score, Dressing - Lower Body - Score, Toileting - Score, Transfers: Bed, Chair, Wheelchair - S core, Transfers: Toilet - Score, Transfers: Shower - Score, Transfers: Tub - Score, Comprehension - S core, Expression - Score, Social Interaction - Score, Problem Solving - Score, Memory - Score were [e lectronically] signed by HOWARD Zavaleta on FriJul 14 2018 12:22:16 [facility]-0500 ([facility] Time)
--- NOTE | 2018-07-14 14:54 | FAST ---
ENCOUNTER DATE AND TIME: 07/13/2018 08:00 (CDT) NAME OFELIA GUARDADO DATE OF : 1940 DATE OF ADMISSION: 07/09/2018 17:21 (CDT) PHONE: AGE: 77 SSN# [id number] GENDER: Female ENCOUNTER PHYSICIAN: Dr. Marcio Barber M.D. ADMISSION DIAGNOSIS: - Debility 16 - Debility (16) Gastritis with bleeding, UTI, HX of STENT 2 months ago. EATING: Activity did not occur on this shift EATING - SCORE: 0-UNK GROOMING: Activity did not occur on this shift GROOMING - SCORE: 0-UNK BATHING: Activity did not occur on this shift BATHING - SCORE: 0-UNK DRESSING - UPPER BODY: Activity did not occur on this shift Patient is not dressing in public clothing ARTICLES SCORE Total number of steps: 0 DRESSING - UPPER BODY - SCORE: 0-UNK DRESSING - LOWER BODY: Activity did not occur on this shift Patient is not dressing in public clothing ARTICLES SCORE Total number of steps: 0 DRESSING - LOWER BODY - SCORE: 0-UNK TOILETING: Activity did not occur on this shift TOILETING - SCORE: 0-UNK BLADDER MANAGEMENT: Activity did not occur on this shift BLADDER MANAGEMENT - SCORE: 7-IND BOWEL MANAGEMENT: Activity did not occur on this shift BOWEL MANAGEMENT - SCORE: 7-IND TRANSFERS: BED, CHAIR, WHEELCHAIR: Activity did not occur on this shift TRANSFERS: BED, CHAIR, WHEELCHAIR - SCORE: 0-UNK TRANSFERS: TOILET: Activity did not occur on this shift TRANSFERS: TOILET - SCORE: 0-UNK TRANSFERS: SHOWER: Activity did not occur on this shift TRANSFERS: SHOWER - SCORE: 0-UNK TRANSFERS: TUB: Activity did not occur on this shift TRANSFERS: TUB - SCORE: 0-UNK LOCOMOTION: WALK: Activity did not occur on this shift LOCOMOTION: WALK - SCORE: 0-UNK LOCOMOTION: WHEELCHAIR: Activity did not occur on this shift LOCOMOTION: WHEELCHAIR - SCORE: 0-UNK LOCOMOTION: STAIRS: Activity did not occur on this shift LOCOMOTION: STAIRS - SCORE: 0-UNK COMPREHENSION: COMPREHENSION - SCORE: 0-UNK EXPRESSION EXPRESSION - SCORE: 0-UNK SOCIAL INTERACTION: SOCIAL INTERACTION - SCORE: 0-UNK PROBLEM SOLVING: PROBLEM SOLVING - SCORE: 0-UNK MEMORY: MEMORY - SCORE: 0-UNK SIGNATURE PANEL: The following modified sections: Transfers: Bed, Chair, Wheelchair - Score, Transfers: Toilet - Score , Locomotion: Walk - Score, Locomotion: Wheelchair - Score, Locomotion: Stairs - Score were [electron [email or web address]] signed by Jignesh Salazar PTA on FriJul 14 2018 14:53:17 GMT-0500 (Central Daylight Time)
--- NOTE | 2018-07-14 14:57 | FAST ---
ENCOUNTER DATE AND TIME: 07/14/2018 08:00 (CDT) NAME OFELIA GUARDADO DATE OF : 1940 DATE OF ADMISSION: 07/09/2018 17:21 (CDT) PHONE: AGE: 77 SSN# [id number] GENDER: Female ENCOUNTER PHYSICIAN: Dr. Marcio Barber M.D. ADMISSION DIAGNOSIS: - Debility 16 - Debility (16) Gastritis with bleeding, UTI, HX of STENT 2 months ago. EATING: Activity did not occur on this shift EATING - SCORE: 0-UNK GROOMING: Activity did not occur on this shift GROOMING - SCORE: 0-UNK BATHING: Activity did not occur on this shift BATHING - SCORE: 0-UNK DRESSING - UPPER BODY: Activity did not occur on this shift Patient is not dressing in public clothing ARTICLES SCORE Total number of steps: 0 DRESSING - UPPER BODY - SCORE: 0-UNK DRESSING - LOWER BODY: Activity did not occur on this shift Patient is not dressing in public clothing ARTICLES SCORE Total number of steps: 0 DRESSING - LOWER BODY - SCORE: 0-UNK TOILETING: Activity did not occur on this shift TOILETING - SCORE: 0-UNK BLADDER MANAGEMENT: Activity did not occur on this shift BLADDER MANAGEMENT - SCORE: 7-IND BOWEL MANAGEMENT: Activity did not occur on this shift BOWEL MANAGEMENT - SCORE: 7-IND TRANSFERS: BED, CHAIR, WHEELCHAIR: TRANSFERS: BED, CHAIR, WHEELCHAIR - STEP 1: Does the patient require assistance of a person or device, or need extra time with bed, chair, or whe elchair transfers? Yes. TRANSFERS: BED, CHAIR, WHEELCHAIR - STEP 2: Does the patient require the assistance of a helper? Yes. TRANSFERS: BED, CHAIR, WHEELCHAIR - STEP 3: How much assistance does the patient require from the helper? Only supervision TRANSFERS: BED, CHAIR, WHEELCHAIR - SCORE: 5-SUP TRANSFERS: TOILET: TRANSFERS: TOILET - STEP 1: Does the patient require the assistance of a person or device, or need extra time with toilet transfe rs? Yes. TRANSFERS: TOILET - STEP 2: Does the patient require the assistance of a helper? Yes. TRANSFERS: TOILET - STEP 3: How much assistance does the patient require from the helper? Only supervision, cuing, coaxing, OR he lp to set out transfer equipment or to lock brakes and/or lift foot rests TRANSFERS: TOILET - SCORE: 5-SUP TRANSFERS: SHOWER: Activity did not occur on this shift TRANSFERS: SHOWER - SCORE: 0-UNK TRANSFERS: TUB: Activity did not occur on this shift TRANSFERS: TUB - SCORE: 0-UNK LOCOMOTION: WALK: LOCOMOTION: WALK - STEP 1: Does the patient need help from a person or device, or need extra time to walk 150 feet? Yes. LOCOMOTION: WALK - STEP 2: How much assistance does the patient require to walk a minimum of 150 feet? Only supervision, cuing, or coaxing LOCOMOTION: WALK - SCORE: 5-SUP LOCOMOTION: WHEELCHAIR: LOCOMOTION: WHEELCHAIR - STEP 1: Does the patient need help to go 150 feet in a wheelchair? Yes. LOCOMOTION: WHEELCHAIR - STEP 2: How much assistance does the patient need from the helper? Only supervision, cuing, or coaxing LOCOMOTION: WHEELCHAIR - SCORE: 5-SUP LOCOMOTION: STAIRS: Activity did not occur on this shift LOCOMOTION: STAIRS - SCORE: 0-UNK COMPREHENSION: COMPREHENSION - SCORE: 0-UNK EXPRESSION EXPRESSION - SCORE: 0-UNK SOCIAL INTERACTION: SOCIAL INTERACTION - SCORE: 0-UNK PROBLEM SOLVING: PROBLEM SOLVING - SCORE: 0-UNK MEMORY: MEMORY - SCORE: 0-UNK SIGNATURE PANEL: The following modified sections: Transfers: Bed, Chair, Wheelchair - Score, Transfers: Toilet - Score , Locomotion: Walk - Score, Locomotion: Wheelchair - Score, Locomotion: Stairs - Score were [juju [email or web address]] signed by Jignesh Salazar PTA on FriJul 14 2018 14:57:09 T-0500 (Central Daylight Time)
--- NOTE | 2018-07-14 17:49 | R.PN ---
ENCOUNTER DATE AND TIME: 07/14/2018 17:45 (CDT) NAME OFELIA GUARDADO DATE OF : 1940 DATE OF ADMISSION: 07/09/2018 17:21 (CDT) Gastritis with bleeding, UTI, HX of STENT 2 months agoCHIEF COMPLAINT: Debility SUBJECTIVE: Pt denied any Shortness of Breath. Pt denied any depression. Patient states that pain is under control. Hgb 9.0, WBC 5.8, prealbumin 11.9, calcium 8.1. Ambulated 270' with standby assistance using a rolling walker. Self propelled wheelchair 250' with st andby assistance. VITAL SIGNS Temperature: 97.2 F SBP/DBP: 105/60 Pulse: 56 Resp: 16 MEDICATION ALLERGIES: PNEUMOCOCCAL VACCINE ENVIRONMENTAL ALLERGIES: None Known - Substance Allergies None Known - Other Allergies None Known NURSING: - Shower allowing shower ACTIVITIES OOB only with supervision THERAPIES: - Occupational Therapy Evaluate and Treat. - Physical Therapy Evaluate and Treat. PHYSICAL EXAM - Gen Alert and awake Lying in bed No apparent distress Oriented to: person, time, and place - Skin No breakdown Normacephalic - Eyes No abnormalities - ENMT No abnormalities - Neck No abnormalities - CVS RRR - Chest Mildly decreased breath sounds bilaterally. - Resp No wheezing - Abd Soft - GI Non distended Deferred - No abnormalities - Ext No significant edema - MSK 4/5 weakness in both lower extremities. - Neuro 4/5 strength bilaterally upper and lower extremities. - Psych No abnormalities ASSESSMENT: Pt. is a 77 yo Right-handed white female.On 07/02/2018 she was admitted to [facility] with d iagnosis Gastritis with bleeding, UTI, HX of STENT 2 months ago.her impairment category is Debility 1 6 - Debility (16).Pre-morbidly, Pt. was independent/mod-I in Transfers Control, Balance, Locomotion, and Self-Care; and she had good Sphincter Control, Safety Awareness, Social Cognition, and Communica tion.Currently, she has deficits of Self-Care, Transfers Control, Endurance, Balance, Safety Awarenes s, and Locomotion.Pt. is now referred to [facility] for acute in-patient rehab ilitation in order to maximize patient's functional independence in activities of daily living, stren gth, ROM, and mobility.- Rehab Goal Patient has realistic goal of being discharged at assistance level 6-Audrey to reside at Home with Fam mary/Relatives. MDM/PLAN: - Physical Therapy Gait dysfunction - to improve, our physical therapists will perform initial evaluation of pt's statu s upon admission and devise an individualized program for Gait Training, and Wheel Chair mobility Inability to transfer - to improve, our physical therapists will perform initial evaluation of pt's status upon admission and devise an individualized program for Bed mobility Need for home safety evaluation - to improve, our physical therapists will perform initial evaluatio n of pt's status upon admission and devise an individualized program for Home Evaluation Need in caregiver upon discharge - to improve, our physical therapists will perform initial evaluati on of pt's status upon admission and devise an individualized program for Caregiver Training Edema - to improve, our physical therapists will perform initial evaluation of pt's status upon admi ssion and devise an individualized program for Elevation Training, and Lymphedema Therapy New precaution - to improve, our physical therapists will perform initial evaluation of pt's status upon admission and devise an individualized program for Patient precaution education Poor balance - to improve, our physical therapists will perform initial evaluation of pt's status up on admission and devise an individualized program for Balance Training Poor endurance - to improve, our physical therapists will perform initial evaluation of pt's status upon admission and devise an individualized program for Endurance Training Weakness - to improve, our physical therapists will perform initial evaluation of pt's status upon a dmission and devise an individualized program for Aquatic Therapy, Neuromuscular Reeducation, and Str engthening Achieving independence - to improve, our physical therapists will perform initial evaluation of pt's status upon admission and devise an individualized program for Community Reintegration Activities - Occupational Therapy ADL deficits - to improve, our occupation therapists will perform initial evaluation of pt's status upon admission and devise an individualized program for Bathing, Bed mobility, Community Reintegratio n, Cooking, Dressing, Eating, Fine Motor Skills, Grooming, Homemaking, Kitchen Mobility, Laundry, Pat ient Education, Safety Awareness, Splinting - Positioning, Transfers(Toilet, Tub, Shower), and Wheel Chair Management Need for child care attendant - to improve, our occupation therapists will perform initial evaluation of pt's status upon admission and devise an individualized program for Caregiver Training Weakness - to improve, our occupation therapists will perform initial evaluation of pt's status upon admission and devise an individualized program for Aquatic Therapy, Balance, Endurance, UE ROM, and UE strengthening - Diet Type Continue Regular - Diet - Liquid Texture Continue Regular - Tube Feed Continue N/A - Diet - Solid Texture Continue Regular - Shower allowing shower FUNCTIONAL STATUS: UPDATED AT WEEKLY TEAM CONFERENCE - Bladder Same accident frequency: 7-Ind - No accidents in the past 7 days - Bowel Same accident frequency: 7-Ind - No accidents in the past 7 days - Walking Same score based on distance walked: 3(>=150ft) FUNCTIONAL STATUS: - Self-Care A. Eating sup B. Grooming sup C. Bathing ADNO D. Dressing - Upper Ronaldo E. Dressing - Lower modA F. Toileting Ronaldo - Sphincter Control G: Bladder control Audrey H: Bowel control Ind - Transfers Control I. Bed/Chair/Wheelchair Ronaldo J. Toilet Ronaldo K. Tub/Shower ADNO - Locomotion L. Walk/Wheelchair (W) modA - Communication N. Comprehension (B) Audrey O. Expression (B) Ind - Social Cognition P. Social Interaction Ind Q. Problem Solving Ind R. Memory Ind - Endurance Poor - Balance Poor - Safety Awareness Poor CURRENT FUNC. DEFICITS: Self-Care, Transfers Control, Endurance, Balance, Safety Awareness, and Locomotion SIGNATURE PANEL: (CDT)
[2018-07-14] MEDS: ATORVASTATIN 80 MG TAB PO SCH (20:08)
--- NOTE | 2018-07-14 20:10 | PN ---
Date of Progress Note: 07/14/2018 Code Status: Full. Subjective: The patient is seen and examined. Chart reviewed and case discussed with RN. The patie nt having shortness of breath with physical therapy, is being referred to residential facility at this time. No further melena. Medications: List reviewed. Objective: Vital Signs: Temperature 97.2, heart rate 56, blood pressure 105/60, respirations 18, O2 100% on 2 L via nasal cannula. General: Awake, alert, oriented x3. Elderly female. CV: S1, S2. Regular rate and rhythm. Peripheral pulses present. Respiratory: Moving air well bilaterally. No wheezing. Gastrointestinal: Abdomen is soft, nontender, nondistended. Positive bowel sounds. Extremities: No clubbing, cyanosis, or edema. Neurologic: Nonfocal. Normal speech. Cranial nerves 2-12 intact grossly. Skin: No rashes. Laboratory Data: Pending. Urine culture growing out mixed daly. Assessment And Plan: 1.Acute generalized weakness. Continue physical therapy. 2.Shortness of breath, likely due to chronic obstructive pulmonary disease. 3.Chronic obstructive pulmonary disease. We will continue supplemental oxygen, nebulizer treatments as needed. Continue Brovana. 4.Non-intractable nausea and vomiting. Continue antiemetics. 5.Essential hypertension, stable. 6.Hypothyroidism. Continue levothyroxine. 7.History of gastritis, stable. 8.Recently diagnosed urinary tract infection. On meropenem for 2 weeks total. Plan: Monitor H and H. Monitor for signs of any GI bleeding. /JUDITH Voice ID: [id number] Report ID: [id number]
--- NOTE | 2018-07-15 01:55 | FAST ---
SHIFT START DATE/TIME: 07/14/2018 19:00 (CDT) SHIFT END DATE/TIME: 07/15/2018 07:00 (CDT) NAME OFELIA GUARDADO DATE OF : 1940 DATE OF ADMISSION: 07/09/2018 17:21 (CDT) PHONE: AGE: 77 SSN# [id number] GENDER: Female ENCOUNTER PHYSICIAN: Dr. Marcio Barber M.D. ADMISSION DIAGNOSIS: - Debility 16 - Debility (16) Gastritis with bleeding, UTI, HX of STENT 2 months ago. EATING: Activity did not occur on this shift EATING - SCORE: 0-UNK GROOMING: Activity did not occur on this shift GROOMING - SCORE: 0-UNK BATHING: Activity did not occur on this shift BATHING - SCORE: 0-UNK DRESSING - UPPER BODY: Activity did not occur on this shift ARTICLES SCORE Total number of steps: 0 DRESSING - UPPER BODY - SCORE: 0-UNK DRESSING - LOWER BODY: Activity did not occur on this shift ARTICLES SCORE Total number of steps: 0 DRESSING - LOWER BODY - SCORE: 0-UNK TOILETING: TOILETING - STEP 1: Does the patient require the assistance of a person or device, or need extra time with toileting? Yes . TOILETING - STEP 2: Does the patient require the assistance of a helper? Yes. TOILETING - STEP 3: How much assistance does the patient require from the helper? Hands-on assistance from the helper TOILETING - STEP 4: Of the 3 tasks: 1) Adjusting clothing prior to use, 2) Cleansing of perineal area, 3) Adjusting clot annabella after use; How many tasks does the patient perform WITHOUT assistance of the helper? Three tasks with steadying assistance from the helper TOILETING - SCORE: 4-MIN BLADDER MANAGEMENT: BLADDER MANAGEMENT - STEP 1: Does the patient control the bladder completely and intentionally without equipment or devices or med ications, and is always continent? Yes. BLADDER MANAGEMENT - SCORE: 7-IND BOWEL MANAGEMENT: Activity did not occur on this shift BOWEL MANAGEMENT - SCORE: 7-IND TRANSFERS: BED, CHAIR, WHEELCHAIR: TRANSFERS: BED, CHAIR, WHEELCHAIR - STEP 1: Does the patient require assistance of a person or device, or need extra time with bed, chair, or whe elchair transfers? Yes. TRANSFERS: BED, CHAIR, WHEELCHAIR - STEP 2: Does the patient require the assistance of a helper? Yes. TRANSFERS: BED, CHAIR, WHEELCHAIR - STEP 3: How much assistance does the patient require from the helper? Steadying/guiding assistance TRANSFERS: BED, CHAIR, WHEELCHAIR - SCORE: 4-MIN TRANSFERS: TOILET: TRANSFERS: TOILET - STEP 1: Does the patient require the assistance of a person or device, or need extra time with toilet transfe rs? Yes. TRANSFERS: TOILET - STEP 2: Does the patient require the assistance of a helper? Yes. TRANSFERS: TOILET - STEP 3: How much assistance does the patient require from the helper? Patient performs half or more of the tr ansferring tasks TRANSFERS: TOILET - STEP 4: Does the patient need only incidental help such as contact guard or steadying during toilet transfer? Yes. TRANSFERS: TOILET - SCORE: 4-MIN TRANSFERS: SHOWER: Activity did not occur on this shift TRANSFERS: SHOWER - SCORE: 0-UNK TRANSFERS: TUB: Activity did not occur on this shift TRANSFERS: TUB - SCORE: 0-UNK LOCOMOTION: WALK: Activity did not occur on this shift LOCOMOTION: WALK - SCORE: 0-UNK LOCOMOTION: WHEELCHAIR: Activity did not occur on this shift LOCOMOTION: WHEELCHAIR - SCORE: 0-UNK COMPREHENSION: COMPREHENSION: TYPE: Both COMPREHENSION - STEP 1: Does the patient require help from a person or device, or need extra time to understand complex and a bstract ideas (such as current events, finances, discharge planning, medical issues, relationships, e tc)? No. COMPREHENSION - STEP 2: Does the patient need extra time, require an assistive device (such as glasses for visual comprehensi on or a hearing aid for auditory comprehension) or does s/he have mild difficulty understanding compl ex and abstract information? Yes. COMPREHENSION - SCORE: 6-AL EXPRESSION EXPRESSION: TYPE: Both EXPRESSION - STEP 1: Does the patient require help from a person or device, or need extra time expressing complex and abst ract ideas (such as current events, finances, discharge planning, medical issues, relationships, etc) ? No. EXPRESSION - STEP 2: Does the patient need extra time, require an assistive device (such as augmentive communication syste m or a communication board), OR does s/he have mild difficulty expressing complex and abstract ideas (including mild dysarthria or mild word-find problems)? No. EXPRESSION - SCORE: 7-IND SOCIAL INTERACTION: SOCIAL INTERACTION - STEP 1: Does the patient require a helper to interact with others in social and therapeutic situations? No. SOCIAL INTERACTION - STEP 2: Does the patient need extra time in social situations, OR does s/he interact with staff, other patien ts, and family members ONLY in structured environments, OR does s/he require medication for social in teraction? No. SOCIAL INTERACTION - SCORE: 7-IND PROBLEM SOLVING: Patient requires bed/chair alarms due to attempts to get up unassisted when helper is needed. PROBLEM SOLVING - STEP 1: How often do the bed/chair alarms go off? Occasionally - the alarms go off about 25% or less PROBLEM SOLVING - SCORE: 4-MIN MEMORY: MEMORY - STEP 1: How often do the bed/chair alarms go off? Occasionally - the alarms go off about 25% of the time or l ess MEMORY - SCORE: 4-MIN SIGNATURE PANEL: The following modified sections: Eating - Score, Grooming - Score, Bathing - Score, Dressing - Upper Body - Score, Dressing - Lower Body - Score, Toileting - Score, Bladder Management - Score, Bowel Man agement - Score, Transfers: Bed, Chair, Wheelchair - Score, Transfers: Toilet - Score, Transfers: Christine wer - Score, Transfers: Tub - Score, Locomotion: Walk - Score, Locomotion: Wheelchair - Score, Compre hension - Score, Expression - Score, Social Interaction - Score, Problem Solving - Score, Memory - Sc ore were [electronically] signed by Court Canales CNA on FriJul 15 2018 01:54:51 T-0500 ([place] [facility] Time)
[2018-07-15] MEDS: ACETAMINOPHEN 500 MG TAB PO PRN ×2 (06:36→20:08)
[2018-07-15] MEDS: LEVOTHYROXINE SOD 0.125 MG TAB PO SCH (06:37)
[2018-07-15] MEDS: VALSARTAN 80 MG TAB PO SCH (07:08)
[2018-07-15] MEDS: AMIODARONE HCL 200 MG TAB PO SCH (07:08)
[2018-07-15] MEDS: ARFORMOTEROL TARTRATE 15 MCG/2 ML VIAL.NEB NEB SCH ×2 (07:45→20:00)
[2018-07-15] MEDS: ALBUTEROL 2.5 MG/3 ML NEB SOL NEB PRN ×3 (07:45→18:42)
[2018-07-15] MEDS: DOCUSATE NA 100 MG CAP PO SCH ×2 (08:00→20:00)
[2018-07-15] MEDS: GUAIFENESIN 600 MG SA TAB PO SCH (08:56)
[2018-07-15] MEDS: DULOXETINE 30 MG CAP PO SCH (08:59)
[2018-07-15] MEDS: CLOPIDOGREL 75 MG TABLET PO SCH (08:59)
[2018-07-15] MEDS: LACTOBACILLUS/ACIDOPHILUS TAB PO SCH ×3 (09:00→21:07)
[2018-07-15] MEDS: MAGNESIUM OXIDE 400 MG TAB PO SCH ×2 (09:00→20:06)
[2018-07-15] MEDS: APIXABAN 2.5 MG TABLET PO SCH (09:00)
[2018-07-15] MEDS: RANITIDINE 150 MG TABLET PO SCH (09:00)
[2018-07-15] MEDS: FERROUS SULFATE 325 MG TAB PO SCH ×3 (09:01→21:07)
[2018-07-15] MEDS: CRANBERRY FRUIT EXTRACT 200 MG CAP PO SCH ×2 (09:01→20:04)
[2018-07-15] MEDS: PREGABALIN 75 MG CAP PO SCH ×3 (09:02→21:07)
[2018-07-15] MEDS: PROPRANOLOL HCL 60 MG SA CAP PO SCH ×2 (09:02→20:05)
[2018-07-15] MEDS: Meropenem 1,000 MG in NA CHLORIDE 0.9% 100 ML IV SCH ×2 (09:03→20:02)
--- NOTE | 2018-07-15 13:41 | FAST ---
SHIFT START DATE/TIME: 07/15/2018 07:00 (CDT) SHIFT END DATE/TIME: 07/15/2018 19:00 (CDT) NAME OFELIA GUARDADO DATE OF : 1940 DATE OF ADMISSION: 07/09/2018 17:21 (CDT) PHONE: AGE: 77 SSN# [id number] GENDER: Female ENCOUNTER PHYSICIAN: Dr. Marcio Barber M.D. ADMISSION DIAGNOSIS: - Debility 16 - Debility (16) Gastritis with bleeding, UTI, HX of STENT 2 months ago. EATING: EATING - STEP 1: Does the patient require the assistance of a person or device, or need extra time when eating? Yes. EATING - STEP 2: Does the patient require the assistance of a helper? Yes. EATING - STEP 3: Does the patient perform half or more of the eating tasks? Yes. EATING - STEP 4: Does the patient need only supervision, cuing, coaxing OR help to apply an orthosis OR help to cut fo od, open containers, pour liquids, or butter bread? Yes. EATING - SCORE: 5-SUP GROOMING: Activity did not occur on this shift GROOMING - SCORE: 0-UNK GROOMING - COMMENTS: Pt waiting till shower time with therapist BATHING: Activity did not occur on this shift BATHING - SCORE: 0-UNK DRESSING - UPPER BODY: Activity did not occur on this shift ARTICLES SCORE Total number of steps: 0 DRESSING - UPPER BODY - SCORE: 0-UNK DRESSING - UPPER BODY - COMMENTS: Waiting for therapist with shower time DRESSING - LOWER BODY: Activity did not occur on this shift ARTICLES SCORE Total number of steps: 0 DRESSING - LOWER BODY - SCORE: 0-UNK DRESSING - LOWER BODY - COMMENTS: Waiting for therapist and shower time TOILETING: TOILETING - STEP 1: Does the patient require the assistance of a person or device, or need extra time with toileting? Yes . TOILETING - STEP 2: Does the patient require the assistance of a helper? Yes. TOILETING - STEP 3: How much assistance does the patient require from the helper? Only supervision TOILETING - SCORE: 5-SUP BLADDER MANAGEMENT: BLADDER MANAGEMENT - STEP 1: Does the patient control the bladder completely and intentionally without equipment or devices or med ications, and is always continent? No. BLADDER MANAGEMENT - STEP 2: Does the patient require the assistance of a helper? Yes. BLADDER MANAGEMENT - STEP 3: How much assistance does the patient require from the helper? Only supervision, stand-by, cuing, or c oaxing BLADDER MANAGEMENT - SCORE: 5-SUP BLADDER MANAGEMENT - FREQUENCY OF ACCIDENTS: BLADDER MANAGEMENT(FA) - STEP 1: How many accidents has the patient had during the current shift? 0 BOWEL MANAGEMENT: BOWEL MANAGEMENT - STEP 1: Does the patient control bowels completely and intentionally without equipment devices or medications AND is always continent? No. BOWEL MANAGEMENT - STEP 2: Does the patient require the assistance of a helper? Yes. BOWEL MANAGEMENT - STEP 3: How much assistance does the patient require from the helper? Patient requires supervision, stand by, cueing, coaxing, or setup of equipment - placing within reach of patient and emptying device / bedpa nd or BSC bucket - to maintain either satisfactory bowel pattern or managing an external device such as an absorbent pad, colostomy bag / ileostomy bag BOWEL MANAGEMENT - SCORE: 5-SUP BOWEL MANAGEMENT - FREQUENCY OF ACCIDENTS: BOWEL MANAGEMENT(FA) - STEP 1: How many accidents has the patient had during the current shift? 0 TRANSFERS: BED, CHAIR, WHEELCHAIR: TRANSFERS: BED, CHAIR, WHEELCHAIR - STEP 1: Does the patient require assistance of a person or device, or need extra time with bed, chair, or whe elchair transfers? Yes. TRANSFERS: BED, CHAIR, WHEELCHAIR - STEP 2: Does the patient require the assistance of a helper? Yes. TRANSFERS: BED, CHAIR, WHEELCHAIR - STEP 3: How much assistance does the patient require from the helper? Only supervision TRANSFERS: BED, CHAIR, WHEELCHAIR - SCORE: 5-SUP TRANSFERS: TOILET: TRANSFERS: TOILET - STEP 1: Does the patient require the assistance of a person or device, or need extra time with toilet transfe rs? Yes. TRANSFERS: TOILET - STEP 2: Does the patient require the assistance of a helper? Yes. TRANSFERS: TOILET - STEP 3: How much assistance does the patient require from the helper? Patient performs half or more of the tr ansferring tasks TRANSFERS: TOILET - STEP 4: Does the patient need only incidental help such as contact guard or steadying during toilet transfer? Yes. TRANSFERS: TOILET - SCORE: 4-MIN TRANSFERS: SHOWER: Activity did not occur on this shift TRANSFERS: SHOWER - SCORE: 0-UNK TRANSFERS: TUB: Activity did not occur on this shift TRANSFERS: TUB - SCORE: 0-UNK LOCOMOTION: WALK: Activity did not occur on this shift LOCOMOTION: WALK - SCORE: 0-UNK LOCOMOTION: WHEELCHAIR: Activity did not occur on this shift LOCOMOTION: WHEELCHAIR - SCORE: 0-UNK COMPREHENSION: COMPREHENSION: TYPE: Both COMPREHENSION - STEP 1: Does the patient require help from a person or device, or need extra time to understand complex and a bstract ideas (such as current events, finances, discharge planning, medical issues, relationships, e tc)? Yes. COMPREHENSION - STEP 2: Does the patient require help to understand questions or statements about basic needs or ideas (such as hunger, thirst, sleep, safety, daily schedule, room location, or discomfort) half or more of the t priya? No. COMPREHENSION - STEP 3: How often does the patient need help to understand directions and conversation about basic needs? Les s than 10% of the time COMPREHENSION - SCORE: 5-SUP EXPRESSION EXPRESSION: TYPE: Both EXPRESSION - STEP 1: Does the patient require help from a person or device, or need extra time expressing complex and abst ract ideas (such as current events, finances, discharge planning, medical issues, relationships, etc) ? No. EXPRESSION - STEP 2: Does the patient need extra time, require an assistive device (such as augmentive communication syste m or a communication board), OR does s/he have mild difficulty expressing complex and abstract ideas (including mild dysarthria or mild word-find problems)? Yes. EXPRESSION - SCORE: 6-AL SOCIAL INTERACTION: SOCIAL INTERACTION - STEP 1: Does the patient require a helper to interact with others in social and therapeutic situations? No. SOCIAL INTERACTION - STEP 2: Does the patient need extra time in social situations, OR does s/he interact with staff, other patien ts, and family members ONLY in structured environments, OR does s/he require medication for social in teraction? Yes, patient needs extra time SOCIAL INTERACTION - SCORE: 6-AL PROBLEM SOLVING: PROBLEM SOLVING - STEP 1: Does the patient need help from a person or device, or need extra time to solve complex problems such as managing a checking account or confronting interpersonal problems? No. PROBLEM SOLVING - STEP 2: Does the patient require extra time to make decisions or solve problems, OR does s/he have slight dif ficulty reading, initiating, or self-correcting in unfamiliar situations? Yes, patient needs extra ti me. PROBLEM SOLVING - SCORE: 6-AL MEMORY: MEMORY - STEP 1: Does the patient need help from a person or device, or need extra time to remember frequently encount ered people, daily routines, and executing requests? No. MEMORY - STEP 2: Does the patient have slight difficulty recognizing frequently encountered people, daily routines, or executing requests without the need for repetition or using self-initiated or environmental cues to remember? Yes. MEMORY - SCORE: 6-AL SIGNATURE PANEL: The following modified sections: Eating - Score, Grooming - Score, Grooming - Comments:, Bathing - Sc ore, Dressing - Upper Body - Score, Dressing - Upper Body - Comments:, Dressing - Lower Body - Score, Dressing - Lower Body - Comments:, Toileting - Score, Bladder Management - Score, Bowel Management - Score, Transfers: Bed, Chair, Wheelchair - Score, Transfers: Toilet - Score, Transfers: Shower - Sco re, Transfers: Tub - Score, Locomotion: Walk - Score, Locomotion: Wheelchair - Score, Comprehension - Score, Expression - Score, Social Interaction - Score, Problem Solving - Score, Memory - Score were [electronically] signed by Joyce Faith C.N.A. on FriJul 15 2018 13:40:06 [id number] ([facility])
--- NOTE | 2018-07-15 14:02 | R.PN ---
ENCOUNTER DATE AND TIME: 07/15/2018 13:54 (CDT) NAME OFELIA GUARDADO DATE OF : 1940 DATE OF ADMISSION: 07/09/2018 17:21 (CDT) Gastritis with bleeding, UTI, HX of STENT 2 months agoCHIEF COMPLAINT: Debility SUBJECTIVE: Pt denied any Shortness of Breath. Pt denied any depression. Patient states that pain is under control. Hgb 9.0, WBC 5.8, prealbumin 11.9, calcium 8.1. Ambulated 270' with standby assistance using a rolling walker. Self propelled wheelchair 250' with st andby assistance. She required 2L of o2 via nasal cannulae. VITAL SIGNS Temperature: 97.2 F SBP/DBP: 170/100 Pulse: 68 Resp: 16 MEDICATION ALLERGIES: PNEUMOCOCCAL VACCINE ENVIRONMENTAL ALLERGIES: None Known - Substance Allergies None Known - Other Allergies None Known NURSING: - Shower allowing shower ACTIVITIES OOB only with supervision THERAPIES: - Occupational Therapy Evaluate and Treat. - Physical Therapy Evaluate and Treat. PHYSICAL EXAM - Gen Alert and awake Lying in bed No apparent distress Oriented to: person, time, and place - Skin No breakdown Normacephalic - Eyes No abnormalities - ENMT No abnormalities - Neck No abnormalities - CVS RRR - Chest Mildly decreased breath sounds bilaterally. - Resp No wheezing - Abd Soft - GI Non distended Deferred - No abnormalities - Ext No significant edema - MSK 4/5 weakness in both lower extremities. - Neuro 4/5 strength bilaterally upper and lower extremities. - Psych No abnormalities ASSESSMENT: Pt. is a 77 yo Right-handed white female.On 07/02/2018 she was admitted to [facility] with d iagnosis Gastritis with bleeding, UTI, HX of STENT 2 months ago.her impairment category is Debility 1 6 - Debility (16).Pre-morbidly, Pt. was independent/mod-I in Transfers Control, Balance, Locomotion, and Self-Care; and she had good Sphincter Control, Safety Awareness, Social Cognition, and Communica tion.Currently, she has deficits of Self-Care, Transfers Control, Endurance, Balance, Safety Awarenes s, and Locomotion.Pt. is now referred to [facility] for acute in-patient rehab ilitation in order to maximize patient's functional independence in activities of daily living, stren gth, ROM, and mobility.- Rehab Goal Patient has realistic goal of being discharged at assistance level 6-Audrey to reside at Home with Fam mary/Relatives. MDM/PLAN: - Physical Therapy Gait dysfunction - to improve, our physical therapists will perform initial evaluation of pt's statu s upon admission and devise an individualized program for Gait Training, and Wheel Chair mobility Inability to transfer - to improve, our physical therapists will perform initial evaluation of pt's status upon admission and devise an individualized program for Bed mobility Need for home safety evaluation - to improve, our physical therapists will perform initial evaluatio n of pt's status upon admission and devise an individualized program for Home Evaluation Need in caregiver upon discharge - to improve, our physical therapists will perform initial evaluati on of pt's status upon admission and devise an individualized program for Caregiver Training Edema - to improve, our physical therapists will perform initial evaluation of pt's status upon admi ssion and devise an individualized program for Elevation Training, and Lymphedema Therapy New precaution - to improve, our physical therapists will perform initial evaluation of pt's status upon admission and devise an individualized program for Patient precaution education Poor balance - to improve, our physical therapists will perform initial evaluation of pt's status up on admission and devise an individualized program for Balance Training Poor endurance - to improve, our physical therapists will perform initial evaluation of pt's status upon admission and devise an individualized program for Endurance Training Weakness - to improve, our physical therapists will perform initial evaluation of pt's status upon a dmission and devise an individualized program for Aquatic Therapy, Neuromuscular Reeducation, and Str engthening Achieving independence - to improve, our physical therapists will perform initial evaluation of pt's status upon admission and devise an individualized program for Community Reintegration Activities - Occupational Therapy ADL deficits - to improve, our occupation therapists will perform initial evaluation of pt's status upon admission and devise an individualized program for Bathing, Bed mobility, Community Reintegratio n, Cooking, Dressing, Eating, Fine Motor Skills, Grooming, Homemaking, Kitchen Mobility, Laundry, Pat ient Education, Safety Awareness, Splinting - Positioning, Transfers(Toilet, Tub, Shower), and Wheel Chair Management Need for customer care professional - to improve, our occupation therapists will perform initial evaluation of pt's status upon admission and devise an individualized program for Caregiver Training Weakness - to improve, our occupation therapists will perform initial evaluation of pt's status upon admission and devise an individualized program for Aquatic Therapy, Balance, Endurance, UE ROM, and UE strengthening - Diet Type Continue Regular - Diet - Liquid Texture Continue Regular - Tube Feed Continue N/A - Diet - Solid Texture Continue Regular - Shower allowing shower FUNCTIONAL STATUS: UPDATED AT WEEKLY TEAM CONFERENCE - Bladder Same accident frequency: 7-Ind - No accidents in the past 7 days - Bowel Same accident frequency: 7-Ind - No accidents in the past 7 days - Walking Same score based on distance walked: 3(>=150ft) FUNCTIONAL STATUS: - Self-Care A. Eating sup B. Grooming sup C. Bathing ADNO D. Dressing - Upper Ronaldo E. Dressing - Lower modA F. Toileting Ronaldo - Sphincter Control G: Bladder control Audrey H: Bowel control Ind - Transfers Control I. Bed/Chair/Wheelchair Ronaldo J. Toilet Ronaldo K. Tub/Shower ADNO - Locomotion L. Walk/Wheelchair (W) modA - Communication N. Comprehension (B) Audrey O. Expression (B) Ind - Social Cognition P. Social Interaction Ind Q. Problem Solving Ind R. Memory Ind - Endurance Poor - Balance Poor - Safety Awareness Poor CURRENT FUNC. DEFICITS: Self-Care, Transfers Control, Endurance, Balance, Safety Awareness, and Locomotion SIGNATURE PANEL: (CDT)
--- NOTE | 2018-07-15 15:22 | RAD REPORT ---
EXAM DESCRIPTION: Dustin Single View07/15/2018 3:08 pm CLINICAL HISTORY: Shortness of breath COMPARISON: July 13 FINDINGS: Mild left basilar opacities. Small left pleural effusion may be present Right lung appears clear of acute infiltrate The heart is mildly to moderately enlarged IMPRESSION: Mild left basilar opacities may indicate pneumonia
[2018-07-15] MEDS: HYDROCODONE/APAP 7.5/325 MG TAB PO PRN (16:02)
--- NOTE | 2018-07-15 16:08 | PN ---
Date of Progress Note: 07/15/2018 Subjective: The patient seen and examined. Chart reviewed and case discussed with RN. The patient continues to have shortness of breath, not really able to participate in her physical therapy. Medications: List reviewed. Physical Examination: Vital Signs: Temperature 96.6, heart rate 66, blood pressure 174/110, respirations 20, and O2 96% on 2 L via nasal cannula. General: Awake, alert, and oriented x3. Elderly female, obese. CV: S1 and S2. Peripheral pulses present. Respiratory: Diminished breath sounds. No wheezing or stridor. No use of accessory muscles. Gastrointestinal: Abdomen is soft, nontender, nondistended. Positive bowel sounds. No guarding or rigidity. Extremities: No clubbing, cyanosis, or edema. Neurologic: Nonfocal. Laboratory Data: Pending. Assessment And Plan: A 77-year-old female with: 1.Acute generalized weakness. Continue with physical therapy, having some difficulty due to shortne ss of breath. 2.Shortness of breath, likely due to chronic obstructive pulmonary disease and possible congestive h eart failure. Chest x-ray has been ordered. Reviewed chest x-ray from 07/12/2018, did not show any acute abnormalities. The patient is on supplemental oxygen. 3.Chronic obstructive pulmonary disease. Continue supplemental oxygen and nebulizer treatments. Co ntarabella Brovana. 4.Non-intractable nausea and vomiting. Continue antiemetics. 5.Essential hypertension, stable. 6.Hypothyroidism, on levothyroxine. 7.History of gastritis and recent gastrointestinal bleed. Stable H and H. We will monitor H and H. 8.Recently diagnosed acute cystitis without hematuria. Currently on meropenem for a total of 2 week s. 9.History of atrial fibrillation, currently in sinus rhythm. 10.Coronary artery disease, status post stent, on Plavix. 11.Congestive heart failure, chronic. Plan: Follow up on chest x-ray. May need to increase dose of Lasix. Monitor H and H. SA/MODL Voice ID: [id number] Report ID: [id number]
[2018-07-15] MEDS ORDERED: FUROSEMIDE 40 MG/4 ML VIAL IV ONE (17:39)
[2018-07-15] MEDS: ATORVASTATIN 80 MG TAB PO SCH (21:07)
--- NOTE | 2018-07-16 02:42 | FAST ---
SHIFT START DATE/TIME: 07/15/2018 19:00 (CDT) SHIFT END DATE/TIME: 07/16/2018 07:00 (CDT) NAME OFELIA GUARDADO DATE OF : 1940 DATE OF ADMISSION: 07/09/2018 17:21 (CDT) PHONE: AGE: 77 SSN# [id number] GENDER: Female ENCOUNTER PHYSICIAN: Dr. Marcio Barber M.D. ADMISSION DIAGNOSIS: - Debility 16 - Debility (16) Gastritis with bleeding, UTI, HX of STENT 2 months ago. EATING: Activity did not occur on this shift EATING - SCORE: 0-UNK GROOMING: Activity did not occur on this shift GROOMING - SCORE: 0-UNK BATHING: Activity did not occur on this shift BATHING - SCORE: 0-UNK DRESSING - UPPER BODY: Patient is not dressing in public clothing ARTICLES SCORE Total number of steps: 0 DRESSING - UPPER BODY - SCORE: 0-UNK DRESSING - LOWER BODY: Patient is not dressing in public clothing ARTICLES SCORE Total number of steps: 0 DRESSING - LOWER BODY - SCORE: 0-UNK TOILETING: TOILETING - STEP 1: Does the patient require the assistance of a person or device, or need extra time with toileting? Yes . TOILETING - STEP 2: Does the patient require the assistance of a helper? Yes. TOILETING - STEP 3: How much assistance does the patient require from the helper? Hands-on assistance from the helper TOILETING - STEP 4: Of the 3 tasks: 1) Adjusting clothing prior to use, 2) Cleansing of perineal area, 3) Adjusting clot annabella after use; How many tasks does the patient perform WITHOUT assistance of the helper? Three tasks with steadying assistance from the helper TOILETING - SCORE: 4-MIN BLADDER MANAGEMENT: BLADDER MANAGEMENT - STEP 1: Does the patient control the bladder completely and intentionally without equipment or devices or med ications, and is always continent? No. BLADDER MANAGEMENT - STEP 2: Does the patient require the assistance of a helper? Yes. BLADDER MANAGEMENT - STEP 3: How much assistance does the patient require from the helper? Only set-up of equipment - such as plac ing it within reach of the patient or emptying a device - to maintain either satisfactory voiding pat tern or managing an external device, such as an absorbent pad, ileal device, or catheter BLADDER MANAGEMENT - SCORE: 5-SUP BOWEL MANAGEMENT: Activity did not occur on this shift BOWEL MANAGEMENT - SCORE: 7-IND TRANSFERS: BED, CHAIR, WHEELCHAIR: TRANSFERS: BED, CHAIR, WHEELCHAIR - STEP 1: Does the patient require assistance of a person or device, or need extra time with bed, chair, or whe elchair transfers? Yes. TRANSFERS: BED, CHAIR, WHEELCHAIR - STEP 2: Does the patient require the assistance of a helper? Yes. TRANSFERS: BED, CHAIR, WHEELCHAIR - STEP 3: How much assistance does the patient require from the helper? Steadying/guiding assistance TRANSFERS: BED, CHAIR, WHEELCHAIR - SCORE: 4-MIN TRANSFERS: TOILET: TRANSFERS: TOILET - STEP 1: Does the patient require the assistance of a person or device, or need extra time with toilet transfe rs? Yes. TRANSFERS: TOILET - STEP 2: Does the patient require the assistance of a helper? Yes. TRANSFERS: TOILET - STEP 3: How much assistance does the patient require from the helper? Patient performs half or more of the tr ansferring tasks TRANSFERS: TOILET - STEP 4: Does the patient need only incidental help such as contact guard or steadying during toilet transfer? Yes. TRANSFERS: TOILET - SCORE: 4-MIN TRANSFERS: SHOWER: Activity did not occur on this shift TRANSFERS: SHOWER - SCORE: 0-UNK TRANSFERS: TUB: Activity did not occur on this shift TRANSFERS: TUB - SCORE: 0-UNK LOCOMOTION: WALK: Activity did not occur on this shift LOCOMOTION: WALK - SCORE: 0-UNK LOCOMOTION: WHEELCHAIR: Activity did not occur on this shift LOCOMOTION: WHEELCHAIR - SCORE: 0-UNK COMPREHENSION: COMPREHENSION: TYPE: Both COMPREHENSION - STEP 1: Does the patient require help from a person or device, or need extra time to understand complex and a bstract ideas (such as current events, finances, discharge planning, medical issues, relationships, e tc)? Yes. COMPREHENSION - STEP 2: Does the patient require help to understand questions or statements about basic needs or ideas (such as hunger, thirst, sleep, safety, daily schedule, room location, or discomfort) half or more of the t priya? No. COMPREHENSION - STEP 3: How often does the patient need help to understand directions and conversation about basic needs? Les s than 10% of the time COMPREHENSION - SCORE: 5-SUP EXPRESSION EXPRESSION: TYPE: Both EXPRESSION - STEP 1: Does the patient require help from a person or device, or need extra time expressing complex and abst ract ideas (such as current events, finances, discharge planning, medical issues, relationships, etc) ? Yes. EXPRESSION - STEP 2: Does the patient require help to express basic necessities or ideas (such as hunger, thirst, sleep, s afety, daily schedule, room location, or discomfort) half or more of the time? No. EXPRESSION - STEP 3: How often does the patient need help to express directions and conversation about basic needs? Less t allen 10% of the time EXPRESSION - SCORE: 5-SUP SOCIAL INTERACTION: SOCIAL INTERACTION - STEP 1: Does the patient require a helper to interact with others in social and therapeutic situations? No. SOCIAL INTERACTION - STEP 2: Does the patient need extra time in social situations, OR does s/he interact with staff, other patien ts, and family members ONLY in structured environments, OR does s/he require medication for social in teraction? Yes, patient requires medication for social interaction SOCIAL INTERACTION - SCORE: 6-AL PROBLEM SOLVING: PROBLEM SOLVING - STEP 1: Does the patient need help from a person or device, or need extra time to solve complex problems such as managing a checking account or confronting interpersonal problems? Yes. PROBLEM SOLVING - STEP 2: Does the patient solve basic routine problems half or more of the time? Yes. PROBLEM SOLVING - STEP 3: How often does the patient need help to solve basic routine problems? Less than 10% of the time PROBLEM SOLVING - SCORE: 5-SUP MEMORY: MEMORY - STEP 1: Does the patient need help from a person or device, or need extra time to remember frequently encount ered people, daily routines, and executing requests? Yes. MEMORY - STEP 2: How often does the patient need help to remember frequently encountered people, daily routines, and e xecuting requests? Less than 10% of the time MEMORY - SCORE: 5-SUP
[2018-07-16 06:41] LABS: Absolute Lymphocytes (CBC) 1.1 K/uL (0.7-4.9); Absolute Monocytes 0.7 K/uL (0.1-1.3); Absolute Neutrophil 2.4 K/uL (1.8-8.0); Basophils % 1.3 % (0-1.3); Eosinophils % 5.7 % (0-4.4); Hematocrit 30.1 % (36.0-45.0); Lymphocytes % 24.3 % (15.3-44.8); MPV 9.7 fL (7.6-11.3); RBC Red Blood Cell Count 3.45 M/uL (3.86-4.86)
[2018-07-16 07:09] LABS: Albumin 2.6 g/dL (3.4-5.0); Magnesium 2.4 mg/dL (1.8-2.4); Potassium 4.7 mmol/L (3.5-5.1); Prealbumin 11.7 mg/dL (20-40)
[2018-07-16] MEDS: MAGNESIUM OXIDE 400 MG TAB PO SCH ×2 (07:10→19:30)
[2018-07-16] MEDS: RANITIDINE 150 MG TABLET PO SCH (07:11)
[2018-07-16] MEDS: DOCUSATE NA 100 MG CAP PO SCH ×2 (07:11→19:30)
[2018-07-16] MEDS: CRANBERRY FRUIT EXTRACT 200 MG CAP PO SCH ×2 (07:11→19:30)
[2018-07-16] MEDS: LEVOTHYROXINE SOD 0.125 MG TAB PO SCH (07:11)
[2018-07-16] MEDS: ENOXAPARIN 30 MG/0.3 ML SQ SCH (07:11)
[2018-07-16] MEDS: VALSARTAN 80 MG TAB PO SCH (07:12)
[2018-07-16] MEDS: DULOXETINE 30 MG CAP PO SCH (07:12)
[2018-07-16] MEDS: AMIODARONE HCL 200 MG TAB PO SCH (07:13)
[2018-07-16] MEDS: CLOPIDOGREL 75 MG TABLET PO SCH (07:13)
[2018-07-16] MEDS: PROPRANOLOL HCL 60 MG SA CAP PO SCH ×2 (07:13→20:17)
[2018-07-16] MEDS: GUAIFENESIN 600 MG SA TAB PO SCH (07:13)
[2018-07-16] MEDS: ARFORMOTEROL TARTRATE 15 MCG/2 ML VIAL.NEB NEB SCH ×2 (07:45→19:35)
[2018-07-16] MEDS: ALBUTEROL 2.5 MG/3 ML NEB SOL NEB PRN ×3 (07:45→19:35)
[2018-07-16 07:49] LABS: Arterial Blood Carboxyhemoglob 1.9 % (0-1.5); Blood Gas Oxyhemoglobin 93.1 % (94-97); Blood O2 Saturation 95.5 % (92-98.5)
[2018-07-16] MEDS: PREGABALIN 75 MG CAP PO SCH ×3 (08:46→20:17)
[2018-07-16] MEDS: FERROUS SULFATE 325 MG TAB PO SCH ×3 (08:46→20:17)
[2018-07-16] MEDS: LACTOBACILLUS/ACIDOPHILUS TAB PO SCH ×3 (08:46→20:17)
[2018-07-16] MEDS: Meropenem 1,000 MG in NA CHLORIDE 0.9% 100 ML IV SCH ×2 (08:47→19:29)
[2018-07-16 08:51] LABS: Urine White Blood Cell Casts OK
[2018-07-16 08:52] LABS: Anisocytosis 1+; Blood Morphology Comment NOTED (NOT SEEN); Platelet Estimate ADEQ
[2018-07-16] MEDS ORDERED: FUROSEMIDE 40 MG/4 ML VIAL IV ONE (12:37)
[2018-07-16] MEDS ORDERED: POTASSIUM CL SA 10 MEQ TAB PO ONE (12:38)
[2018-07-16] MEDS: ACETAMINOPHEN 500 MG TAB PO PRN (12:45)
--- NOTE | 2018-07-16 15:41 | FAST ---
SHIFT START DATE/TIME: 07/16/2018 07:00 (CDT) SHIFT END DATE/TIME: 07/16/2018 19:00 (CDT) NAME OFELIA GUARDADO DATE OF : 1940 DATE OF ADMISSION: 07/09/2018 17:21 (CDT) PHONE: AGE: 77 SSN# [id number] GENDER: Female ENCOUNTER PHYSICIAN: Dr. Marcio Barber M.D. ADMISSION DIAGNOSIS: - Debility 16 - Debility (16) Gastritis with bleeding, UTI, HX of STENT 2 months ago. EATING: EATING - STEP 1: Does the patient require the assistance of a person or device, or need extra time when eating? Yes. EATING - STEP 2: Does the patient require the assistance of a helper? Yes. EATING - STEP 3: Does the patient perform half or more of the eating tasks? Yes. EATING - STEP 4: Does the patient need only supervision, cuing, coaxing OR help to apply an orthosis OR help to cut fo od, open containers, pour liquids, or butter bread? Yes. EATING - SCORE: 5-SUP GROOMING: Comb/brush hair Oral care Wash, rinse, and dry face GROOMING - STEP 1: Does the patient require the assistance of a person or device, or need extra time when grooming? Yes. GROOMING - STEP 2: Does the patient require the assistance of a helper? No. The patient only requires an assistive devic e, OR takes more than reasonable time to groom, OR there is a concern for safety as the patient groom s GROOMING - SCORE: 6-AL BATHING: Activity did not occur on this shift BATHING - SCORE: 0-UNK DRESSING - UPPER BODY: Activity did not occur on this shift ARTICLES SCORE Total number of steps: 0 DRESSING - UPPER BODY - SCORE: 0-UNK DRESSING - LOWER BODY: Activity did not occur on this shift ARTICLES SCORE Total number of steps: 0 DRESSING - LOWER BODY - SCORE: 0-UNK TOILETING: TOILETING - STEP 1: Does the patient require the assistance of a person or device, or need extra time with toileting? Yes . TOILETING - STEP 2: Does the patient require the assistance of a helper? Yes. TOILETING - STEP 3: How much assistance does the patient require from the helper? Only supervision TOILETING - SCORE: 5-SUP BLADDER MANAGEMENT: BLADDER MANAGEMENT - STEP 1: Does the patient control the bladder completely and intentionally without equipment or devices or med ications, and is always continent? No. BLADDER MANAGEMENT - STEP 2: Does the patient require the assistance of a helper? Yes. BLADDER MANAGEMENT - STEP 3: How much assistance does the patient require from the helper? Only set-up of equipment - such as plac ing it within reach of the patient or emptying a device - to maintain either satisfactory voiding pat tern or managing an external device, such as an absorbent pad, ileal device, or catheter BLADDER MANAGEMENT - SCORE: 5-SUP BLADDER MANAGEMENT - FREQUENCY OF ACCIDENTS: BLADDER MANAGEMENT(FA) - STEP 1: How many accidents has the patient had during the current shift? 0 BOWEL MANAGEMENT: BOWEL MANAGEMENT - STEP 1: Does the patient control bowels completely and intentionally without equipment devices or medications AND is always continent? No. BOWEL MANAGEMENT - STEP 2: Does the patient require the assistance of a helper? Yes. BOWEL MANAGEMENT - STEP 3: How much assistance does the patient require from the helper? Patient requires supervision, stand by, cueing, coaxing, or setup of equipment - placing within reach of patient and emptying device / bedpa nd or BSC bucket - to maintain either satisfactory bowel pattern or managing an external device such as an absorbent pad, colostomy bag / ileostomy bag BOWEL MANAGEMENT - SCORE: 5-SUP BOWEL MANAGEMENT - FREQUENCY OF ACCIDENTS: BOWEL MANAGEMENT(FA) - STEP 1: How many accidents has the patient had during the current shift? 0 TRANSFERS: BED, CHAIR, WHEELCHAIR: TRANSFERS: BED, CHAIR, WHEELCHAIR - STEP 1: Does the patient require assistance of a person or device, or need extra time with bed, chair, or whe elchair transfers? Yes. TRANSFERS: BED, CHAIR, WHEELCHAIR - STEP 2: Does the patient require the assistance of a helper? Yes. TRANSFERS: BED, CHAIR, WHEELCHAIR - STEP 3: How much assistance does the patient require from the helper? Steadying/guiding assistance TRANSFERS: BED, CHAIR, WHEELCHAIR - SCORE: 4-MIN TRANSFERS: TOILET: TRANSFERS: TOILET - STEP 1: Does the patient require the assistance of a person or device, or need extra time with toilet transfe rs? Yes. TRANSFERS: TOILET - STEP 2: Does the patient require the assistance of a helper? No. Patient only requires an assistive device romano ch as a grab bar or special seat, OR s/he takes more than reasonable time to perform toilet transfers , OR there is a safety concern when s/he performs toilet transfers. TRANSFERS: TOILET - SCORE: 6-AL TRANSFERS: SHOWER: Activity did not occur on this shift TRANSFERS: SHOWER - SCORE: 0-UNK TRANSFERS: TUB: Activity did not occur on this shift TRANSFERS: TUB - SCORE: 0-UNK LOCOMOTION: WALK: Activity did not occur on this shift LOCOMOTION: WALK - SCORE: 0-UNK LOCOMOTION: WHEELCHAIR: Activity did not occur on this shift LOCOMOTION: WHEELCHAIR - SCORE: 0-UNK COMPREHENSION: COMPREHENSION: TYPE: Both COMPREHENSION - STEP 1: Does the patient require help from a person or device, or need extra time to understand complex and a bstract ideas (such as current events, finances, discharge planning, medical issues, relationships, e tc)? No. COMPREHENSION - STEP 2: Does the patient need extra time, require an assistive device (such as glasses for visual comprehensi on or a hearing aid for auditory comprehension) or does s/he have mild difficulty understanding compl ex and abstract information? Yes. COMPREHENSION - SCORE: 6-AL EXPRESSION EXPRESSION: TYPE: Both EXPRESSION - STEP 1: Does the patient require help from a person or device, or need extra time expressing complex and abst ract ideas (such as current events, finances, discharge planning, medical issues, relationships, etc) ? No. EXPRESSION - STEP 2: Does the patient need extra time, require an assistive device (such as augmentive communication syste m or a communication board), OR does s/he have mild difficulty expressing complex and abstract ideas (including mild dysarthria or mild word-find problems)? Yes. EXPRESSION - SCORE: 6-AL SOCIAL INTERACTION: SOCIAL INTERACTION - STEP 1: Does the patient require a helper to interact with others in social and therapeutic situations? No. SOCIAL INTERACTION - STEP 2: Does the patient need extra time in social situations, OR does s/he interact with staff, other patien ts, and family members ONLY in structured environments, OR does s/he require medication for social in teraction? Yes, patient needs extra time SOCIAL INTERACTION - SCORE: 6-AL PROBLEM SOLVING: PROBLEM SOLVING - STEP 1: Does the patient need help from a person or device, or need extra time to solve complex problems such as managing a checking account or confronting interpersonal problems? No. PROBLEM SOLVING - STEP 2: Does the patient require extra time to make decisions or solve problems, OR does s/he have slight dif ficulty reading, initiating, or self-correcting in unfamiliar situations? Yes, patient needs extra ti me. PROBLEM SOLVING - SCORE: 6-AL MEMORY: MEMORY - STEP 1: Does the patient need help from a person or device, or need extra time to remember frequently encount ered people, daily routines, and executing requests? No. MEMORY - STEP 2: Does the patient have slight difficulty recognizing frequently encountered people, daily routines, or executing requests without the need for repetition or using self-initiated or environmental cues to remember? Yes. MEMORY - SCORE: 6-AL SIGNATURE PANEL: The following modified sections: Eating - Score, Grooming - Score, Bathing - Score, Dressing - Upper Body - Score, Dressing - Lower Body - Score, Toileting - Score, Bladder Management - Score, Bowel Man agement - Score, Transfers: Bed, Chair, Wheelchair - Score, Transfers: Toilet - Score, Transfers: Christine wer - Score, Transfers: Tub - Score, Locomotion: Walk - Score, Locomotion: Wheelchair - Score, Compre hension - Score, Expression - Score, Social Interaction - Score, Problem Solving - Score, Memory - Sc ore were [electronically] signed by Joyce Faith C.N.A. on FriJul 16 2018 15:25:01 T-0500 (Centra l Daylight Time)
--- NOTE | 2018-07-16 15:41 | R.PN ---
ENCOUNTER DATE AND TIME: 07/16/2018 15:30 (CDT) NAME OFELIA GUARDADO DATE OF : 1940 DATE OF ADMISSION: 07/09/2018 17:21 (CDT) Gastritis with bleeding, UTI, HX of STENT 2 months agoCHIEF COMPLAINT: Debility SUBJECTIVE: Pt denied any Shortness of Breath. Pt denied any depression. Patient states that pain is under control. Hgb 9.6, WBC 4.5, prealbumin 11.7, calcium 8.1. pH 7.41, pCO2 66.4, pO2 78.1 Ambulated 270' with standby assistance using a rolling walker. Self propelled wheelchair 250' with st andby assistance. She required 2L of o2 via nasal cannulae. VITAL SIGNS Temperature: 97.2 F SBP/DBP: 141/68 Pulse: 69 Resp: 16 MEDICATION ALLERGIES: PNEUMOCOCCAL VACCINE ENVIRONMENTAL ALLERGIES: None Known - Substance Allergies None Known - Other Allergies None Known NURSING: - Shower allowing shower ACTIVITIES OOB only with supervision THERAPIES: - Occupational Therapy Evaluate and Treat. - Physical Therapy Evaluate and Treat. PHYSICAL EXAM - Gen Alert and awake Lying in bed No apparent distress Oriented to: person, time, and place - Skin No breakdown Normacephalic - Eyes No abnormalities - ENMT No abnormalities - Neck No abnormalities - CVS RRR - Chest Mildly decreased breath sounds bilaterally. - Resp No wheezing - Abd Soft - GI Non distended Deferred - No abnormalities - Ext No significant edema - MSK 4/5 weakness in both lower extremities. - Neuro 4/5 strength bilaterally upper and lower extremities. - Psych No abnormalities ASSESSMENT: Pt. is a 77 yo Right-handed white female.On 07/02/2018 she was admitted to [facility] with d iagnosis Gastritis with bleeding, UTI, HX of STENT 2 months ago.her impairment category is Debility 1 6 - Debility (16).Pre-morbidly, Pt. was independent/mod-I in Transfers Control, Balance, Locomotion, and Self-Care; and she had good Sphincter Control, Safety Awareness, Social Cognition, and Communica tion.Currently, she has deficits of Self-Care, Transfers Control, Endurance, Balance, Safety Awarenes s, and Locomotion.Pt. is now referred to [facility] for acute in-patient rehab ilitation in order to maximize patient's functional independence in activities of daily living, stren gth, ROM, and mobility.- Rehab Goal Patient has realistic goal of being discharged at assistance level 6-Audrey to reside at Home with Fam mary/Relatives. MDM/PLAN: - Physical Therapy Gait dysfunction - to improve, our physical therapists will perform initial evaluation of pt's statu s upon admission and devise an individualized program for Gait Training, and Wheel Chair mobility Inability to transfer - to improve, our physical therapists will perform initial evaluation of pt's status upon admission and devise an individualized program for Bed mobility Need for home safety evaluation - to improve, our physical therapists will perform initial evaluatio n of pt's status upon admission and devise an individualized program for Home Evaluation Need in caregiver upon discharge - to improve, our physical therapists will perform initial evaluati on of pt's status upon admission and devise an individualized program for Caregiver Training Edema - to improve, our physical therapists will perform initial evaluation of pt's status upon admi ssion and devise an individualized program for Elevation Training, and Lymphedema Therapy New precaution - to improve, our physical therapists will perform initial evaluation of pt's status upon admission and devise an individualized program for Patient precaution education Poor balance - to improve, our physical therapists will perform initial evaluation of pt's status up on admission and devise an individualized program for Balance Training Poor endurance - to improve, our physical therapists will perform initial evaluation of pt's status upon admission and devise an individualized program for Endurance Training Weakness - to improve, our physical therapists will perform initial evaluation of pt's status upon a dmission and devise an individualized program for Aquatic Therapy, Neuromuscular Reeducation, and Str engthening Achieving independence - to improve, our physical therapists will perform initial evaluation of pt's status upon admission and devise an individualized program for Community Reintegration Activities - Occupational Therapy ADL deficits - to improve, our occupation therapists will perform initial evaluation of pt's status upon admission and devise an individualized program for Bathing, Bed mobility, Community Reintegratio n, Cooking, Dressing, Eating, Fine Motor Skills, Grooming, Homemaking, Kitchen Mobility, Laundry, Pat ient Education, Safety Awareness, Splinting - Positioning, Transfers(Toilet, Tub, Shower), and Wheel Chair Management Need for adult care provider - to improve, our occupation therapists will perform initial evaluation of pt's status upon admission and devise an individualized program for Caregiver Training Weakness - to improve, our occupation therapists will perform initial evaluation of pt's status upon admission and devise an individualized program for Aquatic Therapy, Balance, Endurance, UE ROM, and UE strengthening - Diet Type Continue Regular - Diet - Liquid Texture Continue Regular - Tube Feed Continue N/A - Diet - Solid Texture Continue Regular - Shower allowing shower FUNCTIONAL STATUS: UPDATED AT WEEKLY TEAM CONFERENCE - Bladder Same accident frequency: 7-Ind - No accidents in the past 7 days - Bowel Same accident frequency: 7-Ind - No accidents in the past 7 days - Walking Same score based on distance walked: 3(>=150ft) FUNCTIONAL STATUS: - Self-Care A. Eating sup B. Grooming sup C. Bathing ADNO D. Dressing - Upper Ronaldo E. Dressing - Lower modA F. Toileting Ronaldo - Sphincter Control G: Bladder control Audrey H: Bowel control Ind - Transfers Control I. Bed/Chair/Wheelchair Ronaldo J. Toilet Ronaldo K. Tub/Shower ADNO - Locomotion L. Walk/Wheelchair (W) modA - Communication N. Comprehension (B) Audrey O. Expression (B) Ind - Social Cognition P. Social Interaction Ind Q. Problem Solving Ind R. Memory Ind - Endurance Poor - Balance Poor - Safety Awareness Poor CURRENT FUNC. DEFICITS: Self-Care, Transfers Control, Endurance, Balance, Safety Awareness, and Locomotion SIGNATURE PANEL: (CDT)
--- NOTE | 2018-07-16 19:21 | PN ---
Subjective: The patient was seen and examined. Chart reviewed and case discussed with RN. The viraj ent is still having some difficulty of breathing. Chest x-ray yesterday showed pneumonia, however, c linically she did not have any symptoms, likely fluid overload. The patient felt better with Lasix. Medications: List reviewed. Physical Examination: Vital Signs: Temperature 96.8, heart rate 54, blood pressure 180/84, respirations 16, and O2 of 97% on 2 L via nasal cannula. General: Awake, alert and oriented x3. Elderly female, obese. CV: S1 and S2. Regular rate and rhythm. Respiratory: Diminished breath sounds. Minimal crackles. Gastrointestinal: Abdomen is soft, nontender, and nondistended. Positive bowel sounds. Extremities: No clubbing, cyanosis, or edema. Neurologic: Nonfocal. Laboratory Data: Sodium 141, potassium 4.7, chloride 97, CO2 of 41, BUN 10, creatinine 0.74, glucose 82, calcium 8.8, and magnesium 2.4. WBC 4.5, H and H of 9.6 and 30.1, platelets 168, neutrophils 53 %. Assessment And Plan: A 77-year-old female with, 1.Acute generalized weakness, continue PT. 2.Shortness of breath, likely due to chronic obstructive pulmonary disease and congestive heart fail ure. Chest x-ray reads pneumonia, however, clinically seems more like heart failure, improved with L asix, currently on supplemental oxygen. 3.Chronic obstructive pulmonary disease. We will continue supplemental oxygen, nebulizer treatments . ABG today showed pH 7.4, pCO2 of 66, bicarb 41, PO2 of 78. The patient is a chronic CO2 retainer with renal compensation. 4.Non-intractable nausea and vomiting, resolved. Continue antiemetics p.r.n. 5.Essential hypertension, stable. 6.Hypothyroidism, on levothyroxine. 7.History of gastritis with recent gastrointestinal bleed, Eliquis has been discontinued, substitute with Lovenox for deep venous thrombosis prophylaxis. Monitor H and H. 8.Recently diagnosed acute cystitis without hematuria. The patient on meropenem for a total of 2 we eks. 9.History of atrial fibrillation, currently in sinus rhythm. 10.Coronary artery disease, status post stent, on Plavix. 11.Congestive heart failure, acute on chronic. Last known ejection fraction from July 03, 2018, is 77 %, diastolic dysfunction. 12.Hypertensive heart disease. /JUDITH Voice ID: [id number] Report ID: [id number]
[2018-07-16] MEDS: HYDROCODONE/APAP 7.5/325 MG TAB PO PRN (19:29)
[2018-07-16] MEDS: ATORVASTATIN 80 MG TAB PO SCH (20:17)
[2018-07-16] MEDS: ALPRAZOLAM 0.25 MG TABLET PO PRN (21:24)
--- NOTE | 2018-07-17 05:37 | FAST ---
SHIFT START DATE/TIME: 07/16/2018 19:00 (CDT) SHIFT END DATE/TIME: 07/17/2018 07:00 (CDT) NAME OFELIA GUARDADO DATE OF : 1940 DATE OF ADMISSION: 07/09/2018 17:21 (CDT) PHONE: AGE: 77 SSN# [id number] GENDER: Female ENCOUNTER PHYSICIAN: Dr. Marcio Barber M.D. ADMISSION DIAGNOSIS: - Debility 16 - Debility (16) Gastritis with bleeding, UTI, HX of STENT 2 months ago. EATING: Activity did not occur on this shift EATING - SCORE: 0-UNK GROOMING: Activity did not occur on this shift GROOMING - SCORE: 0-UNK BATHING: Activity did not occur on this shift BATHING - SCORE: 0-UNK DRESSING - UPPER BODY: Activity did not occur on this shift ARTICLES SCORE Total number of steps: 0 DRESSING - UPPER BODY - SCORE: 0-UNK DRESSING - LOWER BODY: Activity did not occur on this shift ARTICLES SCORE Total number of steps: 0 DRESSING - LOWER BODY - SCORE: 0-UNK TOILETING: TOILETING - SCORE: 0-UNK BLADDER MANAGEMENT: BLADDER MANAGEMENT - STEP 1: Does the patient control the bladder completely and intentionally without equipment or devices or med ications, and is always continent? No. BLADDER MANAGEMENT - STEP 2: Does the patient require the assistance of a helper? Yes. BLADDER MANAGEMENT - STEP 3: How much assistance does the patient require from the helper? Only set-up of equipment - such as plac ing it within reach of the patient or emptying a device - to maintain either satisfactory voiding pat tern or managing an external device, such as an absorbent pad, ileal device, or catheter BLADDER MANAGEMENT - SCORE: 5-SUP BLADDER MANAGEMENT - FREQUENCY OF ACCIDENTS: BLADDER MANAGEMENT(FA) - STEP 1: How many accidents has the patient had during the current shift? 0 BOWEL MANAGEMENT: BOWEL MANAGEMENT - STEP 1: Does the patient control bowels completely and intentionally without equipment devices or medications AND is always continent? No. BOWEL MANAGEMENT - STEP 2: Does the patient require the assistance of a helper? No, patient requires extra time BOWEL MANAGEMENT - SCORE: 6-AL BOWEL MANAGEMENT - FREQUENCY OF ACCIDENTS: BOWEL MANAGEMENT(FA) - STEP 1: How many accidents has the patient had during the current shift? 0 TRANSFERS: BED, CHAIR, WHEELCHAIR: TRANSFERS: BED, CHAIR, WHEELCHAIR - STEP 1: Does the patient require assistance of a person or device, or need extra time with bed, chair, or whe elchair transfers? Yes. TRANSFERS: BED, CHAIR, WHEELCHAIR - STEP 2: Does the patient require the assistance of a helper? Yes. TRANSFERS: BED, CHAIR, WHEELCHAIR - STEP 3: How much assistance does the patient require from the helper? Steadying/guiding assistance TRANSFERS: BED, CHAIR, WHEELCHAIR - SCORE: 4-MIN TRANSFERS: TOILET: TRANSFERS: TOILET - STEP 1: Does the patient require the assistance of a person or device, or need extra time with toilet transfe rs? Yes. TRANSFERS: TOILET - STEP 2: Does the patient require the assistance of a helper? Yes. TRANSFERS: TOILET - STEP 3: How much assistance does the patient require from the helper? Patient performs half or more of the tr ansferring tasks TRANSFERS: TOILET - STEP 4: Does the patient need only incidental help such as contact guard or steadying during toilet transfer? Yes. TRANSFERS: TOILET - SCORE: 4-MIN TRANSFERS: SHOWER: Activity did not occur on this shift TRANSFERS: SHOWER - SCORE: 0-UNK TRANSFERS: TUB: Activity did not occur on this shift TRANSFERS: TUB - SCORE: 0-UNK LOCOMOTION: WALK: Activity did not occur on this shift LOCOMOTION: WALK - SCORE: 0-UNK LOCOMOTION: WHEELCHAIR: Activity did not occur on this shift LOCOMOTION: WHEELCHAIR - SCORE: 0-UNK COMPREHENSION: COMPREHENSION: TYPE: Both COMPREHENSION - STEP 1: Does the patient require help from a person or device, or need extra time to understand complex and a bstract ideas (such as current events, finances, discharge planning, medical issues, relationships, e tc)? Yes. COMPREHENSION - STEP 2: Does the patient require help to understand questions or statements about basic needs or ideas (such as hunger, thirst, sleep, safety, daily schedule, room location, or discomfort) half or more of the t priya? No. COMPREHENSION - STEP 3: How often does the patient need help to understand directions and conversation about basic needs? Les s than 10% of the time COMPREHENSION - SCORE: 5-SUP EXPRESSION EXPRESSION: TYPE: Both EXPRESSION - STEP 1: Does the patient require help from a person or device, or need extra time expressing complex and abst ract ideas (such as current events, finances, discharge planning, medical issues, relationships, etc) ? Yes. EXPRESSION - STEP 2: Does the patient require help to express basic necessities or ideas (such as hunger, thirst, sleep, s afety, daily schedule, room location, or discomfort) half or more of the time? No. EXPRESSION - STEP 3: How often does the patient need help to express directions and conversation about basic needs? Less t allen 10% of the time EXPRESSION - SCORE: 5-SUP SOCIAL INTERACTION: SOCIAL INTERACTION - STEP 1: Does the patient require a helper to interact with others in social and therapeutic situations? No. SOCIAL INTERACTION - STEP 2: Does the patient need extra time in social situations, OR does s/he interact with staff, other patien ts, and family members ONLY in structured environments, OR does s/he require medication for social in teraction? Yes, patient requires medication for social interaction SOCIAL INTERACTION - SCORE: 6-AL PROBLEM SOLVING: PROBLEM SOLVING - STEP 1: Does the patient need help from a person or device, or need extra time to solve complex problems such as managing a checking account or confronting interpersonal problems? Yes. PROBLEM SOLVING - STEP 2: Does the patient solve basic routine problems half or more of the time? Yes. PROBLEM SOLVING - STEP 3: How often does the patient need help to solve basic routine problems? Less than 10% of the time PROBLEM SOLVING - SCORE: 5-SUP MEMORY: MEMORY - STEP 1: Does the patient need help from a person or device, or need extra time to remember frequently encount ered people, daily routines, and executing requests? Yes. MEMORY - STEP 2: How often does the patient need help to remember frequently encountered people, daily routines, and e xecuting requests? Less than 10% of the time MEMORY - SCORE: 5-SUP SIGNATURE PANEL: The following modified sections: Eating - Score, Grooming - Score, Bathing - Score, Dressing - Upper Body - Score, Dressing - Lower Body - Score, Bladder Management - Score, Bowel Management - Score, Tr ansfers: Bed, Chair, Wheelchair - Score, Transfers: Toilet - Score, Transfers: Shower - Score, Transf ers: Tub - Score, Locomotion: Walk - Score, Locomotion: Wheelchair - Score, Comprehension - Score, Ex pression - Score, Social Interaction - Score, Problem Solving - Score, Memory - Score were [cristian fink] signed by Belkis Felix RN on FriJul 17 2018 05:36:32 GMT-0500 (Central Daylight Time)
[2018-07-17 06:36] LABS: Potassium 4.6 mmol/L (3.5-5.1)
[2018-07-17] MEDS: LEVOTHYROXINE SOD 0.125 MG TAB PO SCH (07:14)
[2018-07-17] MEDS: ENOXAPARIN 30 MG/0.3 ML SQ SCH (07:15)
[2018-07-17] MEDS: HYDROCODONE/APAP 7.5/325 MG TAB PO PRN (07:15)
[2018-07-17] MEDS: ALBUTEROL 2.5 MG/3 ML NEB SOL NEB PRN ×3 (07:31→20:55)
[2018-07-17] MEDS: ARFORMOTEROL TARTRATE 15 MCG/2 ML VIAL.NEB NEB SCH ×2 (07:31→20:55)
[2018-07-17] MEDS: Meropenem 1,000 MG in NA CHLORIDE 0.9% 100 ML IV SCH ×2 (07:49→20:01)
[2018-07-17] MEDS: DOCUSATE NA 100 MG CAP PO SCH ×2 (08:00→20:02)
[2018-07-17] MEDS: VALSARTAN 80 MG TAB PO SCH (08:15)
[2018-07-17] MEDS: LACTOBACILLUS/ACIDOPHILUS TAB PO SCH ×3 (08:16→20:01)
[2018-07-17] MEDS: CLOPIDOGREL 75 MG TABLET PO SCH (08:16)
[2018-07-17] MEDS: FERROUS SULFATE 325 MG TAB PO SCH ×3 (08:16→20:02)
[2018-07-17] MEDS: CRANBERRY FRUIT EXTRACT 200 MG CAP PO SCH ×2 (08:16→20:02)
[2018-07-17] MEDS: DULOXETINE 30 MG CAP PO SCH (08:16)
[2018-07-17] MEDS: MAGNESIUM OXIDE 400 MG TAB PO SCH ×2 (08:16→20:01)
[2018-07-17] MEDS: AMIODARONE HCL 200 MG TAB PO SCH (08:16)
[2018-07-17] MEDS: GUAIFENESIN 600 MG SA TAB PO SCH (08:16)
[2018-07-17] MEDS: PREGABALIN 75 MG CAP PO SCH ×3 (08:16→20:01)
[2018-07-17] MEDS: RANITIDINE 150 MG TABLET PO SCH (08:16)
[2018-07-17] MEDS: PROPRANOLOL HCL 60 MG SA CAP PO SCH ×2 (08:17→20:02)
--- NOTE | 2018-07-17 09:40 | P.RH.PN ---
Estimated Length of Stay: 9 Expected Discharge Date: 07/17/18 Discharge Disposition Plan: Home Family Support: Yes [employer] Goal: Mobility, Transfers, Self Care Vital Signs: Last Vital Signs Temp 96.8 F 07/17/18 06:25 Pulse 56 07/17/18 08:17 Resp 16 07/17/18 06:25 BP 141/86 H 07/17/18 08:17 Pulse Ox 96 07/17/18 06:25 Laboratory: Laboratory Last Values WBC 4.5 K/uL (4.3-10.9) D 07/16/18 05:40 RBC 3.45 M/uL (3.86-4.86) L 07/16/18 05:40 Hgb 9.6 g/dL (12.0-15.0) L 07/16/18 05:40 Hct 30.1 % (36.0-45.0) L 07/16/18 05:40 MCV 87.4 fL (80-100) 07/16/18 05:40 MCH 27.9 pg (27.0-35.0) 07/16/18 05:40 MCHC 31.9 g/dL (32.0-36.0) L 07/16/18 05:40 RDW 20.6 % (12.1-15.2) H 07/16/18 05:40 Plt Count 168 K/uL (152-406) 07/16/18 05:40 MPV 9.7 fL (7.6-11.3) 07/16/18 05:40 Neutrophils % 53.7 % (41.7-73.7) 07/16/18 05:40 Lymphocytes % 24.3 % (15.3-44.8) 07/16/18 05:40 Monocytes % 15.0 % (3.3-12.3) H 07/16/18 05:40 Eosinophils % 5.7 % (0-4.4) H 07/16/18 05:40 Basophils % 1.3 % (0-1.3) 07/16/18 05:40 Absolute Neutrophils 2.4 K/uL (1.8-8.0) 07/16/18 05:40 Segmented Neutrophils 53 % (40-80) 07/10/18 05:37 Band Neutrophils 1 % (0-1) 07/10/18 05:37 Absolute Lymphocytes 1.1 K/uL (0.7-4.9) 07/16/18 05:40 Lymphocytes 20 % (15-42) 07/10/18 05:37 Monocytes 15 % (0-10) H 07/10/18 05:37 Absolute Monocytes 0.7 K/uL (0.1-1.3) 07/16/18 05:40 Eosinophils 5 % (0-3) H 07/10/18 05:37 Absolute Eosinophils 0.3 K/uL (0-0.5) 07/16/18 05:40 Absolute Basophils 0.1 K/uL (0-0.5) 07/16/18 05:40 Metamyelocytes 3 % (0-0) H 07/10/18 05:37 Myelocytes 3 % (0-0) H 07/10/18 05:37 Polychromasia 1+ 07/10/18 05:37 Anisocytosis 1+ 07/16/18 05:40 Morphology Comment Noted (NOT SEEN) 07/16/18 05:40 pH 7.41 (7.35-7.45) 07/16/18 07:35 pCO2 66.4 mmHG (35-45) H 07/16/18 07:35 pO2 78.1 mmHG (75-100) 07/16/18 07:35 HCO3 41.1 mmol/L (22-28) H 07/16/18 07:35 Base Excess 15.5 mmol/L 07/16/18 07:35 Oxyhemoglobin 93.1 % (94-97) L 07/16/18 07:35 ABG O2 Sat (Measured) 95.5 % (92-98.5) 07/16/18 07:35 ABG Carboxyhemoglobin 1.9 % (0-1.5) H 07/16/18 07:35 ABG Methemoglobin 0.6 % (0-1.5) 07/16/18 07:35 Other Total Hgb 10.4 g/dl (12-18) L 07/16/18 07:35 Inspired O2 28.0 % 07/16/18 07:35 Sodium 138 mmol/L (136-145) 07/17/18 05:45 Potassium 4.6 mmol/L (3.5-5.1) 07/17/18 05:45 Chloride 97 mmol/L (98-107) L 07/17/18 05:45 Carbon Dioxide 43 mmol/L (21-32) H* 07/17/18 05:45 BUN 12 mg/dL (7-18) 07/17/18 05:45 Creatinine 0.85 mg/dL (0.55-1.3) 07/17/18 05:45 Estimated GFR 65 mL/min (=/>90) L 07/17/18 05:45 Glucose 80 mg/dL (74-106) 07/17/18 05:45 Calcium 8.6 mg/dL (8.5-10.1) 07/17/18 05:45 Magnesium 2.4 mg/dL (1.8-2.4) D 07/16/18 05:40 Albumin 2.6 g/dL (3.4-5.0) L 07/16/18 05:40 Prealbumin 11.7 mg/dL (20-40) L 07/16/18 05:40 Urine Color Yellow 07/09/18 21:25 Urine Appearance Clear 07/09/18 21:25 Urine pH 6.0 (5.0-7.0) 07/09/18 21:25 Ur Specific [place] 1.010 (1.005-1.030) 07/09/18 21:25 Urine Ketones Negative (NEG) 07/09/18 21:25 Urine Blood 1+ (NEG) H 07/09/18 21:25 Urine Nitrite Negative (NEG) 07/09/18 21:25 Urine Bilirubin Negative (NEG) 07/09/18 21:25 Urine Urobilinogen 0.2 mg/dL (0.2-1.0) 07/09/18 21:25 Ur Leukocyte Esterase Trace (NEG) H 07/09/18 21:25 Urine RBC <5 /HPF (NONE SEEN) 07/09/18 21:25 Urine WBC 5-10 /HPF (<5) H 07/09/18 21:25 Ur Squamous Epith Cells <5 /HPF (NONE SEEN) 07/09/18 21:25 Ur Urothelial Cells <5 /HPF (NONE SEEN) 07/09/18 21:25 Urine Bacteria <20 /HPF (<20) 07/09/18 21:25 Hyaline Casts 0-5 /LPF (NONE SEEN) 07/09/18 21:25 Urine Culture Reflexed Reflexed 07/09/18 21:25 Urine Glucose Negative (NEG) 07/09/18 21:25 Urine Total Protein 1+ (NEG) H 07/09/18 21:25 Weight: 166 lb 12.8 oz Wound Present: No Closed Surgical Incision Present: No Negative Pressure Wound Therapy Present: No Physician Update: Labs reviewed. Hgb is 9.6, CO2 is slightly elevated today to 43 versus yesterday at 41. She is at supervision with ADLs, walked 250' and up and down 15 steps with contact guard [facility]. She will be discharged to [facility] today. Medical Issues: COPD/CHF - On Meropenem 1gm Q12H IVPB. Brovana 15 mcg BID. DVT Prophylaxis - Lovenox 30mg SQ daily Comment: rashes noted on left arm-healing Functional Improvement: Patient has met all short-term goals at this time and is progressing well toward long-term goals, when patient is agreeable to tx. Summary: Patient's care plan and half-way goals have been reviewed and revised as necessary. Please see the Rehabilitation Signature page for all necessary signatures.
[2018-07-17] MEDS ORDERED: FORMULATION-R RECTAL 30GM PR PRN (11:49)
--- NOTE | 2018-07-17 14:50 | FAST ---
ENCOUNTER DATE AND TIME: 07/15/2018 08:00 (CDT) NAME OFELIA GUARDADO DATE OF : 1940 DATE OF ADMISSION: 07/09/2018 17:21 (CDT) PHONE: AGE: 77 SSN# [id number] GENDER: Female ENCOUNTER PHYSICIAN: Dr. Marcio Barber M.D. ADMISSION DIAGNOSIS: - Debility 16 - Debility (16) Gastritis with bleeding, UTI, HX of STENT 2 months ago. EATING: Activity did not occur on this shift EATING - SCORE: 0-UNK GROOMING: Activity did not occur on this shift GROOMING - SCORE: 0-UNK BATHING: Activity did not occur on this shift BATHING - SCORE: 0-UNK DRESSING - UPPER BODY: Activity did not occur on this shift Patient is not dressing in public clothing ARTICLES SCORE Total number of steps: 0 DRESSING - UPPER BODY - SCORE: 0-UNK DRESSING - LOWER BODY: Activity did not occur on this shift Patient is not dressing in public clothing ARTICLES SCORE Total number of steps: 0 DRESSING - LOWER BODY - SCORE: 0-UNK TOILETING: Activity did not occur on this shift TOILETING - SCORE: 0-UNK BLADDER MANAGEMENT: Activity did not occur on this shift BLADDER MANAGEMENT - SCORE: 7-IND BOWEL MANAGEMENT: Activity did not occur on this shift BOWEL MANAGEMENT - SCORE: 7-IND TRANSFERS: BED, CHAIR, WHEELCHAIR: TRANSFERS: BED, CHAIR, WHEELCHAIR - STEP 1: Does the patient require assistance of a person or device, or need extra time with bed, chair, or whe elchair transfers? Yes. TRANSFERS: BED, CHAIR, WHEELCHAIR - STEP 2: Does the patient require the assistance of a helper? Yes. TRANSFERS: BED, CHAIR, WHEELCHAIR - STEP 3: How much assistance does the patient require from the helper? Only supervision TRANSFERS: BED, CHAIR, WHEELCHAIR - SCORE: 5-SUP TRANSFERS: TOILET: Activity did not occur on this shift TRANSFERS: TOILET - SCORE: 0-UNK TRANSFERS: SHOWER: Activity did not occur on this shift TRANSFERS: SHOWER - SCORE: 0-UNK TRANSFERS: TUB: Activity did not occur on this shift TRANSFERS: TUB - SCORE: 0-UNK LOCOMOTION: WALK: LOCOMOTION: WALK - STEP 1: Does the patient need help from a person or device, or need extra time to walk 150 feet? Yes. LOCOMOTION: WALK - STEP 2: How much assistance does the patient require to walk a minimum of 150 feet? Only supervision, cuing, or coaxing LOCOMOTION: WALK - SCORE: 5-SUP LOCOMOTION: WHEELCHAIR: LOCOMOTION: WHEELCHAIR - STEP 1: Does the patient need help to go 150 feet in a wheelchair? Yes. LOCOMOTION: WHEELCHAIR - STEP 2: How much assistance does the patient need from the helper? Only supervision, cuing, or coaxing LOCOMOTION: WHEELCHAIR - SCORE: 5-SUP LOCOMOTION: STAIRS: Activity did not occur on this shift LOCOMOTION: STAIRS - SCORE: 0-UNK COMPREHENSION: COMPREHENSION - SCORE: 0-UNK EXPRESSION EXPRESSION - SCORE: 0-UNK SOCIAL INTERACTION: SOCIAL INTERACTION - SCORE: 0-UNK PROBLEM SOLVING: PROBLEM SOLVING - SCORE: 0-UNK MEMORY: MEMORY - SCORE: 0-UNK SIGNATURE PANEL: The following modified sections: Transfers: Bed, Chair, Wheelchair - Score, Transfers: Toilet - Score , Locomotion: Walk - Score, Locomotion: Wheelchair - Score, Locomotion: Stairs - Score were [juju lloyd] signed by Jignesh Salazar PTA on FriJul 17 2018 14:49:47 GMT-0500 (Central Daylight Time)
--- NOTE | 2018-07-17 14:56 | FAST ---
ENCOUNTER DATE AND TIME: 07/16/2018 08:00 (CDT) NAME OFELIA GUARDADO DATE OF : 1940 DATE OF ADMISSION: 07/09/2018 17:21 (CDT) PHONE: AGE: 77 SSN# [id number] GENDER: Female ENCOUNTER PHYSICIAN: Dr. Marcio Barber M.D. ADMISSION DIAGNOSIS: - Debility 16 - Debility (16) Gastritis with bleeding, UTI, HX of STENT 2 months ago. EATING: Activity did not occur on this shift EATING - SCORE: 0-UNK GROOMING: Activity did not occur on this shift GROOMING - SCORE: 0-UNK BATHING: Activity did not occur on this shift BATHING - SCORE: 0-UNK DRESSING - UPPER BODY: Activity did not occur on this shift Patient is not dressing in public clothing ARTICLES SCORE Total number of steps: 0 DRESSING - UPPER BODY - SCORE: 0-UNK DRESSING - LOWER BODY: Activity did not occur on this shift Patient is not dressing in public clothing ARTICLES SCORE Total number of steps: 0 DRESSING - LOWER BODY - SCORE: 0-UNK TOILETING: Activity did not occur on this shift TOILETING - SCORE: 0-UNK BLADDER MANAGEMENT: Activity did not occur on this shift BLADDER MANAGEMENT - SCORE: 7-IND BOWEL MANAGEMENT: Activity did not occur on this shift BOWEL MANAGEMENT - SCORE: 7-IND TRANSFERS: BED, CHAIR, WHEELCHAIR: TRANSFERS: BED, CHAIR, WHEELCHAIR - STEP 1: Does the patient require assistance of a person or device, or need extra time with bed, chair, or whe elchair transfers? Yes. TRANSFERS: BED, CHAIR, WHEELCHAIR - STEP 2: Does the patient require the assistance of a helper? Yes. TRANSFERS: BED, CHAIR, WHEELCHAIR - STEP 3: How much assistance does the patient require from the helper? Only supervision TRANSFERS: BED, CHAIR, WHEELCHAIR - SCORE: 5-SUP TRANSFERS: TOILET: Activity did not occur on this shift TRANSFERS: TOILET - SCORE: 0-UNK TRANSFERS: SHOWER: Activity did not occur on this shift TRANSFERS: SHOWER - SCORE: 0-UNK TRANSFERS: TUB: Activity did not occur on this shift TRANSFERS: TUB - SCORE: 0-UNK LOCOMOTION: WALK: LOCOMOTION: WALK - STEP 1: Does the patient need help from a person or device, or need extra time to walk 150 feet? Yes. LOCOMOTION: WALK - STEP 2: How much assistance does the patient require to walk a minimum of 150 feet? Only supervision, cuing, or coaxing LOCOMOTION: WALK - SCORE: 5-SUP LOCOMOTION: WHEELCHAIR: LOCOMOTION: WHEELCHAIR - STEP 1: Does the patient need help to go 150 feet in a wheelchair? Yes. LOCOMOTION: WHEELCHAIR - STEP 2: How much assistance does the patient need from the helper? Only supervision, cuing, or coaxing LOCOMOTION: WHEELCHAIR - SCORE: 5-SUP LOCOMOTION: STAIRS: LOCOMOTION: STAIRS - STEP 1: Does the patient need help to go up and down 12 to 14 stairs? Yes. LOCOMOTION: STAIRS - STEP 2: How much assistance does the patient need from the helper to go a minimum of 12 to 14 stairs? Only romano pervision, cuing, or coaxing LOCOMOTION: STAIRS - SCORE: 5-SUP COMPREHENSION: COMPREHENSION - SCORE: 0-UNK EXPRESSION EXPRESSION - SCORE: 0-UNK SOCIAL INTERACTION: SOCIAL INTERACTION - SCORE: 0-UNK PROBLEM SOLVING: PROBLEM SOLVING - SCORE: 0-UNK MEMORY: MEMORY - SCORE: 0-UNK SIGNATURE PANEL: The following modified sections: Transfers: Bed, Chair, Wheelchair - Score, Transfers: Toilet - Score , Locomotion: Walk - Score, Locomotion: Wheelchair - Score, Locomotion: Stairs - Score were [juju lloyd] signed by Jignesh Salazar PTA on FriJul 17 2018 14:56:13 GMT-0500 (Central Daylight Time)
--- NOTE | 2018-07-17 16:50 | FAST ---
SHIFT START DATE/TIME: 07/17/2018 07:00 (CDT) SHIFT END DATE/TIME: 07/17/2018 19:00 (CDT) NAME OFELIA GUARDADO DATE OF : 1940 DATE OF ADMISSION: 07/09/2018 17:21 (CDT) PHONE: AGE: 77 SSN# [id number] GENDER: Female ENCOUNTER PHYSICIAN: Dr. Marcio Barber M.D. ADMISSION DIAGNOSIS: - Debility 16 - Debility (16) Gastritis with bleeding, UTI, HX of STENT 2 months ago. EATING: EATING - STEP 1: Does the patient require the assistance of a person or device, or need extra time when eating? No. EATING - SCORE: 7-IND GROOMING: Comb/brush hair Wash, rinse, and dry face Wash, rinse, and dry hands GROOMING - STEP 1: Does the patient require the assistance of a person or device, or need extra time when grooming? Yes. GROOMING - STEP 2: Does the patient require the assistance of a helper? No. The patient only requires an assistive devic e, OR takes more than reasonable time to groom, OR there is a concern for safety as the patient groom s GROOMING - SCORE: 6-AL BATHING: Activity did not occur on this shift BATHING - SCORE: 0-UNK DRESSING - UPPER BODY: Activity did not occur on this shift ARTICLES SCORE Total number of steps: 0 DRESSING - UPPER BODY - SCORE: 0-UNK DRESSING - LOWER BODY: Activity did not occur on this shift ARTICLES SCORE Total number of steps: 0 DRESSING - LOWER BODY - SCORE: 0-UNK TOILETING: TOILETING - STEP 1: Does the patient require the assistance of a person or device, or need extra time with toileting? Yes . TOILETING - STEP 2: Does the patient require the assistance of a helper? No. TOILETING - SCORE: 6-AL BLADDER MANAGEMENT: BLADDER MANAGEMENT - STEP 1: Does the patient control the bladder completely and intentionally without equipment or devices or med ications, and is always continent? Yes. BLADDER MANAGEMENT - SCORE: 7-IND BLADDER MANAGEMENT - FREQUENCY OF ACCIDENTS: BLADDER MANAGEMENT(FA) - STEP 1: How many accidents has the patient had during the current shift? 0 BOWEL MANAGEMENT: BOWEL MANAGEMENT - STEP 1: Does the patient control bowels completely and intentionally without equipment devices or medications AND is always continent? Yes. BOWEL MANAGEMENT - SCORE: 7-IND BOWEL MANAGEMENT - FREQUENCY OF ACCIDENTS: BOWEL MANAGEMENT(FA) - STEP 1: How many accidents has the patient had during the current shift? 0 TRANSFERS: BED, CHAIR, WHEELCHAIR: TRANSFERS: BED, CHAIR, WHEELCHAIR - STEP 1: Does the patient require assistance of a person or device, or need extra time with bed, chair, or whe elchair transfers? Yes. TRANSFERS: BED, CHAIR, WHEELCHAIR - STEP 2: Does the patient require the assistance of a helper? Yes. TRANSFERS: BED, CHAIR, WHEELCHAIR - STEP 3: How much assistance does the patient require from the helper? Steadying/guiding assistance TRANSFERS: BED, CHAIR, WHEELCHAIR - SCORE: 4-MIN TRANSFERS: TOILET: TRANSFERS: TOILET - STEP 1: Does the patient require the assistance of a person or device, or need extra time with toilet transfe rs? Yes. TRANSFERS: TOILET - STEP 2: Does the patient require the assistance of a helper? Yes. TRANSFERS: TOILET - STEP 3: How much assistance does the patient require from the helper? Patient performs half or more of the tr ansferring tasks TRANSFERS: TOILET - STEP 4: Does the patient need only incidental help such as contact guard or steadying during toilet transfer? Yes. TRANSFERS: TOILET - SCORE: 4-MIN TRANSFERS: SHOWER: Activity did not occur on this shift TRANSFERS: SHOWER - SCORE: 0-UNK TRANSFERS: TUB: Activity did not occur on this shift TRANSFERS: TUB - SCORE: 0-UNK LOCOMOTION: WALK: Activity did not occur on this shift LOCOMOTION: WALK - SCORE: 0-UNK LOCOMOTION: WHEELCHAIR: Activity did not occur on this shift LOCOMOTION: WHEELCHAIR - SCORE: 0-UNK COMPREHENSION: COMPREHENSION - SCORE: 0-UNK EXPRESSION EXPRESSION - SCORE: 0-UNK SOCIAL INTERACTION: SOCIAL INTERACTION - SCORE: 0-UNK PROBLEM SOLVING: PROBLEM SOLVING - SCORE: 0-UNK MEMORY: MEMORY - SCORE: 0-UNK SIGNATURE PANEL: The following modified sections: Eating - Score, Grooming - Score, Bathing - Score, Dressing - Upper Body - Score, Dressing - Lower Body - Score, Toileting - Score, Bladder Management - Score, Bowel Man agement - Score, Transfers: Bed, Chair, Wheelchair - Score, Transfers: Toilet - Score, Transfers: Christine wer - Score, Transfers: Tub - Score, Locomotion: Walk - Score, Locomotion: Wheelchair - Score, Compre hension - Score, Expression - Score, Social Interaction - Score, Problem Solving - Score, Memory - Sc ore were [electronically] signed by Vilma Linton CNA on FriJul 17 2018 16:50:13 T-0500 (Centra [place] Daylight Time)
[2018-07-17] MEDS: ACETAMINOPHEN 500 MG TAB PO PRN (17:34)
--- NOTE | 2018-07-17 19:52 | PN ---
Date of Progress Note: 07/17/2018 The patient seen and examined, chart reviewed and case discussed with RN. The patient continues to h ave some shortness of breath on supplemental oxygen, but able to work through rehab. Medications: List reviewed. Physical Examination: Vital Signs: Temperature 96.8, heart rate 56, blood pressure 141/86, respirations 16, O2 96% on 2 L via nasal cannula. General: Awake, alert, oriented, no acute distress. CV: S1, S2. Peripheral pulses present. Respiratory: Diminished breath sounds. Some crackles heard. Gastrointestinal: Abdomen is soft, nontender, nondistended. Positive bowel sounds. Extremities: No clubbing, cyanosis, edema. Neurologic: Nonfocal. Laboratory Data: Sodium 138, potassium 4.6, chloride 97, CO2 of 42, BUN 12, creatinine 0.85, glucose 80, and calcium 8.6. Assessment And Plan: A 77-year-old female with: 1.Acute generalized weakness, improving. Continue PT. 2.Shortness of breath, likely multifactorial due to COPD, CHF, improved with Lasix. 3.Chronic obstructive pulmonary disease. Continue supplemental oxygen nebulizer treatments. The eusebio garcía is a chronic CO2 retainer. We will give trial of BiPAP at night. Her CO2 is trending up. 4.Non-intractable nausea, vomiting, resolved. 5.Essential hypertension, stable. 6.Hypothyroidism. Continue levothyroxine. 7.Recent gastrointestinal bleed and gastritis. Continue PPI. Monitor H and H. 8.Acute cystitis without hematuria. The patient is on meropenem for total of 2 weeks. 9.History of atrial fibrillation, currently in sinus rhythm. 10.Coronary artery disease, status post stent. Continue Plavix. 11.Congestive heart failure, acute on chronic diastolic dysfunction. We will continue to monitor I's and O's. Weigh daily. 12.Hypertensive heart disease. SA/MODL Voice ID: [id number] Report ID: [id number]
[2018-07-17] MEDS: ATORVASTATIN 80 MG TAB PO SCH (20:01)
[2018-07-17] MEDS ORDERED: ARFORMOTEROL TARTRATE 15 MCG/2 ML VIAL.NEB ONE (20:34)
[2018-07-17] MEDS: ALPRAZOLAM 0.25 MG TABLET PO PRN (21:54)
[2018-07-18 01:31] LABS: Arterial Blood Carboxyhemoglob 1.9 % (0-1.5); Blood Gas Oxyhemoglobin 91.9 % (94-97); Blood O2 Saturation 94.2 % (92-98.5)
[2018-07-18] MEDS: ACETAMINOPHEN 500 MG TAB PO PRN (03:13)
[2018-07-18 06:23] LABS: Arterial Blood Carboxyhemoglob 1.5 % (0-1.5); Blood Gas Oxyhemoglobin 93.1 % (94-97); Blood O2 Saturation 95.4 % (92-98.5)
[2018-07-18] MEDS: ARFORMOTEROL TARTRATE 15 MCG/2 ML VIAL.NEB NEB SCH ×2 (07:30→20:00)
[2018-07-18] MEDS: ALBUTEROL 2.5 MG/3 ML NEB SOL NEB PRN ×2 (07:30→15:25)
[2018-07-18] MEDS: HYDROCODONE/APAP 7.5/325 MG TAB PO PRN ×2 (07:43→19:24)
[2018-07-18] MEDS: LEVOTHYROXINE SOD 0.125 MG TAB PO SCH (07:43)
[2018-07-18] MEDS: Meropenem 1,000 MG in NA CHLORIDE 0.9% 100 ML IV SCH ×2 (07:44→19:22)
[2018-07-18] MEDS: ENOXAPARIN 30 MG/0.3 ML SQ SCH (07:44)
[2018-07-18] MEDS: DOCUSATE NA 100 MG CAP PO SCH ×2 (08:00→19:23)
--- NOTE | 2018-07-18 08:39 | FAST ---
SHIFT START DATE/TIME: 07/18/2018 07:00 (CDT) SHIFT END DATE/TIME: 07/18/2018 19:00 (CDT) NAME OFELIA GUARDADO DATE OF : 1940 DATE OF ADMISSION: 07/09/2018 17:21 (CDT) PHONE: AGE: 77 SSN# [id number] GENDER: Female ENCOUNTER PHYSICIAN: Dr. Marcio Barber M.D. ADMISSION DIAGNOSIS: - Debility 16 - Debility (16) Gastritis with bleeding, UTI, HX of STENT 2 months ago. EATING: EATING - STEP 1: Does the patient require the assistance of a person or device, or need extra time when eating? Yes. EATING - STEP 2: Does the patient require the assistance of a helper? No, patient only requires an assistive device, O R s/he takes more than reasonable time to eat, OR there is a safety concern, OR s/he requires modifie d food consistency EATING - SCORE: 6-AL GROOMING: Comb/brush hair Oral care Wash, rinse, and dry face Wash, rinse, and dry hands GROOMING - STEP 1: Does the patient require the assistance of a person or device, or need extra time when grooming? Yes. GROOMING - STEP 2: Does the patient require the assistance of a helper? Yes. GROOMING - STEP 3: How much assistance does the patient require from the helper? Cuing, coaxing, instructions, or encour agement for completion of grooming GROOMING - SCORE: 5-SUP BATHING: Activity did not occur on this shift BATHING - SCORE: 0-UNK DRESSING - UPPER BODY: Activity did not occur on this shift ARTICLES SCORE Total number of steps: 0 DRESSING - UPPER BODY - SCORE: 0-UNK DRESSING - LOWER BODY: Activity did not occur on this shift ARTICLES SCORE Total number of steps: 0 DRESSING - LOWER BODY - SCORE: 0-UNK TOILETING: TOILETING - STEP 1: Does the patient require the assistance of a person or device, or need extra time with toileting? Yes . TOILETING - STEP 2: Does the patient require the assistance of a helper? Yes. TOILETING - STEP 3: How much assistance does the patient require from the helper? Hands-on assistance from the helper TOILETING - STEP 4: Of the 3 tasks: 1) Adjusting clothing prior to use, 2) Cleansing of perineal area, 3) Adjusting clot annabella after use; How many tasks does the patient perform WITHOUT assistance of the helper? Three tasks with steadying assistance from the helper TOILETING - SCORE: 4-MIN BLADDER MANAGEMENT: BLADDER MANAGEMENT - STEP 1: Does the patient control the bladder completely and intentionally without equipment or devices or med ications, and is always continent? No. BLADDER MANAGEMENT - STEP 2: Does the patient require the assistance of a helper? No, patient requires and independently uses an a ssistive device, such as a urinal, bedpan, bedside commode, catheter, absorbent pad, or collecting de vice BLADDER MANAGEMENT - SCORE: 6-AL BOWEL MANAGEMENT: Activity did not occur on this shift BOWEL MANAGEMENT - SCORE: 7-IND TRANSFERS: BED, CHAIR, WHEELCHAIR: TRANSFERS: BED, CHAIR, WHEELCHAIR - STEP 1: Does the patient require assistance of a person or device, or need extra time with bed, chair, or whe elchair transfers? Yes. TRANSFERS: BED, CHAIR, WHEELCHAIR - STEP 2: Does the patient require the assistance of a helper? Yes. TRANSFERS: BED, CHAIR, WHEELCHAIR - STEP 3: How much assistance does the patient require from the helper? Steadying/guiding assistance TRANSFERS: BED, CHAIR, WHEELCHAIR - SCORE: 4-MIN TRANSFERS: TOILET: TRANSFERS: TOILET - STEP 1: Does the patient require the assistance of a person or device, or need extra time with toilet transfe rs? Yes. TRANSFERS: TOILET - STEP 2: Does the patient require the assistance of a helper? Yes. TRANSFERS: TOILET - STEP 3: How much assistance does the patient require from the helper? Patient performs half or more of the tr ansferring tasks TRANSFERS: TOILET - STEP 4: Does the patient need only incidental help such as contact guard or steadying during toilet transfer? Yes. TRANSFERS: TOILET - SCORE: 4-MIN TRANSFERS: SHOWER: Activity did not occur on this shift TRANSFERS: SHOWER - SCORE: 0-UNK TRANSFERS: TUB: Activity did not occur on this shift TRANSFERS: TUB - SCORE: 0-UNK LOCOMOTION: WALK: Activity did not occur on this shift LOCOMOTION: WALK - SCORE: 0-UNK LOCOMOTION: WHEELCHAIR: Activity did not occur on this shift LOCOMOTION: WHEELCHAIR - SCORE: 0-UNK COMPREHENSION: COMPREHENSION: TYPE: Both COMPREHENSION - STEP 1: Does the patient require help from a person or device, or need extra time to understand complex and a bstract ideas (such as current events, finances, discharge planning, medical issues, relationships, e tc)? No. COMPREHENSION - STEP 2: Does the patient need extra time, require an assistive device (such as glasses for visual comprehensi on or a hearing aid for auditory comprehension) or does s/he have mild difficulty understanding compl ex and abstract information? Yes. COMPREHENSION - SCORE: 6-AL EXPRESSION EXPRESSION: TYPE: Both EXPRESSION - STEP 1: Does the patient require help from a person or device, or need extra time expressing complex and abst ract ideas (such as current events, finances, discharge planning, medical issues, relationships, etc) ? No. EXPRESSION - STEP 2: Does the patient need extra time, require an assistive device (such as augmentive communication syste m or a communication board), OR does s/he have mild difficulty expressing complex and abstract ideas (including mild dysarthria or mild word-find problems)? Yes. EXPRESSION - SCORE: 6-AL SOCIAL INTERACTION: SOCIAL INTERACTION - STEP 1: Does the patient require a helper to interact with others in social and therapeutic situations? No. SOCIAL INTERACTION - STEP 2: Does the patient need extra time in social situations, OR does s/he interact with staff, other patien ts, and family members ONLY in structured environments, OR does s/he require medication for social in teraction? Yes, patient needs extra time SOCIAL INTERACTION - SCORE: 6-AL PROBLEM SOLVING: PROBLEM SOLVING - STEP 1: Does the patient need help from a person or device, or need extra time to solve complex problems such as managing a checking account or confronting interpersonal problems? No. PROBLEM SOLVING - STEP 2: Does the patient require extra time to make decisions or solve problems, OR does s/he have slight dif ficulty reading, initiating, or self-correcting in unfamiliar situations? Yes, patient needs extra ti me. PROBLEM SOLVING - SCORE: 6-AL MEMORY: MEMORY - STEP 1: Does the patient need help from a person or device, or need extra time to remember frequently encount ered people, daily routines, and executing requests? No. MEMORY - STEP 2: Does the patient have slight difficulty recognizing frequently encountered people, daily routines, or executing requests without the need for repetition or using self-initiated or environmental cues to remember? Yes. MEMORY - SCORE: 6-AL SIGNATURE PANEL: The following modified sections: Eating - Score, Grooming - Score, Bathing - Score, Dressing - Upper Body - Score, Dressing - Lower Body - Score, Toileting - Score, Bladder Management - Score, Bowel Man agement - Score, Transfers: Bed, Chair, Wheelchair - Score, Transfers: Toilet - Score, Transfers: Christine wer - Score, Transfers: Tub - Score, Locomotion: Walk - Score, Locomotion: Wheelchair - Score, Compre hension - Score, Expression - Score, Social Interaction - Score, Problem Solving - Score, Memory - Sc ore were [electronically] signed by Costa Priest on Sat Jul 18 2018 08:38:36 GMT-0500 (Central Daylight Time)
[2018-07-18] MEDS: CRANBERRY FRUIT EXTRACT 200 MG CAP PO SCH ×2 (08:52→19:23)
[2018-07-18] MEDS: PROPRANOLOL HCL 60 MG SA CAP PO SCH ×2 (08:52→19:23)
[2018-07-18] MEDS: PREGABALIN 75 MG CAP PO SCH ×3 (08:52→20:08)
[2018-07-18] MEDS: VALSARTAN 80 MG TAB PO SCH (08:53)
[2018-07-18] MEDS: FERROUS SULFATE 325 MG TAB PO SCH ×3 (08:53→20:08)
[2018-07-18] MEDS: MAGNESIUM OXIDE 400 MG TAB PO SCH ×2 (08:53→19:24)
[2018-07-18] MEDS: LACTOBACILLUS/ACIDOPHILUS TAB PO SCH ×3 (08:53→20:08)
[2018-07-18] MEDS: CLOPIDOGREL 75 MG TABLET PO SCH (08:53)
[2018-07-18] MEDS: GUAIFENESIN 600 MG SA TAB PO SCH (08:54)
[2018-07-18] MEDS: RANITIDINE 150 MG TABLET PO SCH (08:54)
[2018-07-18] MEDS: DULOXETINE 30 MG CAP PO SCH (08:54)
[2018-07-18] MEDS: AMIODARONE HCL 200 MG TAB PO SCH (08:54)
--- NOTE | 2018-07-18 15:14 | PN ---
Date of Progress Note: 07/18/2018 Subjective: The patient is seen and examined. Chart reviewed, and case discussed with RN. The viraj ent did well on BiPAP last night, feels better this morning. Medications: List reviewed. Physical Examination: Vital Signs: Temperature 97, heart rate 73, blood pressure 133/79, respirations 22, O2 of 96% on 2 L via nasal cannula. General: Awake, alert, oriented x3. An elderly female, obese. CV: S1 and S2. No murmurs. Respiratory: Diminished breath sounds overall. Some rhonchi. No wheezing or stridor. Gastrointestinal: Abdomen is soft, nontender, nondistended. Positive bowel sounds. No guarding or rigidity. Extremities: No clubbing, cyanosis, or edema. Neurologic: Nonfocal. Laboratory Data: ABG shows pH 7.42, pCO2 of 69.9, pO2 of 78, bicarb 38. Assessment: A 77-year-old female with: 1.Acute generalized weakness, improving. The patient is doing well with physical therapy. 2.Shortness of breath, secondary to chronic obstructive pulmonary disease and congestive heart failu re, improved. 3.Chronic obstructive pulmonary disease. We will continue nebulizer treatments and supplemental oxy gen. The patient has chronic CO2 retention. Improved slightly with BiPAP. ABG looks better. The p atient is compensated with elevated bicarb. 4.Essential hypertension, stable. 5.Hypothyroidism. Continue levothyroxine. 6.Recent gastrointestinal bleed and gastritis. We will continue PPI. Monitor hemoglobin and hemato crit. 7.Acute cystitis without hematuria. Continue meropenem for a total of 2 weeks. 8.History of atrial fibrillation, currently sinus rhythm. 9.Coronary artery disease, status post stent. Continue Plavix. 10.Congestive heart failure, acute on chronic diastolic dysfunction. The patient is on IV Lasix. W e will switch to p.o. Monitor I's and O's. 11.Hypertensive heart disease. Plan: Continue BiPAP at night, so as the patient can participate in therapy during the daytime. /JUDITH Voice ID: [id number] Report ID: [id number]
[2018-07-18] MEDS: FUROSEMIDE 20 MG TABLET PO SCH (17:09)
[2018-07-18] MEDS: ATORVASTATIN 80 MG TAB PO SCH (20:08)
[2018-07-18] MEDS: ALPRAZOLAM 0.25 MG TABLET PO PRN (20:08)
--- NOTE | 2018-07-19 01:23 | FAST ---
SHIFT START DATE/TIME: 07/18/2018 19:00 (CDT) SHIFT END DATE/TIME: 07/19/2018 07:00 (CDT) NAME OFELIA GUARDADO DATE OF : 1940 DATE OF ADMISSION: 07/09/2018 17:21 (CDT) PHONE: AGE: 77 SSN# [id number] GENDER: Female ENCOUNTER PHYSICIAN: Dr. Marcio Barber M.D. ADMISSION DIAGNOSIS: - Debility 16 - Debility (16) Gastritis with bleeding, UTI, HX of STENT 2 months ago. EATING: Activity did not occur on this shift EATING - SCORE: 0-UNK GROOMING: Activity did not occur on this shift GROOMING - SCORE: 0-UNK BATHING: Activity did not occur on this shift BATHING - SCORE: 0-UNK DRESSING - UPPER BODY: Activity did not occur on this shift ARTICLES SCORE Total number of steps: 0 DRESSING - UPPER BODY - SCORE: 0-UNK DRESSING - LOWER BODY: Activity did not occur on this shift ARTICLES SCORE Total number of steps: 0 DRESSING - LOWER BODY - SCORE: 0-UNK TOILETING: TOILETING - STEP 1: Does the patient require the assistance of a person or device, or need extra time with toileting? Yes . TOILETING - STEP 2: Does the patient require the assistance of a helper? Yes. TOILETING - STEP 3: How much assistance does the patient require from the helper? Only supervision TOILETING - SCORE: 5-SUP BLADDER MANAGEMENT: BLADDER MANAGEMENT - STEP 1: Does the patient control the bladder completely and intentionally without equipment or devices or med ications, and is always continent? Yes. BLADDER MANAGEMENT - SCORE: 7-IND BOWEL MANAGEMENT: Activity did not occur on this shift BOWEL MANAGEMENT - SCORE: 7-IND TRANSFERS: BED, CHAIR, WHEELCHAIR: TRANSFERS: BED, CHAIR, WHEELCHAIR - STEP 1: Does the patient require assistance of a person or device, or need extra time with bed, chair, or whe elchair transfers? Yes. TRANSFERS: BED, CHAIR, WHEELCHAIR - STEP 2: Does the patient require the assistance of a helper? Yes. TRANSFERS: BED, CHAIR, WHEELCHAIR - STEP 3: How much assistance does the patient require from the helper? Steadying/guiding assistance TRANSFERS: BED, CHAIR, WHEELCHAIR - SCORE: 4-MIN TRANSFERS: TOILET: TRANSFERS: TOILET - STEP 1: Does the patient require the assistance of a person or device, or need extra time with toilet transfe rs? Yes. TRANSFERS: TOILET - STEP 2: Does the patient require the assistance of a helper? Yes. TRANSFERS: TOILET - STEP 3: How much assistance does the patient require from the helper? Patient performs half or more of the tr ansferring tasks TRANSFERS: TOILET - STEP 4: Does the patient need only incidental help such as contact guard or steadying during toilet transfer? Yes. TRANSFERS: TOILET - SCORE: 4-MIN TRANSFERS: SHOWER: Activity did not occur on this shift TRANSFERS: SHOWER - SCORE: 0-UNK TRANSFERS: TUB: Activity did not occur on this shift TRANSFERS: TUB - SCORE: 0-UNK LOCOMOTION: WALK: Activity did not occur on this shift LOCOMOTION: WALK - SCORE: 0-UNK LOCOMOTION: WHEELCHAIR: Activity did not occur on this shift LOCOMOTION: WHEELCHAIR - SCORE: 0-UNK COMPREHENSION: COMPREHENSION: TYPE: Both COMPREHENSION - STEP 1: Does the patient require help from a person or device, or need extra time to understand complex and a bstract ideas (such as current events, finances, discharge planning, medical issues, relationships, e tc)? No. COMPREHENSION - STEP 2: Does the patient need extra time, require an assistive device (such as glasses for visual comprehensi on or a hearing aid for auditory comprehension) or does s/he have mild difficulty understanding compl ex and abstract information? Yes. COMPREHENSION - SCORE: 6-AL EXPRESSION EXPRESSION: TYPE: Both EXPRESSION - STEP 1: Does the patient require help from a person or device, or need extra time expressing complex and abst ract ideas (such as current events, finances, discharge planning, medical issues, relationships, etc) ? No. EXPRESSION - STEP 2: Does the patient need extra time, require an assistive device (such as augmentive communication syste m or a communication board), OR does s/he have mild difficulty expressing complex and abstract ideas (including mild dysarthria or mild word-find problems)? No. EXPRESSION - SCORE: 7-IND SOCIAL INTERACTION: SOCIAL INTERACTION - STEP 1: Does the patient require a helper to interact with others in social and therapeutic situations? No. SOCIAL INTERACTION - STEP 2: Does the patient need extra time in social situations, OR does s/he interact with staff, other patien ts, and family members ONLY in structured environments, OR does s/he require medication for social in teraction? No. SOCIAL INTERACTION - SCORE: 7-IND PROBLEM SOLVING: Patient requires bed/chair alarms due to attempts to get up unassisted when helper is needed. PROBLEM SOLVING - STEP 1: How often do the bed/chair alarms go off? Occasionally - the alarms go off about 25% or less PROBLEM SOLVING - SCORE: 4-MIN MEMORY: MEMORY - STEP 1: How often do the bed/chair alarms go off? Occasionally - the alarms go off about 25% of the time or l ess MEMORY - SCORE: 4-MIN SIGNATURE PANEL: The following modified sections: Eating - Score, Grooming - Score, Bathing - Score, Dressing - Upper Body - Score, Dressing - Lower Body - Score, Toileting - Score, Bladder Management - Score, Bowel Man agement - Score, Transfers: Bed, Chair, Wheelchair - Score, Transfers: Toilet - Score, Transfers: Christine wer - Score, Transfers: Tub - Score, Locomotion: Walk - Score, Locomotion: Wheelchair - Score, Compre hension - Score, Expression - Score, Social Interaction - Score, Problem Solving - Score, Memory - Sc ore were [electronically] signed by Court Canales CNA on FriJul 19 2018 01:22:35 T-0500 (Amber Da ylight Time)
[2018-07-19] MEDS: ACETAMINOPHEN 500 MG TAB PO PRN ×3 (03:14→16:21)
[2018-07-19] MEDS: Meropenem 1,000 MG in NA CHLORIDE 0.9% 100 ML IV SCH ×2 (07:06→19:14)
[2018-07-19] MEDS: PROPRANOLOL HCL 60 MG SA CAP PO SCH ×2 (07:08→19:26)
[2018-07-19] MEDS: ENOXAPARIN 30 MG/0.3 ML SQ SCH (07:08)
[2018-07-19] MEDS: LEVOTHYROXINE SOD 0.125 MG TAB PO SCH (07:11)
[2018-07-19] MEDS: RANITIDINE 150 MG TABLET PO SCH (07:11)
[2018-07-19] MEDS: LACTOBACILLUS/ACIDOPHILUS TAB PO SCH ×3 (07:12→20:16)
[2018-07-19] MEDS: GUAIFENESIN 600 MG SA TAB PO SCH (07:12)
[2018-07-19] MEDS: FUROSEMIDE 20 MG TABLET PO SCH ×2 (07:12→16:22)
[2018-07-19] MEDS: VALSARTAN 80 MG TAB PO SCH (07:12)
[2018-07-19] MEDS: PREGABALIN 75 MG CAP PO SCH ×3 (07:12→20:16)
[2018-07-19] MEDS: MAGNESIUM OXIDE 400 MG TAB PO SCH ×2 (07:12→19:14)
[2018-07-19] MEDS: AMIODARONE HCL 200 MG TAB PO SCH (07:13)
[2018-07-19] MEDS: CLOPIDOGREL 75 MG TABLET PO SCH (07:13)
[2018-07-19] MEDS: FERROUS SULFATE 325 MG TAB PO SCH ×3 (07:13→20:16)
[2018-07-19] MEDS: DULOXETINE 30 MG CAP PO SCH (07:13)
[2018-07-19] MEDS: CRANBERRY FRUIT EXTRACT 200 MG CAP PO SCH ×2 (07:13→19:13)
[2018-07-19] MEDS: HYDROCODONE/APAP 7.5/325 MG TAB PO PRN ×2 (07:14→19:17)
[2018-07-19] MEDS: DOCUSATE NA 100 MG CAP PO SCH ×2 (07:16→19:12)
[2018-07-19] MEDS: ALBUTEROL 2.5 MG/3 ML NEB SOL NEB PRN ×2 (07:45→15:15)
[2018-07-19] MEDS: ARFORMOTEROL TARTRATE 15 MCG/2 ML VIAL.NEB NEB SCH ×2 (07:45→20:00)
--- NOTE | 2018-07-19 10:29 | FAST ---
SHIFT START DATE/TIME: 07/19/2018 07:00 (CDT) SHIFT END DATE/TIME: 07/19/2018 19:00 (CDT) NAME OFELIA GUARDADO DATE OF : 1940 DATE OF ADMISSION: 07/09/2018 17:21 (CDT) PHONE: AGE: 77 SSN# [id number] GENDER: Female ENCOUNTER PHYSICIAN: Dr. Marcio Barber M.D. ADMISSION DIAGNOSIS: - Debility 16 - Debility (16) Gastritis with bleeding, UTI, HX of STENT 2 months ago. EATING: EATING - STEP 1: Does the patient require the assistance of a person or device, or need extra time when eating? Yes. EATING - STEP 2: Does the patient require the assistance of a helper? No, patient only requires an assistive device, O R s/he takes more than reasonable time to eat, OR there is a safety concern, OR s/he requires modifie d food consistency EATING - SCORE: 6-AL GROOMING: Activity did not occur on this shift GROOMING - SCORE: 0-UNK BATHING: Activity did not occur on this shift BATHING - SCORE: 0-UNK DRESSING - UPPER BODY: Activity did not occur on this shift ARTICLES SCORE Total number of steps: 0 DRESSING - UPPER BODY - SCORE: 0-UNK DRESSING - LOWER BODY: Activity did not occur on this shift ARTICLES SCORE Total number of steps: 0 DRESSING - LOWER BODY - SCORE: 0-UNK TOILETING: TOILETING - STEP 1: Does the patient require the assistance of a person or device, or need extra time with toileting? Yes . TOILETING - STEP 2: Does the patient require the assistance of a helper? Yes. TOILETING - STEP 3: How much assistance does the patient require from the helper? Hands-on assistance from the helper TOILETING - STEP 4: Of the 3 tasks: 1) Adjusting clothing prior to use, 2) Cleansing of perineal area, 3) Adjusting clot annabella after use; How many tasks does the patient perform WITHOUT assistance of the helper? Three tasks with steadying assistance from the helper TOILETING - SCORE: 4-MIN BLADDER MANAGEMENT: BLADDER MANAGEMENT - STEP 1: Does the patient control the bladder completely and intentionally without equipment or devices or med ications, and is always continent? No. BLADDER MANAGEMENT - STEP 2: Does the patient require the assistance of a helper? No, patient requires and independently uses an a ssistive device, such as a urinal, bedpan, bedside commode, catheter, absorbent pad, or collecting de vice BLADDER MANAGEMENT - SCORE: 6-AL BOWEL MANAGEMENT: Activity did not occur on this shift BOWEL MANAGEMENT - SCORE: 7-IND TRANSFERS: BED, CHAIR, WHEELCHAIR: TRANSFERS: BED, CHAIR, WHEELCHAIR - STEP 1: Does the patient require assistance of a person or device, or need extra time with bed, chair, or whe elchair transfers? Yes. TRANSFERS: BED, CHAIR, WHEELCHAIR - STEP 2: Does the patient require the assistance of a helper? Yes. TRANSFERS: BED, CHAIR, WHEELCHAIR - STEP 3: How much assistance does the patient require from the helper? Steadying/guiding assistance TRANSFERS: BED, CHAIR, WHEELCHAIR - SCORE: 4-MIN TRANSFERS: TOILET: TRANSFERS: TOILET - STEP 1: Does the patient require the assistance of a person or device, or need extra time with toilet transfe rs? Yes. TRANSFERS: TOILET - STEP 2: Does the patient require the assistance of a helper? Yes. TRANSFERS: TOILET - STEP 3: How much assistance does the patient require from the helper? Patient performs half or more of the tr ansferring tasks TRANSFERS: TOILET - STEP 4: Does the patient need only incidental help such as contact guard or steadying during toilet transfer? No. Patient needs more than incidental help TRANSFERS: TOILET - SCORE: 3-MOD TRANSFERS: SHOWER: Activity did not occur on this shift TRANSFERS: SHOWER - SCORE: 0-UNK TRANSFERS: TUB: Activity did not occur on this shift TRANSFERS: TUB - SCORE: 0-UNK LOCOMOTION: WALK: Activity did not occur on this shift LOCOMOTION: WALK - SCORE: 0-UNK LOCOMOTION: WHEELCHAIR: Activity did not occur on this shift LOCOMOTION: WHEELCHAIR - SCORE: 0-UNK COMPREHENSION: COMPREHENSION: TYPE: Both COMPREHENSION - STEP 1: Does the patient require help from a person or device, or need extra time to understand complex and a bstract ideas (such as current events, finances, discharge planning, medical issues, relationships, e tc)? No. COMPREHENSION - STEP 2: Does the patient need extra time, require an assistive device (such as glasses for visual comprehensi on or a hearing aid for auditory comprehension) or does s/he have mild difficulty understanding compl ex and abstract information? Yes. COMPREHENSION - SCORE: 6-AL EXPRESSION EXPRESSION: TYPE: Both EXPRESSION - STEP 1: Does the patient require help from a person or device, or need extra time expressing complex and abst ract ideas (such as current events, finances, discharge planning, medical issues, relationships, etc) ? No. EXPRESSION - STEP 2: Does the patient need extra time, require an assistive device (such as augmentive communication syste m or a communication board), OR does s/he have mild difficulty expressing complex and abstract ideas (including mild dysarthria or mild word-find problems)? Yes. EXPRESSION - SCORE: 6-AL SOCIAL INTERACTION: SOCIAL INTERACTION - STEP 1: Does the patient require a helper to interact with others in social and therapeutic situations? Yes. SOCIAL INTERACTION - STEP 2: Does the patient interact appropriately half or more of the time? Yes. SOCIAL INTERACTION - STEP 3: How often does the patient need help to interact appropriately? Less than 10% of the time SOCIAL INTERACTION - SCORE: 5-SUP PROBLEM SOLVING: PROBLEM SOLVING - STEP 1: Does the patient need help from a person or device, or need extra time to solve complex problems such as managing a checking account or confronting interpersonal problems? Yes. PROBLEM SOLVING - STEP 2: Does the patient solve basic routine problems half or more of the time? Yes. PROBLEM SOLVING - STEP 3: How often does the patient need help to solve basic routine problems? Less than 10% of the time PROBLEM SOLVING - SCORE: 5-SUP MEMORY: MEMORY - STEP 1: Does the patient need help from a person or device, or need extra time to remember frequently encount ered people, daily routines, and executing requests? Yes. MEMORY - STEP 2: How often does the patient need help to remember frequently encountered people, daily routines, and e xecuting requests? 10% - 24% of the time MEMORY - SCORE: 4-MIN SIGNATURE PANEL: The following modified sections: Eating - Score, Grooming - Score, Bathing - Score, Dressing - Upper Body - Score, Dressing - Lower Body - Score, Toileting - Score, Bladder Management - Score, Bowel Man agement - Score, Transfers: Bed, Chair, Wheelchair - Score, Transfers: Toilet - Score, Transfers: Christine wer - Score, Transfers: Tub - Score, Locomotion: Walk - Score, Locomotion: Wheelchair - Score, Compre hension - Score, Expression - Score, Social Interaction - Score, Problem Solving - Score, Memory - Sc ore were [electronically] signed by Costa Priest on FriJul 19 2018 10:29:16 GMT-0500 (Central Daylight Time)
--- NOTE | 2018-07-19 16:11 | PN ---
Date of Progress Note: 07/19/2018 Subjective: Patient is seen and examined, chart reviewed, and case discussed with RN. No acute even ts overnight. Medications: List reviewed. Physical Examination: Vital Signs: Temperature 97.5, heart rate 62, blood pressure 118/72, respirations 20, O2 98% on 2 L via nasal cannula. General: Awake, alert, oriented x3. No acute distress. Elderly female, obese. CV: S1, S2. Regular rate and rhythm. Peripheral pulses present. Respiratory: Moving air well bilaterally except at the bases, some rhonchi heard. Gastrointestinal: Abdomen is soft, nontender, nondistended. Positive bowel sounds. Extremities: No clubbing, cyanosis, or edema. Neurologic: Nonfocal. Assessment And Plan: A 77-year-old female with: 1.Acute generalized weakness, improved. We will continue with physical therapy per rehab. 2.Shortness of breath secondary to chronic obstructive pulmonary disease and congestive heart failur e, improving, currently on 2 L via nasal cannula. 3.Chronic obstructive pulmonary disease. Continue nebulizer treatments and supplemental O2. The nm tient has chronic CO2 retainer, BiPAP has been discontinued. 4.Essential tremor. Patient describes tremor with purposeful movement, likely has essential tremor. Trial of beta malcolm. 5.Hypothyroidism. Continue levothyroxine. 6.Recent GI bleed. Continue PPI. We will check CBC in a.m. 7.Acute cystitis without hematuria. Continue meropenem for a total of 2 weeks. 8.History of atrial fibrillation, currently in sinus rhythm. 9.Coronary artery disease status post stent. Continue Plavix. 10.Pvsik-yc-bsrlljv diastolic heart failure. Continue p.o. Lasix and monitor potassium level. Strict I's and O's. 11.Hypertensive heart disease. SA/MODL Voice ID: [id number] Report ID: [id number]
[2018-07-19] MEDS: ATORVASTATIN 80 MG TAB PO SCH (20:16)
[2018-07-19] MEDS: ALPRAZOLAM 0.25 MG TABLET PO PRN (20:16)
[2018-07-19 23:54] VITALS: O2SAT 98
[2018-07-20 05:27] LABS: Absolute Monocytes 0.8 K/uL (0.1-1.3); Absolute Neutrophil 1.6 K/uL (1.8-8.0); Basophils % 1.3 % (0-1.3); Eosinophils % 19.5 % (0-4.4); Hematocrit 28.5 % (36.0-45.0); Lymphocytes % 24.2 % (15.3-44.8); MPV 9.4 fL (7.6-11.3); Monocytes % 17.8 % (3.3-12.3); RBC Red Blood Cell Count 3.23 M/uL (3.86-4.86)
[2018-07-20 06:53] VITALS: TEMP 96.8
[2018-07-20] MEDS: LEVOTHYROXINE SOD 0.125 MG TAB PO SCH (06:58)
[2018-07-20] MEDS: ENOXAPARIN 30 MG/0.3 ML SQ SCH (06:58)
[2018-07-20] MEDS: DOCUSATE NA 100 MG CAP PO SCH (08:00)
[2018-07-20] MEDS: ARFORMOTEROL TARTRATE 15 MCG/2 ML VIAL.NEB NEB SCH (08:00)
[2018-07-20] MEDS: MAGNESIUM OXIDE 400 MG TAB PO SCH (08:37)
[2018-07-20] MEDS: CRANBERRY FRUIT EXTRACT 200 MG CAP PO SCH (08:37)
[2018-07-20] MEDS: PREGABALIN 75 MG CAP PO SCH ×2 (08:37→13:23)
[2018-07-20] MEDS: DULOXETINE 30 MG CAP PO SCH (08:37)
[2018-07-20] MEDS: GUAIFENESIN 600 MG SA TAB PO SCH (08:37)
[2018-07-20] MEDS: CLOPIDOGREL 75 MG TABLET PO SCH (08:38)
[2018-07-20] MEDS: FUROSEMIDE 20 MG TABLET PO SCH (08:38)
[2018-07-20] MEDS: LACTOBACILLUS/ACIDOPHILUS TAB PO SCH ×2 (08:38→13:23)
[2018-07-20] MEDS: FERROUS SULFATE 325 MG TAB PO SCH ×2 (08:38→13:23)
[2018-07-20] MEDS: VALSARTAN 80 MG TAB PO SCH (08:38)
[2018-07-20 08:39] LABS: Blood Morphology Comment NOT SEEN (NOT SEEN); Platelet Estimate ADEQ
[2018-07-20] MEDS: AMIODARONE HCL 200 MG TAB PO SCH (08:39)
[2018-07-20] MEDS: PROPRANOLOL HCL 60 MG SA CAP PO SCH (08:40)
[2018-07-20] MEDS: RANITIDINE 150 MG TABLET PO SCH (08:42)
[2018-07-20 08:45] VITALS: BP 120/60
[2018-07-20] MEDS: ACETAMINOPHEN 500 MG TAB PO PRN (12:22)
[2018-07-20] MEDS: ALBUTEROL 2.5 MG/3 ML NEB SOL NEB PRN (14:00)
--- NOTE | 2018-07-20 14:31 | FAST ---
SHIFT START DATE/TIME: 07/20/2018 07:00 (CDT) SHIFT END DATE/TIME: 07/20/2018 19:00 (CDT) NAME OFELIA GUARDADO DATE OF : 1940 DATE OF ADMISSION: 07/09/2018 17:21 (CDT) PHONE: AGE: 77 SSN# [id number] GENDER: Female ENCOUNTER PHYSICIAN: Dr. Marcio Barber M.D. ADMISSION DIAGNOSIS: - Debility 16 - Debility (16) Gastritis with bleeding, UTI, HX of STENT 2 months ago. EATING: EATING - STEP 1: Does the patient require the assistance of a person or device, or need extra time when eating? Yes. EATING - STEP 2: Does the patient require the assistance of a helper? No, patient only requires an assistive device, O R s/he takes more than reasonable time to eat, OR there is a safety concern, OR s/he requires modifie d food consistency EATING - SCORE: 6-AL GROOMING: Comb/brush hair Oral care Wash, rinse, and dry face Wash, rinse, and dry hands GROOMING - STEP 1: Does the patient require the assistance of a person or device, or need extra time when grooming? Yes. GROOMING - STEP 2: Does the patient require the assistance of a helper? No. The patient only requires an assistive devic e, OR takes more than reasonable time to groom, OR there is a concern for safety as the patient groom s GROOMING - SCORE: 6-AL BATHING: Activity did not occur on this shift BATHING - SCORE: 0-UNK DRESSING - UPPER BODY: Activity did not occur on this shift ARTICLES SCORE Total number of steps: 0 DRESSING - UPPER BODY - SCORE: 0-UNK DRESSING - LOWER BODY: Activity did not occur on this shift ARTICLES SCORE Total number of steps: 0 DRESSING - LOWER BODY - SCORE: 0-UNK TOILETING: TOILETING - STEP 1: Does the patient require the assistance of a person or device, or need extra time with toileting? Yes . TOILETING - STEP 2: Does the patient require the assistance of a helper? Yes. TOILETING - STEP 3: How much assistance does the patient require from the helper? Hands-on assistance from the helper TOILETING - STEP 4: Of the 3 tasks: 1) Adjusting clothing prior to use, 2) Cleansing of perineal area, 3) Adjusting clot annabella after use; How many tasks does the patient perform WITHOUT assistance of the helper? Three tasks with steadying assistance from the helper TOILETING - SCORE: 4-MIN BLADDER MANAGEMENT: BLADDER MANAGEMENT - STEP 1: Does the patient control the bladder completely and intentionally without equipment or devices or med ications, and is always continent? No. BLADDER MANAGEMENT - STEP 2: Does the patient require the assistance of a helper? No, patient only requires extra time BLADDER MANAGEMENT - SCORE: 6-AL BLADDER MANAGEMENT - FREQUENCY OF ACCIDENTS: BLADDER MANAGEMENT(FA) - STEP 1: How many accidents has the patient had during the current shift? 0 BOWEL MANAGEMENT: BOWEL MANAGEMENT - STEP 1: Does the patient control bowels completely and intentionally without equipment devices or medications AND is always continent? Yes. BOWEL MANAGEMENT - SCORE: 7-IND BOWEL MANAGEMENT - FREQUENCY OF ACCIDENTS: BOWEL MANAGEMENT(FA) - STEP 1: How many accidents has the patient had during the current shift? 0 TRANSFERS: BED, CHAIR, WHEELCHAIR: TRANSFERS: BED, CHAIR, WHEELCHAIR - STEP 1: Does the patient require assistance of a person or device, or need extra time with bed, chair, or whe elchair transfers? Yes. TRANSFERS: BED, CHAIR, WHEELCHAIR - STEP 2: Does the patient require the assistance of a helper? Yes. TRANSFERS: BED, CHAIR, WHEELCHAIR - STEP 3: How much assistance does the patient require from the helper? Steadying/guiding assistance TRANSFERS: BED, CHAIR, WHEELCHAIR - SCORE: 4-MIN TRANSFERS: TOILET: TRANSFERS: TOILET - STEP 1: Does the patient require the assistance of a person or device, or need extra time with toilet transfe rs? Yes. TRANSFERS: TOILET - STEP 2: Does the patient require the assistance of a helper? Yes. TRANSFERS: TOILET - STEP 3: How much assistance does the patient require from the helper? Patient performs half or more of the tr ansferring tasks TRANSFERS: TOILET - STEP 4: Does the patient need only incidental help such as contact guard or steadying during toilet transfer? No. Patient needs more than incidental help TRANSFERS: TOILET - SCORE: 3-MOD TRANSFERS: SHOWER: Activity did not occur on this shift TRANSFERS: SHOWER - SCORE: 0-UNK TRANSFERS: TUB: Activity did not occur on this shift TRANSFERS: TUB - SCORE: 0-UNK LOCOMOTION: WALK: Activity did not occur on this shift LOCOMOTION: WALK - SCORE: 0-UNK LOCOMOTION: WHEELCHAIR: Activity did not occur on this shift LOCOMOTION: WHEELCHAIR - SCORE: 0-UNK COMPREHENSION: COMPREHENSION: TYPE: Both COMPREHENSION - STEP 1: Does the patient require help from a person or device, or need extra time to understand complex and a bstract ideas (such as current events, finances, discharge planning, medical issues, relationships, e tc)? No. COMPREHENSION - STEP 2: Does the patient need extra time, require an assistive device (such as glasses for visual comprehensi on or a hearing aid for auditory comprehension) or does s/he have mild difficulty understanding compl ex and abstract information? Yes. COMPREHENSION - SCORE: 6-AL EXPRESSION EXPRESSION: TYPE: Both EXPRESSION - STEP 1: Does the patient require help from a person or device, or need extra time expressing complex and abst ract ideas (such as current events, finances, discharge planning, medical issues, relationships, etc) ? No. EXPRESSION - STEP 2: Does the patient need extra time, require an assistive device (such as augmentive communication syste m or a communication board), OR does s/he have mild difficulty expressing complex and abstract ideas (including mild dysarthria or mild word-find problems)? Yes. EXPRESSION - SCORE: 6-AL SOCIAL INTERACTION: SOCIAL INTERACTION - STEP 1: Does the patient require a helper to interact with others in social and therapeutic situations? Yes. SOCIAL INTERACTION - STEP 2: Does the patient interact appropriately half or more of the time? Yes. SOCIAL INTERACTION - STEP 3: How often does the patient need help to interact appropriately? Less than 10% of the time SOCIAL INTERACTION - SCORE: 5-SUP PROBLEM SOLVING: PROBLEM SOLVING - STEP 1: Does the patient need help from a person or device, or need extra time to solve complex problems such as managing a checking account or confronting interpersonal problems? Yes. PROBLEM SOLVING - STEP 2: Does the patient solve basic routine problems half or more of the time? Yes. PROBLEM SOLVING - STEP 3: How often does the patient need help to solve basic routine problems? Less than 10% of the time PROBLEM SOLVING - SCORE: 5-SUP MEMORY: MEMORY - STEP 1: Does the patient need help from a person or device, or need extra time to remember frequently encount ered people, daily routines, and executing requests? Yes. MEMORY - STEP 2: How often does the patient need help to remember frequently encountered people, daily routines, and e xecuting requests? Less than 10% of the time MEMORY - SCORE: 5-SUP SIGNATURE PANEL: The following modified sections: Eating - Score, Grooming - Score, Bathing - Score, Dressing - Upper Body - Score, Dressing - Lower Body - Score, Toileting - Score, Bladder Management - Score, Bowel Man agement - Score, Transfers: Bed, Chair, Wheelchair - Score, Transfers: Toilet - Score, Transfers: Christine wer - Score, Transfers: Tub - Score, Locomotion: Walk - Score, Locomotion: Wheelchair - Score, Compre hension - Score, Expression - Score, Social Interaction - Score, Problem Solving - Score, Memory - Sc ore were [electronically] signed by Paxton [email or web address] on FriJul 20 2018 14:30:28 T-0500 (Centra l Daylight Time)
--- NOTE | 2018-07-20 14:50 | FAST ---
ENCOUNTER DATE AND TIME: 07/20/2018 08:00 (CDT) NAME OFELIA GUARDADO DATE OF : 1940 DATE OF ADMISSION: 07/09/2018 17:21 (CDT) PHONE: AGE: 77 SSN# [id number] GENDER: Female ENCOUNTER PHYSICIAN: Dr. Marcio Barber M.D. ADMISSION DIAGNOSIS: - Debility 16 - Debility (16) Gastritis with bleeding, UTI, HX of STENT 2 months ago. EATING: Activity did not occur on this shift EATING - SCORE: 0-UNK GROOMING: Activity did not occur on this shift GROOMING - SCORE: 0-UNK BATHING: Activity did not occur on this shift BATHING - SCORE: 0-UNK DRESSING - UPPER BODY: Activity did not occur on this shift Patient is not dressing in public clothing ARTICLES SCORE Total number of steps: 0 DRESSING - UPPER BODY - SCORE: 0-UNK DRESSING - LOWER BODY: Activity did not occur on this shift Patient is not dressing in public clothing ARTICLES SCORE Total number of steps: 0 DRESSING - LOWER BODY - SCORE: 0-UNK TOILETING: Activity did not occur on this shift TOILETING - SCORE: 0-UNK BLADDER MANAGEMENT: Activity did not occur on this shift BLADDER MANAGEMENT - SCORE: 7-IND BOWEL MANAGEMENT: Activity did not occur on this shift BOWEL MANAGEMENT - SCORE: 7-IND TRANSFERS: BED, CHAIR, WHEELCHAIR: TRANSFERS: BED, CHAIR, WHEELCHAIR - STEP 1: Does the patient require assistance of a person or device, or need extra time with bed, chair, or whe elchair transfers? Yes. TRANSFERS: BED, CHAIR, WHEELCHAIR - STEP 2: Does the patient require the assistance of a helper? No. Patient only requires an assistive device fo r bed, chair, wheelchair transfers such as a sliding board, grab bar, or brace, OR s/he takes more th an reasonable time, OR there is a safety concern when s/he performs the transfers TRANSFERS: BED, CHAIR, WHEELCHAIR - SCORE: 6-AL TRANSFERS: TOILET: Activity did not occur on this shift TRANSFERS: TOILET - SCORE: 0-UNK TRANSFERS: SHOWER: Activity did not occur on this shift TRANSFERS: SHOWER - SCORE: 0-UNK TRANSFERS: TUB: Activity did not occur on this shift TRANSFERS: TUB - SCORE: 0-UNK LOCOMOTION: WALK: LOCOMOTION: WALK - STEP 1: Does the patient need help from a person or device, or need extra time to walk 150 feet? Yes. LOCOMOTION: WALK - STEP 2: How much assistance does the patient require to walk a minimum of 150 feet? Only supervision, cuing, or coaxing LOCOMOTION: WALK - SCORE: 5-SUP LOCOMOTION: WHEELCHAIR: LOCOMOTION: WHEELCHAIR - STEP 1: Does the patient need help to go 150 feet in a wheelchair? No. LOCOMOTION: WHEELCHAIR - SCORE: 6-AL LOCOMOTION: STAIRS: LOCOMOTION: STAIRS - STEP 1: Does the patient need help to go up and down 12 to 14 stairs? Yes. LOCOMOTION: STAIRS - STEP 2: How much assistance does the patient need from the helper to go a minimum of 12 to 14 stairs? Only romano pervision, cuing, or coaxing LOCOMOTION: STAIRS - SCORE: 5-SUP COMPREHENSION: COMPREHENSION - SCORE: 0-UNK EXPRESSION EXPRESSION - SCORE: 0-UNK SOCIAL INTERACTION: SOCIAL INTERACTION - SCORE: 0-UNK PROBLEM SOLVING: PROBLEM SOLVING - SCORE: 0-UNK MEMORY: MEMORY - SCORE: 0-UNK SIGNATURE PANEL: The following modified sections: Transfers: Bed, Chair, Wheelchair - Score, Transfers: Toilet - Score , Locomotion: Walk - Score, Locomotion: Wheelchair - Score, Locomotion: Stairs - Score were [juju lloyd] signed by Jignesh Salazar PTA on FriJul 20 2018 14:49:09 GMT-0500 (Central Daylight Time)
--- NOTE | 2018-07-20 17:34 | PN ---
Date of Progress Note: 07/20/2018 Subjective: The patient is seen and examined. Chart was reviewed and case was discussed with RN. N o acute events overnight. The patient will be leaving for group home facility today. Medications: List reviewed. Physical Examination: Vital Signs: Temperature 96.8, heart rate 57, blood pressure 116/69, respirations 16, O2 sat 97% on 2 L via nasal cannula. General: Awake, alert, oriented x3, not in any acute distress, obese, female, elderly. CV: S1-S2. No murmurs. Respiratory: Moving air well bilaterally. No wheezing. Gastrointestinal: Abdomen is soft, nontender, nondistended. Positive bowel sounds. Extremities: No clubbing, cyanosis, or edema. Neurologic: Nonfocal. Laboratory Data: WBC 4.2, H and H 9.4 and 28.5, platelets 193. Neutrophils 37%. Assessment And Plan: A 77-year-old female with, 1.Acute generalized weakness, improved with physical therapy. The patient is transitioning to [facility] facility. 2.Shortness of breath secondary to chronic obstructive pulmonary disease and congestive heart failur e. 3.Chronic obstructive pulmonary disease. The patient will need nebulizer treatments and supplementa l oxygen. 4.Essential tremor. 5.Hypothyroidism, levothyroxine. 6.Recent gastrointestinal bleed. Continue PPI. H and H are stable. 7.Acute cystitis without hematuria. The patient has completed meropenem for a total of 2 weeks. 8.The patient will need repeat urine culture for test of cure. 9.History of atrial fibrillation, currently in sinus rhythm. 10.Coronary artery disease status post stent, on Plavix. 11.Acute on chronic diastolic heart failure. Continue Lasix. 12.Hypertensive heart disease. Plan: The patient will be going to group home facility today. /JUDITH Voice ID: [id number] Report ID: [id number]
--- NOTE | 2018-07-20 18:27 | R.PN ---
ENCOUNTER DATE AND TIME: 07/20/2018 18:23 (CDT) NAME OFELIA GUARDADO DATE OF : 1940 DATE OF ADMISSION: 07/09/2018 17:21 (CDT) Gastritis with bleeding, UTI, HX of STENT 2 months agoCHIEF COMPLAINT: Debility SUBJECTIVE: Pt denied any Shortness of Breath. Pt denied any depression. Patient states that pain is under control. Hgb 9.4, WBC 4.2, prealbumin 11.7, calcium 8.1. pH 7.41, pCO2 66.4, pO2 78.1 Ambulated 380' with standby assistance using a rolling walker. Self propelled wheelchair 250' with mo dified independence. She required 2L of O2 via nasal cannulae. VITAL SIGNS Temperature: 97.2 F SBP/DBP: 120/60 Pulse: 60 Resp: 16 MEDICATION ALLERGIES: PNEUMOCOCCAL VACCINE ENVIRONMENTAL ALLERGIES: None Known - Substance Allergies None Known - Other Allergies None Known NURSING: - Shower allowing shower ACTIVITIES OOB only with supervision THERAPIES: - Occupational Therapy Evaluate and Treat. - Physical Therapy Evaluate and Treat. PHYSICAL EXAM - Gen Alert and awake Lying in bed No apparent distress Oriented to: person, time, and place - Skin No breakdown Normacephalic - Eyes No abnormalities - ENMT No abnormalities - Neck No abnormalities - CVS RRR - Chest Mildly decreased breath sounds bilaterally. - Resp No wheezing - Abd Soft - GI Non distended Deferred - No abnormalities - Ext No significant edema - MSK 4/5 weakness in both lower extremities. - Neuro 4/5 strength bilaterally upper and lower extremities. - Psych No abnormalities ASSESSMENT: Pt. is a 77 yo Right-handed white female.On 07/02/2018 she was admitted to [facility] with d iagnosis Gastritis with bleeding, UTI, HX of STENT 2 months ago.her impairment category is Debility 1 6 - Debility (16).Pre-morbidly, Pt. was independent/mod-I in Transfers Control, Balance, Locomotion, and Self-Care; and she had good Sphincter Control, Safety Awareness, Social Cognition, and Communica tion.Currently, she has deficits of Self-Care, Transfers Control, Endurance, Balance, Safety Awarenes s, and Locomotion.Pt. is now referred to [facility] for acute in-patient rehab ilitation in order to maximize patient's functional independence in activities of daily living, stren gth, ROM, and mobility.- Rehab Goal Patient has realistic goal of being discharged at assistance level 6-Audrey to reside at Home with Fam mary/Relatives. MDM/PLAN: - Physical Therapy Gait dysfunction - to improve, our physical therapists will perform initial evaluation of pt's statu s upon admission and devise an individualized program for Gait Training, and Wheel Chair mobility Inability to transfer - to improve, our physical therapists will perform initial evaluation of pt's status upon admission and devise an individualized program for Bed mobility Need for home safety evaluation - to improve, our physical therapists will perform initial evaluatio n of pt's status upon admission and devise an individualized program for Home Evaluation Need in caregiver upon discharge - to improve, our physical therapists will perform initial evaluati on of pt's status upon admission and devise an individualized program for Caregiver Training Edema - to improve, our physical therapists will perform initial evaluation of pt's status upon admi ssion and devise an individualized program for Elevation Training, and Lymphedema Therapy New precaution - to improve, our physical therapists will perform initial evaluation of pt's status upon admission and devise an individualized program for Patient precaution education Poor balance - to improve, our physical therapists will perform initial evaluation of pt's status up on admission and devise an individualized program for Balance Training Poor endurance - to improve, our physical therapists will perform initial evaluation of pt's status upon admission and devise an individualized program for Endurance Training Weakness - to improve, our physical therapists will perform initial evaluation of pt's status upon a dmission and devise an individualized program for Aquatic Therapy, Neuromuscular Reeducation, and Str engthening Achieving independence - to improve, our physical therapists will perform initial evaluation of pt's status upon admission and devise an individualized program for Community Reintegration Activities - Occupational Therapy ADL deficits - to improve, our occupation therapists will perform initial evaluation of pt's status upon admission and devise an individualized program for Bathing, Bed mobility, Community Reintegratio n, Cooking, Dressing, Eating, Fine Motor Skills, Grooming, Homemaking, Kitchen Mobility, Laundry, Pat ient Education, Safety Awareness, Splinting - Positioning, Transfers(Toilet, Tub, Shower), and Wheel Chair Management Need for lawn caretaker - to improve, our occupation therapists will perform initial evaluation of pt's status upon admission and devise an individualized program for Caregiver Training Weakness - to improve, our occupation therapists will perform initial evaluation of pt's status upon admission and devise an individualized program for Aquatic Therapy, Balance, Endurance, UE ROM, and UE strengthening - Diet Type Continue Regular - Diet - Liquid Texture Continue Regular - Tube Feed Continue N/A - Diet - Solid Texture Continue Regular - Shower allowing shower FUNCTIONAL STATUS: UPDATED AT WEEKLY TEAM CONFERENCE - Bladder Same accident frequency: 7-Ind - No accidents in the past 7 days - Bowel Same accident frequency: 7-Ind - No accidents in the past 7 days - Walking Same score based on distance walked: 3(>=150ft) FUNCTIONAL STATUS: - Self-Care A. Eating sup B. Grooming sup C. Bathing ADNO D. Dressing - Upper Ronaldo E. Dressing - Lower modA F. Toileting Ronaldo - Sphincter Control G: Bladder control Audrey H: Bowel control Ind - Transfers Control I. Bed/Chair/Wheelchair Ronaldo J. Toilet Ronaldo K. Tub/Shower ADNO - Locomotion L. Walk/Wheelchair (W) modA - Communication N. Comprehension (B) Audrey O. Expression (B) Ind - Social Cognition P. Social Interaction Ind Q. Problem Solving Ind R. Memory Ind - Endurance Poor - Balance Poor - Safety Awareness Poor CURRENT FUNC. DEFICITS: Self-Care, Transfers Control, Endurance, Balance, Safety Awareness, and Locomotion SIGNATURE PANEL: (CDT)
== END 2018-07-20 14:35 | DRG 947 ==
LOC: 5TH 17:21
PROVIDERS: ADMIT Psychiatry & Neurology Neurology with Special Qualifications in Child Neurology; ATTEND Psychiatry & Neurology Neurology with Special Qualifications in Child Neurology
PROC: 5A09357 Assistance with Respiratory Ventilation, Less than 24 Consecutive Hours, Continuous Positive Airway Pressure (ICD-10-PCS; principal; 2018-07-17)
DX: R53.81 Other malaise (principal); I50.33 Acute on chronic diastolic (congestive) heart failure; N30.00 Acute cystitis without hematuria; R53.1 Weakness; R25.1 Tremor, unspecified; I25.10 Atherosclerotic heart disease of native coronary artery without angina pectoris; J44.9 Chronic obstructive pulmonary disease, unspecified; I11.0 Hypertensive heart disease with heart failure; K21.9 Gastro-esophageal reflux disease without esophagitis; I48.2 Chronic atrial fibrillation; E03.9 Hypothyroidism, unspecified; E66.9 Obesity, unspecified; Z68.30 Body mass index [BMI] 30.0-30.9, adult
CPT/HCPCS: 36415; 71045; 80048; 81001; 82040; 82805; 83735; 84134; 85025; 87086; 87088; 94660; 97110; 97116; 97150; 97162; 97167; 97530; 97542; J1650; J1940; J7605